=== PATIENT | male | born 1950 | race Caucasian/White ===

== ENCOUNTER 2016-11-30 05:23 | Inpatient (IN) | payer OTHER ==
[2016-08-25 14:13] LABS: BASO % 0.2 %; BASO ABS # 0.03 K/uL (0-0.2); COMPLETE YES; EOS % 2.5 %; HEMATOCRIT 47.6 % (42-52); IG% 0.5 %; LYMPH % 17.7 %; LYMPH ABS # 2.15 K/uL (1.2-3.4); MEAN CELL VOLUME 101.5 fL (80-100); MEAN CORPUSCULAR HEMOGLOBIN 33.5 pg (25-34); MEAN PLATELET VOLUME 9.2 fL (7.4-10.4); MONO % 5.1 %; PLATELET COUNT 291 K/uL (130-400); RED BLOOD COUNT 4.69 M/uL (4.7-6.1); WHITE BLOOD COUNT 12.15 K/uL (4.8-10.8)
[2016-08-25 14:14] VITALS: BMI 25.0
--- NOTE | 2016-08-25 14:54 | PAT Medication Instructions ---
Service Date Aug 25, 2016. Current Home Medication List Atorvastatin (Lipitor), 20 MG PO QPM Buspirone Hcl (Buspar), 15 MG PO TID Carbamazepine (Tegretol), 200 MG PO QAM Carbamazepine (Tegretol), 400 MG PO HS Fluoxetine (Prozac), 40 MG PO QPM Hydroxyzine Hcl (Atarax), 50 MG PO TID PRN for RN Melatonin (Melatonin Maximum Strengt), 1 TAB PO HS Multivitamin (Multivitamin), 1 TAB PO QPM Naltrexone Hcl (Naltrexone Hcl), 1 TAB PO HS Olanzapine (Zyprexa), 20 MG PO HS Medication Instructions For Your Scheduled Surgery - Take the following medications the morning of surgery with a sip of water: Hydroxyzine Hcl (Atarax), 50 MG PO TID PRN for RN (if needed) Buspirone Hcl (Buspar), 15 MG PO TID Carbamazepine (Tegretol), 200 MG PO QAM - Take the following medications as scheduled the night before surgery: Olanzapine (Zyprexa), 20 MG PO HS Multivitamin (Multivitamin), 1 TAB PO QPM Melatonin (Melatonin Maximum Strengt), 1 TAB PO HS Hydroxyzine Hcl (Atarax), 50 MG PO TID PRN for RN (if needed) Fluoxetine (Prozac), 40 MG PO QPM Carbamazepine (Tegretol), 400 MG PO HS Buspirone Hcl (Buspar), 15 MG PO TID Atorvastatin (Lipitor), 20 MG PO QPM Naltrexone Hcl (Naltrexone Hcl), 1 TAB PO HS If you have any questions please call us at [phone] (Tavia Buenrostro PA-C) or [phone] or [phone]
[2016-11-17 16:28] VITALS: BMI 28.0
[~2016-11-30] VITALS: Ht 170.2 cm; Wt 81.8 kg
[2016-11-30] VITALS (11 sets, daily range): BP systolic 121–150; BP diastolic 59–81; PULSE 71–82; TEMP 36.3–36.9; O2SAT 91–99; Ht 170.2 cm; Wt 81.8 kg
[~2016-11-30 05:23] MED LIST: ATOR-22 PO; BUSP15TA70 PO; CARB200T PO; CEFOXITIN IV 2,000 MG in DEXTROSE 5% 50ML 50 ML IV SCH; CLON1INJ2 TOP; FLUO40CA8 PO; HYDR50CA2 PO; LACTATED RINGER'S 1000ML 1,000 ML IV SCH; MELATAB2 PO; MULT-506 PO; NALT50TA5 PO; PROP10TA7 PO; ZYP20 PO
[2016-11-30] MEDS: LACTATED RINGER'S 1000ML 1,000 ML IV SCH ×3 (06:25→11:47)
[2016-11-30] MEDS ORDERED: MIDAZOLAM HCL 1 MG/ML 2ML VIAL ONE (06:37)
[2016-11-30] MEDS ORDERED: FENTANYL CITRATE INJ 50 MCG/1 ML 2 ML VIAL ONE ×3 (06:38→09:35)
[2016-11-30] MEDS ORDERED: DEXAMETHASONE SOD INJ 4 MG/ML VIAL ONE (06:41)
[2016-11-30] MEDS ORDERED: PROPOFOL IV EMULSION 10 MG/ML 20 ML VIAL IV ONE (06:41)
[2016-11-30] MEDS ORDERED: GLYCOPYRROLATE INJ 0.2 MG/ML VIAL ONE (06:41)
[2016-11-30] MEDS ORDERED: ROCURONIUM BROMIDE 10 MG/ML 5 ML VIAL ONE ×2 (06:41→08:13)
[2016-11-30] MEDS ORDERED: NEOSTIGMINE METHYLSULFATE 5 MG/5 ML SYR ONE (06:41)
[2016-11-30] MEDS ORDERED: ONDANSETRON INJ 2 MG/ML 2 ML VIAL ONE (06:41)
[2016-11-30] MEDS ORDERED: LIDOCAINE HCL 2% 2 ML VIAL (20MG/ML) ONE (06:41)
--- NOTE | 2016-11-30 06:57 | History & Physical Bridge Note ---
H&P Re-Evaluation Bridge Note: I have examined the patient, reviewed the History & Physical and in the interval since the performance of the History & Physical I have noted the following changes of clinical significance: No changes noted
[2016-11-30] MEDS ORDERED: HYDROmorphone INJ 1 MG/ML SYR IV PRN (07:15)
[2016-11-30] MEDS ORDERED: ATROPINE SULFATE 0.1 MG/ML 5ML SYR IV PRN (07:15)
[2016-11-30] MEDS ORDERED: ONDANSETRON INJ 2 MG/ML 2 ML VIAL IV PRN (07:15)
[2016-11-30] MEDS ORDERED: EpHEDrine SULFATE INJ 50 MG/ML AMP IV PRN (07:15)
[2016-11-30] MEDS: CEFOXITIN IV 2,000 MG in DEXTROSE 5% 50ML 50 ML IV SCH ×2 (07:38→11:19)
[2016-11-30] MEDS ORDERED: BUPIVACAINE 0.5 % 5 MG/1 ML MPF 30ML VIAL ONE (07:50)
[2016-11-30] MEDS ORDERED: PHENYLEPHRINE 100MCG/ML 5ML SYR ONE (08:06)
--- NOTE | 2016-11-30 10:00 | [facility] Post Operative Brief Note ---
Immediate Operative Summary Operative Date Nov 30, 2016. Pre-Operative Diagnosis Adenomatous Polyp of Cecum with hydrodysplasia Post-Operative Diagnosis same as pre-operative Procedure(s) Performed Laparoscopic Assisted Right Colectomy Surgeon Dr. Mina Daly Office Automation Clerk Surgeon(s) Dr. Karissa Stubbs Estimated Blood Loss 20ML Findings See dictation Specimens A: Right Colon Drains None Anesthesia General Complication(s) None Disposition Recovery Room / PACU
[2016-11-30] MEDS ORDERED: LABETALOL HCL IV 5 MG/ML 20ML IV ONE (10:07)
[2016-11-30] MEDS ORDERED: NALOXONE HCL 0.4 MG/1 ML VIAL/CARP IV PRN (10:15)
[2016-11-30] MEDS: FENTANYL CITRATE INJ 50 MCG/1 ML 2 ML VIAL IV PRN ×3 (10:30→10:56)
[2016-11-30] MEDS ORDERED: HYDROmorphone HCL 0.5MG/ML 50 ML CASSETTE ONE (10:33)
--- NOTE | 2016-11-30 10:33 | OPERATIVE REPORT ---
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 POSTOPERATIVE DIAGNOSIS: Same. PROCEDURE: Laparoscopic-assisted right colectomy. SURGEON: Dr. Daly. DEMURRAGE AGENT: Karissa Stubbs MD. FINDINGS: The lesion was palpable in the colon. It did not appear to extend through the wall. There were no other lesions noted. The small-bowel was normal. The liver appeared to be of normal size and contour. The transverse colon was normal and the stomach appeared normal on the anterior wall. TECHNIQUE: The patient was given a general anesthetic and the area was prepped and draped in the usual sterile fashion. A vertical incision was made just above the umbilicus, carried down through the subcutaneous tissue to the fascia which was grasped with 2 Migdalia clamps and incised between. The peritoneum was identified, incised, and the introducer was placed bluntly. The abdomen was then insufflated to a pressure of 15 mmHg with carbon dioxide. Two 5 mm introducers were placed on the left side of the abdomen, one above the umbilicus and one below. Those were inserted under direct vision. I began at the cecum and reflecting it medially divided the attachments to the lateral abdominal wall at the line of Toldt. I had to divide some attachments of the terminal ileum as well. This dissection was carried from proximal to distal up toward the splenic flexure. Any attachments and flimsy adhesions of the mesentery and of the bowel were divided to mobilize it to the level of the mesentery. The omentum was then dissected off the transverse colon on the right side, working from medial to lateral. That allowed me then to establish a plane down along the mesentery of the transverse colon and this was divided up around the hepatic flexure, mobilizing the hepatic flexure mesentery and dividing any flimsy attachments so that it was completely mobilized. I then worked a little bit more medially on the transverse colon, the mesentery and dividing any attachments of the mesentery and any flimsy attachments which completely mobilized the right side of the transverse colon. The area was inspected for bleeding, none was seen. The small vertical incision above the umbilicus was then extended superiorly, carried down through the layers along the length of the skin incision. I was then able to eviscerate the cecum and the distal ileum. I then was able to eviscerate the entire right colon and proximal transverse colon. Site for division of the colon on the transverse side was made. The mesentery was off the wall of the bowel and the colon was divided using the ESTEFANY stapler. The bowel wall was then freed of any flimsy and fatty attachments. The site on the terminal ileum was chosen and the mesentery was away from the wall and it too was divided using the ESTEFANY stapler. The intervening mesentery was removed using a clamp-clamp, divide and ligate technique, ligating with 2-0 silk ties until the entire mesentery had been divided and the specimen was passed off. The area was inspected for bleeding, none was seen. The anastomosis was then performed. It was done in a functional end-to-end fashion by approximating the small-bowel lateral wall to the lateral wall of the colon using 3-0 silk stay sutures. The antimesenteric border of the staple line was removed and limb of the ESTEFANY stapler was placed into each side of the bowel and then fired. The common opening was closed with a firing of the TA stapler. Additional 3-0 silk stay sutures were placed for reinforcement. The mesentery was closed with running 2-0 Vicryl. The area of dissection was inspected for bleeding, none was seen. The anastomosis was placed back into its anatomic position and the omentum was brought down over it. The right side of the abdomen was irrigated and the irrigation was removed. The fascia of the vertical midline incision was closed with running #1 PDS and the skin of all the incisions was closed with andreia. Estimated blood loss was 20 mL. Sponge, needle and instrument counts were correct prior to closure. The patient tolerated the surgical procedure without complication and was transferred to recovery. I attest to the content of the Intraoperative Record and any orders documented therein. Any exception s are noted below.
--- NOTE | 2016-11-30 10:57 | Anesthesiology Progress Note ---
Anesthesia Post Op Note Date & Time Nov 30, 2016 at 10:56 Vital Signs Pain Intensity: 4.0 Vital Signs Past 12 Hours Date Time Temp Pulse Resp B/P (MAP) Pulse Ox O2 Delivery O2 Flow Rate FiO2 11/30/16 10:50 67 20 152/63 100 Nasal Cannula 2 11/30/16 10:40 68 20 148/84 98 Nasal Cannula 2 11/30/16 10:30 65 24 170/75 100 Nasal Cannula 2 11/30/16 10:20 66 20 161/67 100 Mask 10 11/30/16 10:10 65 18 183/75 100 Mask 10 11/30/16 10:03 36.9 82 16 202/86 100 Mask 10 11/30/16 05:58 36.5 74 20 150/81 99 Room Air Notes Mental Status: alert / awake / arousable, participated in evaluation Pt Amnestic to Procedure: Yes Nausea / Vomiting: adequately controlled Pain: adequately controlled Airway Patency, RR, SpO2: stable & adequate BP & HR: stable & adequate Hydration State: stable & adequate Anesthetic Complications: no major complications apparent
[2016-11-30] MEDS: SODIUM CHLORIDE 0.9% 1000ML 1,000 ML IV SCH ×2 (11:18→11:19)
[2016-11-30] MEDS ORDERED: EpHEDrine SULFATE 50MG/5ML SYR ONE (11:44)
[2016-11-30 12:27] LABS: HEMATOCRIT 38.7 % (42-52); MEAN CELL VOLUME 98.7 fL (80-100); MEAN CORPUSCULAR HEMOGLOBIN 31.9 pg (25-34); MEAN CORPUSCULAR HGB CONC 32.3 g/dl (32-36); MEAN PLATELET VOLUME 8.9 fL (7.4-10.4); PLATELET COUNT 259 K/uL (130-400); RED BLOOD COUNT 3.92 M/uL (4.7-6.1); WHITE BLOOD COUNT 13.13 K/uL (4.8-10.8)
[2016-11-30] MEDS: D5W AND 1/2NSS + 20MEQ KCL 1,000 ML IV SCH ×2 (12:44→19:48)
[2016-11-30 12:46] LABS: INR 1.1 (0.9-1.1); PARTIAL THROMBOPLASTIN RATIO 1.1; PROTHROMBIN TIME (PATIENT) 11.3 SECONDS (9.0-12.0)
[2016-11-30 12:50] LABS: CREATININE 0.88 mg/dl (0.60-1.40)
[2016-11-30] MEDS: HYDROmorphone HCL 0.5MG/ML 50 ML CASSETTE IV PRN ×2 (15:20→23:00)
[2016-11-30] MEDS: NICOTINE 21 MG/24 HR TDSY TD SCH (15:27)
[2016-11-30] MEDS: hydrOXYzine HCL 25 MG TAB PO SCH (22:06)
[2016-11-30] MEDS: OLANZAPINE 5 MG TAB PO SCH (22:07)
[2016-12-01] VITALS (9 sets, daily range): BP systolic 118–140; BP diastolic 62–70; PULSE 78–88; TEMP 36.6–37.3; O2SAT 79–98
[2016-12-01] MEDS: D5W AND 1/2NSS + 20MEQ KCL 1,000 ML IV SCH ×3 (03:04→19:55)
[2016-12-01 06:55] LABS: BASO % 0.1 %; BASO ABS # 0.01 K/uL (0-0.2); COMPLETE YES; EOS % 1.4 %; HEMATOCRIT 36.8 % (42-52); IG% 0.4 %; LYMPH % 18.7 %; LYMPH ABS # 1.88 K/uL (1.2-3.4); MEAN CELL VOLUME 101.9 fL (80-100); MEAN CORPUSCULAR HEMOGLOBIN 33.2 pg (25-34); MEAN CORPUSCULAR HGB CONC 32.6 g/dl (32-36); MEAN PLATELET VOLUME 9.1 fL (7.4-10.4); MONO % 10.4 %; PLATELET COUNT 244 K/uL (130-400); RED BLOOD COUNT 3.61 M/uL (4.7-6.1); WHITE BLOOD COUNT 10.06 K/uL (4.8-10.8)
[2016-12-01] MEDS: HYDROmorphone HCL 0.5MG/ML 50 ML CASSETTE IV PRN ×3 (07:12→22:56)
[2016-12-01 07:18] LABS: BUN/CREATININE RATIO 6.1 (10-20); CALCIUM 8.3 mg/dl (8.5-10.1); CREATININE 0.89 mg/dl (0.60-1.40); POTASSIUM 3.8 mmol/L (3.5-5.1)
--- NOTE | 2016-12-01 07:22 | Surgery Progress Note ---
Surgery Progress Note Date of Service Dec 01, 2016. Subjective Post OP Day: 1 + pain controlled, No bowel movement, No flatus, No nausea, No vomiting Objective Vital Signs: Date Time Temp Pulse Resp B/P (MAP) Pulse Ox O2 Delivery O2 Flow Rate FiO2 12/01/16 02:52 36.7 84 18 124/68 (86) 93 Room Air 11/30/16 23:26 Room Air 11/30/16 22:56 36.6 82 18 121/70 (87) 91 Room Air 11/30/16 22:14 95 Room Air 11/30/16 19:37 36.3 80 17 143/68 (93) 98 Nasal Cannula 1.0 11/30/16 17:58 96 Room Air 11/30/16 15:50 Nasal Cannula 1.0 11/30/16 15:16 36.7 77 18 130/74 (92) 96 Nasal Cannula 2.0 11/30/16 13:31 78 18 125/59 (81) 96 Nasal Cannula 2.0 11/30/16 12:23 36.7 72 20 121/69 (86) 99 Nasal Cannula 1.5 11/30/16 12:01 72 18 123/64 (83) 99 Nasal Cannula 2.0 11/30/16 12:00 Nasal Cannula 1.5 11/30/16 11:35 99 Room Air 2.0 11/30/16 11:30 36.9 71 20 121/68 (85) 99 Nasal Cannula 2.0 11/30/16 11:15 71 12 125/57 99 Nasal Cannula 2 11/30/16 11:10 36.9 65 12 128/59 99 Nasal Cannula 2 11/30/16 11:00 72 18 142/56 99 Nasal Cannula 2 11/30/16 10:50 67 20 152/63 100 Nasal Cannula 2 11/30/16 10:40 68 20 148/84 98 Nasal Cannula 2 11/30/16 10:30 65 24 170/75 100 Nasal Cannula 2 11/30/16 10:20 66 20 161/67 100 Mask 10 11/30/16 10:10 65 18 183/75 100 Mask 10 11/30/16 10:03 36.9 82 16 202/86 100 Mask 10 Abdomen: soft, + distended, + tenderness (mild) Laboratory Results: Results Past 24 Hours Test 11/30/16 12:10 12/01/16 06:26 Range/Units White Blood Count 13.13 10.06 4.8-10.8 K/uL Red Blood Count 3.92 3.61 4.7-6.1 M/uL Hemoglobin 12.5 12.0 14.0-18.0 g/dL Hematocrit 38.7 36.8 42-52 % Mean Corpuscular Volume 98.7 101.9 80-100 fL Mean Corpuscular Hemoglobin 31.9 33.2 25-34 pg Mean Corpuscular Hemoglobin Concent 32.3 32.6 32-36 g/dl RDW Standard Deviation 47.6 49.3 36.4-46.3 fL RDW Coefficient of Variation 13.1 13.2 11.5-14.5 % Platelet Count 259 244 130-400 K/uL Mean Platelet Volume 8.9 9.1 7.4-10.4 fL Prothrombin Time 11.3 9.0-12.0 SECONDS Prothromb Time International Ratio 1.1 0.9-1.1 Activated Partial Thromboplast Time 29.4 21.0-31.0 SECONDS Partial Thromboplastin Ratio 1.1 Creatinine 0.88 0.89 0.60-1.40 mg/dl Est Creatinine Clear Calc Drug Dose 84.6 83.6 ml/min Estimated GFR () 103.7 103.3 Estimated GFR (Non- 89.5 89.1 Neutrophils (%) (Auto) 69.0 % Lymphocytes (%) (Auto) 18.7 % Monocytes (%) (Auto) 10.4 % Eosinophils (%) (Auto) 1.4 % Basophils (%) (Auto) 0.1 % Neutrophils # (Auto) 6.94 1.4-6.5 K/uL Lymphocytes # (Auto) 1.88 1.2-3.4 K/uL Monocytes # (Auto) 1.05 0.11-0.59 K/uL Eosinophils # (Auto) 0.14 0-0.5 K/uL Basophils # (Auto) 0.01 0-0.2 K/uL Immature Granulocyte % (Auto) 0.4 % Immature Granulocyte # (Auto) 0.04 0.00-0.02 K/uL Sodium Level 135 136-145 mmol/L Potassium Level 3.8 3.5-5.1 mmol/L Chloride Level 101 98-107 mmol/L Carbon Dioxide Level 28 21-32 mmol/L Anion Gap 6.0 3-11 mmol/L Blood Urea Nitrogen 5 7-18 mg/dl BUN/Creatinine Ratio 6.1 10-20 Random Glucose 122 70-99 mg/dl Calcium Level 8.3 8.5-10.1 mg/dl Assessment & Plan S/P right colectomy Stable Labs noted Abd distended, would not initiate diet as yet. Ambulate
--- NOTE | 2016-12-01 08:42 | Anesthesiology Progress Note ---
Anesthesia Post Op Note Date & Time Dec 01, 2016 at 08:39 Vital Signs Pain Intensity: 4.0 Vital Signs Past 12 Hours Date Time Temp Pulse Resp B/P (MAP) Pulse Ox O2 Delivery O2 Flow Rate FiO2 12/01/16 08:16 90 Nasal Cannula 12/01/16 07:59 90 Nasal Cannula 2.0 12/01/16 07:52 36.6 88 18 118/64 (82) 79 Room Air 12/01/16 02:52 36.7 84 18 124/68 (86) 93 Room Air 11/30/16 23:26 Room Air 11/30/16 22:56 36.6 82 18 121/70 (87) 91 Room Air 11/30/16 22:14 95 Room Air Notes Mental Status: alert / awake / arousable, participated in evaluation Pt Amnestic to Procedure: Yes Nausea / Vomiting: adequately controlled Pain: adequately controlled Airway Patency, RR, SpO2: stable & adequate, see Notes BP & HR: stable & adequate Hydration State: stable & adequate Anesthetic Complications: no major complications apparent Pt O2 sat 79% on RA when check in am. Placed on 2L O2 sat increased to 90%. Educated and encouraged use of IS, Deep breathing, and ambulation as tolerated.
[2016-12-01] MEDS: NICOTINE 21 MG/24 HR TDSY TD SCH (08:45)
[2016-12-01] MEDS: hydrOXYzine HCL 25 MG TAB PO SCH ×3 (08:46→20:44)
[2016-12-01] MEDS: ENOXAPARIN 40 MG/0.4 ML SYR SQ SCH (10:53)
[2016-12-01] MEDS: OLANZAPINE 5 MG TAB PO SCH (20:44)
[2016-12-02] VITALS (8 sets, daily range): BP systolic 106–136; BP diastolic 60–79; PULSE 61–91; TEMP 36.6–37.3; O2SAT 89–98
[2016-12-02] MEDS: D5W AND 1/2NSS + 20MEQ KCL 1,000 ML IV SCH ×3 (03:36→19:36)
[2016-12-02 07:00] LABS: BASO % 0.2 %; BASO ABS # 0.02 K/uL (0-0.2); COMPLETE YES; HEMATOCRIT 32.2 % (42-52); IG% 0.2 %; LYMPH % 21.2 %; LYMPH ABS # 1.75 K/uL (1.2-3.4); MEAN CELL VOLUME 102.9 fL (80-100); MEAN CORPUSCULAR HEMOGLOBIN 33.5 pg (25-34); MEAN CORPUSCULAR HGB CONC 32.6 g/dl (32-36); MEAN PLATELET VOLUME 9.2 fL (7.4-10.4); MONO % 9.1 %; NEUT % 66.3 %; PLATELET COUNT 196 K/uL (130-400); RED BLOOD COUNT 3.13 M/uL (4.7-6.1); WHITE BLOOD COUNT 8.26 K/uL (4.8-10.8)
[2016-12-02 07:36] LABS: BUN/CREATININE RATIO 3.2 (10-20); CALCIUM 7.9 mg/dl (8.5-10.1); CREATININE 0.69 mg/dl (0.60-1.40); POTASSIUM 3.7 mmol/L (3.5-5.1)
[2016-12-02] MEDS: hydrOXYzine HCL 25 MG TAB PO SCH ×3 (09:41→20:30)
[2016-12-02] MEDS: NICOTINE 21 MG/24 HR TDSY TD SCH (09:42)
[2016-12-02] MEDS: ENOXAPARIN 40 MG/0.4 ML SYR SQ SCH (09:42)
[2016-12-02] MEDS: SODIUM CHLORIDE 0.9% 1000ML 1,000 ML IV SCH (10:09)
--- NOTE | 2016-12-02 13:07 | Surgery Progress Note ---
Surgery Progress Note Date of Service Dec 02, 2016. Subjective Post OP Day: 2 + feeling well, + ambulating (to bathroom), No chest pain, No SOB, No bowel movement, No flatus, No nausea, No vomiting having moderate abdominal pain, pain medication somewhat helping No flatus or bowel movement Objective Vital Signs: Date Time Temp Pulse Resp B/P (MAP) Pulse Ox O2 Delivery O2 Flow Rate FiO2 12/02/16 11:16 36.6 77 16 115/65 (82) 92 Room Air 12/02/16 10:21 96 Room Air 12/02/16 08:00 Room Air 12/02/16 07:04 36.8 79 16 136/79 (98) 98 Nasal Cannula 2.0 12/02/16 03:09 37.3 61 19 106/60 (75) 96 Nasal Cannula 2.0 12/01/16 23:33 Nasal Cannula 2.0 12/01/16 23:03 37.3 82 18 124/64 (84) 94 Nasal Cannula 2.0 12/01/16 19:15 37.3 82 18 126/70 (88) 94 2.0 12/01/16 15:35 Nasal Cannula 2.0 12/01/16 15:23 36.7 79 18 131/69 (89) 92 Nasal Cannula 2.0 General Appearance: WD/WN, no apparent distress Head: normocephalic, atraumatic Neck: trachea midline Respiratory/Chest: lungs clear, normal breath sounds, no respiratory distress, no accessory muscle use Cardiovascular: regular rate, rhythm, no murmur Abdomen: soft, + abnormal bowel sounds (hypoactive), + distended, + tenderness (generalized tenderness on light palpation, no peritonitis, rigidity, or rebound ) Laboratory Results: Results Past 24 Hours Test 12/02/16 06:24 Range/Units White Blood Count 8.26 4.8-10.8 K/uL Red Blood Count 3.13 4.7-6.1 M/uL Hemoglobin 10.5 14.0-18.0 g/dL Hematocrit 32.2 42-52 % Mean Corpuscular Volume 102.9 80-100 fL Mean Corpuscular Hemoglobin 33.5 25-34 pg Mean Corpuscular Hemoglobin Concent 32.6 32-36 g/dl Platelet Count 196 130-400 K/uL Mean Platelet Volume 9.2 7.4-10.4 fL Neutrophils (%) (Auto) 66.3 % Lymphocytes (%) (Auto) 21.2 % Monocytes (%) (Auto) 9.1 % Eosinophils (%) (Auto) 3.0 % Basophils (%) (Auto) 0.2 % Neutrophils # (Auto) 5.47 1.4-6.5 K/uL Lymphocytes # (Auto) 1.75 1.2-3.4 K/uL Monocytes # (Auto) 0.75 0.11-0.59 K/uL Eosinophils # (Auto) 0.25 0-0.5 K/uL Basophils # (Auto) 0.02 0-0.2 K/uL RDW Standard Deviation 49.4 36.4-46.3 fL RDW Coefficient of Variation 13.2 11.5-14.5 % Immature Granulocyte % (Auto) 0.2 % Immature Granulocyte # (Auto) 0.02 0.00-0.02 K/uL Sodium Level 137 136-145 mmol/L Potassium Level 3.7 3.5-5.1 mmol/L Chloride Level 105 98-107 mmol/L Carbon Dioxide Level 30 21-32 mmol/L Anion Gap 2.0 3-11 mmol/L Blood Urea Nitrogen 2 7-18 mg/dl Creatinine 0.69 0.60-1.40 mg/dl Est Creatinine Clear Calc Drug Dose 107.8 ml/min Estimated GFR () 114.7 Estimated GFR (Non- 98.9 BUN/Creatinine Ratio 3.2 10-20 Random Glucose 113 70-99 mg/dl Calcium Level 7.9 8.5-10.1 mg/dl Assessment & Plan POD # 2 s/p right hemicolectomy -vitals stable - no leukocytosis, H&H stable - no return of bowel function -adequate urine output - pain moderate Plan: Continue SPEECH WRITER as needed for pain Continue NPO, await return of bowel function to advance to clears Continue IV fluids Continue PO Zyprexa, Vistaril, and Buspar Continue IV Zofran Continue Lovenox and SCDs Encourage ambulation and OOB to chair as much as possible Dr. Stubbs has seen and examined patient, agrees with above
[2016-12-02] MEDS: HYDROmorphone HCL 0.5MG/ML 50 ML CASSETTE IV PRN ×2 (17:01→22:44)
[2016-12-02] MEDS: OLANZAPINE 5 MG TAB PO SCH (20:30)
[2016-12-03] VITALS (7 sets, daily range): BP systolic 119–148; BP diastolic 62–80; PULSE 78–96; TEMP 36.6–37.4; O2SAT 92–99
[2016-12-03] MEDS: D5W AND 1/2NSS + 20MEQ KCL 1,000 ML IV SCH ×3 (04:20→20:59)
[2016-12-03] MEDS: HYDROmorphone HCL 0.5MG/ML 50 ML CASSETTE IV PRN (06:47)
[2016-12-03] MEDS: hydrOXYzine HCL 25 MG TAB PO SCH ×3 (08:03→20:58)
[2016-12-03] MEDS: NICOTINE 21 MG/24 HR TDSY TD SCH (08:04)
[2016-12-03] MEDS: SODIUM CHLORIDE 0.9% 1000ML 1,000 ML IV SCH (08:05)
[2016-12-03 08:21] LABS: HEMATOCRIT 35.4 % (42-52); MEAN CORPUSCULAR HEMOGLOBIN 33.1 pg (25-34); MEAN CORPUSCULAR HGB CONC 32.5 g/dl (32-36); MEAN PLATELET VOLUME 9.3 fL (7.4-10.4); PLATELET COUNT 227 K/uL (130-400); RED BLOOD COUNT 3.47 M/uL (4.7-6.1); WHITE BLOOD COUNT 12.44 K/uL (4.8-10.8)
--- NOTE | 2016-12-03 08:40 | Surgery Progress Note ---
Surgery Progress Note Date of Service Dec 03, 2016. Subjective Post OP Day: 3 (s/p right hemicolectomy with primary anastomosis) + feeling well, + ambulating (to bathroom), + bowel movement, + pain controlled , No chest pain, No SOB, No flatus, No nausea, No vomiting, No diet Objective Vital Signs: Date Time Temp Pulse Resp B/P (MAP) Pulse Ox O2 Delivery O2 Flow Rate FiO2 12/03/16 08:06 36.6 88 16 122/62 (82) 95 Nasal Cannula 2.0 12/03/16 03:10 37.4 81 19 148/78 (101) 95 Nasal Cannula 2.0 12/02/16 23:13 37.1 88 19 132/70 (90) 92 Nasal Cannula 2.0 12/02/16 23:05 89 Nasal Cannula 2.0 12/02/16 19:06 37.1 75 18 115/65 (82) 93 Room Air 12/02/16 15:43 37.2 91 16 129/68 (88) 94 Nasal Cannula 2.0 12/02/16 15:35 Nasal Cannula 2.0 12/02/16 11:16 36.6 77 16 115/65 (82) 92 Room Air 12/02/16 10:21 96 Room Air General Appearance: WD/WN, no apparent distress Head: normocephalic, atraumatic Neck: trachea midline Respiratory/Chest: lungs clear, normal breath sounds, no respiratory distress, no accessory muscle use Cardiovascular: regular rate, rhythm, + systolic murmur Abdomen: non distended, soft, + tenderness (appropriate post op, generalized, improving) Incision(s): clean, dry, intact, no erythema, no drainage, findings (andreia present) Laboratory Results: Results Past 24 Hours Test 12/03/16 07:54 Range/Units White Blood Count 12.44 4.8-10.8 K/uL Red Blood Count 3.47 4.7-6.1 M/uL Hemoglobin 11.5 14.0-18.0 g/dL Hematocrit 35.4 42-52 % Mean Corpuscular Volume 102.0 80-100 fL Mean Corpuscular Hemoglobin 33.1 25-34 pg Mean Corpuscular Hemoglobin Concent 32.5 32-36 g/dl RDW Standard Deviation 48.0 36.4-46.3 fL RDW Coefficient of Variation 12.8 11.5-14.5 % Platelet Count 227 130-400 K/uL Mean Platelet Volume 9.3 7.4-10.4 fL Nucleated RBC Absolute Count (auto) 0.00 0-0 K/uL Nucleated Red Blood Cells % 0.0 % Assessment & Plan POD # 3 s/p right hemicolectomy - vitals stable - no leukocytosis, H&H stable - + bowel movement per patient - adequate urine output - pain mild, improving Plan: once tolerates clear liquids will start PO narcotics, 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 Daly has seen patient, agrees with above
[2016-12-03 08:48] LABS: CREATININE 0.74 mg/dl (0.60-1.40)
[2016-12-03] MEDS: ENOXAPARIN 40 MG/0.4 ML SYR SQ SCH (10:07)
[2016-12-03] MEDS: OXYCODONE/ACETAMINOPHEN 5-325 TAB PO PRN ×2 (16:02→20:58)
[2016-12-03] MEDS: ONDANSETRON INJ 2 MG/ML 2 ML VIAL IV PRN ×2 (18:32→19:26)
[2016-12-03] MEDS: OLANZAPINE 5 MG TAB PO SCH (20:52)
[2016-12-04] MEDS: OXYCODONE/ACETAMINOPHEN 5-325 TAB PO PRN ×5 (04:30→22:41)
[2016-12-04 06:56] VITALS: BP 145/80; PULSE 89; TEMP 36.6; O2SAT 93
--- NOTE | 2016-12-04 07:12 | Surgery Progress Note ---
Surgery Progress Note Date of Service Dec 04, 2016. Subjective Post OP Day: 4 + feeling well, + bowel movement, + flatus, + pain controlled, + diet ( tolerated clear liquids), No nausea, No vomiting Objective Vital Signs: Date Time Temp Pulse Resp B/P (MAP) Pulse Ox O2 Delivery O2 Flow Rate FiO2 12/04/16 06:56 36.6 89 18 145/80 (101) 93 Room Air 12/04/16 00:25 Room Air 12/03/16 22:56 36.6 78 18 121/73 (89) 95 Room Air 12/03/16 15:30 Room Air 12/03/16 15:01 37.3 96 18 119/70 (86) 93 Room Air 12/03/16 12:14 36.7 84 14 138/80 (99) 92 Room Air 12/03/16 08:41 95 Nasal Cannula 2.0 12/03/16 08:06 36.6 88 16 122/62 (82) 95 Nasal Cannula 2.0 12/03/16 08:00 Nasal Cannula 2.0 Abdomen: normal bowel sounds, non distended, soft, + tenderness (minimal) Incision(s): clean, dry, intact, no erythema, no drainage Laboratory Results: Results Past 24 Hours Test 12/03/16 07:54 Range/Units White Blood Count 12.44 4.8-10.8 K/uL Red Blood Count 3.47 4.7-6.1 M/uL Hemoglobin 11.5 14.0-18.0 g/dL Hematocrit 35.4 42-52 % Mean Corpuscular Volume 102.0 80-100 fL Mean Corpuscular Hemoglobin 33.1 25-34 pg Mean Corpuscular Hemoglobin Concent 32.5 32-36 g/dl RDW Standard Deviation 48.0 36.4-46.3 fL RDW Coefficient of Variation 12.8 11.5-14.5 % Platelet Count 227 130-400 K/uL Mean Platelet Volume 9.3 7.4-10.4 fL Nucleated RBC Absolute Count (auto) 0.00 0-0 K/uL Nucleated Red Blood Cells % 0.0 % Creatinine 0.74 0.60-1.40 mg/dl Est Creatinine Clear Calc Drug Dose 100.5 ml/min Estimated GFR () 111.4 Estimated GFR (Non- 96.1 Assessment & Plan S/P right colectomy Stable Tolerated full liquids, advance to regular diet Ambulate For possible discharge tomorrow
[2016-12-04] MEDS: hydrOXYzine HCL 25 MG TAB PO SCH ×3 (07:53→21:40)
[2016-12-04] MEDS: NICOTINE 21 MG/24 HR TDSY TD SCH (07:53)
[2016-12-04] MEDS: D5W AND 1/2NSS + 20MEQ KCL 1,000 ML IV SCH ×2 (09:15→21:41)
[2016-12-04] MEDS: ENOXAPARIN 40 MG/0.4 ML SYR SQ SCH (09:16)
--- NOTE | 2016-12-04 10:31 | Discharge Instructions ---
Discharge Instructions Date of Service Dec 04, 2016. Admission Reason for Admission: Adenomatous Polyp Discharge Discharge Diagnosis / Problem: Same Discharge Goals Goal(s): Decrease discomfort, Improve function Activity Recommendations Activity Limitations: as noted below -No lifting greater than 10lbs for 4-6 weeks -You may shower, just wash gently over the incision with warm, soapy water. Do not scrub. Do not soak your incision, as in a bathtub or swimming pool. -Do not drive until you are no longer taking narcotic pain medications and are completely pain free . Instructions / Follow-Up Instructions / Follow-Up -Follow up next Wednesday (12/11/16) in the clinic for wound check and staple removal; please call to make this appointment. Current Hospital Diet Patient's current hospital diet: Regular Diet Discharge Diet Recommended Diet: Low Fiber Diet Procedures Procedures Performed: Laparoscopic Assisted Right Colectomy Pending Studies Studies pending at discharge: no Medical Emergencies . Who to Call and When: Medical Emergencies: If at any time you feel your situation is an emergency, please call 911 immediately. . Non-Emergent Contact Non-Emergency issues call your: Primary Care Provider, Surgeon Call Non-Emergent contact if: temperature is above 101, your pain is not controlled, your pain is worsening, wound has increased drainage, wound has increased redness, wound has increased pain . "Provider Documentation" section prepared by Karissa Stubbs. . VTE Core Measure Inpt VTE Proph given/why not?: Enoxaparin (Lovenox)SQ, SCD's [place] Drug Monitoring Program Search Results: patient reviewed within database, no issues identified
[2016-12-04] MEDS ORDERED: OXYC-57 PO (15:07)
[2016-12-04 15:23] VITALS: BP 130/76; PULSE 88; TEMP 37.1; O2SAT 96
[2016-12-04] MEDS: OLANZAPINE 5 MG TAB PO SCH (21:40)
[2016-12-04 22:57] VITALS: BP 139/82; PULSE 87; TEMP 36.9; O2SAT 95
[2016-12-05] MEDS: OXYCODONE/ACETAMINOPHEN 5-325 TAB PO PRN ×3 (06:18→19:05)
[2016-12-05 07:37] VITALS: BP 116/76; PULSE 92; TEMP 37.4; O2SAT 94
[2016-12-05 08:29] LABS: BASO % 0.2 %; BASO ABS # 0.02 K/uL (0-0.2); COMPLETE YES; EOS % 4.7 %; HEMATOCRIT 35.2 % (42-52); IG% 0.3 %; LYMPH % 12.6 %; LYMPH ABS # 1.24 K/uL (1.2-3.4); MEAN CELL VOLUME 99.4 fL (80-100); MEAN CORPUSCULAR HEMOGLOBIN 31.6 pg (25-34); MEAN CORPUSCULAR HGB CONC 31.8 g/dl (32-36); MEAN PLATELET VOLUME 8.8 fL (7.4-10.4); MONO % 10.2 %; PLATELET COUNT 271 K/uL (130-400); RED BLOOD COUNT 3.54 M/uL (4.7-6.1); WHITE BLOOD COUNT 9.88 K/uL (4.8-10.8)
[2016-12-05] MEDS: NICOTINE 21 MG/24 HR TDSY TD SCH (08:48)
[2016-12-05] MEDS: hydrOXYzine HCL 25 MG TAB PO SCH ×3 (08:51→20:34)
[2016-12-05] MEDS: ONDANSETRON INJ 2 MG/ML 2 ML VIAL IV PRN (08:56)
[2016-12-05] MEDS: D5W AND 1/2NSS + 20MEQ KCL 1,000 ML IV SCH ×2 (09:00→21:17)
[2016-12-05] MEDS: ENOXAPARIN 40 MG/0.4 ML SYR SQ SCH (10:44)
--- NOTE | 2016-12-05 14:36 | Surgery Progress Note ---
Surgery Progress Note Date of Service Dec 05, 2016. Subjective doing ok but poor appetite. concerned about going home b/c he lives alone. Objective Vital Signs: Date Time Temp Pulse Resp B/P (MAP) Pulse Ox O2 Delivery O2 Flow Rate FiO2 12/05/16 07:52 Room Air 12/05/16 07:37 37.4 92 18 116/76 (89) 94 Room Air 12/04/16 23:25 Room Air 12/04/16 22:57 36.9 87 14 139/82 (101) 95 Room Air 12/04/16 20:30 Room Air 12/04/16 15:25 Room Air 12/04/16 15:23 37.1 88 18 130/76 (94) 96 Room Air General Appearance: no apparent distress Abdomen: non distended, soft Incision(s): clean, dry Laboratory Results: Results Past 24 Hours Test 12/05/16 07:56 Range/Units White Blood Count 9.88 4.8-10.8 K/uL Red Blood Count 3.54 4.7-6.1 M/uL Hemoglobin 11.2 14.0-18.0 g/dL Hematocrit 35.2 42-52 % Mean Corpuscular Volume 99.4 80-100 fL Mean Corpuscular Hemoglobin 31.6 25-34 pg Mean Corpuscular Hemoglobin Concent 31.8 32-36 g/dl Platelet Count 271 130-400 K/uL Mean Platelet Volume 8.8 7.4-10.4 fL Neutrophils (%) (Auto) 72.0 % Lymphocytes (%) (Auto) 12.6 % Monocytes (%) (Auto) 10.2 % Eosinophils (%) (Auto) 4.7 % Basophils (%) (Auto) 0.2 % Neutrophils # (Auto) 7.12 1.4-6.5 K/uL Lymphocytes # (Auto) 1.24 1.2-3.4 K/uL Monocytes # (Auto) 1.01 0.11-0.59 K/uL Eosinophils # (Auto) 0.46 0-0.5 K/uL Basophils # (Auto) 0.02 0-0.2 K/uL RDW Standard Deviation 47.8 36.4-46.3 fL RDW Coefficient of Variation 13.0 11.5-14.5 % Immature Granulocyte % (Auto) 0.3 % Immature Granulocyte # (Auto) 0.03 0.00-0.02 K/uL Assessment & Plan doing ok will give him another 24 hours for pain control and trial of po intake likely d/c tomorrow.
[2016-12-05 15:52] VITALS: BP 133/82; PULSE 75; TEMP 36.9; O2SAT 96
[2016-12-05 20:29] VITALS: BP 146/78; PULSE 77
[2016-12-05] MEDS: OLANZAPINE 5 MG TAB PO SCH (20:33)
[2016-12-05 22:50] VITALS: BP 144/75; PULSE 77; TEMP 36.8; O2SAT 96
[2016-12-06 06:49] LABS: MEAN CELL VOLUME 100.6 fL (80-100); MEAN CORPUSCULAR HEMOGLOBIN 32.8 pg (25-34); MEAN CORPUSCULAR HGB CONC 32.6 g/dl (32-36); MEAN PLATELET VOLUME 9.1 fL (7.4-10.4); PLATELET COUNT 272 K/uL (130-400); RED BLOOD COUNT 3.38 M/uL (4.7-6.1); WHITE BLOOD COUNT 8.68 K/uL (4.8-10.8)
[2016-12-06 07:15] LABS: CREATININE 0.89 mg/dl (0.60-1.40)
[2016-12-06 07:25] VITALS: BP 150/80; PULSE 83; TEMP 36.8; O2SAT 92
[2016-12-06] MEDS: D5W AND 1/2NSS + 20MEQ KCL 1,000 ML IV SCH (08:48)
[2016-12-06] MEDS: NICOTINE 21 MG/24 HR TDSY TD SCH (08:48)
[2016-12-06] MEDS: hydrOXYzine HCL 25 MG TAB PO SCH (08:49)
[2016-12-06] MEDS: OXYCODONE/ACETAMINOPHEN 5-325 TAB PO PRN (09:14)
--- NOTE | 2016-12-06 09:20 | Surgery Progress Note ---
Surgery Progress Note Date of Service Dec 06, 2016. Subjective + feeling well Objective Vital Signs: Date Time Temp Pulse Resp B/P (MAP) Pulse Ox O2 Delivery O2 Flow Rate FiO2 12/06/16 08:23 Room Air 12/06/16 07:25 36.8 83 18 150/80 (103) 92 Room Air 12/05/16 23:30 Room Air 12/05/16 22:50 36.8 77 16 144/75 (98) 96 Room Air 12/05/16 20:29 77 146/78 (100) 12/05/16 16:10 Room Air 12/05/16 15:52 36.9 75 18 133/82 (99) 96 Room Air General Appearance: no apparent distress Abdomen: non tender, non distended, soft Laboratory Results: Results Past 24 Hours Test 12/06/16 06:16 Range/Units White Blood Count 8.68 4.8-10.8 K/uL Red Blood Count 3.38 4.7-6.1 M/uL Hemoglobin 11.1 14.0-18.0 g/dL Hematocrit 34.0 42-52 % Mean Corpuscular Volume 100.6 80-100 fL Mean Corpuscular Hemoglobin 32.8 25-34 pg Mean Corpuscular Hemoglobin Concent 32.6 32-36 g/dl RDW Standard Deviation 47.5 36.4-46.3 fL RDW Coefficient of Variation 13.1 11.5-14.5 % Platelet Count 272 130-400 K/uL Mean Platelet Volume 9.1 7.4-10.4 fL Creatinine 0.89 0.60-1.40 mg/dl Est Creatinine Clear Calc Drug Dose 83.6 ml/min Estimated GFR () 103.3 Estimated GFR (Non- 89.1 Assessment & Plan 12/06/16 doing well/ok for d/c instructions given 12/05/16 doing ok will give him another 24 hours for pain control and trial of po intake likely d/c tomorrow. doing ok will give him another 24 hours for pain control and trial of po intake likely d/c tomorrow.
[2016-12-06 10:11] VITALS: BP 150/80; PULSE 83; TEMP 36.8; O2SAT 92
[2016-12-06] MEDS: ENOXAPARIN 40 MG/0.4 ML SYR SQ SCH (10:15)
--- NOTE | 2016-12-07 09:24 | Discharge Summary ---
Discharge Summary Dates Admission Date / Time: Nov 30, 2016 at 06:53 Discharge Date: Dec 06, 2016 Dispostion / Condition Discharge Disposition: Home Condition at Discharge: Good Principal Diagnosis (1) Adenocarcinoma, colon (2) Adenoma of cecum Problem List (1) Adenocarcinoma, colon (2) Adenoma of cecum Consultations / Procedures Consultations: None Procedures: Laparoscopic assisted right hemicolectomy with primary anastomosis Pending Studies / Follow-Up None Pathology was reviewed with patient while he was in hospital, will be reviewed again at follow-up visit Medication Reconciliation New Medications: Oxycodone/Acetaminophen 5MG/325MG (Percocet 5MG/325MG) Tab 1-2 TABLETS PO Q4H PRN for Pain, #30 TAB Continued Medications: Atorvastatin (Lipitor) 20 Mg Tab 20 MG PO QPM, TAB Buspirone Hcl (Buspar) 15 Mg Tab 15 MG PO TID, TAB Carbamazepine (Tegretol) 200 Mg Tab 200 MG PO QAM, TAB Carbamazepine (Tegretol) 200 Mg Tab 400 MG PO HS, TAB Clonidine Hcl (Analgesia) (Clonidine Hcl) Unknown Strength Inj 1 PATCH TOP WK Fluoxetine (Prozac) 40 Mg Cap 40 MG PO QAM, CAP Hydroxyzine Pamoate (Vistaril) 50 Mg Cap 50 MG PO TID, CAP Melatonin (Melatonin Maximum Strengt) 5 Mg Tab 2 TAB PO HS for 30 Days, #30 TAB 1 Refill Multivitamin (Multivitamin) Tab 1 TAB PO QAM, TAB Naltrexone Hcl (Naltrexone Hcl) 50 Mg Tab 1 TAB PO HS for 30 Days, TAB 1 Refill WAS TOLD TO STOP FOR THE PROCEDURE - NOT TAKING CURRENTLY Olanzapine (Zyprexa) 20 Mg Tab 20 MG PO HS, TAB Propranolol (Inderal) 10 Mg Tab 10 MG PO BID, TAB Admission HPI Per the Admitting provider: Elijah underwent colonoscopy in which he was found to have a adenomatous polyp with high grade dysplasia. He was scheduled with Dr. Daly for right hemicolectomy given the high grade dysplasia. Hospital Course (1) Adenoma of cecum Patient was electively scheduled for laparoscopic assisted right hemicolectomy by Dr. Daly. He was taken to operating room and underwent proposed procedure. Procedure went well without any complications and was transferred to recovery room in stable condition. He was then transferred to Med/Surg floor for post operative care. Post operative orders included NPO, Iv fluids, IV Zofran, Dilaudid ROTARY DRIER as needed for pain, and Lovenox and scds. POD # 1 he was slightly distended and abdominal pain was moderate. No changes in orders other than started his oral Zyprexa, Vistaril, and BuSpar. POD # 2 he was still having moderate abdominal pain. ROTARY DRIER was continued and diet was still kept NPO as there was no return of bowel function yet. Encouraged ambulation. POD # 3 had return of bowel function with bowel movement. Clear liquids were started. IV fluid rate as decreased. Diet was advanced further to full liquids for dinner. ROTARY DRIER was discontinued and oral Percocet was started for pain. POD # 4 diet was advanced to regular diet. Plan for discharge to home on POD # 5 however patient was concerned due to living alone that he was not ready for discharge quite yet so he was kept until POD # 6 for pain control and further PO intake. Overall hospital course was uneventful. Discharge Instructions as given to patient Copies To Primary Care Provider: Suzette Briggs M.D..
== END 2016-12-06 10:59 | disposition home health service (06) | DRG 331 ==
LOC: C.ACU 05:23 → C.MSN 06:53 → ENRESERV 10:43
PROVIDERS: ADMIT Surgery; ATTEND Surgery
PROC: 0DTF0ZZ Resection of Right Large Intestine, Open Approach (ICD-10-PCS; principal; 2016-11-30 07:00)
DX: C18.9 Malignant neoplasm of colon, unspecified (principal); D12.0 Benign neoplasm of cecum; E78.5 Hyperlipidemia, unspecified; F10.21 Alcohol dependence, in remission; F17.200 Nicotine dependence, unspecified, uncomplicated; Z79.899 Other long term (current) drug therapy

== ENCOUNTER 2017-06-25 15:19 | Emergency (ER) | payer OTHER ==
[~2017-06-25] VITALS: Ht 162.6 cm; Wt 77.8 kg
[~2017-06-25 15:19] MED LIST changes: -CEFOXITIN IV 2,000 MG in DEXTROSE 5% 50ML 50 ML IV SCH; -HYDR50CA2 PO; -LACTATED RINGER'S 1000ML 1,000 ML IV SCH; -PROP10TA7 PO
[2017-06-25 15:30] VITALS: TEMP 36.7; Ht 162.6 cm; Wt 77.8 kg
--- NOTE | 2017-06-25 15:47 | DIAGNOSTIC IMAGING REPORT ---
CHEST ONE VIEW PORTABLE CLINICAL HISTORY: Mood Disorder psychiatric evaluation COMPARISON STUDY: No previous studies for comparison. FINDINGS: The bones soft tissues and hemidiaphragms are normal. The cardiomediastinal silhouette is normal. The lungs are clear. The pulmonary vasculature is normal. IMPRESSION: Negative chest. The above report was generated using voice recognition software. It may contain grammatical, syntax or spelling errors. Electronically signed by: Mina Lopez M.D. 06/25/2017 3:46 PM Dictated Date/Time: 06/25/2017 3:46 PM
[2017-06-25] MEDS ORDERED: HYDR50CA2 PO (15:52)
--- NOTE | 2017-06-25 16:10 | DIAGNOSTIC IMAGING REPORT ---
CT HEAD WITHOUT CONTRAST (CT) CLINICAL HISTORY: EVALUATE FOR PSYCH CLEARANCE CHANGE IN MENTAL STATUS COMPARISON STUDY: No previous studies for comparison. TECHNIQUE: Axial CT of the brain is performed from the vertex to the skull base. IV contrast was not administered for this examination. A dose lowering technique was utilized adhering to the principles of ALARA. CT DOSE: 614.27 mGy.cm FINDINGS: No intra or extra-axial mass lesions are visualized. There is no CT evidence of acute cortical infarction. There is no evidence of midline shift. There is no acute hemorrhage. No calvarial fractures are visualized. There are minor white matter hypodensities likely on a small vessel basis. There is no evidence of pathologic ventricular dilatation. There is no evidence of acute sinusitis IMPRESSION: No acute intracranial findings Electronically signed by: Rao Mei M.D. 06/25/2017 4:08 PM Dictated Date/Time: 06/25/2017 4:07 PM
[2017-06-25] MEDS ORDERED: ASPI325T45 PO (16:19)
[2017-06-25] MEDS ORDERED: DOCU100C31 PO (16:19)
[2017-06-25] MEDS ORDERED: OXYC-57 PO (16:19)
[2017-06-25] MEDS ORDERED: CLOP1TAB15 PO (16:19)
[2017-06-25] MEDS ORDERED: PRED20TA PO (16:19)
[2017-06-25] MEDS ORDERED: ATOR-24 PO (16:19)
[2017-06-25] MEDS ORDERED: POLY1POW2 PO (16:19)
[2017-06-25 16:23] LABS: BASO % 0.1 %; BASO ABS # 0.02 K/uL (0-0.2); EOS % 2.8 %; EOS ABS # 0.39 K/uL (0-0.5); HEMATOCRIT 40.3 % (42-52); IG# 0.12 K/uL (0.00-0.02); LYMPH % 20.3 %; LYMPH ABS # 2.82 K/uL (1.2-3.4); MEAN CELL VOLUME 99.5 fL (80-100); MEAN CORPUSCULAR HEMOGLOBIN 34.6 pg (25-34); MEAN CORPUSCULAR HGB CONC 34.7 g/dl (32-36); MEAN PLATELET VOLUME 9.1 fL (7.4-10.4); MONO % 6.4 %; MONO ABS # 0.89 K/uL (0.11-0.59); NEUT % 69.5 %; NEUT ABS # 9.68 K/uL (1.4-6.5); PLATELET COUNT 213 K/uL (130-400); RED CELL DISTRIBUTION WIDTH CV 13.9 % (11.5-14.5); RED CELL DISTRIBUTION WIDTH SD 50.2 fL (36.4-46.3); WHITE BLOOD COUNT 13.92 K/uL (4.8-10.8)
[2017-06-25] MEDS ORDERED: ACET-1256 PO (16:23)
[2017-06-25] MEDS ORDERED: MULTTAB PO (16:23)
[2017-06-25] MEDS ORDERED: PROP10TA7 PO (16:39)
[2017-06-25 16:56] LABS: ALBUMIN 3.5 gm/dl (3.4-5.0); ALKALINE PHOSPHATASE 147 U/L (45-117); ALT/SGPT 21 U/L (12-78); AST/SGOT 18 U/L (15-37); TOTAL PROTEIN 7.2 gm/dl (6.4-8.2)
--- NOTE | 2017-06-25 19:08 | EMERGENCY ROOM VISIT NOTE ---
History Report prepared by Ana Luisa: Natanael Schmitt Under the Supervision of: Dr. Ishan Villarreal M.D. First contact with patient: 15:23 Stated Complaint: MHID History of Present Illness The patient is a 67 year old white male with a past medical history of previous adenoma of the colon who presents to the ED by EMS with a cc of a worsening altered mental status beginning two days ago. He is a resident at [facility]. Patient describes feeling "sensation of impending doom". Patient was seen for a mental health evaluation two days ago. Positive chest pain, SOB. Patient has not been eating, drinking, or sleeping much recently. He would like to be evaluated as an inpatient for mental health acute care. BSG by EMS was found to be 103. HPI limited secondary to poor cooperation. Source of History: patient History Limited By: poor cooperation Onset: Two days ago Quality: other (altered mental status) Timing: worsening Associated Symptoms: + chest pain, + SOB Review of Systems ROS limited secondary to poor cooperation. Past Medical & Surgical Medical Problems: (1) Adenocarcinoma, colon (2) Adenoma of cecum (3) Alcohol dependence (4) HLD (hyperlipidemia) Family History No pertinent family history stated. Social History Smoking Status: Current Every Day Smoker Housing Status: assisted living Current/Historical Medications Scheduled Aspirin (Aspirin), 325 MG PO DAILY Atorvastatin (Lipitor), 40 MG PO DAILY Buspirone Hcl (Buspar), 15 MG PO TID Carbamazepine (Tegretol), 200 MG PO QAM Carbamazepine (Tegretol), 400 MG PO HS Clopidogrel (Plavix), 75 MG PO DAILY Fluoxetine (Prozac), 40 MG PO QAM Multivitamins/Minerals (Mvi With Minerals), 1 TAB PO DAILY Olanzapine (Zyprexa), 20 MG PO HS Polyethylene Glycol 3350 (Bulk (Polyethylene Glycol 3350), 17 GM PO DAILY Prednisone (Prednisone), 20 MG PO UD Propranolol (Inderal), 10 MG PO BID Scheduled PRN Acetaminophen (Tylenol), 500 MG PO Q4H PRN for Pain Docusate Sodium (Docusate Sodium), 100 MG PO BID PRN for Constipation Hydroxyzine Pamoate (Vistaril), 50 MG PO TID PRN for Anxiety Oxycodone/Acetaminophen 5MG/325MG (Percocet 5MG/325MG), 1 TABLET PO Q4H PRN for Moderate Pain Allergies Coded Allergies: Naproxen (Verified Allergy, Intermediate, HEART RACING SWEATING, 11/30/16) Physical Exam Vital Signs Date Time Temp Pulse Resp B/P (MAP) Pulse Ox O2 Delivery O2 Flow Rate FiO2 06/25/17 18:51 81 18 179/76 96 Room Air 06/25/17 17:22 76 24 175/79 98 06/25/17 15:30 36.7 78 18 187/77 98 Room Air Physical Exam GENERAL: Awake, alert, well-appearing, NAD HENT: Normocephalic, atraumatic. EYES: Normal conjunctiva. Sclera non-icteric. PERRL at 3 mm. NECK: Supple. No nuchal rigidity. FROM. RESPIRATORY: CTAB, no rhonchi, wheezing, crackles CARDIAC: RRR, no MRG ABDOMEN: Soft, NTND, BS+ MSK: No chest wall TTP, no LE edema NEURO: AOx3. GCS 15, CN 2-12 intact, moves all 4s to pain. SKIN: No rash or jaundice noted. Medical Decision & Procedures ER Provider Diagnostic Interpretation: Radiology results as stated below per my review and radiologist interpretation: CT HEAD WITHOUT CONTRAST (CT) FINDINGS: No intra or extra-axial mass lesions are visualized. There is no CT evidence of acute cortical infarction. There is no evidence of midline shift. There is no acute hemorrhage. No calvarial fractures are visualized. There are minor white matter hypodensities likely on a small vessel basis. There is no evidence of pathologic ventricular dilatation. There is no evidence of acute sinusitis IMPRESSION: No acute intracranial findings Electronically signed by: Rao Mei M.D. 06/25/2017 4:08 PM CHEST ONE VIEW PORTABLE FINDINGS: The bones soft tissues and hemidiaphragms are normal. The cardiomediastinal silhouette is normal. The lungs are clear. The pulmonary vasculature is normal. IMPRESSION: Negative chest. The above report was generated using voice recognition software. It may contain grammatical, syntax or spelling errors. Electronically signed by: Mina Lopez M.D. 06/25/2017 3:46 PM Laboratory Results 06/25/17 16:10 Red Blood Count 4.05, Mean Corpuscular Volume 99.5, Mean Corpuscular Hemoglobin 34.6, Mean Corpuscular Hemoglobin Concent 34.7, Mean Platelet Volume 9.1, Neutrophils (%) (Auto) 69.5, Lymphocytes (%) (Auto) 20.3, Monocytes (%) (Auto) 6.4, Eosinophils (%) (Auto) 2.8, Basophils (%) (Auto) 0.1, Neutrophils # (Auto) 9.68, Lymphocytes # (Auto) 2.82, Monocytes # (Auto) 0.89, Eosinophils # (Auto) 0.39, Basophils # (Auto) 0.02 Test 06/25/17 15:28 06/25/17 16:10 06/25/17 16:55 Bedside Glucose 103 mg/dl (70-99) White Blood Count 13.92 K/uL (4.8-10.8) Red Blood Count 4.05 M/uL (4.7-6.1) Hemoglobin 14.0 g/dL (14.0-18.0) Hematocrit 40.3 % (42-52) Mean Corpuscular Volume 99.5 fL (80-100) Mean Corpuscular Hemoglobin 34.6 pg (25-34) Mean Corpuscular Hemoglobin Concent 34.7 g/dl (32-36) Platelet Count 213 K/uL (130-400) Mean Platelet Volume 9.1 fL (7.4-10.4) Neutrophils (%) (Auto) 69.5 % Lymphocytes (%) (Auto) 20.3 % Monocytes (%) (Auto) 6.4 % Eosinophils (%) (Auto) 2.8 % Basophils (%) (Auto) 0.1 % Neutrophils # (Auto) 9.68 K/uL (1.4-6.5) Lymphocytes # (Auto) 2.82 K/uL (1.2-3.4) Monocytes # (Auto) 0.89 K/uL (0.11-0.59) Eosinophils # (Auto) 0.39 K/uL (0-0.5) Basophils # (Auto) 0.02 K/uL (0-0.2) RDW Standard Deviation 50.2 fL (36.4-46.3) RDW Coefficient of Variation 13.9 % (11.5-14.5) Immature Granulocyte % (Auto) 0.9 % Immature Granulocyte # (Auto) 0.12 K/uL (0.00-0.02) Total Bilirubin 0.4 mg/dl (0.2-1) Direct Bilirubin 0.1 mg/dl (0-0.2) Aspartate Amino Transf (AST/SGOT) 18 U/L (15-37) Alanine Aminotransferase (ALT/SGPT) 21 U/L (12-78) Alkaline Phosphatase 147 U/L (45-117) Troponin I < 0.015 ng/ml (0-0.045) Total Protein 7.2 gm/dl (6.4-8.2) Albumin 3.5 gm/dl (3.4-5.0) Thyroid Stimulating Hormone (TSH) 0.899 uIu/ml (0.300-4.500) Salicylates Level 4.3 mg/dl (2.8-20) Acetaminophen Level < 2 ug/ml (10-30) Ethyl Alcohol mg/dL < 3.0 mg/dl (0-3) Urine Color YELLOW Urine Appearance CLEAR (CLEAR) Urine pH 7.0 (4.5-7.5) Urine Specific [place] 1.010 (1.000-1.030) Urine Protein NEG (NEG) Urine Glucose (UA) NEG (NEG) Urine Ketones NEG (NEG) Urine Occult Blood NEG (NEG) Urine Nitrite NEG (NEG) Urine Bilirubin NEG (NEG) Urine Urobilinogen NEG (NEG) Urine Leukocyte Esterase NEG (NEG) Urine Opiates Screen NEG (NEG) Urine Methadone, Qualitative NEG (NEG) Urine Barbiturates NEG (NEG) Urine Phencyclidine (PCP) Level NEG (NEG) Ur Amphetamine/Methamphetamine NEG (NEG) MDMA (Ecstasy) Screen NEG (NEG) Urine Benzodiazepines Screen NEG (NEG) Urine Cocaine Metabolite NEG (NEG) Urine Marijuana (THC) NEG (NEG) Laboratory results reviewed by me ECG Per My Interpretation Indication: chest pain Rate (beats per minute): 73 Rhythm: normal sinus Findings: no ectopy, other (Normal intervals. Normal axis. No STS changes or TWI. ) ED Course 152: The patient was evaluated in room C2. A complete history and physical exam was performed. 1823: The patient will be evaluated by the psychiatric top case assembler. 1846: I spoke with the psychiatric top case assembler. He has evaluated the patient, and feels that he would benefit from inpatient care. The patient lives alone, and admitted to having suicidal thoughts today. He has felt anxious and depressed recently. He has received inpatient psychiatric care in the past. The patient like to come in for help. The top case assembler will place a referral for inpatient care. 2030: The patient was signed out to Dr. Conklin at the change of shift pending bed placement. Medical Decision The patient is a 67 year old white male with a past medical history of previous adenoma of the colon who presents to the ED with a cc of worsening altered mental status beginning two days ago. Differential diagnosis: Etiologies such as metabolic, infection, hypoglycemia, electrolyte abnormalities , cardiac sources, intracerebral event, toxicologic, neurologic, as well as others were entertained. Patient was seen and evaluated at the bedside. 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 Patient reportedly does live by himself. The EMS providers were concerned about a change in mental status since he was not himself. On exam the patient is able to move all fours does not have any sensory deficits to pain. Patient does not have any overt cranial nerve deficits either. Patient will intermittently respond to voice. Patient is a and O 2. The patient does have a complex psychiatric history. Patient's blood glucose was 100. Patient did have blood work completed including EKG and CT of the brain. Patient's blood work was fairly unremarkable, CT negative, and EKG nonischemic. Given the patient's prior psychiatric history I did have a our mental health specialist come and evaluate the patient. The patient obviously likely has some dysfunctional anxiety and/or panic and was deemed suitable for a voluntary inpatient psychiatric treatment. Patient was pending placement. Medication Reconcilliation Current Medication List: was personally reviewed by me Blood Pressure Screening Patient's blood pressure: Elevated blood pressure Blood pressure disposition: Referred to PCP Impression Primary Impression: Acute anxiety Scribe Attestation The scribe's documentation has been prepared under my direction and personally reviewed by me in its entirety. I confirm that the note above accurately reflects all work, treatment, procedures, and medical decision making performed by me. Departure Information Dispostion Mental Health Acute Care Referrals Suzette Briggs M.D. (PCP)
[2017-06-25] MEDS ORDERED: NICOTINE 21 MG/24 HR TDSY TD STA (20:00)
--- NOTE | 2017-06-25 20:25 | EMERGENCY ROOM VISIT NOTE ---
ED Visit Note First contact with patient: 20:24 Received patient in signout. History and physical verified by me. Patient is requesting a nicotine patch. Patient's medications were ordered and was signed out to Vandana present at change of shift. Problem List Medical Problems: (1) Adenoma of cecum Status: Chronic (2) Alcohol dependence Status: Resolved (3) HLD (hyperlipidemia) Status: Chronic Current/Historical Medications Scheduled Aspirin (Aspirin), 325 MG PO DAILY Atorvastatin (Lipitor), 40 MG PO DAILY Buspirone Hcl (Buspar), 15 MG PO TID Carbamazepine (Tegretol), 200 MG PO QAM Carbamazepine (Tegretol), 400 MG PO HS Clopidogrel (Plavix), 75 MG PO DAILY Fluoxetine (Prozac), 40 MG PO QAM Multivitamins/Minerals (Mvi With Minerals), 1 TAB PO DAILY Olanzapine (Zyprexa), 20 MG PO HS Polyethylene Glycol 3350 (Bulk (Polyethylene Glycol 3350), 17 GM PO DAILY Prednisone (Prednisone), 20 MG PO UD Propranolol (Inderal), 10 MG PO BID Scheduled PRN Acetaminophen (Tylenol), 500 MG PO Q4H PRN for Pain Docusate Sodium (Docusate Sodium), 100 MG PO BID PRN for Constipation Hydroxyzine Pamoate (Vistaril), 50 MG PO TID PRN for Anxiety Oxycodone/Acetaminophen 5MG/325MG (Percocet 5MG/325MG), 1 TABLET PO Q4H PRN for Moderate Pain Allergies Coded Allergies: Naproxen (Verified Allergy, Intermediate, HEART RACING SWEATING, 11/30/16) Vital Signs Date Time Temp Pulse Resp B/P (MAP) Pulse Ox O2 Delivery O2 Flow Rate FiO2 06/25/17 23:52 77 18 142/74 94 Room Air 06/25/17 22:36 84 18 143/80 98 Room Air 06/25/17 22:22 83 06/25/17 20:21 94 18 129/62 99 Room Air 06/25/17 18:51 81 18 179/76 96 Room Air 06/25/17 17:22 76 24 175/79 98 06/25/17 15:30 36.7 78 18 187/77 98 Room Air Laboratory Results 06/25/17 16:10 Red Blood Count 4.05, Mean Corpuscular Volume 99.5, Mean Corpuscular Hemoglobin 34.6, Mean Corpuscular Hemoglobin Concent 34.7, Mean Platelet Volume 9.1, Neutrophils (%) (Auto) 69.5, Lymphocytes (%) (Auto) 20.3, Monocytes (%) (Auto) 6.4, Eosinophils (%) (Auto) 2.8, Basophils (%) (Auto) 0.1, Neutrophils # (Auto) 9.68, Lymphocytes # (Auto) 2.82, Monocytes # (Auto) 0.89, Eosinophils # (Auto) 0.39, Basophils # (Auto) 0.02 Test 06/25/17 15:28 06/25/17 16:10 06/25/17 16:55 Bedside Glucose 103 mg/dl (70-99) White Blood Count 13.92 K/uL (4.8-10.8) Red Blood Count 4.05 M/uL (4.7-6.1) Hemoglobin 14.0 g/dL (14.0-18.0) Hematocrit 40.3 % (42-52) Mean Corpuscular Volume 99.5 fL (80-100) Mean Corpuscular Hemoglobin 34.6 pg (25-34) Mean Corpuscular Hemoglobin Concent 34.7 g/dl (32-36) Platelet Count 213 K/uL (130-400) Mean Platelet Volume 9.1 fL (7.4-10.4) Neutrophils (%) (Auto) 69.5 % Lymphocytes (%) (Auto) 20.3 % Monocytes (%) (Auto) 6.4 % Eosinophils (%) (Auto) 2.8 % Basophils (%) (Auto) 0.1 % Neutrophils # (Auto) 9.68 K/uL (1.4-6.5) Lymphocytes # (Auto) 2.82 K/uL (1.2-3.4) Monocytes # (Auto) 0.89 K/uL (0.11-0.59) Eosinophils # (Auto) 0.39 K/uL (0-0.5) Basophils # (Auto) 0.02 K/uL (0-0.2) RDW Standard Deviation 50.2 fL (36.4-46.3) RDW Coefficient of Variation 13.9 % (11.5-14.5) Immature Granulocyte % (Auto) 0.9 % Immature Granulocyte # (Auto) 0.12 K/uL (0.00-0.02) Total Bilirubin 0.4 mg/dl (0.2-1) Direct Bilirubin 0.1 mg/dl (0-0.2) Aspartate Amino Transf (AST/SGOT) 18 U/L (15-37) Alanine Aminotransferase (ALT/SGPT) 21 U/L (12-78) Alkaline Phosphatase 147 U/L (45-117) Troponin I < 0.015 ng/ml (0-0.045) Total Protein 7.2 gm/dl (6.4-8.2) Albumin 3.5 gm/dl (3.4-5.0) Thyroid Stimulating Hormone (TSH) 0.899 uIu/ml (0.300-4.500) Salicylates Level 4.3 mg/dl (2.8-20) Acetaminophen Level < 2 ug/ml (10-30) Ethyl Alcohol mg/dL < 3.0 mg/dl (0-3) Urine Color YELLOW Urine Appearance CLEAR (CLEAR) Urine pH 7.0 (4.5-7.5) Urine Specific [place] 1.010 (1.000-1.030) Urine Protein NEG (NEG) Urine Glucose (UA) NEG (NEG) Urine Ketones NEG (NEG) Urine Occult Blood NEG (NEG) Urine Nitrite NEG (NEG) Urine Bilirubin NEG (NEG) Urine Urobilinogen NEG (NEG) Urine Leukocyte Esterase NEG (NEG) Urine Opiates Screen NEG (NEG) Urine Methadone, Qualitative NEG (NEG) Urine Barbiturates NEG (NEG) Urine Phencyclidine (PCP) Level NEG (NEG) Ur Amphetamine/Methamphetamine NEG (NEG) MDMA (Ecstasy) Screen NEG (NEG) Urine Benzodiazepines Screen NEG (NEG) Urine Cocaine Metabolite NEG (NEG) Urine Marijuana (THC) NEG (NEG) Medications Administered Medications (Trade) Dose Ordered Sig/Dyan Route Start Time Stop Time Status Last Admin Dose Admin Nicotine (Nicoderm Cq 21MG Patch) 1 patch NOW STAT TD 06/25/17 20:00 06/25/17 20:01 DC 06/25/17 20:00 1 PATCH Lorazepam (Ativan Tab) 1 mg NOW STAT SL 06/25/17 21:23 06/25/17 21:24 DC 06/25/17 21:29 1 MG Carbamazepine (Tegretol Tab) 400 mg NOW STAT PO 06/25/17 23:56 06/26/17 00:00 DC 06/26/17 00:28 400 MG Olanzapine (Zyprexa Tab) 20 mg NOW STAT PO 06/25/17 23:56 06/26/17 00:00 DC 06/26/17 00:29 20 MG Hydroxyzine HCl (Vistaril Tab) 50 mg NOW STAT PO 06/25/17 23:56 06/26/17 00:00 DC 06/26/17 00:29 50 MG Buspirone HCl (BusPAR TAB) 15 mg TID PO 06/26/17 09:00 07/26/17 08:59 06/26/17 01:14 15 MG Atorvastatin Calcium (Lipitor Tab) 40 mg NOW STAT PO 06/26/17 00:38 06/26/17 00:40 DC 06/26/17 01:15 40 MG Propranolol HCl (Inderal Tab) 10 mg STK-MED ONCE PO 06/26/17 01:09 06/26/17 01:10 DC 06/26/17 01:14 10 MG Departure Information Impression Primary Impression: Acute anxiety Dispostion Mental Health Acute Care Referrals Suzette Briggs M.D. (PCP) Patient Instructions [facility]
[2017-06-25] MEDS ORDERED: LORAZEPAM 1 MG TAB SL STA (21:23)
[2017-06-25] MEDS ORDERED: CARBAMAZEPINE 200 MG TAB PO STA (23:56)
[2017-06-25] MEDS ORDERED: hydrOXYzine HCL 25 MG TAB PO STA (23:56)
[2017-06-25] MEDS ORDERED: OLANZAPINE 20 MG TAB PO STA (23:56)
[2017-06-26] MEDS ORDERED: ACETAMINOPHEN 500 MG TAB PO PRN
[2017-06-26] MEDS ORDERED: POLYETHYLENE (MIRALAX) 17 GM PACK PO PRN
[2017-06-26] MEDS ORDERED: OXYCODONE/ACETAMINOPHEN 5-325 TAB PO PRN (00:15)
[2017-06-26] MEDS ORDERED: DOCUSATE SODIUM 100 MG CAP PO PRN (00:15)
[2017-06-26] MEDS ORDERED: hydrOXYzine HCL 25 MG TAB PO PRN (00:15)
[2017-06-26] MEDS ORDERED: ATORVASTATIN 40 MG TAB PO STA (00:38)
[2017-06-26] MEDS ORDERED: PROPRANOLOL HCL 10 MG TAB PO ONE (01:09)
[2017-06-26] MEDS: BusPIRone 15 MG TAB PO SCH ×2 (01:14→14:00)
--- NOTE | 2017-06-26 06:55 | EMERGENCY ROOM VISIT NOTE ---
ED Visit Note First contact with patient: 06:53 Pt signed out to me from Dr. Conklin. No issues reported to me overnight by nursing staff. Pt asleep through the night. Pt will be signed out to Dr. Chang. Bed search will likely resume this morning.
[2017-06-26] MEDS ORDERED: ASPIRIN 81 MG CHEW ONE (08:38)
[2017-06-26] MEDS ORDERED: ATORVASTATIN 40 MG TAB PO SCH (09:00)
[2017-06-26] MEDS ORDERED: FLUOXETINE HCL 20 MG CAP PO SCH (09:00)
[2017-06-26] MEDS ORDERED: ASPIRIN 324 MG CHEW PO SCH (09:00)
[2017-06-26] MEDS ORDERED: CARBAMAZEPINE 200 MG TAB PO ONE (09:00)
[2017-06-26] MEDS ORDERED: PROPRANOLOL HCL 10 MG TAB PO SCH (09:00)
[2017-06-26] MEDS ORDERED: CLOPIDOGREL BISULFATE 75 MG TAB PO SCH (09:00)
[2017-06-26 09:14] LABS: CALCIUM 8.6 mg/dl (8.5-10.1); CREATININE 0.95 mg/dl (0.60-1.40); POTASSIUM 3.9 mmol/L (3.5-5.1)
[2017-06-26 14:17] VITALS: BP 142/74; PULSE 90; O2SAT 96
--- NOTE | 2017-06-26 15:17 | EMERGENCY ROOM VISIT NOTE ---
ED Visit Note Patient sent to mental health facility in [place].
[2017-06-26] MEDS ORDERED: CARBAMAZEPINE 200 MG TAB PO SCH (21:00)
== END 2017-06-26 14:10 ==
LOC: EDBD 15:19 → C.EDC 15:21 → C.EDA 06-26 14:10
DX: F41.9 Anxiety disorder, unspecified (principal); R45.851 Suicidal ideations; E78.5 Hyperlipidemia, unspecified; Z79.82 Long term (current) use of aspirin; Z79.52 Long term (current) use of systemic steroids; Z79.02 Long term (current) use of antithrombotics/antiplatelets; F17.200 Nicotine dependence, unspecified, uncomplicated; F10.21 Alcohol dependence, in remission; Z85.038 Personal history of other malignant neoplasm of large intestine; Z86.010 Personal history of colon polyps; Z88.6 Allergy status to analgesic agent

== ENCOUNTER 2018-07-18 17:46 | Inpatient (IN) ==
[2018-07-18] MEDS ORDERED: SODIUM CHLORIDE 0.9% 1000ML 1,000 ML IV SCH (18:00)
--- NOTE | 2018-07-18 18:15 | CT Scan Report ---
CT head/brain wo con CLINICAL HISTORY: 68 years-old Male with fall. Acute head injury status post fall TECHNIQUE: Multiple axial CT images of the head were obtained without contrast. A dose lowering tech nique was utilized adhering to the principles of ALARA. COMPARISON: CT cervical spine of same day, CT head 06/25/2017. FINDINGS: No acute intracranial hemorrhage, midline shift, intracranial mass, hydrocephalus, territorial ischem ia or abnormal extra-axial collection. The calvarium is intact. Mastoid air cells are clear. Mild to moderate mucosal thickening about the ethmoid air cells and nasal turbinates. Bilateral nasal bone fractures are noted with adjacent soft t issue swelling. IMPRESSION: 1. No acute intracranial abnormality or calvarial fracture. 2. Bilateral nasal bone fractures are noted in conjunction with bilateral soft tissue swelling sugges tive of acute injury. The above report was generated using voice recognition software. It may contain grammatical, syntax o r spelling errors. Electronically signed by: Guru Escalante M.D. 07/18/2018 6:14 PM
[2018-07-18 18:16] LABS: Basophils # (auto) 0.03 K/uL (0-0.2); Basophils % (auto) 0.2 %; Eosinophils % (auto) 2.9 %; Hematocrit (blood only) 41.1 % (42-52); Hemoglobin 14.3 g/dL (14.0-18.0); Immature Granulocytes # (auto) 0.06 K/uL (0.00-0.02); Immature Granulocytes % (auto) 0.4 %; Lymphocytes # (auto) 1.77 K/uL (1.2-3.4); Lymphocytes % (auto) 12.7 %; Mean Corpuscular Hgb Conc 34.8 g/dL (32-36); Mean Corpuscular Volume 92.8 fL (80-100); Mean Platelet Volume 9.1 fL (7.4-10.4); Monocytes # (auto) 0.62 K/uL (0.11-0.59); Monocytes % (auto) 4.4 %; Neutrophils # (auto) 11.07 K/uL (1.4-6.5); Neutrophils % (auto) 79.4 %; Platelet Count 317 K/uL (130-400); RDW Standard Deviation 44.1 fL (36.4-46.3); Red Blood Count 4.43 M/uL (4.7-6.1); White Blood Count 13.95 K/uL (4.8-10.8)
--- NOTE | 2018-07-18 18:18 | CT Scan Report ---
CT cervical spine wo con CLINICAL HISTORY: 68 years-old Male with fall. Acute neck injury status post fall COMPARISON: CT head of same day TECHNIQUE: Multiple axial CT images of the cervical spine were obtained without contrast. A dose low ering technique was utilized adhering to the principles of ALARA. FINDINGS: Moderate intervertebral disc space narrowing with spondylitic spurring is most pronounced at C4-C5, C 5-C6 and C6-C7. Moderate to severe multilevel facet arthrosis. Nuchal ligament calcifications are not ed. 3 mm anterolisthesis C3 on C4, likely degenerative. No acute cervical spine fracture or subluxati on identified. Evaluation of the central canal and neuroforamina is better assessed by MRI. Study is mildly motion degraded. Calcifications noted about the bilateral carotid arteries. No pneumothorax. No prevertebral soft tissue swelling. Bilateral nasal bone fractures are seen along with adjacent soft tissue swelling. IMPRESSION: No acute cervical spine fracture or subluxation. The above report was generated using voice recognition software. It may contain grammatical, syntax o r spelling errors. Electronically signed by: Guru Escalante M.D. 07/18/2018 6:17 PM
--- NOTE | 2018-07-18 18:23 | CT Scan Report ---
CT facial bones wo con CLINICAL HISTORY: 68 years-old Male presenting with fall. Acute facial injury status post fall COMPARISON STUDY: CT head and cervical spine studies of same day TECHNIQUE: High-resolution CT scan of the facial bones is performed. Images are reviewed in the axia l, sagittal, and coronal planes. IV contrast was not administered for this examination. A dose lower ing technique was utilized adhering to the principles of ALARA. CT DOSE: 1086.62 mGy.cm FINDINGS: Acute appearing comminuted bilateral nasal bone fractures are noted, both of which demonstrate a few millimeters of displacement and cortical buckling/angulation. Moderate associated soft tissue swellin g. Study is motion degraded. Sigmoidal bowing and spurring of the nasal septum is noted along with mo derate mucosal thickening of the nasal turbinates and ethmoid sinuses. Minimal mucosal thickening abo ut the maxillary sinuses with mild mucosal thickening of the inferior frontal sinuses. The zygomatic arches and pterygoid plates appear intact. Multifocal periapical cyst formation about the maxillary a nd mandibular teeth. Indeterminate ovoid 9 mm likely benign appearing sclerotic lesion of the left fr ontal bone. Bony orbits appear intact. No additional acute facial bone fracture or dislocation identi fied. IMPRESSION: 1. Acute appearing comminuted, minimally displaced and angulated fractures about the bilateral nasal bones with moderate associated soft tissue swelling. 2. Acutely angulated sigmoidal bowing of the mid nasal septum is new from 06/25/2017, suggestive of ac [place] fracture. The above report was generated using voice recognition software. It may contain grammatical, syntax o r spelling errors. Electronically signed by: Gruu Escalante M.D. 07/18/2018 6:22 PM
--- NOTE | 2018-07-18 18:29 | XRay Report ---
XR chest 1V portable CLINICAL HISTORY: syncope COMPARISON STUDY: 06/25/2017 FINDINGS: The heart is borderline enlarged. There is no failure. There is no focal pulmonary consolid ation. There are no pleural effusions. There are old left-sided rib fractures.[ IMPRESSION: No active disease in the chest. Electronically signed by: Rao Mei M.D. 07/18/2018 6:28 PM
[2018-07-18 18:33] LABS: Alanine Aminotransferase 29 U/L (12-78); Albumin Level 3.8 gm/dl (3.4-5.0); Aspartate Aminotransferase 17 U/L (15-37); BUN Creatinine Ratio 7.2 (10-20); Blood Urea Nitrogen 7 mg/dl (7-18); Calcium 8.9 mg/dl (8.5-10.1); Carbon Dioxide 29 mmol/L (21-32); Chloride 95 mmol/L (98-107); Creatinine Clr Calc Pharmacy 78.1 ml/min; Est GFR (African American) 92.6; Est GFR (Non-African American) 79.9; Glucose 112 mg/dl (70-99); Potassium 4.2 mmol/L (3.5-5.1); Sodium 131 mmol/L (136-145)
[2018-07-18 18:38] LABS: Albumin Globulin Ratio 0.9 (0.9-2); Alkaline Phosphatase 216 U/L (45-117); Bilirubin,Total 0.4 mg/dl (0.2-1); Globulin 4.2 gm/dl (2.5-4.0); Troponin I < 0.015 ng/ml (0-0.045)
[2018-07-18 18:41] LABS: Prothrombin Time 10.2 Seconds (9.0-12.0)
[2018-07-18 20:06] LABS: Appearance Urine Clear (Clear); Bacteria Urine Automated Negative (Negative); Bilirubin Urine Negative (Negative); Blood Urine Trace (Negative); Cast Urine Automated 0 /lpf (0-5); Color Urine Yellow; Epithelial Cell Urine Auto 0-5 /lpf (0-5); Glucose Urine UA Negative (Negative); Ketones Urine Negative (Negative); Leukocyte Esterase Urine Negative (Negative); Nitrite Urine Negative (Negative); Protein Urine Negative (Negative); RBC Urine Automated 0-4 /hpf (0-4); Specific Gravity Urine 1.006 (1.000-1.030); Urobilinogen Urine Negative (Negative); WBC Urine Automated 0 /hpf (0-5); pH Urine 7.5 (4.5-7.5)
--- NOTE | 2018-07-18 20:07 | Emergency Department Note ---
Entered by Saima Becerra acting as a scribe for History of Present Illness General Chief complaint: Fall Stated complaint: FALL, HEAD INJURY Source: patient History of Present Illness Onset (ago): minute(s) (prior to arrival) Location: head and left (body) Pain Consistency: + other (episode) Maximum Pain Intensity: 3 Quality: + other (fall) Associated symptoms: + headaches, + weakness (left arm and left leg) and + other (facial pain) The patient is a 68 year old male who presents to the Emergency Room with complaints of an episode of a fall occurring prior to arrival. The patient states that he was walking out of Skills when he fell. He states that he doesnt remember the fall and is unsure if he lost consciousness or not. He states that when he tried to get up from the fall, he noticed that his left leg wouldnt work. He states that it felt weak. He reports that he also noticed his left arm was weak. He states that since the fall he has had facial pain and a headache. The patient notes that he is on Plavix. Patient has no other complaints at this time. Upon arrival he does note that the weakness on his left side has resolved. Home Medications Home Medications Medication Instructions Recorded Confirmed Type acetaminophen [Tylenol Extra 1,000 mg PO DIRECTED PRN 07/18/18 07/18/18 History Strength] atorvastatin 80 mg PO HS 07/18/18 07/18/18 History buspirone 15 mg PO TID 07/18/18 07/18/18 History carbamazepine 100 mg PO BID 07/18/18 07/18/18 History clopidogrel [Plavix] 75 mg PO DAILY 07/18/18 07/18/18 History docusate sodium 100 mg PO BID PRN 07/18/18 07/18/18 History finasteride 5 mg PO DAILY 07/18/18 07/18/18 History fluoxetine [Prozac] 10 mg PO QAM 07/18/18 07/18/18 History gabapentin 400 mg PO TID 07/18/18 07/18/18 History hydroxyzine pamoate 50 mg PO TID PRN 07/18/18 07/18/18 History lithium carbonate 150 mg PO BID 07/18/18 07/18/18 History olanzapine [Zyprexa] 20 mg PO HS 07/18/18 07/18/18 History oxycodone-acetaminophen [Percocet] 1 tab PO Q4 PRN 07/18/18 07/18/18 History pantoprazole 40 mg PO DAILY 07/18/18 07/18/18 History propranolol 10 mg PO BID 07/18/18 07/18/18 History Allergies Allergy/AdvReac Type Severity Reaction Status Date / Time naproxen Allergy Intermediate HEART Verified 07/18/18 18:16 RACING SWEATING Past Med/Surg History Medical History COPD (chronic obstructive pulmonary disease) (Chronic) Bipolar disorder (Chronic) EMILIANO (generalized anxiety disorder) (Chronic) History of ETOH abuse (Chronic) PVD (peripheral vascular disease) (Chronic) Fatty liver (Chronic) Adenocarcinoma, colon Adenoma of cecum (Chronic) HLD (hyperlipidemia) (Chronic) Surgical History History of colectomy secondary to adenoca of colon Status post insertion of iliac artery stent (Chronic) 2018, stent x 3 Social History Preferred Language: Slovak Communication Ability: Effective Beliefs That Will Affect Care: None marital status: Single Current Living Situation: Alone current occupational status: disabled Feels Safe at Home: Yes Smoking Status: Current every day smoker Hx Alcohol Use: Yes Hx Substance Use: No Review of Systems See HPI for pertinent positives & negatives. and A total of 10 systems reviewed and were otherwise negative Physical Exam Vital Signs Vital Signs - 24 hr 07/18/18 17:52 07/18/18 18:08 07/18/18 19:58 Temperature 36.5 C Temperature Source Oral Sepsis Recent Fever Within 48 Hours No Sepsis New/Unexplained Change in Mental Status No Sepsis Action Taken by Nursing No Action Required Pulse Rate 84 Pulse Rate [Finger] 83 78 Respiratory Rate 18 16 20 Respiratory Effort / Characteristics Non-Labored Respiratory Depth Normal Blood Pressure 199/99 H Blood Pressure [Left Arm] 210/82 H 194/74 H Blood Pressure Mean 132 Blood Pressure Mean [Left Arm] 124 114 Pulse Oximetry 99 98 97 Oxygen Delivery Method Room Air Room Air Room Air GENERAL: alert, well appearing, well nourished, no distress, non-toxic HEAD: normal cephalic, bruising over bilateral nasal bone EYE EXAM: normal conjunctiva, PERRL and EOM's grossly intact OROPHARYNX: no exudate, no erythema, lips, buccal mucosa, and tongue normal and mucous membranes are moist NECK: supple, no nuchal rigidity, no adenopathy, non-tender CHEST: stable to compression anteriorly and posteriorly LUNGS: clear to auscultation. Normal chest wall mechanics HEART: no murmurs, S1 normal and S2 normal ABDOMEN: abdomen soft, non-tender, normo-active bowel sounds, no masses, no rebound or guarding. PELVIS: stable to compression anteriorly and posteriorly BACK: Back is symmetrical on inspection and there is no deformity, no midline tenderness, no CVA tenderness. UPPER EXTREMITIES: full active and passive range of motion of all joints without tenderness to palpation LOWER EXTREMITIES: full active and passive range of motion of all joints without tenderness to palpation NEURO EXAM: GCS: 15. Normal sensorium, cranial nerves II-XII intact, normal speech, mild weakness with extension at the elbow of the left upper extremity, no weakness of legs. No drift. Finger to noseintact. Gross sensation intact. Course ED COURSE: Vital signs were reviewed and showed hypertension. The patients medical record was reviewed The above diagnostic studies were performed and reviewed. ED treatments and interventions as stated above. 1748: The patient was evaluated in room B1. A complete history and physical examination was performed. 1824: Upon reevaluation, the patient's symptoms have resolved. He no longer has any weakness. I discussed my findings with the patient and he understands and agrees with the treatment plan. Based on the patients age, coexisting illnesses, exam and lab findings the decision to treat as an inpatient was made. The patient remained stable while under my care. The patient will be evaluated for further management. 1901: I reviewed the patient's case with WAQAR Tatum. She will evaluate the patient for further management. Consultations Consultation #1: I reviewed the patient's case with WAQAR Tatum. She will evaluate the patient for further management. Time: 19:01 Administered Medications Discontinued Medications Sodium Chloride (Nss 1000ml) 1,000 mls @ 999 mls/hr IV .Q1H1M DEMETRIUS Stop: 07/18/18 19:00 Last Infusion: 07/18/18 19:47 Dose: 0 mls/hr Documented by: [id number] Admin: 07/18/18 18:51 Dose: 999 mls/hr Documented by: [id number] Medical Decision Making Differential Diagnosis Differential diagnoses include major intracranial, cervical, spinal, thoracic, abdominal, pelvic and neurologic injury. Fracture, contusion, sprain, strain, laceration, abrasions included as well Medical Records Attestation: I reviewed the patient's medical records. Home Medications Current Medication List: was personally reviewed by me Laboratory Data Attestation: I reviewed the patient's lab results. Result diagrams: 07/18/18 17:31 07/18/18 17:31 Lab Results 07/18/18 07/18/18 07/18/18 Range/Units 17:31 17:31 17:31 WBC 13.95 H (4.8-10.8) K/uL RBC 4.43 L (4.7-6.1) M/uL Hgb 14.3 (14.0-18.0) g/dL Hct 41.1 L (42-52) % MCV 92.8 (80-100) fL MCH 32.3 (25-34) pg MCHC 34.8 (32-36) g/dL RDW Std Deviation 44.1 (36.4-46.3) fL RDW Coeff of Jeffry 13.0 (11.5-14.5) % Plt Count 317 (130-400) K/uL MPV 9.1 (7.4-10.4) fL Immature Gran % (Auto) 0.4 % Neut % (Auto) 79.4 % Lymph % (Auto) 12.7 % [place] % (Auto) 4.4 % Eos % (Auto) 2.9 % Baso % (Auto) 0.2 % Immature Gran # (Auto) 0.06 H (0.00-0.02) K/uL Neut # (Auto) 11.07 H (1.4-6.5) K/uL Lymph # (Auto) 1.77 (1.2-3.4) K/uL [place] # (Auto) 0.62 H (0.11-0.59) K/uL Eos # (Auto) 0.40 (0-0.5) K/uL Baso # (Auto) 0.03 (0-0.2) K/uL PT 10.2 (9.0-12.0) Seconds INR 1.0 (0.9-1.1) Sodium 131 L (136-145) mmol/L Potassium 4.2 (3.5-5.1) mmol/L Chloride 95 L (98-107) mmol/L Carbon Dioxide 29 (21-32) mmol/L Anion Gap 7.0 (3-11) BUN 7 (7-18) mg/dl Creatinine 0.97 (0.6-1.4) mg/dl Est Cr Clr Drug Dosing 78.1 ml/min Est GFR ( Amer) 92.6 Est GFR (Non-Af Amer) 79.9 BUN/Creatinine Ratio 7.2 L (10-20) Glucose 112 H (70-99) mg/dl Calcium 8.9 (8.5-10.1) mg/dl Total Bilirubin 0.4 (0.2-1) mg/dl AST 17 (15-37) U/L ALT 29 (12-78) U/L Alkaline Phosphatase 216 H (45-117) U/L Troponin I < 0.015 (0-0.045) ng/ml Total Protein 8.0 (6.4-8.2) gm/dl Albumin 3.8 (3.4-5.0) gm/dl Globulin 4.2 H (2.5-4.0) gm/dl Albumin/Globulin Ratio 0.9 (0.9-2) Ethyl Alcohol mg/dL (0-3) mg/dl 07/18/18 Range/Units 18:12 WBC (4.8-10.8) K/uL RBC (4.7-6.1) M/uL Hgb (14.0-18.0) g/dL Hct (42-52) % MCV (80-100) fL MCH (25-34) pg MCHC (32-36) g/dL RDW Std Deviation (36.4-46.3) fL RDW Coeff of Jeffry (11.5-14.5) % Plt Count (130-400) K/uL MPV (7.4-10.4) fL Immature Gran % (Auto) % Neut % (Auto) % Lymph % (Auto) % [place] % (Auto) % Eos % (Auto) % Baso % (Auto) % Immature Gran # (Auto) (0.00-0.02) K/uL Neut # (Auto) (1.4-6.5) K/uL Lymph # (Auto) (1.2-3.4) K/uL [place] # (Auto) (0.11-0.59) K/uL Eos # (Auto) (0-0.5) K/uL Baso # (Auto) (0-0.2) K/uL PT (9.0-12.0) Seconds INR (0.9-1.1) Sodium (136-145) mmol/L Potassium (3.5-5.1) mmol/L Chloride (98-107) mmol/L Carbon Dioxide (21-32) mmol/L Anion Gap (3-11) BUN (7-18) mg/dl Creatinine (0.6-1.4) mg/dl Est Cr Clr Drug Dosing ml/min Est GFR ( Amer) Est GFR (Non-Af Amer) BUN/Creatinine Ratio (10-20) Glucose (70-99) mg/dl Calcium (8.5-10.1) mg/dl Total Bilirubin (0.2-1) mg/dl AST (15-37) U/L ALT (12-78) U/L Alkaline Phosphatase (45-117) U/L Troponin I (0-0.045) ng/ml Total Protein (6.4-8.2) gm/dl Albumin (3.4-5.0) gm/dl Globulin (2.5-4.0) gm/dl Albumin/Globulin Ratio (0.9-2) Ethyl Alcohol mg/dL < 3.0 (0-3) mg/dl Imaging Data Radiologist's Impression: Radiology results as stated below per my review and the radiologist's interpretation: XR chest 1V portable CLINICAL HISTORY: syncope COMPARISON STUDY: 06/25/2017 FINDINGS: The heart is borderline enlarged. There is no failure. There is no focal pulmonary consolidation. There are no pleural effusions. There are old left-sided rib fractures.[ IMPRESSION: No active disease in the chest. Electronically signed by: Rao Mei M.D. 07/18/2018 6:[address] head/brain wo con CLINICAL HISTORY: 68 years-old Male with fall. Acute head injury status post fall TECHNIQUE: Multiple axial CT images of the head were obtained without contrast. A dose lowering technique was utilized adhering to the principles of ALARA. COMPARISON: CT cervical spine of same day, CT head 06/25/2017. FINDINGS: No acute intracranial hemorrhage, midline shift, intracranial mass, hydrocephalus, territorial ischemia or abnormal extra-axial collection. The calvarium is intact. Mastoid air cells are clear. Mild to moderate mucosal thickening about the ethmoid air cells and nasal turbinates. Bilateral nasal bone fractures are noted with adjacent soft tissue swelling. IMPRESSION: 1. No acute intracranial abnormality or calvarial fracture. 2. Bilateral nasal bone fractures are noted in conjunction with bilateral soft tissue swelling suggestive of acute injury. The above report was generated using voice recognition software. It may contain grammatical, syntax or spelling errors. Electronically signed by: Guru Escalante M.D. 07/18/2018 6:[address] facial bones wo con CLINICAL HISTORY: 68 years-old Male presenting with fall. Acute facial injury status post fall COMPARISON STUDY: CT head and cervical spine studies of same day TECHNIQUE: High-resolution CT scan of the facial bones is performed. Images are reviewed in the axial, sagittal, and coronal planes. IV contrast was not administered for this examination. A dose lowering technique was utilized adhering to the principles of ALARA. CT DOSE: 1086.62 mGy.cm FINDINGS: Acute appearing comminuted bilateral nasal bone fractures are noted, both of which demonstrate a few millimeters of displacement and cortical buckling/angulation. Moderate associated soft tissue swelling. Study is motion degraded. Sigmoidal bowing and spurring of the nasal septum is noted along with moderate mucosal thickening of the nasal turbinates and ethmoid sinuses. Minimal mucosal thickening about the maxillary sinuses with mild mucosal thickening of the inferior frontal sinuses. The zygomatic arches and pterygoid plates appear intact. Multifocal periapical cyst formation about the maxillary and mandibular teeth. Indeterminate ovoid 9 mm likely benign appearing sclerotic lesion of the left frontal bone. Bony orbits appear intact. No additional acute facial bone fracture or dislocation identified. IMPRESSION: 1. Acute appearing comminuted, minimally displaced and angulated fractures about the bilateral nasal bones with moderate associated soft tissue swelling. 2. Acutely angulated sigmoidal bowing of the mid nasal septum is new from 06/25/2017, suggestive of acute fracture. The above report was generated using voice recognition software. It may contain grammatical, syntax or spelling errors. Electronically signed by: Guru Escalante M.D. 07/18/2018 6:[address] cervical spine wo con CLINICAL HISTORY: 68 years-old Male with fall. Acute neck injury status post fall COMPARISON: CT head of same day TECHNIQUE: Multiple axial CT images of the cervical spine were obtained without contrast. A dose lowering technique was utilized adhering to the principles of ALARA. FINDINGS: Moderate intervertebral disc space narrowing with spondylitic spurring is most pronounced at C4-C5, C5-C6 and C6-C7. Moderate to severe multilevel facet arthrosis. Nuchal ligament calcifications are noted. 3 mm anterolisthesis C3 on C4, likely degenerative. No acute cervical spine fracture or subluxation identified. Evaluation of the central canal and neuroforamina is better assessed by MRI. Study is mildly motion degraded. Calcifications noted about the bilateral carotid arteries. No pneumothorax. No prevertebral soft tissue swelling. Bilateral nasal bone fractures are seen along with adjacent soft tissue swelling. IMPRESSION: No acute cervical spine fracture or subluxation. The above report was generated using voice recognition software. It may contain grammatical, syntax or spelling errors. Electronically signed by: Guru Escalante M.D. 07/18/2018 6:17 PM ECG Data Attestation: I personally reviewed and interpreted this ECG as follows: Indication: syncope Rate (beats per minute): 84 Rhythm: sinus rhythm Findings: + other (RAD, poor baseline) Blood Pressure Blood Pressure Findings: Elevated blood pressure Blood Pressure Disposition: further management by hospitalist Head Trauma GCS Score: 15 MDM Narrative Patient is a 68-year-old male who presents the ER following a fall while walking. He notes he fell forward and does not completely remember the event. He was brought in by EMS. He notes when he realized what happened on the ground he noticed weakness in his left leg and left arm. He explicitly notes that he had trouble lifting his left leg. He does take Plavix. Labs were obtained and showed a mild leukocytosis at 13.9 thousand which I favor secondary to the trauma. No significant anemia. INR is unremarkable. BMP along with LFTs bilirubin and troponin were normal. Alcohol was negative. CT of the head face cervical spine and chest were remarkable for bilateral nasal bone fractures. My initial neuro exam had mild weakness with extension of the left upper extremity. This completely resolved on repeat exam. He notes he has no weakness or paresthesias. Patient was updated bedside. Case was discussed with the hospitalist due to a fall with a reported left-sided weakness concern for possible TIA versus syncope. Impression & Plan Syncope, TIA (transient ischemic attack), Fracture of nasal bone Discharge Plan Visit Data Chief Complaint: Fall Stated Complaint: FALL, HEAD INJURY ED Provider: Héctor Blanton Discharge Problem: Syncope, TIA (transient ischemic attack), Fracture of nasal bone Patient Disposition: Being Evaluated by Hospitalist Forms Stand Alone Forms: My [facility] Prescriptions Prescriptions: No Action atorvastatin 80 mg Tablet 80 mg PO HS RF: 0 gabapentin 400 mg Capsule 400 mg PO TID RF: 0 hydroxyzine pamoate 50 mg Capsule 50 mg PO TID PRN (Reason: NEEDED) RF: 0 lithium carbonate 150 mg Capsule 150 mg PO BID RF: 0 clopidogrel [Plavix] 75 mg Tablet 75 mg PO DAILY RF: 0 acetaminophen [Tylenol Extra Strength] 500 mg Tablet 1,000 mg PO DIRECTED PRN (Reason: Pain) RF: 0 oxycodone-acetaminophen [Percocet] 5-325 mg Tablet 1 tab PO Q4 PRN (Reason: Pain) RF: 0 propranolol 10 mg Tablet 10 mg PO BID RF: 0 pantoprazole 40 mg Tablet,Delayed Release (Dr/Ec) 40 mg PO DAILY RF: 0 carbamazepine 100 mg Tablet,Chewable 100 mg PO BID RF: 0 fluoxetine [Prozac] 10 mg Capsule 10 mg PO QAM RF: 0 docusate sodium 100 mg Capsule 100 mg PO BID PRN (Reason: Constipation) RF: 0 olanzapine [Zyprexa] 20 mg Tablet 20 mg PO HS RF: 0 buspirone 15 mg Tablet 15 mg PO TID RF: 0 finasteride 5 mg Tablet 5 mg PO DAILY RF: 0 Referrals Referrals: Christelle Angulo MD [Primary Care Provider] - Discharge Problem: Syncope Qualifiers: Syncope type: unspecified Qualified Code(s): R55 - Syncope and collapse Fracture of nasal bone Qualifiers: Encounter type: initial encounter Fracture type: closed Qualified Code(s): S02.2XXA - Fracture of nasal bones, initial encounter for closed fracture The scribe's documentation has been prepared under my direction and personally reviewed by me in its entirety. I confirm that the note above accurately reflects all work, treatment, procedures, and medical decision making performed by me.
--- NOTE | 2018-07-18 20:07 | History & Physical Report ---
Date of Service July 18, 2018 Assessment & Plan (1) Fall: This is a 68-year-old male who has a significant past medical history bipolar disorder, EMILIANO, depression, COPD, HLD, PVD with a history of left iliac artery stent, fatty liver disease, history of EtOH abuse who presents to [facility] secondary to fall this afternoon. In ED trauma workup revealed bilateral nasal bone fracture. Lab work revealed leukocytosis at 13.95, hemoglobin 14.3, hematocrit 41.1, platelets 317, sodium 131, potassium 4.2, chloride 95, BUN 7, creatinine 0.97, glucose 112, EtOH negative, urine trace hematuria Patient's history is slightly different from ER provider and I think patient's history is slightly unreliable as well. There is question whether patient may have syncopized versus if there was ever presence of any left sided weakness? Upon my examination patient's strength is equal bilaterally without any sign of overt weakness, neuro exam unremarkable, stroke as cause of fall highly unlikely at this time. Fall appears to be mechanical in nature. Patient did recently start lithium and therefore check lithium levels -Admit patient to MedSurg/telemetry to monitor for any arrhythmia due to questionable syncope -Consult ENT given nasal fracture and obtain adequate pain control -Will obtain echocardiogram as well as bilateral carotid Doppler given the uncertainties of event for completeness sake -hold on further brain imaging for now -Fall precautions -Check lithium levels -Patient does have mild hyponatremia may be in setting of psychotropics, but likely not the cause of fall -Repeat CBC, BMP in a.m. (2) Fracture of nasal bone: -Consult Dr. Tucker -conservative management and pain control for now -percocet for moderate pain, IV morphine for severe pain -ICE prn (3) Hyponatremia: -NA 131, ? In setting of multiple psychotropics -Repeat bmp in a.m. -Check urine osm, urine na, serum osm (4) Leukocytosis: -Previous WBC elevated, may be chronic in nature given chronic tobacco use -Afebrile, chest x-ray and urine negative -Doubt any infection, will follow CBC (5) Bipolar disorder: -recently hospitalized at [facility] under psychiatric care with recent medication adjustments and addition of lithium -check lithium level -continue tegretol, olanzapine, buspar, prozac, neurontin, propranolol -no acute exac of symptoms at this time (6) EMILIANO (generalized anxiety disorder): -continue prozac and buspar (7) COPD (chronic obstructive pulmonary disease): -no acute exacerbation -Albuterol prn for SOB/Wheezing (8) HTN (hypertension): -pt hypertensive while in ED, likely in setting of acute pain -control pain for adequate bp control -pt is on propranolol but more for psychiatric reasons, if continues to be elevated will need to add additional antihypertensive (9) HLD (hyperlipidemia): -continue statin (10) PVD (peripheral vascular disease): -continue statin and plavix -patient is to be on ASA 81mg daily as well but discontinued on own, thought it was giving him GI upset (11) Tobacco abuse: -encourage smoking cessation, pt down to half pack per day (12) DVT prophylaxis: -SCDS for now given fall Disposition: to be determined, will consult case management as pt lives alone Follow up: PCP Dr. Angulo upon discharge Patient was seen and examined in collaboration with Dr. Leger, please see addendum. Starting 07/19/18 patient will be under the care of Dr. Padron. History of Present Illness Chief Complaint: s/p Fall today. Primary Care Provider: Christelle Angulo This is a 68-year-old male who has a significant past medical history bipolar disorder, EMILIANO, depression, COPD, HLD, PVD with a history of left iliac artery stent, fatty liver disease, history of EtOH abuse who presents to [facility] secondary to fall this afternoon. Patient states he was walking on pavement and tripped over his own feet and fell face first. Fell on his bilateral hands and face. "The fall is a blur." He does not recall events of the fall. He does not think he passed out or lost consciousness but then states, "I cannot be exactly sure." He denied any presyncopal symptoms like lightheadedness, dizziness prior to the fall. Further denies any chest pain, palpitations, shortness of breath, nausea, vomiting, diarrhea, abdominal pain, change in bowel or urinary habits. He denies any loss of bowel or bladder post fall. He does elicit he was recently hospitalized approximately 1 week ago at [facility] for 10 days secondary to psychiatric issues. Did have adjustments made to his psych medications including the addition of lithium 150 mg twice a day. Since starting this medication he states he has not felt, "quite right." Wishes to get off of this medication and has a follow-up appointment with a psychiatrist this week. He does occasionally feel off balance especially if he goes from sitting to standing, but this was present prior to the initiation of lithium. His appetite has been stable. He does have a history of alcohol abuse but states currently he has only been drinking socially, 1-2 beers a few nights a week. No family is at bedside. Currently patient is complaining of pain in his nose as well as his head. He denies any change in vision, change in hearing, diplopia, blurred vision, dizziness, lightheadedness, chest pain, shortness of breath, abdominal pain or overt weakness. It was reported that there was questionable left upper and left lower extremity weakness after the fall. After questioning the patient he denies any weakness prior to, after the fall or currently in any of his extremities. He just describes pain in his left hand secondary to abrasions suffered from fall. Allergies Allergy/AdvReac Type Severity Reaction Status Date / Time naproxen Allergy Intermediate HEART Verified 07/18/18 18:16 RACING SWEATING Home Medications Home Medications Medication Instructions Recorded Confirmed Type acetaminophen [Tylenol Extra 1,000 mg PO DIRECTED PRN 07/18/18 07/18/18 History Strength] atorvastatin 80 mg PO HS 07/18/18 07/18/18 History buspirone 15 mg PO TID 07/18/18 07/18/18 History carbamazepine 100 mg PO BID 07/18/18 07/18/18 History clopidogrel [Plavix] 75 mg PO DAILY 07/18/18 07/18/18 History docusate sodium 100 mg PO BID PRN 07/18/18 07/18/18 History finasteride 5 mg PO DAILY 07/18/18 07/18/18 History fluoxetine [Prozac] 10 mg PO QAM 07/18/18 07/18/18 History gabapentin 400 mg PO TID 07/18/18 07/18/18 History hydroxyzine pamoate 50 mg PO TID PRN 07/18/18 07/18/18 History lithium carbonate 150 mg PO BID 07/18/18 07/18/18 History olanzapine [Zyprexa] 20 mg PO HS 07/18/18 07/18/18 History oxycodone-acetaminophen [Percocet] 1 tab PO Q4 PRN 07/18/18 07/18/18 History pantoprazole 40 mg PO DAILY 07/18/18 07/18/18 History propranolol 10 mg PO BID 07/18/18 07/18/18 History Past Med/Surg History Medical History BPH (benign prostatic hyperplasia) (Chronic) HTN (hypertension) (Chronic) Tobacco abuse (Chronic) COPD (chronic obstructive pulmonary disease) (Chronic) Bipolar disorder (Chronic) EMILIANO (generalized anxiety disorder) (Chronic) History of ETOH abuse (Chronic) PVD (peripheral vascular disease) (Chronic) Fatty liver (Chronic) Adenocarcinoma, colon (Chronic) HLD (hyperlipidemia) (Chronic) Surgical History History of colectomy (Chronic) secondary to adenoca of colon Status post insertion of iliac artery stent (Chronic) 2018, stent x 3 Social History Preferred Language: Peruvian Communication Ability: Effective Beliefs That Will Affect Care: None marital status: Single Current Living Situation: Alone current occupational status: disabled Feels Safe at Home: Yes Smoking Status: Current every day smoker Hx Alcohol Use: Yes Hx Substance Use: No Review of Systems All systems reviewed & are unremarkable except as noted in HPI & below Physical Exam Vital Signs (Past 24 Hours): Last Vital Signs Temp 36.5 C 07/18/18 17:52 Pulse 83 07/18/18 18:08 Resp 16 07/18/18 18:08 BP 210/82 H 07/18/18 18:08 Pulse Ox 98 07/18/18 18:08 Physical Exam: Gen: WD/WN, M, NAD but does appear to be in pain, sitting up in bed, pleasant, conversing easily Head: Normocephalic, + trauma to face, nasal fracture with soft tissue swelling, minimal distortion Eyes: Sclera normal, no conjunctival injection, PERRLA, EOMI ENT: Gross hearing intact, + nasal swelling, blood noted in nasal cavity, nasal distortion, normal pharynx, mucous membranes moist poor dentition Neck: supple, no adenopathy, No JVD, no bruit, Resp: Clear to auscultation b/l, no wheeze, rales, rhonchi. 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 Extremities: No edema bilaterally Skin: warm, moist, no rash, negative turgor, cap refill < 2sec, abrasions to palmar aspect of left hand Neuro: Alert and oriented x 3, speech normal, good mood/affect, cran nerve 2-12 intact grossly : deferred Results & Data Laboratory Results Short CBC 07/18/18 Range/Units 17:31 WBC 13.95 H (4.8-10.8) K/uL Hgb 14.3 (14.0-18.0) g/dL Hct 41.1 L (42-52) % Plt Count 317 (130-400) K/uL BMP 07/18/18 17:31 Sodium 131 L Potassium 4.2 Chloride 95 L Carbon Dioxide 29 BUN 7 Creatinine 0.97 Glucose 112 H Calcium 8.9 Cardiac Enzymes 07/18/18 Range/Units 17:31 Troponin I < 0.015 (0-0.045) ng/ml Liver Function 07/18/18 Range/Units 17:31 Total Bilirubin 0.4 (0.2-1) mg/dl AST 17 (15-37) U/L ALT 29 (12-78) U/L Alkaline Phosphatase 216 H (45-117) U/L Albumin 3.8 (3.4-5.0) gm/dl Diagnostic Findings Head CT: IMPRESSION: 1. No acute intracranial abnormality or calvarial fracture. 2. Bilateral nasal bone fractures are noted in conjunction with bilateral soft tissue swelling suggestive of acute injury. Face CT: IMPRESSION: 1. Acute appearing comminuted, minimally displaced and angulated fractures about the bilateral nasal bones with moderate associated soft tissue swelling. 2. Acutely angulated sigmoidal bowing of the mid nasal septum is new from 06/25/2017, suggestive of acute fracture. CXR: IMPRESSION: No active disease in the chest. Cervical CT: IMPRESSION: No acute cervical spine fracture or subluxation. Medications Administered Discontinued Medications Sodium Chloride (Nss 1000ml) 1,000 mls @ 999 mls/hr IV .Q1H1M DEMETRIUS Stop: 07/18/18 19:00 Last Infusion: 07/18/18 19:47 Dose: 0 mls/hr Documented by: [id number] Admin: 07/18/18 18:51 Dose: 999 mls/hr Documented by: [id number] ECG Rate (beats per minute): 84 Rhythm: normal sinus Findings: + 1st degree AV block Additional Comments: poor quality ECG, will have repeated Code Status & VTE Plan Code Status Full Code VTE Prophylaxis Plan VTE Prophylaxis will be ordered: Yes Supervising Physician Co-Signing Physician Notes The patient was seen and examined in ER He is a 68-year-old male who has a significant past medical history bipolar disorder, EMILIANO, depression, COPD, HLD, PVD with a history of left iliac artery stent, fatty liver disease, history of EtOH abuse and tobacco abuse disorderwho presents to [facility] secondary to fall this afternoon. 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 Admission labs,EKG, and Imaging studies were reviewed S/P Fall, likely mechanical and doubt any arrhythmia and or stroke but will finish work ups Other medical conditions are stable. Agree with the assessment and plan Dr Frank Leger (1) Fracture of nasal bone Encounter type: initial encounter Fracture type: closed Qualified Code(s): S02.2XXA - Fracture of nasal bones, initial encounter for closed fracture (2) Bipolar disorder Active/Remission status: remission status unspecified Qualified Code(s): F31.9 - Bipolar disorder, unspecified (3) Leukocytosis Leukocytosis type: unspecified Qualified Code(s): D72.829 - Elevated white blood cell count, unspecified (4) COPD (chronic obstructive pulmonary disease) COPD type: unspecified COPD Qualified Code(s): J44.9 - Chronic obstructive pulmonary disease, unspecified (5) HTN (hypertension) Hypertension type: essential hypertension Qualified Code(s): I10 - Essential (primary) hypertension (6) Fall Encounter type: initial encounter Qualified Code(s): W19.XXXA - Unspecified fall, initial encounter
[2018-07-18] MEDS ORDERED: DOCUSATE SODIUM 100 MG CAP PO PRN (21:30)
[2018-07-18] MEDS ORDERED: ALUMINUM/MAGNESIUM SUSP 30 ML UDC PO PRN (21:30)
[2018-07-18] MEDS ORDERED: MAGNESIUM HYDROXIDE SUSP 30 ML UDC PO PRN (21:30)
[2018-07-18] MEDS ORDERED: POLYETHYLENE (MIRALAX) 17 GM PACK PO PRN (21:30)
[2018-07-18] MEDS ORDERED: ALBUTEROL 0.5% NEB SOLN 2.5 MG/0.5 ML VIAL NEB PRN (21:30)
[2018-07-18] MEDS ORDERED: MoRPHine SULFATE 2 MG/ML CARP IV PRN (21:30)
[2018-07-18] MEDS ORDERED: ACETAMINOPHEN 325 MG TAB PO PRN (21:30)
[2018-07-18] MEDS: OXYCODONE/ACETAMINOPHEN 5mg/325mg TAB PO PRN (21:48)
[2018-07-18] MEDS: OLANZapine 20 MG TABLET PO SCH (21:57)
[2018-07-18] MEDS: PROPRANOLOL HCL 10 MG TAB PO SCH (21:58)
[2018-07-18] MEDS: LITHIUM CARBONATE 300 MG TAB PO SCH (21:58)
[2018-07-18] MEDS: GABAPENTIN 400 MG CAP PO SCH (21:59)
[2018-07-18] MEDS: CARBAMAZEPINE 100 MG CHEW TAB PO SCH (21:59)
[2018-07-18] MEDS: ATORVASTATIN 40 MG TAB PO SCH (21:59)
[2018-07-18] MEDS: BusPIRone 15 MG TAB PO SCH (21:59)
[2018-07-18] MEDS ORDERED: SODIUM CHLORIDE 0.65% NA SOLN 45 ML (OCEAN) ONE (22:20)
[2018-07-19] MEDS: OXYCODONE/ACETAMINOPHEN 5mg/325mg TAB PO PRN ×4 (02:21→18:31)
--- NOTE | 2018-07-19 07:10 | Ultrasound Report ---
BILATERAL CAROTID DOPPLER STUDY HISTORY: fall COMPARISON: None. TECHNIQUE: Real-time, grayscale, and color Doppler sonography of the carotid arteries was performed. Imaging reviewed in the transverse and longitudinal planes. All measurements were calculated based on NASCET criteria. FINDINGS: Antegrade flow is seen in the bilateral vertebral arteries. The brachial pressures are hemodynamically similar. Mild calcified plaque within the bilateral carotid bifurcations. The peak systolic velocity within the right ICA is 151 cm/s proximally. The right systolic ratio is 1 .5. The peak systolic velocity within the left ICA is 116 cm/s. The left systolic ratio is 1.4. Mild to moderate stenosis within the left external carotid artery. IMPRESSION: 1. Approximately 50-69% stenosis within the proximal right internal carotid artery. 2. [id number] stenosis within the left external carotid artery. 3. No significant stenosis within the left internal carotid artery. Electronically signed by: Kevin Robertson M.D. 07/19/2018 7:09 AM
[2018-07-19 07:48] LABS: Hematocrit (blood only) 35.7 % (42-52); Hemoglobin 11.9 g/dL (14.0-18.0); Mean Corpuscular Hgb Conc 33.3 g/dL (32-36); Mean Corpuscular Volume 94.2 fL (80-100); Mean Platelet Volume 8.9 fL (7.4-10.4); Platelet Count 258 K/uL (130-400); RDW Coefficient of Variation 13.2 % (11.5-14.5); RDW Standard Deviation 45.5 fL (36.4-46.3); Red Blood Count 3.79 M/uL (4.7-6.1); White Blood Count 9.25 K/uL (4.8-10.8)
[2018-07-19 08:24] LABS: Est GFR (African American) 104.3; Potassium 3.9 mmol/L (3.5-5.1)
[2018-07-19 08:25] LABS: BUN Creatinine Ratio 13.3 (10-20); Calcium 8.3 mg/dl (8.5-10.1)
[2018-07-19] MEDS: LITHIUM CARBONATE 300 MG TAB PO SCH ×2 (08:25→20:32)
[2018-07-19] MEDS: PROPRANOLOL HCL 10 MG TAB PO SCH ×2 (08:26→20:31)
[2018-07-19] MEDS: FINASTERIDE 5 MG TAB PO SCH (08:26)
[2018-07-19] MEDS: CARBAMAZEPINE 100 MG CHEW TAB PO SCH ×2 (08:26→20:33)
[2018-07-19] MEDS: BusPIRone 15 MG TAB PO SCH ×3 (08:26→20:31)
[2018-07-19] MEDS: CLOPIDOGREL BISULFATE 75 MG TAB PO SCH (08:26)
[2018-07-19] MEDS: FLUOXETINE HCL 10 MG CAP PO SCH (08:26)
[2018-07-19] MEDS: GABAPENTIN 400 MG CAP PO SCH ×3 (08:26→20:33)
[2018-07-19] MEDS: PANTOprazole 40 MG TAB PO SCH (08:26)
--- NOTE | 2018-07-19 08:27 | Surgery Consultation ---
Date of Consultation July 19, 2018 Assessment & Plan (1) Nasal septum fracture: The patient has obstruction on the left side and deviation of the dorsum of the nose toward the left side. I would recommend septoplasty and closed reduction of the nose which can be arranged as outpatient or can be arranged for in the operating room if the patient is still in-house. Thank you for this consultation History of Present Illness Reason for Consultation: Fall with injury to nose Attending Physician: Julián Padron MD History of Present Illness 68-year-old male who fell flat on his face striking his nose and now complains of nasal obstruction. Allergies Allergy/AdvReac Type Severity Reaction Status Date / Time naproxen Allergy Intermediate HEART Verified 07/18/18 18:16 RACING SWEATING Home Medications Home Medications Medication Instructions Recorded Confirmed Type acetaminophen [Tylenol Extra 1,000 mg PO DIRECTED PRN 07/18/18 07/18/18 History Strength] atorvastatin 80 mg PO HS 07/18/18 07/18/18 History buspirone 15 mg PO TID 07/18/18 07/18/18 History carbamazepine 100 mg PO BID 07/18/18 07/18/18 History clopidogrel [Plavix] 75 mg PO DAILY 07/18/18 07/18/18 History docusate sodium 100 mg PO BID PRN 07/18/18 07/18/18 History finasteride 5 mg PO DAILY 07/18/18 07/18/18 History fluoxetine [Prozac] 10 mg PO QAM 07/18/18 07/18/18 History gabapentin 400 mg PO TID 07/18/18 07/18/18 History hydroxyzine pamoate 50 mg PO TID PRN 07/18/18 07/18/18 History lithium carbonate 150 mg PO BID 07/18/18 07/18/18 History olanzapine [Zyprexa] 20 mg PO HS 07/18/18 07/18/18 History oxycodone-acetaminophen [Percocet] 1 tab PO Q4 PRN 07/18/18 07/18/18 History pantoprazole 40 mg PO DAILY 07/18/18 07/18/18 History propranolol 10 mg PO BID 07/18/18 07/18/18 History Patient History Medical History BPH (benign prostatic hyperplasia) (Chronic) HTN (hypertension) (Chronic) Tobacco abuse (Chronic) COPD (chronic obstructive pulmonary disease) (Chronic) Bipolar disorder (Chronic) EMILIANO (generalized anxiety disorder) (Chronic) History of ETOH abuse (Chronic) PVD (peripheral vascular disease) (Chronic) Fatty liver (Chronic) Adenocarcinoma, colon (Chronic) HLD (hyperlipidemia) (Chronic) Surgical History History of colectomy (Chronic) secondary to adenoca of colon Status post insertion of iliac artery stent (Chronic) 2018, stent x 3 Family History Mother , 75 Coronary heart disease Cervical cancer Kidney malignancy Father , 56 Hypertension Heart disease Social History Preferred Language: Kenyan Communication Ability: Effective 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 Beliefs That Will Affect Care: None and Faith marital status: Single Current Living Situation: Alone current occupational status: disabled Other Information That Helps Us Care for You: No Feels Safe at Home: Yes Safety Concerns: Feels Safe At This Time Smoking Status: Current every day smoker Hx Alcohol Use: Yes Hx Substance Use: No Physical Exam Vital Signs (Past 24 Hours): Last Vital Signs Temp 36.8 C 07/19/18 06:58 Pulse 65 07/19/18 06:58 Resp 18 07/19/18 06:58 BP 125/78 07/19/18 06:58 Pulse Ox 98 07/19/18 06:58 Constitutional: WD/WN, vitals as above Eyes: PERRL, conjunctivae normal, anicteric sclerae Slight periorbital ecchymosis especially around the bridge of the nose ENMT: Nose: + external nose abnormality The nose is deviated to the left with left-sided nasal obstruction. The CT demonstrated septal deviation to the left anteriorly and to the right posteriorly along with comminuted nasal fracture. Neck: trachea midline, no thyromegaly Respiratory: normal respiratory effort, lungs clear to auscultation Cardiovascular: RRR, no murmur, no edema
--- NOTE | 2018-07-19 14:20 | Hospitalist Progress Note ---
Date of Service July 19, 2018 Assessment & Plan (1) Fall: (2) Fracture of nasal bone: Present to the ER after a fall. Unsure if he had a syncope or tripped on something CT head showed no intracranial abnormality CT face showed acute appearing comminuted, minimally displaced and angulated fractures about the bilateral nasal bones with moderate associated soft tissue swelling. Acutely angulated sigmoidal bowing of the mid nasal septum is new from 06/25/2017, suggestive of acute fracture. Carotid doppler showed proximately 50-69% stenosis within the proximal right internal carotid artery. ECHO showed no wall motion abnormality with EF btw 55 to 60% ENT dr. Tucker on board recommended septoplasty and closed reduction of the nose Pt would like to get it done while in the hospital Will get him NPO tomorrow after midnight to get the procedure done on Tele showed no arrhythmia Fall precaution Pain control PT/OT eval (3) Hyponatremia: NA on admission 131 Na 139 today Received IVF Monitor BMP (4) Leukocytosis: Might be reactive WBC wnl today (5) Bipolar disorder: recently hospitalized at [facility] under psychiatric care with recent medication adjustments and addition of lithium lithium level 0.2 (Low) continue tegretol, olanzapine, buspar, prozac, neurontin, propranolol Will need to follow with his psych provider (6) EMILIANO (generalized anxiety disorder): continue prozac and buspar Stable (7) COPD (chronic obstructive pulmonary disease): Albuterol prn for SOB/Wheezing Stable (8) HTN (hypertension): BP stable Continue propanolol (9) HLD (hyperlipidemia): continue statin (10) PVD (peripheral vascular disease): continue statin and plavix Stable (11) Tobacco abuse: Counseling on smoking cessation (12) DVT prophylaxis: will start on heparin subq Code status Full code Disposition Plan for surgery on Subjective Pt was seen and examined Lying in bed with no distress He said that he does have difficulty to breath Pt said that he does have tenderness in his nasal area He said that he would rather stay to get the surgery done on Denies any chest pain, palpitation and fever Physical Exam Vital Signs (Past 24 Hours): Last Vital Signs Temp 36.6 C 07/19/18 11:52 Pulse 70 07/19/18 11:52 Resp 18 07/19/18 11:52 BP 126/78 07/19/18 11:52 Pulse Ox 96 07/19/18 11:52 Physical Exam: General- No acute distress Head- atraumatic Eyes- PERRL, EOMI, ENT- Bruises on the nasal area, nose is deviated to the left Neck- supple, no JVD Lungs- clear to auscultation Heart- regular rhythm; +systolic murmur Abdomen- normal bowel sounds, soft, nontender Extremities- no calf tenderness, bruises in right knee Neuro- alert, oriented x 3; PERRL, EOMI; no facial palsy; no dysarthria Skin- warm & dry (1) Fracture of nasal bone Encounter type: initial encounter Fracture type: closed Qualified Code(s): S02.2XXA - Fracture of nasal bones, initial encounter for closed fracture (2) Bipolar disorder Active/Remission status: remission status unspecified Qualified Code(s): F 31.9 - Bipolar disorder, unspecified (3) Leukocytosis Leukocytosis type: unspecified Qualified Code(s): D72.829 - Elevated white blood cell count, unspecified (4) COPD (chronic obstructive pulmonary disease) COPD type: unspecified COPD Qualified Code(s): J44.9 - Chronic obstructive pulmonary disease, unspecified (5) HTN (hypertension) Hypertension type: essential hypertension Qualified Code(s): I10 - Essential (primary) hypertension (6) Fall Encounter type: initial encounter Qualified Code(s): W19.XXXA - Unspecified fall, initial encounter
[2018-07-19] MEDS: HEPARIN SOD 5,000 UNIT/0.5 ML VIAL SQ SCH (20:31)
[2018-07-19] MEDS: ATORVASTATIN 40 MG TAB PO SCH (20:32)
[2018-07-19] MEDS: OLANZapine 20 MG TABLET PO SCH (20:34)
[2018-07-20] MEDS: FLUOXETINE HCL 10 MG CAP PO SCH (07:26)
[2018-07-20] MEDS: PANTOprazole 40 MG TAB PO SCH (07:26)
[2018-07-20] MEDS: CARBAMAZEPINE 100 MG CHEW TAB PO SCH ×2 (07:26→21:03)
[2018-07-20] MEDS: HEPARIN SOD 5,000 UNIT/0.5 ML VIAL SQ SCH (07:26)
[2018-07-20] MEDS: PROPRANOLOL HCL 10 MG TAB PO SCH ×2 (07:26→21:02)
[2018-07-20] MEDS: CLOPIDOGREL BISULFATE 75 MG TAB PO SCH (07:26)
[2018-07-20] MEDS: LITHIUM CARBONATE 300 MG TAB PO SCH ×2 (07:27→21:02)
[2018-07-20] MEDS: GABAPENTIN 400 MG CAP PO SCH ×3 (07:27→21:01)
[2018-07-20] MEDS: BusPIRone 15 MG TAB PO SCH ×3 (07:27→21:02)
--- NOTE | 2018-07-20 07:54 | Surgery Progress Note ---
Date of Service July 20, 2018 Assessment & Plan (1) Nasal septum fracture: The patient's facial ecchymosis remains however the swelling has subsided and there is noticeable deviation of the dorsum of the nose to the left and still septal deviation to the left with obstruction as noted on CT scan. He still requests repair of nasal and septal fracture while in-house which will be scheduled for tomorrow probably early afternoon by me. Heparin will be held for tomorrow for surgery and may be resumed 48 hours after surgery if there is no bleeding. The procedure has been explained to the patient with possible complications and he desires to proceed. Thanks again for this consult Physical Exam Vital Signs (Past 24 Hours): Last Vital Signs Temp 36.7 C 07/20/18 06:58 Pulse 70 07/20/18 06:58 Resp 16 07/20/18 06:58 BP 128/76 07/20/18 06:58 Pulse Ox 96 07/20/18 06:58 Constitutional: WD/WN, vitals as above Eyes: PERRL, conjunctivae normal, anicteric sclerae ENMT: Nose: + external nose abnormality Neck: trachea midline, no thyromegaly Respiratory: normal respiratory effort, lungs clear to auscultation Cardiovascular: RRR, no murmur, no edema
[2018-07-20 08:09] LABS: BUN Creatinine Ratio 14.5 (10-20); Calcium 8.8 mg/dl (8.5-10.1); Creatinine Clr Calc Pharmacy 70.5 ml/min; Est GFR (African American) 92.6; Est GFR (Non-African American) 79.9; Potassium 4.1 mmol/L (3.5-5.1)
[2018-07-20] MEDS: OXYCODONE/ACETAMINOPHEN 5mg/325mg TAB PO PRN ×4 (08:44→21:41)
[2018-07-20] MEDS: FINASTERIDE 5 MG TAB PO SCH (08:44)
--- NOTE | 2018-07-20 09:30 | Anesthesiology Consultation ---
Date of Service July 20, 2018 Assessment & Plan (1) Encounter for pre-operative examination: Chart Review Chart Review: Acceptable Risk for Surgery and manager entry initiated Consults Requested none History Surgery Operation Date: 07/21/18 13:00 Proposed Procedures p Septoplasty and Closed Reduction Nasal Fracture - Carol Tucker MD Height/Weight Height: 5 ft 8 in Weight: 81.5 kg Allergies Allergy/AdvReac Type Severity Reaction Status Date / Time naproxen Allergy Intermediate HEART Verified 07/18/18 18:16 RACING SWEATING Medications Home Medications Medication Instructions Recorded Confirmed Last Taken acetaminophen [Tylenol Extra 1,000 mg PO DIRECTED PRN 07/18/18 07/18/18 Unknown Strength] atorvastatin 80 mg PO HS 07/18/18 07/18/18 07/17/18 buspirone 15 mg PO TID 07/18/18 07/18/18 07/18/18 08:00 carbamazepine 100 mg PO BID 07/18/18 07/18/18 07/17/18 clopidogrel [Plavix] 75 mg PO DAILY 07/18/18 07/18/18 07/18/18 docusate sodium 100 mg PO BID PRN 07/18/18 07/18/18 Unknown finasteride 5 mg PO DAILY 07/18/18 07/18/18 Unknown fluoxetine [Prozac] 10 mg PO QAM 07/18/18 07/18/18 07/18/18 gabapentin 400 mg PO TID 07/18/18 07/18/18 07/18/18 08:00 hydroxyzine pamoate 50 mg PO TID PRN 07/18/18 07/18/18 Unknown lithium carbonate 150 mg PO BID 07/18/18 07/18/18 07/18/18 08:00 olanzapine [Zyprexa] 20 mg PO HS 07/18/18 07/18/18 07/17/18 oxycodone-acetaminophen [Percocet] 1 tab PO Q4 PRN 07/18/18 07/18/18 Unknown pantoprazole 40 mg PO DAILY 07/18/18 07/18/18 07/18/18 propranolol 10 mg PO BID 07/18/18 07/18/18 07/18/18 08:00 Active Medications Generic Name Dose Route Start Last Admin Trade Name Freq PRN Reason Stop Dose Admin Atorvastatin Calcium 80 mg 07/18/18 21:30 07/19/18 20:32 Lipitor PO 08/17/18 21:29 80 mg HS DEMETRIUS Administration Buspirone HCl 15 mg 07/18/18 21:30 07/20/18 07:27 Buspar PO 08/17/18 21:29 15 mg TID DEMETRIUS Administration Carbamazepine 100 mg 07/18/18 21:30 07/20/18 07:26 Tegretol PO 08/17/18 21:29 100 mg BID DEMETRIUS Administration Clopidogrel Bisulfate 75 mg 07/19/18 09:00 07/20/18 07:26 Plavix PO 08/18/18 08:59 75 mg DAILY DEMETRIUS Administration Finasteride 5 mg 07/19/18 09:00 07/20/18 08:44 Proscar PO 08/18/18 08:59 5 mg DAILY DEMETRIUS Administration Fluoxetine HCl 10 mg 07/19/18 09:00 07/20/18 07:26 Prozac PO 08/18/18 08:59 10 mg QAM DEMETRIUS Administration Gabapentin 400 mg 07/18/18 21:30 07/20/18 07:27 Neurontin PO 08/17/18 21:29 400 mg TID DEMETRIUS Administration Heparin Sodium (Porcine) 5,000 units 07/19/18 21:00 07/20/18 07:26 Heparin Sodium (Porcine) SQ 08/18/18 20:59 5,000 units Q12 DEMETRIUS Administration Hydroxyzine HCl 50 mg 07/18/18 21:30 07/20/18 07:27 Vistaril PO 08/17/18 21:29 50 mg TID PRN Administration NEEDED Baker Carbonate 150 mg 07/18/18 21:30 07/20/18 07:27 Baker Carbonate PO 08/17/18 21:29 150 mg BID DEMETRIUS Administration Morphine Sulfate 2 mg 07/18/18 21:30 07/19/18 00:25 Morphine Sulfate IV 08/01/18 21:29 2 mg Q4H PRN Administration Severe Pain Olanzapine 20 mg 07/18/18 21:30 07/19/18 20:34 Zyprexa PO 08/17/18 21:29 20 mg HS DEMETRIUS Administration Oxycodone/Acetaminophen 1 tab 07/18/18 21:30 07/20/18 08:44 Percocet 5mg/325mg PO 08/01/18 21:29 1 tab Q4 PRN Administration Moderate Pain Pantoprazole Sodium 40 mg 07/19/18 09:00 07/20/18 07:26 Protonix PO 08/18/18 08:59 40 mg DAILY DEMETRIUS Administration Propranolol HCl 10 mg 07/18/18 21:30 07/20/18 07:26 Inderal PO 08/17/18 21:29 10 mg BID DEMETRIUS Administration Past Medical History Medical History BPH (benign prostatic hyperplasia) (Chronic) HTN (hypertension) (Chronic) Tobacco abuse (Chronic) COPD (chronic obstructive pulmonary disease) (Chronic) Bipolar disorder (Chronic) EMILIANO (generalized anxiety disorder) (Chronic) History of ETOH abuse (Chronic) PVD (peripheral vascular disease) (Chronic) Fatty liver (Chronic) Adenocarcinoma, colon (Chronic) HLD (hyperlipidemia) (Chronic) Past Family History Family History Mother , 75 Coronary heart disease Cervical cancer Kidney malignancy Father , 56 Hypertension Heart disease Past Surgical History Surgical History History of colectomy (Chronic) secondary to adenoca of colon Status post insertion of iliac artery stent (Chronic) 2018, stent x 3 Social History Smoking Status: Current every day smoker tobacco type: cigarettes Smoking cigarettes per day: 10 Do You Dip or Chew Tobacco: No Hx Alcohol Use: Yes Alcohol type: beer alcohol intake frequency: a few times a month Hx Substance Use: No Physical Exam Vital Signs Last Vital Signs Temp 98.1 F 07/20/18 06:58 Pulse 70 07/20/18 06:58 Resp 16 07/20/18 06:58 BP 128/76 07/20/18 06:58 Pulse Ox 96 07/20/18 06:58 Testing Electrocardiogram Date: 07/18/18 Findings: + NSR @ (73 bpm) and + NSST changes Chest X-Ray Date: 07/18/18 Findings: + NAD Echocardiogram Date: 07/19/18 EF: 55-60% LV Function: normal RWMA: + none Other Findings: + LVH (mild) Other Testing Carotid Dopper 07/18/09 1. Approximately 50-69% stenosis within the proximal right internal carotid artery. 2. [id number] stenosis within the left external carotid artery. 3. No significant stenosis within the left internal carotid artery. Laboratory Results 07/19/18 06:54 07/20/18 07:27 PT 10.2 Seconds (9.0-12.0) 07/18/18 17:31 INR 1.0 (0.9-1.1) 07/18/18 17:31 Urine Color Yellow 07/18/18 19:40 Urine Appearance Clear (Clear) 07/18/18 19:40 Urine pH 7.5 (4.5-7.5) 07/18/18 19:40 Ur Specific [place] 1.006 (1.000-1.030) 07/18/18 19:40 Urine Protein Negative (Negative) 07/18/18 19:40 Urine Glucose (UA) Negative (Negative) 07/18/18 19:40 Urine Ketones Negative (Negative) 07/18/18 19:40 Urine Nitrite Negative (Negative) 07/18/18 19:40 Ur Leukocyte Esterase Negative (Negative) 07/18/18 19:40 Urine WBC (Auto) 0 /hpf (0-5) 07/18/18 19:40 Urine RBC (Auto) 0-4 /hpf (0-4) 07/18/18 19:40 U Hyaline Cast (Auto) 0 /lpf (0-5) 07/18/18 19:40 U Epithel Cells (Auto) 0-5 /lpf (0-5) 07/18/18 19:40 Urine Bacteria (Auto) Negative (Negative) 07/18/18 19:40
--- NOTE | 2018-07-20 20:15 | Hospitalist Progress Note ---
Date of Service July 20, 2018 Assessment & Plan (1) Fall: Fall with nasal fracture. Possible syncope as discussed below. No acute intracranial findings on head CT. (2) Syncope: Fall with possible LOC. Monitor for arrhythmias. Check orthostatic VS. (3) Fracture of nasal bone: Bilateral nasal fractures noted on CT. Management per ENT. Schedule for surgery tomorrow. (4) Leukocytosis: WBC 13,950 --> 9,250. No fever. No apparent infection. (5) HTN (hypertension): Continue propranolol. (6) COPD (chronic obstructive pulmonary disease): Pulmonary status stable. (7) BPH (benign prostatic hyperplasia): Continue finasteride. Consider adding tamsulosin- check history. (8) DVT prophylaxis: No anticoagulants in light of fall / facial injury. SCD's. Ambulate. (9) Discharge planning issues: Anticipated discharge to home. Family Medicine follow-up with Dr. Angulo. Subjective Recheck for fall, possible syncope, and other problems. Pt seen in his room around 1200. Doing fairly well except for facial pain. Scheduled for surgery tomorrow. Constitutional: no fever Respiratory: no cough and no dyspnea Cardiovascular: no chest pain, no dyspnea and no palpitations Gastrointestinal: no nausea, no vomiting, no diarrhea/loose stools, no blood in stools and no melena Genitourinary (Male): no dysuria Physical Exam Vital Signs (Past 24 Hours): Last Vital Signs Temp 36.8 C 07/20/18 19:00 Pulse 74 07/20/18 19:00 Resp 21 07/20/18 19:00 BP 129/75 07/20/18 19:00 Pulse Ox 96 07/20/18 19:00 Constitutional: no acute distress ENMT: facial ecchymoses Respiratory: no respiratory distress Auscultation: lungs clear to auscultation bilaterally Cardiovascular: Rate/Rhythm: regular rate and regular rhythm Heart Sounds: no gallop, no murmur and no cardiac rub Vessels: no JVD Extremities: no calf tenderness and no edema Gastrointestinal (Abdomen): normal bowel sounds, soft, nontender, no hepatosplenomegaly Skin: no rashes, warm and dry Psychiatric: Orientation: alert and oriented x 3 Results & Data Laboratory Results Laboratory Results - last 24 hr 07/20/18 07:27 Sodium 140 Potassium 4.1 Chloride 106 Carbon Dioxide 29 Anion Gap 5.0 BUN 14 Creatinine 0.97 Est Cr Clr Drug Dosing 70.5 Est GFR ( Amer) 92.6 Est GFR (Non-Af Amer) 79.9 BUN/Creatinine Ratio 14.5 Glucose 97 Calcium 8.8 (1) Fall Encounter type: initial encounter Qualified Code(s): W19.XXXA - Unspecified fall, initial encounter (2) Syncope Syncope type: unspecified Qualified Code(s): R55 - Syncope and collapse (3) Fracture of nasal bone Encounter type: initial encounter Fracture type: closed Qualified Code(s): S02.2XXA - Fracture of nasal bones, initial encounter for closed fracture (4) Leukocytosis Leukocytosis type: unspecified Qualified Code(s): D72.829 - Elevated white blood cell count, unspecified (5) COPD (chronic obstructive pulmonary disease) COPD type: unspecified COPD Qualified Code(s): J44.9 - Chronic obstructive pulmonary disease, unspecified (6) HTN (hypertension) Hypertension type: essential hypertension Qualified Code(s): I10 - Essential (primary) hypertension
[2018-07-20] MEDS: ATORVASTATIN 40 MG TAB PO SCH (21:01)
[2018-07-20] MEDS: OLANZapine 20 MG TABLET PO SCH (21:02)
[2018-07-21] MEDS ORDERED: ACETAMINOPHEN 1000 MG/100 ML IV IV ONE (06:40)
[2018-07-21] MEDS: PROPRANOLOL HCL 10 MG TAB PO SCH ×2 (08:55→20:59)
[2018-07-21] MEDS: BusPIRone 15 MG TAB PO SCH ×3 (08:55→20:57)
[2018-07-21] MEDS: FINASTERIDE 5 MG TAB PO SCH (08:56)
[2018-07-21] MEDS: GABAPENTIN 400 MG CAP PO SCH ×3 (08:56→20:56)
[2018-07-21] MEDS: LITHIUM CARBONATE 300 MG TAB PO SCH ×2 (08:56→20:57)
[2018-07-21] MEDS: PANTOprazole 40 MG TAB PO SCH (08:56)
[2018-07-21] MEDS: CLOPIDOGREL BISULFATE 75 MG TAB PO SCH (08:56)
[2018-07-21] MEDS: FLUOXETINE HCL 10 MG CAP PO SCH (08:57)
[2018-07-21] MEDS: CARBAMAZEPINE 100 MG CHEW TAB PO SCH ×2 (08:57→20:58)
[2018-07-21] MEDS: OXYCODONE/ACETAMINOPHEN 5mg/325mg TAB PO PRN ×2 (09:07→20:55)
[2018-07-21] MEDS ORDERED: ONDANSETRON HCL 6 MG in DEXTROSE 5% 50 ML IV PRN (09:20)
[2018-07-21] MEDS ORDERED: DEXAMETHASONE SOD INJ 4 MG/ML VIAL ONE (12:16)
[2018-07-21] MEDS ORDERED: LIDOCAINE HCL 2% 2 ML VIAL/AMP(20MG/ML) INFIL ONE (12:16)
[2018-07-21] MEDS ORDERED: PROPOFOL IV EMULSION 10 MG/ML 20 ML VIAL IV ONE (12:16)
[2018-07-21] MEDS ORDERED: ONDANSETRON INJ 2 MG/ML 2 ML VIAL ONE (12:16)
[2018-07-21] MEDS ORDERED: MIDAZOLAM HCL 1 MG/ML 2ML VIAL ONE (12:17)
[2018-07-21] MEDS ORDERED: fentaNYL citrate 100 MCG/2 ML VIAL ONE (12:17)
[2018-07-21] MEDS ORDERED: LIDOCAINE/EPINE 2% 1:100,000 20ML ONE (12:33)
[2018-07-21] MEDS ORDERED: LIDOCAINE 4% INH SOLN 4 ML BTL ONE (12:33)
[2018-07-21] MEDS ORDERED: EpINEphrine HCL INJ 1 MG/ML 1ML SYRINGE ONE (12:34)
[2018-07-21] MEDS ORDERED: ONDANSETRON INJ 2 MG/ML 2 ML VIAL IV PRN (13:35)
[2018-07-21] MEDS ORDERED: HYDROmorphone INJ 1 MG/ML SYRINGE IV PRN (13:35)
[2018-07-21] MEDS ORDERED: ATROPINE SULFATE 0.1 MG/ML 10ML SYR IV PRN (13:35)
[2018-07-21] MEDS ORDERED: fentaNYL citrate 100 MCG/2 ML VIAL IV PRN (13:35)
[2018-07-21] MEDS ORDERED: ePHEDrine sulfate 50 MG/ML AMP IV PRN (13:35)
--- NOTE | 2018-07-21 13:37 | History & Physical Bridge Note ---
Date of Service July 21, 2018 History & Physical Bridge Note I have examined the patient, reviewed the History & Physical and in the interval since the performance of the History & Physical I have noted the following changes of clinical significance: no changes noted
[2018-07-21] MEDS: GELATIN SPONGE 12-7MM ONE ×2 (13:57→14:23)
[2018-07-21] MEDS: MUPIROCIN 2% OINT 22 GM TUBE ONE ×2 (14:00→14:24)
[2018-07-21] MEDS ORDERED: CEFAZOLIN 2000MG 2,000 MG/15 ML SYR IV ONE (14:00)
--- NOTE | 2018-07-21 14:40 | Operative Report ---
Post Operative Report Pre & Post Diagnosis Operation Date: 07/21/18 13:00 Pre-Op Diagnosis: B/L NASAL BONE FRACTURE, S/P FALL Post-Op Diagnosis: B/L NASAL BONE FRACTURE, S/P FALL Procedure Operation Date: 07/21/18 13:00 Actual Procedures p Septoplasty and Closed Reduction Nasal Fracture(Bilateral) - Carol Tucker MD Surgeon Carol Tucker MD Sanitary Landfill Operator none Estimated Blood Loss 10 Findings Consistent with Post-Op Diagnosis Specimens none Complications none Disposition Accompanied Patient To Recovery: Yes Disposition: Recovery Room Indications nasal and septal fracture Description of Procedure Incision with 15 blade, dissected with Tensas and iris scissors, left hemitransfixion incion and flap, bilateral posterior flaps, removed fractured ethmoid and post, septum with Paramjittzen and Jesus forceps, closed septum with 4-0 plain suture in mattress fashion, closed reduction of dorsum, placed Darek splint. I attest to the content of the Intraoperative Record and any orders documented therein. Any exceptions are noted below.
[2018-07-21] MEDS ORDERED: LABETALOL HCL IV 5 MG/ML 20ML IV ONE (15:12)
--- NOTE | 2018-07-21 15:30 | Anesthesiology Progress Note ---
Date of Service July 21, 2018 Anesthesia Post Procedure Vital Signs Vital Signs: Temp Pulse Pulse Pulse Resp BP BP 07/21/18 15:15 68 22 166/78 H 07/21/18 15:05 75 22 181/79 H 07/21/18 14:55 79 20 179/95 H 07/21/18 14:45 75 13 175/86 H 07/21/18 14:35 36.4 C L 73 10 L 189/94 H 07/21/18 13:06 36.4 C L 71 20 182/94 H 07/21/18 11:31 36.3 C L 64 18 154/76 H 07/21/18 08:00 69 07/21/18 06:47 36.7 C 71 18 131/78 07/21/18 03:29 36.8 C 66 18 132/75 07/20/18 23:02 37 C 73 18 134/80 07/20/18 22:40 75 07/20/18 19:00 36.8 C 74 21 129/75 07/20/18 16:03 36.4 C L 69 18 139/77 Pulse Ox 07/21/18 15:15 95 07/21/18 15:05 100 07/21/18 14:55 100 07/21/18 14:45 100 07/21/18 14:35 100 07/21/18 13:06 96 07/21/18 11:31 97 07/21/18 08:00 07/21/18 06:47 97 07/21/18 03:29 94 07/20/18 23:02 94 07/20/18 22:40 07/20/18 19:00 96 07/20/18 16:03 96 Pain Intensity Head: Pain Intensity: 8 Nose: Pain Intensity: 7 Anterior Neck: Pain Intensity: 6 Notes Mental Status: alert / awake / arousable and participated in evaluation Patient Amnestic to Procedure: Yes Nausea / Vomiting: adequately controlled Pain: adequately controlled Airway Patency, RR, SpO2: stable & adequate BP & HR: stable & adequate Hydration State: stable & adequate Anesthetic Complications: no major complications apparent and Pt Satisfied with anesthetic care Notes: complained of mild upper palate discomfort from intubation but no problems swallowing, can breath despite nose surgery and lips and palate did not look swollen or irritated or red
[2018-07-21] MEDS: OXYMETAZOLINE 0.05% 30 ML BTL SCH (20:54)
[2018-07-21] MEDS: ATORVASTATIN 40 MG TAB PO SCH (20:54)
[2018-07-21] MEDS: OLANZapine 20 MG TABLET PO SCH (20:58)
--- NOTE | 2018-07-21 22:58 | Hospitalist Progress Note ---
Date of Service July 21, 2018 Assessment & Plan (1) Fall: Fall with nasal fracture. Possible syncope as discussed below. No acute intracranial findings on head CT. (2) Syncope: Fall with possible LOC. Monitor for arrhythmias. No orthostatic hypotension 07/20. (3) Fracture of nasal bone: Bilateral nasal fractures noted on CT. Management per ENT. Repair performed by Dr. Tucker. (4) Leukocytosis: WBC 13,950 --> 9,250. No fever. No apparent infection. (5) HTN (hypertension): Continue propranolol. (6) COPD (chronic obstructive pulmonary disease): Pulmonary status stable. (7) BPH (benign prostatic hyperplasia): Continue finasteride. Try adding tamsulosin tomorrow. (8) DVT prophylaxis: No anticoagulants in light of fall / facial injury. SCD's. Ambulate. (9) Discharge planning issues: Anticipated discharge to home. Family Medicine follow-up with Dr. Angulo. Subjective Recheck for fall, possible syncope, and other problems. Pt seen in his room around 1999. Repair of nasal fractures performed by Dr. Tucker. Having some postop discomfort and epistaxis. No fever. No chest pain. No cough or SOB. No nausea, vomiting, diarrhea. No dysuria. Review of Systems Other (as noted above) Physical Exam Vital Signs (Past 24 Hours): Last Vital Signs Temp 36.7 C 07/21/18 17:46 Pulse 75 07/21/18 17:46 Resp 22 07/21/18 17:46 BP 162/76 H 07/21/18 17:46 Pulse Ox 92 07/21/18 17:46 Constitutional: no acute distress ENMT: Nose: + external nose abnormality (facial ecchymoses, surgical dressing, epistaxis) Respiratory: no respiratory distress Auscultation: lungs clear to auscultation bilaterally Cardiovascular: Rate/Rhythm: regular rate and regular rhythm Heart Sounds: no gallop, no murmur and no cardiac rub Vessels: no JVD Extremities: no calf tenderness and no edema Gastrointestinal (Abdomen): normal bowel sounds, soft, nontender, no hepatosplenomegaly Skin: no rashes, warm and dry Psychiatric: Orientation: alert and oriented x 3 (1) Fall Encounter type: initial encounter Qualified Code(s): W19.XXXA - Unspecified fall, initial encounter (2) Syncope Syncope type: unspecified Qualified Code(s): R55 - Syncope and collapse (3) Fracture of nasal bone Encounter type: initial encounter Fracture type: closed Qualified Code(s): S02.2XXA - Fracture of nasal bones, initial encounter for closed fracture (4) Leukocytosis Leukocytosis type: unspecified Qualified Code(s): D72.829 - Elevated white blood cell count, unspecified (5) HTN (hypertension) Hypertension type: essential hypertension Qualified Code(s): I10 - Essential (primary) hypertension (6) COPD (chronic obstructive pulmonary disease) COPD type: unspecified COPD Qualified Code(s): J44.9 - Chronic obstructive pulmonary disease, unspecified
[2018-07-22] MEDS: OXYCODONE/ACETAMINOPHEN 5mg/325mg TAB PO PRN ×4 (02:09→16:49)
[2018-07-22] MEDS: OXYMETAZOLINE 0.05% 30 ML BTL SCH (07:59)
[2018-07-22] MEDS: PANTOprazole 40 MG TAB PO SCH (08:00)
[2018-07-22] MEDS: LITHIUM CARBONATE 300 MG TAB PO SCH (08:00)
[2018-07-22] MEDS: GABAPENTIN 400 MG CAP PO SCH ×2 (08:00→12:53)
[2018-07-22] MEDS: PROPRANOLOL HCL 10 MG TAB PO SCH (08:01)
[2018-07-22] MEDS: CARBAMAZEPINE 100 MG CHEW TAB PO SCH (08:01)
[2018-07-22] MEDS: BusPIRone 15 MG TAB PO SCH ×2 (08:02→12:53)
[2018-07-22] MEDS: CLOPIDOGREL BISULFATE 75 MG TAB PO SCH (08:02)
[2018-07-22] MEDS: FLUOXETINE HCL 10 MG CAP PO SCH (08:02)
[2018-07-22] MEDS: FINASTERIDE 5 MG TAB PO SCH (08:02)
[2018-07-22] MEDS ORDERED: TAMSULOSIN HCL 0.4 MG CAP PO SCH (09:00)
--- NOTE | 2018-07-22 15:31 | Hospitalist Progress Note ---
Date of Service July 22, 2018 Assessment & Plan (1) Fall: Fall with nasal fracture. Possible syncope as discussed below. No acute intracranial findings on head CT. (2) Syncope: Fall with possible LOC. Monitored for arrhythmias- none were noted. No orthostatic hypotension 07/20. (3) Fracture of nasal bone: Bilateral nasal fractures noted on CT. Management per ENT. Repair performed by Dr. Tucker. (4) Leukocytosis: WBC 13,950 --> 9,250. No fever. No apparent infection. (5) HTN (hypertension): Continue propranolol. (6) COPD (chronic obstructive pulmonary disease): Pulmonary status stable. (7) BPH (benign prostatic hyperplasia): Chronic urinary frequency and hesitancy. Finasteride continued. Tamsulosin added to regimen. (8) Carotid artery disease: Carotid duplex demonstrated 50-69% stenosis in the proximal right internal carotid artery. Mild to moderate stenosis noted within the left external carotid artery. No significant stenosis within the left internal carotid artery. Continue statin therapy with atorvastatin. Consider starting aspirin for primary prophylaxis once nasal fracture healed. (9) Parkinson's disease: Patient noted to have cogwheel rigidity and pill rolling. Outpatient consultation with Neurology recommended-please make referral in clinic. (10) DVT prophylaxis: No anticoagulants in light of fall / facial injury. SCD's. Ambulate. (11) Discharge planning issues: Anticipated discharge to home. Family Medicine follow-up with Dr. Angulo. Subjective Recheck for fall, possible syncope, and other problems. Repair of nasal fractures performed yesterday by Dr. Tucker. Having some postop discomfort; epistaxis resolved. No fever. No chest pain. No cough or SOB. No nausea, vomiting, diarrhea. No dysuria. Ambulating in hallway without difficulty. Physical Exam Vital Signs (Past 24 Hours): Last Vital Signs Temp 36.6 C 07/22/18 14:33 Pulse 72 07/22/18 14:33 Resp 18 07/22/18 14:33 BP 118/69 07/22/18 14:33 Pulse Ox 98 07/22/18 14:33 Constitutional: no acute distress ENMT: Nose: + external nose abnormality (facial ecchymoses, surgical dressing) Respiratory: no respiratory distress Auscultation: lungs clear to auscultation bilaterally Cardiovascular: Rate/Rhythm: regular rate and regular rhythm Heart Sounds: no gallop, no murmur and no cardiac rub Vessels: no JVD Extremities: no calf tenderness and no edema Gastrointestinal (Abdomen): normal bowel sounds, soft, nontender, no hepatosplenomegaly Skin: no rashes, warm and dry Neurologic: mild cogwheel rigidity of upper extremities pill rolling Psychiatric: Orientation: alert and oriented x 3 (1) Fall Encounter type: initial encounter Qualified Code(s): W19.XXXA - Unspecified fall, initial encounter (2) Syncope Syncope type: unspecified Qualified Code(s): R55 - Syncope and collapse (3) Fracture of nasal bone Encounter type: initial encounter Fracture type: closed Qualified Code(s): S02.2XXA - Fracture of nasal bones, initial encounter for closed fracture (4) Leukocytosis Leukocytosis type: unspecified Qualified Code(s): D72.829 - Elevated white blood cell count, unspecified (5) HTN (hypertension) Hypertension type: essential hypertension Qualified Code(s): I10 - Essential (primary) hypertension (6) COPD (chronic obstructive pulmonary disease) COPD type: unspecified COPD Qualified Code(s): J44.9 - Chronic obstructive pulmonary disease, unspecified
--- NOTE | 2018-07-25 04:24 | Discharge Summary ---
Date of Service Date of admission: 07/18/18 Date of discharge: 07/22/18 Admission HPI Per Admitting Provider This is a 68-year-old male who has a significant past medical history bipolar disorder, EMILIANO, depression, COPD, HLD, PVD with a history of left iliac artery stent, fatty liver disease, history of EtOH abuse who presents to [facility] secondary to fall this afternoon. Patient states he was walking on pavement and tripped over his own feet and fell face first. Fell on his bilateral hands and face. "The fall is a blur." He does not recall events of the fall. He does not think he passed out or lost consciousness but then states, "I cannot be exactly sure." He denied any presyncopal symptoms like lightheadedness, dizziness prior to the fall. Further denies any chest pain, palpitations, shortness of breath, nausea, vomiting, diarrhea, abdominal pain, change in bowel or urinary habits. He denies any loss of bowel or bladder post fall. He does elicit he was recently hospitalized approximately 1 week ago at [facility] for 10 days secondary to psychiatric issues. Did have adjustments made to his psych medications including the addition of lithium 150 mg twice a day. Since starting this medication he states he has not felt, "quite right." Wishes to get off of this medication and has a follow-up appointment with a psychiatrist this week. He does occasionally feel off balance especially if he goes from sitting to standing, but this was present prior to the initiation of lithium. His appetite has been stable. He does have a history of alcohol abuse but states currently he has only been drinking socially, 1-2 beers a few nights a week. No family is at bedside. Currently patient is complaining of pain in his nose as well as his head. He denies any change in vision, change in hearing, diplopia, blurred vision, dizz iness, lightheadedness, chest pain, shortness of breath, abdominal pain or overt weakness. It was reported that there was questionable left upper and left lower extremity weakness after the fall. After questioning the patient he denies any weakness prior to, after the fall or currently in any of his extremities. He just describes pain in his left hand secondary to abrasions suffered from fall. Admission Exam Per Admitting Provider Gen: WD/WN, M, NAD but does appear to be in pain, sitting up in bed, pleasant, conversing easily Head: Normocephalic, + trauma to face, nasal fracture with soft tissue swelling, minimal distortion Eyes: Sclera normal, no conjunctival injection, PERRLA, EOMI ENT: Gross hearing intact, + nasal swelling, blood noted in nasal cavity, nasal distortion, normal pharynx, mucous membranes moist poor dentition Neck: supple, no adenopathy, No JVD, no bruit, Resp: Clear to auscultation b/l, no wheeze, rales, rhonchi. Normal insp/exp effort, no accessory muscle use CV: Regular rate, regular rhythm, 2/6 holosystolic murmur heard best RUSB, no rub, gallop, or ectopy Abd: +BS x 4, soft, nontender, nondistended Musculoskeletal: moves extremities active rom x 4, strength intact, good food production associate strength Extremities: No edema bilaterally Skin: warm, moist, no rash, negative turgor, cap refill < 2sec, abrasions to palmar aspect of left hand Neuro: Alert and oriented x 3, speech normal, good mood/affect, cran nerve 2-12 intact grossly : deferred Principal Diagnosis fall with nasal fracture possible syncope Discharge Data Allergies Allergy/AdvReac Type Severity Reaction Status Date / Time naproxen Allergy Intermediate HEART Verified 07/18/18 18:16 RACING SWEATING Consultations 07/18/18 19:04 ED Decision to Admit Stat 07/18/18 19:44 Consult Otolaryngology (Head and Neck) Routine 07/18/18 21:30 Consult Case Management - Discharge Planning Routine 07/21/18 15:02 Consult Hospitalist Stat Procedures Performed Operation Date: 07/21/18 13:00 Actual Procedures p Septoplasty and (Bilateral) - Carol Tucker MD s Closed Reduction Nasal Fracture(Bilateral) - Carol Tucker MD Ordered Studies 07/18/18 17:55 CT cervical spine wo con Stat CT facial bones wo con Stat CT head/brain wo con Stat 07/18/18 21:30 US carotid doppler BI Routine Hospital Course (1) Fall: Fall with nasal fracture. Possible syncope as discussed below. No acute intracranial findings on head CT. (2) Syncope: Fall with possible LOC. Monitored for arrhythmias- none were noted. No orthostatic hypotension 07/20. (3) Fracture of nasal bone: Bilateral nasal fractures noted on CT. Management per ENT. Repair performed by Dr. Tucker. (4) Leukocytosis: WBC 13,950 --> 9,250. No fever. No apparent infection. (5) HTN (hypertension): Continue propranolol. (6) COPD (chronic obstructive pulmonary disease): Pulmonary status stable. (7) BPH (benign prostatic hyperplasia): Chronic urinary frequency and hesitancy. Finasteride continued. Tamsulosin added to regimen. (8) Carotid artery disease: Carotid duplex demonstrated 50-69% stenosis in the proximal right internal carotid artery. Mild to moderate stenosis noted within the left external carotid artery. No significant stenosis within the left internal carotid artery. Continue statin therapy with atorvastatin. Continue antiplatelet therapy with clopidogrel. Recheck carotid duplex in 6-12 months. (9) Parkinson's disease: Patient noted to have cogwheel rigidity and pill rolling. Outpatient consultation with Neurology recommended-please make referral in clinic. (10) DVT prophylaxis: No anticoagulants in light of fall / facial injury. SCD's. Ambulate. (11) Discharge planning issues: Discharged to home. Family Medicine follow-up with Dr. Angulo. Total Time Total Time Spent Total Time Spent (In Minutes): 45 Discharge Plan Discharge Items Patient Disposition: Home - Self-Care Reason For Visit: fall, broken nose Discharge Diagnosis: fall, broken nose Condition: Good Discharge Goals: Decrease discomfort Activity: Per 'Additional Instructions' section Activity Comment: be careful not to fall Driving/Machine Use Comment: no driving until further notice Non-emergency contact: Primary Care Provider and Hospitalist Call non-emergency contact if: you have any medication questions Follow-up/Referrals: Carol Tucker MD [Surgeon] - (Please call office on Wednesday for appointment.) Christelle Agnulo MD [Primary Care Provider] - (Dr. Palma (covering for Dr. Angulo) 07/26/18 at 10:45) Diet: Heart Healthy Addtl Provider Instructions: ACTIVITY RECOMMENDATIONS: * Being up and around is good, but no strenuous activity, heavy lifting or physical exertion for one week. * Keep your head elevated 30 degrees when lying down or sleeping. * Do not blow your nose for 48 hours, sniff back instead. * Avoid hot showers. OVER THE COUNTER MEDICATIONS: * You may use Tylenol * Avoid aspirin or aspirin containing products, e.g. as they may increase bleeding. SPECIAL CARE INSTRUCTIONS: * Expect to have bloody drainage from your nose and/or down your throat for one to three days. Change drip pad as needed. * Begin irrigating your nose with saline solution today, at least six to ten times per day and sniff back to help remove old clots or crust. * You may experience nasal and facial congestion, pain and pressure, this is normal. * Please call with any significant and/or progressive pain, redness, swelling around the eyes, visual changes, fever of 101.5 degrees F, active bleeding or any problems or concerns. * If active bleeding occurs, spray the nose three times at one minute intervals with Afrin spray and go to the nearest Emergency Department. Special Diet: * Avoid extremely hot fluids. CALL YOUR DOCTOR IF: For any non-urgent questions, call Dr. Johnson office [phone] or the nursing unit where you were a patient. For urgent questions call Dr. Tucker by cell phone which is [phone]. For emergencies go to the emergency room. Please go to the Emergency Room if you have fever (temperature greater than 100.5), chills, lightheadedness, shortness of breath, difficulty breathing, nausea, vomiting, numbness or tingling in your fingers, hands, or mouth, muscle spasms, or if you notice signs of wound infection (redness, tenderness, or drainage from the incision). Please also call or go to the Emergency Room if you have any other urgent concerns. FOLLOW UP VISIT: Follow-up visit with Dr. Tucker in 2 weeks. Please call to schedule if not already scheduled. Please ask Dr. Angulo or Dr. Palma to request Neurology consultation to check for possible Parkinson's. OTHER INSTRUCTIONS: Seek medical attention if you have: * temperature above 101 * chest pain or trouble breathing * abdominal pain, nausea, vomiting * diarrhea, dark stools or bloody stools * any unanswered questions or concerns Call 030 if symptoms are severe. Call if you have any questions or problems. My cell # is [phone]. You can also reach a [facility] hospitalist on duty at [facility] 24 hours a day by calling [phone]. . Prescriptions: New tamsulosin 0.4 mg capsule 0.4 mg PO HS Qty: 30 RF: 5 oxycodone-acetaminophen [Percocet] 5-325 mg tablet 1 tab PO Q8H Qty: 15 RF: 0 Continued atorvastatin 80 mg Tablet 80 mg PO HS RF: 0 gabapentin 400 mg Capsule 400 mg PO TID RF: 0 hydroxyzine pamoate 50 mg Capsule 50 mg PO TID PRN (Reason: NEEDED) RF: 0 lithium carbonate 150 mg Capsule 150 mg PO BID RF: 0 clopidogrel [Plavix] 75 mg Tablet 75 mg PO DAILY RF: 0 acetaminophen [Tylenol Extra Strength] 500 mg Tablet 1,000 mg PO DIRECTED PRN (Reason: Pain) RF: 0 oxycodone-acetaminophen [Percocet] 5-325 mg Tablet 1 tab PO Q4 PRN (Reason: Pain) RF: 0 propranolol 10 mg Tablet 10 mg PO BID RF: 0 pantoprazole 40 mg Tablet,Delayed Release (Dr/Ec) 40 mg PO DAILY RF: 0 carbamazepine 100 mg Tablet,Chewable 100 mg PO BID RF: 0 fluoxetine [Prozac] 10 mg Capsule 10 mg PO QAM RF: 0 docusate sodium 100 mg Capsule 100 mg PO BID PRN (Reason: Constipation) RF: 0 olanzapine [Zyprexa] 20 mg Tablet 20 mg PO HS RF: 0 buspirone 15 mg Tablet 15 mg PO TID RF: 0 finasteride 5 mg Tablet 5 mg PO DAILY RF: 0 Stand-Alone Forms: [facility] Discharge Orders: Discharge Order (Routine); Ordered 07/22/18 Ordered By: Garry Sullivan Admission Data Admit Date/Time: 07/20/18 17:07 Attending Provider: Garry Sullivan Admit Provider: Jerrica Leger Primary Care Provider: Christelle Angulo Other Providers: Jerrica Leger ; Carol Tucker ; Julián Padron ; Garry Sullivan ; Rica Clay ; Desi Buitrago ; Sheron Guadarrama ; Vinayak Griffith ; Yordan Díaz ; Brian Nava ; Demario Chi ; Itzel Dash S ; Carrie Ruiz H ; Kristi Watters ; Derick Yin ; Aj oWng ; Nicole Griggs ; Faith Marrufo ; Aj Gorman Service: Telemetry Medical Other Interventions: Discharge Summary Assessment (RN) Last Done: 07/22/18 14:33 DC Date/Time DO NOT enter until pt leaves facility: 07/22/18 17:00
== END 2018-07-22 17:00 | disposition home or self-care (01) | DRG 131 ==
LOC: 2N 17:46 → ED 17:46 → SUATTDRO 19:44 → 2N 20:15

== ENCOUNTER 2019-02-06 18:26 | Observation (INO) ==
[2019-02-06] MEDS ORDERED: SODIUM CHLORIDE 0.9% 1000ML 1,000 ML IV SCH (18:45)
[2019-02-06 19:33] LABS: Basophils # (auto) 0.04 K/uL (0-0.2); Basophils % (auto) 0.3 %; Eosinophils # (auto) 0.37 K/uL (0-0.5); Eosinophils % (auto) 2.7 %; Hematocrit (blood only) 41.8 % (42-52); Hemoglobin 14.7 g/dL (14.0-18.0); Immature Granulocytes # (auto) 0.04 K/uL (0.00-0.02); Immature Granulocytes % (auto) 0.3 %; Lymphocytes # (auto) 1.85 K/uL (1.2-3.4); Lymphocytes % (auto) 13.4 %; Mean Corpuscular Hemoglobin 32.7 pg (25-34); Mean Corpuscular Hgb Conc 35.2 g/dL (32-36); Mean Corpuscular Volume 93.1 fL (80-100); Mean Platelet Volume 9.3 fL (7.4-10.4); Monocytes # (auto) 0.73 K/uL (0.11-0.59); Monocytes % (auto) 5.3 %; Neutrophils # (auto) 10.79 K/uL (1.4-6.5); Platelet Count 245 K/uL (130-400); RDW Standard Deviation 47.5 fL (36.4-46.3); Red Blood Count 4.49 M/uL (4.7-6.1); White Blood Count 13.82 K/uL (4.8-10.8)
[2019-02-06 19:44] LABS: Partial Thromboplastin Time 25.9 Seconds (21.0-31.0); Prothrombin Time 10.5 Seconds (9.0-12.0)
[2019-02-06 19:49] LABS: Alanine Aminotransferase 14 U/L (12-78); Albumin Level 3.6 gm/dl (3.4-5.0); Aspartate Aminotransferase 12 U/L (15-37); BUN Creatinine Ratio 5.8 (10-20); Blood Urea Nitrogen 6 mg/dl (7-18); Calcium 8.7 mg/dl (8.5-10.1); Carbon Dioxide 27 mmol/L (21-32); Chloride 102 mmol/L (98-107); Creatinine Clr Calc Pharmacy 66.8 ml/min; Est GFR (African American) 90.3; Est GFR (Non-African American) 77.9; Glucose 86 mg/dl (70-99); Potassium 3.6 mmol/L (3.5-5.1); Sodium 137 mmol/L (136-145)
[2019-02-06 19:54] LABS: Albumin Globulin Ratio 0.9 (0.9-2); Alkaline Phosphatase 160 U/L (45-117); Bilirubin,Total 0.4 mg/dl (0.2-1); Globulin 4.2 gm/dl (2.5-4.0); Total Protein 7.8 gm/dl (6.4-8.2); Troponin I < 0.015 ng/ml (0-0.045)
[2019-02-06] MEDS ORDERED: ACETAMINOPHEN 500 MG TAB PO STA (20:37)
[2019-02-06] MEDS ORDERED: SODIUM CHLORIDE 0.9% 250 ML IV PRN (22:08)
[2019-02-06] MEDS ORDERED: bisacodyL 5 MG TABEC PO STA (22:13)
[2019-02-06] MEDS ORDERED: POLYETHYLENE (MIRALAX) 17 GM PACK PO STA (22:14)
[2019-02-06] MEDS ORDERED: LAVAGE SOLUTION 4000ML PO SCH (22:30)
--- NOTE | 2019-02-06 22:34 | History & Physical Report ---
Date of Service February 06, 2019 Assessment & Plan (1) GI (gastrointestinal bleed): This is a 68-year-old male who has significant past medical history of COPD, chronic tobacco abuse, HTN, HLD, bilateral carotid artery stenosis, PVD status post L iliac stent and LATENT PRINT EXAMINER endarterectomy 05/2017, history of EtOH abuse in remission, bipolar disorder, severe recurrent depression with psychosis, EMILIANO, history of colon cancer s/p R colectomy who presents to [facility] ED due to BRBPR s/p colonoscopy and polypectomy x9. S/P colonoscopy with polypectomy x9 while on ASA and Plavix Postoperatively patient had 2 BMs with significant BRBPR In ED patient H&H stable at 14.7 and 41.8, Coags wnl, Bun/Cr 6/0.99 received IVF while in ED case discussed with clare Louie Recommended admission to hospital, colonoscopy prep and likely scope in a.m. admit to med/surg telemetry H/H @ 2am and in a.m. type and cross - 1 unit holding - transfuse hgb < 8.0 Colonoscopy 2 step prep tonight and 1st thing in am. GI consulted will hold ASA and plavix first thing in a.m. until after colonoscopy - would resume directly after once bleeding stopped (2) Leukocytosis: Leukocytosis 13.8k No signs or symptoms of infection Patient afebrile, no complaint of abdominal pain, urinary or respiratory symptoms May be reactive Repeat CBC in a.m. (3) PVD (peripheral vascular disease): S/p left femoral endarterectomy with pericardial patch angioplasty and Left common iliac VBX stent placement and left external iliac VBX stent placement 05/26/[address] Martínez. On ASA, Plavix, high intensity statin Hold ASA/Plavix first thing in the morning prior to procedure Would resume immediately following procedure once bleeding has ceased (4) HTN (hypertension): Blood pressure controlled on propranolol Monitor (5) HLD (hyperlipidemia): continue statin (6) COPD (chronic obstructive pulmonary disease): No acute exacerbation Monitor (7) Bipolar disorder: Patient with history of bipolar disorder, severe recurrent depression with p sychosis, EMILIANO Mood currently stable Patient on multidrug regimen including lithium, hydroxyzine, BuSpar, olanzapine (8) Tobacco abuse: Nicotine patch ordered Urged smoking cessation (9) DVT prophylaxis: SCD/teds Avoid chemical prophylaxis in setting of lower GI bleed ASA/Plavix on hold -would resume Plavix afternoon of procedure tomorrow if bleeding ceases due to stent placement in L iliac artery x 3 Disposition: admit to med/surg tele Follow up: PCP Dr. Angulo upon discharge Patient was seen and examined in collaboration with Dr. Nava, please see addendum History of Present Illness Chief Complaint: BRBPR s/p colonoscopy today with polypectomy x 9. Primary Care Provider: Christelle Angulo MD This is a 68-year-old male who has significant past medical history of COPD, chronic tobacco abuse, HTN, HLD, bilateral carotid artery stenosis, PVD status post L iliac stent and LATENT PRINT EXAMINER endarterectomy 05/2017, history of EtOH abuse in remission, bipolar disorder, severe recurrent depression with psychosis, EMILIANO, history of colon cancer s/p R colectomy who presents to [facility] ED due to BRBPR s/p colonoscopy and polypectomy x9. Patient is currently on a regimen of aspirin and Plavix therapy secondary to L iliac stent and LATENT PRINT EXAMINER endarterectomy 05/2017. At the recommendation of vascular surgeon he was to not stop aspirin and Plavix prior to procedure. He took his Plavix this morning, but not his aspirin. He tolerated the procedure well until later this evening when he had to bloody bowel movements. He states that he was told to expect some blood due to polyp removal, "but this was too much blood." He quantifies it at about 3 to 4 tablespoons full and it filled the toilet bowl. He currently denies any fever, chills, sweats, lightheadedness, dizziness, syncope, chest pain, shortness breath, palpitation, cough, nausea, vomiting, diarrhea, abdominal pain, change in urination. He notes he has not had any solid food in the past 2 days. Only had 2 cups of coffee post procedure today. He is very upset and states, "I wish I could do this day over." "They were to not remove any polyps while I am on Plavix." Allergies Allergy/AdvReac Type Severity Reaction Status Date / Time naproxen Allergy Intermediate HEART Verified 02/06/19 21:23 RACING SWEATING Home Medications Home Medications Medication Instructions Recorded Confirmed Type aspirin [Aspir-81] 81 mg PO DAILY 02/06/19 02/06/19 History buspirone 10 mg PO BID 02/06/19 02/06/19 History clopidogrel 75 mg PO DAILY 02/06/19 02/06/19 History fluticasone propionate [Flonase 1 spray INTRANASAL DAILY 02/06/19 02/06/19 History Allergy Relief] gabapentin 400 mg PO TID 02/06/19 02/06/19 History hydroxyzine pamoate 50 mg PO TID 02/06/19 02/06/19 History lithium carbonate 300 mg PO DAILY 02/06/19 02/06/19 History mirtazapine 30 mg PO HS 02/06/19 02/06/19 History olanzapine 20 mg PO PM 02/06/19 02/06/19 History pantoprazole 40 mg PO DAILY 02/06/19 02/06/19 History propranolol 10 mg PO BID 02/06/19 02/06/19 History rosuvastatin 40 mg PO QPM 02/06/19 02/06/19 History tamsulosin 0.4 mg PO QPM 02/06/19 02/06/19 History thiamine HCl (vitamin B1) [Vitamin 100 mg PO DAILY 02/06/19 02/06/19 History B-1] trazodone 50 mg PO HS 02/06/19 02/06/19 History Past Med/Surg History Medical History Carotid artery disease (Chronic) BPH (benign prostatic hyperplasia) (Chronic) HTN (hypertension) (Chronic) Tobacco abuse (Chronic) COPD (chronic obstructive pulmonary disease) (Chronic) Bipolar disorder (Chronic) EMILIANO (generalized anxiety disorder) (Chronic) History of ETOH abuse (Chronic) PVD (peripheral vascular disease) (Chronic) Fatty liver (Chronic) Adenocarcinoma, colon (Chronic) HLD (hyperlipidemia) (Chronic) Surgical History History of colectomy (Chronic) secondary to adenoca of colon Status post insertion of iliac artery stent (Chronic) 2018, stent x 3 Family History Mother , 75 Coronary heart disease Cervical cancer Kidney malignancy Father , 56 Hypertension Heart disease Social History Preferred Language: Armenian Communication Ability: Effective Insurance Coder Required: No Beliefs That Will Affect Care: None marital status: Single Current Living Situation: Alone current occupational status: disabled Feels Safe at Home: Yes Safety Concerns: Feels Safe At This Time Smoking Status: Former smoker Tobacco Type: cigarettes ; Cigarettes Per Day: 10 ; Second Hand Exposure: No ; Hx Alcohol Use: Yes Alcohol type: beer Alcohol Intake Frequency Comment: in remission, hx of ETOH use Hx Substance Use: No Review of Systems Review of Systems: All systems reviewed & are unremarkable except as noted in HPI & below Physical Exam Physical Exam: Constitutional: WD/WN, unkempt, M, vitals as above, NAD, sitting up in bed, conversing easily Head: Normocephalic, Atraumatic Eyes: PERRL, conjunctivae normal, anicteric sclerae ENMT: external ear and nose normal, oropharynx normal, very poor dentition Neck: trachea midline, no thyromegaly normal visual inspection Respiratory: normal respiratory effort, lungs clear to auscultation, no wheeze, rales, rhonchi. Normal insp/exp effort, no accessory muscle use Cardiovascular: RRR, no murmur, no edema Vessels: no JVD or carotid bruit Chest: normal inspection of chest Abdomen: protuberant abdomen, hypoactive bowel sounds, soft, nontender, no hepatosplenomegaly musculoskeletal: no cyanosis or clubbing, extremities motor strength 5/5 Skin: no rashes, warm and dry normal turgor Neurologic: PERRL, EOMI, accommodation nl, no face palsy, no dysarthria CN's II-XI intact bilaterally and moves all extremities , + lip smacking Psychiatric: A+Ox3, euthymic affect Lymphatic: no cervical or axillary lymphadenopathy : deferred Results & Data Vital Signs (Past 12 Hours) Vital Signs Temp Pulse Resp BP Pulse Ox 02/06/19 22:00 81 17 142/73 H 96 02/06/19 21:30 79 19 121/66 02/06/19 21:00 81 20 136/73 02/06/19 20:30 85 18 157/87 H 97 02/06/19 20:00 134/73 97 02/06/19 19:31 179/86 H 99 02/06/19 19:17 88 22 145/70 H 96 02/06/19 18:42 89 14 186/84 H 97 02/06/19 18:35 37.2 C 93 H 20 186/84 H 97 Laboratory Results Short CBC 02/06/19 Range/Units 19:24 WBC 13.82 H (4.8-10.8) K/uL Hgb 14.7 (14.0-18.0) g/dL Hct 41.8 L (42-52) % Plt Count 245 (130-400) K/uL BMP 02/06/19 19:24 Sodium 137 Potassium 3.6 Chloride 102 Carbon Dioxide 27 BUN 6 L Creatinine 0.99 Glucose 86 Calcium 8.7 Cardiac Enzymes 02/06/19 Range/Units 19:24 Troponin I < 0.015 (0-0.045) ng/ml Liver Function 02/06/19 Range/Units 19:24 Total Bilirubin 0.4 (0.2-1) mg/dl AST 12 L (15-37) U/L ALT 14 (12-78) U/L Alkaline Phosphatase 160 H (45-117) U/L Albumin 3.6 (3.4-5.0) gm/dl Medications Administered Sodium Chloride (Nss 1000ml) 1,000 mls @ 100 mls/hr IV .Q10H DEMETRIUS Stop: 02/07/19 04:44 Last Admin: 02/06/19 19:25 Dose: 100 mls/hr Documented by: [id number] Discontinued Medications Acetaminophen (Tylenol) 1,000 mg PO NOW STA Stop: 02/06/19 20:38 Last Admin: 02/06/19 20:50 Dose: 1,000 mg Documented by: [id number] Code Status & VTE Plan Code Status Full Code VTE Prophylaxis Plan VTE Prophylaxis will be ordered: Yes Reason for no VTE drug order: Contraindicated Supervising Physician Co-Signing Physician Notes Care coordinated with Faith Marrufo. Agree with above note. Patient seen and examined. Please refer to her notes for full details. Vital signs reviewed. Physical exam: General exam: Alert and oriented. Not in acute distress. CVS: S1 and S2 heard, regular rate and rhythm, no murmurs. RS: Clear to auscultation, no wheezing or crackles. ABD: Soft, bowel sounds present, nontender, no distention. [employer]TER HELPER: Nonfocal. EXT: No edema, no erythema. Labs: Reviewed. Assessment and plan: 68 m hx of Pvd s/p stent to left iliac artery in 05/2017 on aspirin and plavix s/p colonoscopy an s/p 9polyps removed comes with BRBPR. Gi bleed lower gi bleed mostly from recent polypectomy hb stable at 14 will follw h and h bowel prep May do colonoscopy aging in am if continue to bleed. PVD s/p stent to left iliac 05/2017 on aspirin and plavix which is held for now. ON HIGH dose statin Other diagnosis and plan of care as per Faith becker MD. (1) GI (gastrointestinal bleed) GI bleed type/associated pathology: unspecified gastrointestinal hemorrhage type Qualified Code(s): K92.2 - Gastrointestinal hemorrhage, unspecified (2) Bipolar disorder Active/Remission status: remission status unspecified Qualified Code(s): F31.9 - Bipolar disorder, unspecified (3) Leukocytosis Leukocytosis type: unspecified Qualified Code(s): D72.829 - Elevated white blood cell count, unspecified (4) COPD (chronic obstructive pulmonary disease) COPD type: unspecified COPD Qualified Code(s): J44.9 - Chronic obstructive pulmonary disease, unspecified (5) HTN (hypertension) Hypertension type: essential hypertension Qualified Code(s): I10 - Essential (primary) hypertension
[2019-02-06] MEDS ORDERED: bisacodyL 5 MG TABEC PO ONE (22:53)
[2019-02-06] MEDS ORDERED: ONDANSETRON INJ 2 MG/ML 2 ML VIAL IV PRN (23:04)
[2019-02-06] MEDS ORDERED: ACETAMINOPHEN 325 MG TAB PO PRN (23:04)
[2019-02-06] MEDS: LAVAGE SOLUTION 4000ML PO SCH (23:29)
[2019-02-06] MEDS ORDERED: NICOTINE 21 MG/24 HR TDSY TD STA (23:35)
[2019-02-06] MEDS ORDERED: OLANZapine 10 MG TAB PO STA (23:39)
[2019-02-06] MEDS ORDERED: PROPRANOLOL HCL 20 MG TAB PO STA (23:39)
[2019-02-06] MEDS ORDERED: TRAZODONE HCL 50 MG TAB PO STA (23:39)
--- NOTE | 2019-02-07 00:09 | Emergency Department Note ---
Entered by Mikayla Tabor acting as a scribe for Héctor Blanton DO History of Present Illness General Chief complaint: Rectal Bleed Stated complaint: RECTAL BLEED Time Seen by Provider: 02/06/19 18:27 Source: patient History of Present Illness Provider complaint: rectal bleeding Onset (ago): hour(s) 2 Location: buttocks Pain Consistency: + constant Relieved By: + none Associated symptoms: + headaches The patient is a 68 year old male who presents to the Emergency Room with complaints of constant rectal bleeding. The patient reports that he had a co lonoscopy earlier today. He notes that he has been experiencing bright red diarrhea since 1600. He mentions that there is cups of blood in each of his bowel movements. He reports that he has a headache. He notes that during the scope, they had cut out 2 polyps when he did not want them to. He notes that he was on Plavix a week before his scope. Patient denies any chest pain, shortness of breath, nausea or vomiting. Home Medications Home Medications Medication Instructions Recorded Confirmed Type aspirin [Aspir-81] 81 mg PO DAILY 02/06/19 02/06/19 History buspirone 10 mg PO BID 02/06/19 02/06/19 History clopidogrel 75 mg PO DAILY 02/06/19 02/06/19 History fluticasone propionate [Flonase 1 spray INTRANASAL DAILY 02/06/19 02/06/19 History Allergy Relief] gabapentin 400 mg PO TID 02/06/19 02/06/19 History hydroxyzine pamoate 50 mg PO TID 02/06/19 02/06/19 History lithium carbonate 300 mg PO DAILY 02/06/19 02/06/19 History mirtazapine 30 mg PO HS 02/06/19 02/06/19 History olanzapine 20 mg PO PM 02/06/19 02/06/19 History pantoprazole 40 mg PO DAILY 02/06/19 02/06/19 History propranolol 10 mg PO BID 02/06/19 02/06/19 History rosuvastatin 40 mg PO QPM 02/06/19 02/06/19 History tamsulosin 0.4 mg PO QPM 02/06/19 02/06/19 History thiamine HCl (vitamin B1) [Vitamin 100 mg PO DAILY 02/06/19 02/06/19 History B-1] trazodone 50 mg PO HS 02/06/19 02/06/19 History Allergies Allergy/AdvReac Type Severity Reaction Status Date / Time naproxen Allergy Intermediate HEART Verified 02/06/19 21:23 RACING SWEATING Past Med/Surg History Medical History Carotid artery disease (Chronic) BPH (benign prostatic hyperplasia) (Chronic) HTN (hypertension) (Chronic) Tobacco abuse (Chronic) COPD (chronic obstructive pulmonary disease) (Chronic) Bipolar disorder (Chronic) EMILIANO (generalized anxiety disorder) (Chronic) History of ETOH abuse (Chronic) PVD (peripheral vascular disease) (Chronic) Fatty liver (Chronic) Adenocarcinoma, colon (Chronic) HLD (hyperlipidemia) (Chronic) Surgical History History of colectomy (Chronic) secondary to adenoca of colon Status post insertion of iliac artery stent (Chronic) 2018, stent x 3 Family History Mother , 75 Coronary heart disease Cervical cancer Kidney malignancy Father , 56 Hypertension Heart disease Social History Preferred Language: Faroese Communication Ability: Effective Supervisor Area Required: No Beliefs That Will Affect Care: None and Zoroastrian marital status: Single Current Living Situation: Alone current occupational status: disabled Feels Safe at Home: Yes Smoking Status: Current some day smoker Tobacco Type: cigarettes ; Cigarettes Per Day: 10 ; Second Hand Exposure: No ; Hx Alcohol Use: Yes Alcohol type: beer Alcohol Intake Frequency Comment: in remission, hx of ETOH use Hx Substance Use: No Review of Systems See HPI for pertinent positives & negatives. and A total of 10 systems reviewed and were otherwise negative Physical Exam Vital Signs Vital Signs - 24 hr 02/06/19 18:35 02/06/19 18:42 02/06/19 19:17 Temperature 37.2 C Temperature Source Oral Sepsis Recent Fever Within 48 Hours No Sepsis New/Unexplained Change in Mental Status No Sepsis Action Taken by Nursing No Action Required Pulse Rate 93 H 89 88 Pulse Rate from SpO2 Sensor 89 87 Respiratory Rate 20 14 22 Respiratory Effort / Characteristics Non-Labored Spontaneous Respiratory Depth Normal Respiratory Pattern Regular Blood Pressure 186/84 H 186/84 H 145/70 H Blood Pressure Mean 118 118 95 Blood Pressure Position Sitting Pulse Oximetry 97 97 96 Oxygen Delivery Method Room Air 02/06/19 19:31 02/06/19 20:00 02/06/19 20:30 Temperature Temperature Source Sepsis Recent Fever Within 48 Hours Sepsis New/Unexplained Change in Mental Status Sepsis Action Taken by Nursing Pulse Rate 85 Pulse Rate from SpO2 Sensor 81 81 Respiratory Rate 18 Respiratory Effort / Characteristics Respiratory Depth Respiratory Pattern Blood Pressure 179/86 H 134/73 157/87 H Blood Pressure Mean 117 93 110 Blood Pressure Position Pulse Oximetry 99 97 97 Oxygen Delivery Method Room Air 02/06/19 21:00 02/06/19 21:30 Temperature Temperature Source Sepsis Recent Fever Within 48 Hours Sepsis New/Unexplained Change in Mental Status Sepsis Action Taken by Nursing Pulse Rate 81 79 Pulse Rate from SpO2 Sensor Respiratory Rate 20 19 Respiratory Effort / Characteristics Respiratory Depth Respiratory Pattern Blood Pressure 136/73 121/66 Blood Pressure Mean 94 84 Blood Pressure Position Pulse Oximetry Oxygen Delivery Method GENERAL: alert, sitting up in edge of bed, well nourished, no distress, non- toxic EYE EXAM: normal conjunctiva OROPHARYNX: no exudate, no erythema, lips, buccal mucosa, and tongue normal and mucous membranes are moist NECK: supple, no nuchal rigidity, no adenopathy, non-tender LUNGS: Clear to auscultation. Normal chest wall mechanics HEART: no murmurs, S1 normal and S2 normal ABDOMEN: abdomen soft, non-tender, normo-active bowel sounds, no masses, no rebound or guarding. BACK: Back is symmetrical on inspection and there is no deformity, no midline tenderness, no CVA tenderness. SKIN: no rashes and no bruising UPPER EXTREMITIES: upper extremities are grossly normal. LOWER EXTREMITIES: No pitting edema. NEURO EXAM: Normal sensorium, cranial nerves II-XII grossly intact, normal speech, no gross weakness of arms, no gross weakness of legs. Course ED COURSE: Vital signs were reviewed and showed hypertensive situational. The patients medical record was reviewed The above diagnostic studies were performed and reviewed. ED treatments and interventions as stated above. 1836: The patient was evaluated in room B4B. A complete history and physical examination was performed. 2046: I discussed the patient with Dr. Bulmaro ORELL[facility], he recommends that the patient be admitted. 2049: Upon reevaluation, the patient is resting comfortably. I discussed my findings with the patient and he understands and agrees with the treatment plan. 2055: I discussed the patient's case with Dr. Nava- [facility], he will accept the patient for further evaluation. Based on the patients age, coexisting illnesses, exam and lab findings the decision to treat as an inpatient was made. The patient remained stable while under my care. The patient will be evaluated for further management. Administered Medications Polyethylene Glycol/Electrolytes (Golytely) 8 dose PO 0600,2300 DEMETRIUS Stop: 02/07/19 08:00 Last Admin: 02/06/19 23:29 Dose: 8 dose Documented by: [id number] Discontinued Medications Acetaminophen (Tylenol) 1,000 mg PO NOW STA Stop: 02/06/19 20:38 Last Admin: 02/06/19 20:50 Dose: 1,000 mg Documented by: [id number] Sodium Chloride (Nss 1000ml) 1,000 mls @ 100 mls/hr IV .Q10H DEMETRIUS Stop: 02/07/19 04:44 Last Infusion: 02/06/19 23:25 Dose: 0 mls/hr Documented by: [id number] Admin: 02/06/19 19:25 Dose: 100 mls/hr Documented by: [id number] Medical Decision Making Differential Diagnosis Differential diagnosis includes etiologies such as diverticulosis, AVM, coagulopathy, colitis, inflammatory bowel disease, malignancy, Haritha-Marcano tear, esophagitis, peptic ulcer disease, variceal bleed, gastritis, epistaxis, fissure, hemorrhoids, as well as others were entertained. Medical Records Attestation: I reviewed the patient's medical records. Home Medications Current Medication List: was personally reviewed by me Laboratory Data Attestation: I reviewed the patient's lab results. Result diagrams: 02/06/19 19:24 02/06/19 19:24 Lab Results 02/06/19 02/06/19 02/06/19 Range/Units 19:24 19:24 19:24 WBC 13.82 H (4.8-10.8) K/uL RBC 4.49 L (4.7-6.1) M/uL Hgb 14.7 (14.0-18.0) g/dL Hct 41.8 L (42-52) % MCV 93.1 (80-100) fL MCH 32.7 (25-34) pg MCHC 35.2 (32-36) g/dL RDW Std Deviation 47.5 H (36.4-46.3) fL RDW Coeff of Jeffry 14.0 (11.5-14.5) % Plt Count 245 (130-400) K/uL MPV 9.3 (7.4-10.4) fL Immature Gran % (Auto) 0.3 % Neut % (Auto) 78.0 % Lymph % (Auto) 13.4 % Lewis % (Auto) 5.3 % Eos % (Auto) 2.7 % Baso % (Auto) 0.3 % Immature Gran # (Auto) 0.04 H (0.00-0.02) K/uL Neut # (Auto) 10.79 H (1.4-6.5) K/uL Lymph # (Auto) 1.85 (1.2-3.4) K/uL Lewis # (Auto) 0.73 H (0.11-0.59) K/uL Eos # (Auto) 0.37 (0-0.5) K/uL Baso # (Auto) 0.04 (0-0.2) K/uL PT 10.5 (9.0-12.0) Seconds INR 1.0 (0.9-1.1) APTT 25.9 (21.0-31.0) Seconds PTT Ratio 1.0 Sodium 137 (136-145) mmol/L Potassium 3.6 (3.5-5.1) mmol/L Chloride 102 (98-107) mmol/L Carbon Dioxide 27 (21-32) mmol/L Anion Gap 8.0 (3-11) BUN 6 L (7-18) mg/dl Creatinine 0.99 (0.6-1.4) mg/dl Est Cr Clr Drug Dosing 66.8 ml/min Est GFR ( Amer) 90.3 Est GFR (Non-Af Amer) 77.9 BUN/Creatinine Ratio 5.8 L (10-20) Glucose 86 (70-99) mg/dl Calcium 8.7 (8.5-10.1) mg/dl Total Bilirubin 0.4 (0.2-1) mg/dl AST 12 L (15-37) U/L ALT 14 (12-78) U/L Alkaline Phosphatase 160 H (45-117) U/L Troponin I < 0.015 (0-0.045) ng/ml Total Protein 7.8 (6.4-8.2) gm/dl Albumin 3.6 (3.4-5.0) gm/dl Globulin 4.2 H (2.5-4.0) gm/dl Albumin/Globulin Ratio 0.9 (0.9-2) Blood Type Antibody Screen Crossmatch 02/06/19 Range/Units 19:24 WBC (4.8-10.8) K/uL RBC (4.7-6.1) M/uL Hgb (14.0-18.0) g/dL Hct (42-52) % MCV (80-100) fL MCH (25-34) pg MCHC (32-36) g/dL RDW Std Deviation (36.4-46.3) fL RDW Coeff of Jeffry (11.5-14.5) % Plt Count (130-400) K/uL MPV (7.4-10.4) fL Immature Gran % (Auto) % Neut % (Auto) % Lymph % (Auto) % Lewis % (Auto) % Eos % (Auto) % Baso % (Auto) % Immature Gran # (Auto) (0.00-0.02) K/uL Neut # (Auto) (1.4-6.5) K/uL Lymph # (Auto) (1.2-3.4) K/uL Lewis # (Auto) (0.11-0.59) K/uL Eos # (Auto) (0-0.5) K/uL Baso # (Auto) (0-0.2) K/uL PT (9.0-12.0) Seconds INR (0.9-1.1) APTT (21.0-31.0) Seconds PTT Ratio Sodium (136-145) mmol/L Potassium (3.5-5.1) mmol/L Chloride (98-107) mmol/L Carbon Dioxide (21-32) mmol/L Anion Gap (3-11) BUN (7-18) mg/dl Creatinine (0.6-1.4) mg/dl Est Cr Clr Drug Dosing ml/min Est GFR ( Amer) Est GFR (Non-Af Amer) BUN/Creatinine Ratio (10-20) Glucose (70-99) mg/dl Calcium (8.5-10.1) mg/dl Total Bilirubin (0.2-1) mg/dl AST (15-37) U/L ALT (12-78) U/L Alkaline Phosphatase (45-117) U/L Troponin I (0-0.045) ng/ml Total Protein (6.4-8.2) gm/dl Albumin (3.4-5.0) gm/dl Globulin (2.5-4.0) gm/dl Albumin/Globulin Ratio (0.9-2) Blood Type O Negative Antibody Screen NEGATIVE Crossmatch See Detail ECG Data Attestation: I personally reviewed and interpreted this ECG as follows: Indication: other (GI bleed) Rate (beats per minute): 82 Rhythm: sinus rhythm Findings: + other (normal axis) and + ST elevation; no PVC and no ST depression Comparison ECG Date: no prior available Blood Pressure Blood Pressure Findings: Normal blood pressure Blood Pressure Disposition: did not require urgent referral MDM Narrative Patient is a 68-year-old male who had a recent colonoscopy earlier today and had 9 polyps removed. He was taking his Plavix and notes that he should not have had any polyps removed. He had 2 episodes where he lost a fourth of a cup of blood per rectum. He has some mild crampy abdominal pain. IV was obtained blood work as well. Labs show a leukocytosis of 13,000. No significant anemia. INR was unremarkable. BMP with a normal BUN. LFTs bilirubin and troponin was unremarkable. Patient was typed and crossed. His abdominal exam was benign. Discussed with GI and they recommended observing him overnight due to the Plavix and a bowel prep. If he continues to bleed then we will scope him in the morning. Discussed with the hospitalist as well. Impression & Plan GI (gastrointestinal bleed), Postoperative bleeding from incision, Antiplatelet or antithrombotic long-term use Discharge Plan Visit Data *Final* Discharge Date/Time: 02/06/19 22:51 Chief Complaint: Rectal Bleed Stated Complaint: RECTAL BLEED ED Provider: Héctor Blanton Discharge Problem: GI (gastrointestinal bleed), Postoperative bleeding from incision, Antiplatelet or antithrombotic long-term use Patient Disposition: Admitted As Inpatient Discharge Instructions Interventions: ED Discharge Assessment Last Done: 02/06/19 22:51 Discharge Problem: GI (gastrointestinal bleed) Qualifiers: GI bleed type/associated pathology: unspecified gastrointestinal hemorrhage type Qualified Code(s): K92.2 - Gastrointestinal hemorrhage, unspecified The scribe's documentation has been prepared under my direction and personally reviewed by me in its entirety. I confirm that the note above accurately reflects all work, treatment, procedures, and medical decision making performed by me.
[2019-02-07 02:19] LABS: Hematocrit (blood only) 37.6 % (42-52); Hemoglobin 12.8 g/dL (14.0-18.0); Mean Corpuscular Hemoglobin 31.6 pg (25-34); Mean Corpuscular Volume 92.8 fL (80-100); Platelet Count 212 K/uL (130-400); RDW Coefficient of Variation 13.9 % (11.5-14.5); RDW Standard Deviation 47.5 fL (36.4-46.3); Red Blood Count 4.05 M/uL (4.7-6.1); White Blood Count 9.94 K/uL (4.8-10.8)
[2019-02-07 02:43] LABS: BUN Creatinine Ratio 5.8 (10-20); Creatinine Clr Calc Pharmacy 81.9 ml/min; Est GFR (African American) 101.8; Est GFR (Non-African American) 87.9; Potassium 3.4 mmol/L (3.5-5.1)
[2019-02-07] MEDS: LAVAGE SOLUTION 4000ML PO SCH (05:02)
[2019-02-07] MEDS ORDERED: POTASSIUM CHLORIDE 20 MEQ TABCR PO ONE (05:15)
[2019-02-07] MEDS ORDERED: POLYETHYLENE (MIRALAX) 17 GM PACK PO SCH (06:00)
[2019-02-07] MEDS: THIAMINE HCL 100 MG TAB PO SCH (08:53)
[2019-02-07] MEDS: PANTOprazole 40 MG TAB PO SCH (08:54)
[2019-02-07] MEDS: GABAPENTIN 400 MG CAP PO SCH ×3 (08:54→20:37)
[2019-02-07] MEDS: PROPRANOLOL HCL 10 MG TAB PO SCH ×2 (08:55→20:38)
[2019-02-07] MEDS: LITHIUM CARBONATE 300 MG TAB PO SCH (08:56)
--- NOTE | 2019-02-07 09:11 | Gastrointestinal Consultation ---
Date of Consultation February 07, 2019 Assessment & Plan (1) GI (gastrointestinal bleed): 68 year old male with history of COPD, chronic tobacco abuse, HTN, HLD, bilateral carotid artery stenosis, PVD status post L iliac stent and ONION TIER endarterectomy 05/2017, bipolar disorder, severe recurrent depression with psychosis, EMILIANO, history of colon cancer s/p R colectomy who presents w/ suspected post-polypectomy bleed, last dose on Plavix was 02/06/19 NPO Tap water enema now Tap water enema if able before procedure Trend HGB Trend vital signs Hold anticoagulation Colonoscopy today Thank you for allowing us to participate in the care of this patient. Please call with any acute changes, questions or concerns. Please see addendum below with additional recommendation from my supervising physician. Present on Admission?: Yes Supervising Physician Co-Signing Physician Notes I have seen and examined the patient with JOSESITO Matson. 68 yo male who presented for outpatient colonoscopy yesterday (had a colonoscopy with multiple polyps removed while on aspirin/plavix with hot and cold snares). Approximately one hour post procedure with bright red blood per rectum that persistent, advised to come to [facility] ER. Overnite, prepped. Slight drop in hgb. This am still with reports of bright red blood per rectum, additional tap serra given. Mild abdominal pain. PE - Neuro - cn's 2-12 intact, Abd - slightly distended soft Labs reviewed Colonoscopy for evaluation of suspected post polypectomy bleed. History of Present Illness Reason for Consultation: post-polypectomy Requesting Physician: Arsen Attending Physician: Jerrica Leger MD History of Present Illness 68 year old male with history of COPD, chronic tobacco abuse, HTN, HLD, bilat eral carotid artery stenosis, PVD status post L iliac stent and ONION TIER endarterectomy 05/2017, bipolar disorder, severe recurrent depression with psychosis, EMILIANO, history of colon cancer s/p R colectomy who presents for evaluation of rectal bleeding follow colonoscopy 02/06/19. Pt notes he did not stop his plavix but did hold his ASA. Last dose of plavix was 02/06/19/ Suggests he had 9 polyps removed. Went home and developed painless, rectal bleeding. Notes maroon colored stools. No melena. No UGI symptoms. No lightheadedness, dizziness. No syncopal events. Did not tolerate bowel prep but continues to pass BRBPR. Allergies Allergy/AdvReac Type Severity Reaction Status Date / Time naproxen Allergy Intermediate HEART Verified 02/06/19 21:23 RACING SWEATING Home Medications Home Medications Medication Instructions Recorded Confirmed Type aspirin [Aspir-81] 81 mg PO DAILY 02/06/19 02/06/19 History buspirone 10 mg PO BID 02/06/19 02/06/19 History clopidogrel 75 mg PO DAILY 02/06/19 02/06/19 History fluticasone propionate [Flonase 1 spray INTRANASAL DAILY 02/06/19 02/06/19 History Allergy Relief] gabapentin 400 mg PO TID 02/06/19 02/06/19 History hydroxyzine pamoate 50 mg PO TID 02/06/19 02/06/19 History lithium carbonate 300 mg PO DAILY 02/06/19 02/06/19 History mirtazapine 30 mg PO HS 02/06/19 02/06/19 History olanzapine 20 mg PO PM 02/06/19 02/06/19 History pantoprazole 40 mg PO DAILY 02/06/19 02/06/19 History propranolol 10 mg PO BID 02/06/19 02/06/19 History rosuvastatin 40 mg PO QPM 02/06/19 02/06/19 History tamsulosin 0.4 mg PO QPM 02/06/19 02/06/19 History thiamine HCl (vitamin B1) [Vitamin 100 mg PO DAILY 02/06/19 02/06/19 History B-1] trazodone 50 mg PO HS 02/06/19 02/06/19 History Patient History Medical History Carotid artery disease (Chronic) BPH (benign prostatic hyperplasia) (Chronic) HTN (hypertension) (Chronic) Tobacco abuse (Chronic) COPD (chronic obstructive pulmonary disease) (Chronic) Bipolar disorder (Chronic) EMILIANO (generalized anxiety disorder) (Chronic) History of ETOH abuse (Chronic) PVD (peripheral vascular disease) (Chronic) Fatty liver (Chronic) Adenocarcinoma, colon (Chronic) HLD (hyperlipidemia) (Chronic) Surgical History History of colectomy (Chronic) secondary to adenoca of colon Status post insertion of iliac artery stent (Chronic) 2018, stent x 3 Family History Mother , 75 Coronary heart disease Cervical cancer Kidney malignancy Father , 56 Hypertension Heart disease Social History Preferred Language: Japanese Communication Ability: Effective Pet Adoption Counselor Required: No Beliefs That Will Affect Care: None marital status: Single Current Living Situation: Alone current occupational status: disabled Feels Safe at Home: Yes Safety Concerns: Feels Safe At This Time Smoking Status: Former smoker Tobacco Type: cigarettes ; Cigarettes Per Day: 10 ; Second Hand Exposure: No ; Hx Alcohol Use: Yes Alcohol type: beer Alcohol Intake Frequency Comment: in remission, hx of ETOH use Hx Substance Use: No Review of Systems Constitutional: no fever and no chills Respiratory: no cough and no dyspnea Cardiovascular: no chest pain and no dyspnea Gastrointestinal: + change in bowel habits and + blood in stools; no nausea, no vomiting, no coffee ground emesis, no hematemesis and no melena Physical Exam Constitutional: well nourished; no acute distress Respiratory: normal respiratory effort; no respiratory distress Cardiovascular: Rate/Rhythm: regular rate and regular rhythm Gastrointestinal (Abdomen): Inspection/Auscultation: normal bowel sounds Percussion/Palpation: abdomen soft; abdomen nontender, no guarding and abdomen not rigid Skin: no rashes, warm and dry Results & Data Vital Signs (Past 12 Hours) Vital Signs Temp Pulse Pulse Resp BP BP Pulse Ox 02/07/19 08:14 36.7 C 74 19 137/79 93 02/07/19 04:00 36.6 C 69 18 139/74 95 02/07/19 00:44 87 02/07/19 00:22 36.5 C 79 16 143/80 H 96 02/06/19 22:00 81 17 142/73 H 96 02/06/19 21:30 79 19 121/66 Laboratory Results 02/07/19 02/07/19 02/06/19 Range/Units 02:00 02:00 Unknown WBC 9.94 (4.8-10.8) K/uL RBC 4.05 L (4.7-6.1) M/uL Hgb 12.8 L (14.0-18.0) g/dL Hct 37.6 L (42-52) % MCV 92.8 (80-100) fL MCH 31.6 (25-34) pg MCHC 34.0 (32-36) g/dL RDW Std Deviation 47.5 H (36.4-46.3) fL RDW Coeff of Jeffry 13.9 (11.5-14.5) % Plt Count 212 (130-400) K/uL MPV 9.0 (7.4-10.4) fL Immature Gran % (Auto) % Neut % (Auto) % Lymph % (Auto) % Elliott % (Auto) % Eos % (Auto) % Baso % (Auto) % Immature Gran # (Auto) (0.00-0.02) K/uL Neut # (Auto) (1.4-6.5) K/uL Lymph # (Auto) (1.2-3.4) K/uL Elliott # (Auto) (0.11-0.59) K/uL Eos # (Auto) (0-0.5) K/uL Baso # (Auto) (0-0.2) K/uL PT (9.0-12.0) Seconds INR (0.9-1.1) APTT (21.0-31.0) Seconds PTT Ratio Sodium 140 (136-145) mmol/L Potassium 3.4 L (3.5-5.1) mmol/L Chloride 107 (98-107) mmol/L Carbon Dioxide 26 (21-32) mmol/L Anion Gap 7.0 (3-11) BUN 5 L (7-18) mg/dl Creatinine 0.89 (0.6-1.4) mg/dl Est Cr Clr Drug Dosing 81.9 ml/min Est GFR ( Amer) 101.8 Est GFR (Non-Af Amer) 87.9 BUN/Creatinine Ratio 5.8 L (10-20) Glucose 100 H (70-99) mg/dl Calcium 8.0 L (8.5-10.1) mg/dl Total Bilirubin (0.2-1) mg/dl AST (15-37) U/L ALT (12-78) U/L Alkaline Phosphatase (45-117) U/L Troponin I (0-0.045) ng/ml Total Protein (6.4-8.2) gm/dl Albumin (3.4-5.0) gm/dl Globulin (2.5-4.0) gm/dl Albumin/Globulin Ratio (0.9-2) POC Stool Occult Blood Positive A (Negative) Blood Type Antibody Screen Crossmatch 02/06/19 02/06/19 02/06/19 Range/Units 19:24 19:24 19:24 WBC (4.8-10.8) K/uL RBC (4.7-6.1) M/uL Hgb (14.0-18.0) g/dL Hct (42-52) % MCV (80-100) fL MCH (25-34) pg MCHC (32-36) g/dL RDW Std Deviation (36.4-46.3) fL RDW Coeff of Jeffry (11.5-14.5) % Plt Count (130-400) K/uL MPV (7.4-10.4) fL Immature Gran % (Auto) % Neut % (Auto) % Lymph % (Auto) % Elliott % (Auto) % Eos % (Auto) % Baso % (Auto) % Immature Gran # (Auto) (0.00-0.02) K/uL Neut # (Auto) (1.4-6.5) K/uL Lymph # (Auto) (1.2-3.4) K/uL Elliott # (Auto) (0.11-0.59) K/uL Eos # (Auto) (0-0.5) K/uL Baso # (Auto) (0-0.2) K/uL PT 10.5 (9.0-12.0) Seconds INR 1.0 (0.9-1.1) APTT 25.9 (21.0-31.0) Seconds PTT Ratio 1.0 Sodium 137 (136-145) mmol/L Potassium 3.6 (3.5-5.1) mmol/L Chloride 102 (98-107) mmol/L Carbon Dioxide 27 (21-32) mmol/L Anion Gap 8.0 (3-11) BUN 6 L (7-18) mg/dl Creatinine 0.99 (0.6-1.4) mg/dl Est Cr Clr Drug Dosing 66.8 ml/min Est GFR ( Amer) 90.3 Est GFR (Non-Af Amer) 77.9 BUN/Creatinine Ratio 5.8 L (10-20) Glucose 86 (70-99) mg/dl Calcium 8.7 (8.5-10.1) mg/dl Total Bilirubin 0.4 (0.2-1) mg/dl AST 12 L (15-37) U/L ALT 14 (12-78) U/L Alkaline Phosphatase 160 H (45-117) U/L Troponin I < 0.015 (0-0.045) ng/ml Total Protein 7.8 (6.4-8.2) gm/dl Albumin 3.6 (3.4-5.0) gm/dl Globulin 4.2 H (2.5-4.0) gm/dl Albumin/Globulin Ratio 0.9 (0.9-2) POC Stool Occult Blood (Negative) Blood Type O Negative Antibody Screen NEGATIVE Crossmatch See Detail 02/06/19 Range/Units 19:24 WBC 13.82 H (4.8-10.8) K/uL RBC 4.49 L (4.7-6.1) M/uL Hgb 14.7 (14.0-18.0) g/dL Hct 41.8 L (42-52) % MCV 93.1 (80-100) fL MCH 32.7 (25-34) pg MCHC 35.2 (32-36) g/dL RDW Std Deviation 47.5 H (36.4-46.3) fL RDW Coeff of Jeffry 14.0 (11.5-14.5) % Plt Count 245 (130-400) K/uL MPV 9.3 (7.4-10.4) fL Immature Gran % (Auto) 0.3 % Neut % (Auto) 78.0 % Lymph % (Auto) 13.4 % Elliott % (Auto) 5.3 % Eos % (Auto) 2.7 % Baso % (Auto) 0.3 % Immature Gran # (Auto) 0.04 H (0.00-0.02) K/uL Neut # (Auto) 10.79 H (1.4-6.5) K/uL Lymph # (Auto) 1.85 (1.2-3.4) K/uL Elliott # (Auto) 0.73 H (0.11-0.59) K/uL Eos # (Auto) 0.37 (0-0.5) K/uL Baso # (Auto) 0.04 (0-0.2) K/uL PT (9.0-12.0) Seconds INR (0.9-1.1) APTT (21.0-31.0) Seconds PTT Ratio Sodium (136-145) mmol/L Potassium (3.5-5.1) mmol/L Chloride (98-107) mmol/L Carbon Dioxide (21-32) mmol/L Anion Gap (3-11) BUN (7-18) mg/dl Creatinine (0.6-1.4) mg/dl Est Cr Clr Drug Dosing ml/min Est GFR ( Amer) Est GFR (Non-Af Amer) BUN/Creatinine Ratio (10-20) Glucose (70-99) mg/dl Calcium (8.5-10.1) mg/dl Total Bilirubin (0.2-1) mg/dl AST (15-37) U/L ALT (12-78) U/L Alkaline Phosphatase (45-117) U/L Troponin I (0-0.045) ng/ml Total Protein (6.4-8.2) gm/dl Albumin (3.4-5.0) gm/dl Globulin (2.5-4.0) gm/dl Albumin/Globulin Ratio (0.9-2) POC Stool Occult Blood (Negative) Blood Type Antibody Screen Crossmatch (1) GI (gastrointestinal bleed) GI bleed type/associated pathology: unspecified gastrointestinal hemorrhage type Qualified Code(s): K92.2 - Gastrointestinal hemorrhage, unspecified
[2019-02-07] MEDS ORDERED: SODIUM CHLORIDE 0.65% NA SOLN 45 ML (OCEAN) ONE (10:18)
[2019-02-07] MEDS ORDERED: ATROPINE SULFATE 0.1 MG/ML 10ML SYR IV PRN (11:37)
[2019-02-07] MEDS ORDERED: ePHEDrine sulfate 50 MG/ML AMP IV PRN (11:37)
[2019-02-07] MEDS ORDERED: PROPOFOL IV EMULSION 10 MG/ML 20 ML VIAL IV ONE (12:09)
[2019-02-07] MEDS ORDERED: LIDOCAINE HCL 2% 2 ML VIAL/AMP(20MG/ML) INFIL ONE (12:09)
--- NOTE | 2019-02-07 12:26 | GI REPORT ---
Addendum Number: 1 Addendum Date: 02/08/2019 12:51:50 PM One additional polyp was seen (it was 4 mm) during this procedure- one at the anastomosis but this was not removed during this colonoscopy given the indication was a post polypectomy bleed. Likely this can be removed at next colonoscopy within the year with his original endoscopist. Cody Morton M.d. 02/08/2019 12:52:57 PM This report has been signed electronically. Patient Name: Elijah Saucedo Procedure Date: 02/07/2019 11:17 AM Date of : 1950 Admit Type: Inpatient Age: 68 Gender: Male Attending MD: Amanda Crespo M.d. Procedure: Colonoscopy Providers: Amanda Crespo M.d. Referring MD: Belle Perez DO Indications: Hematochezia Medicines: Propofol per Anesthesia, Lidocaine, Additional medications per anesthesia record Complications: No immediate complications. Estimated Blood Loss: Estimated blood loss was minimal. Procedure: Pre-Anesthesia Assessment: - Patient identification and proposed procedure were verified prior to the procedure by the physician, the nurse and the anesthesiologist. The procedure was verified in the pre-procedure area. - Prior to the procedure, a History and Physical was performed, and patient medications, allergies and sensitivities were reviewed. The patient's tolerance of previous anesthesia was reviewed. - The risks and benefits of the procedure and the sedation options and risks were discussed with the patient. All questions were answered and informed consent was obtained. After I obtained informed consent, the scope was passed under direct vision. Throughout the procedure, the patient's blood pressure, pulse, and oxygen saturations were monitored continuously. The scope was introduced through the anus and advanced to the ileocolonic anastomosis. The colonoscopy was performed without difficulty. The patient tolerated the procedure well. The quality of the bowel preparation was adequate to identify polyps 6 mm and larger in size. Findings: There was evidence of a patent end-to-end ileo-colonic anastomosis. This was characterized by healthy appearing mucosa. No evidence of blood was seen throughout the colon. A single localized non-bleeding visible vessel was found at the anastomosis without pulsation noted. Area was successfully injected with 2 mL of a 1:10,000 solution of epinephrine for hemostasis. One hemostatic clip was successfully placed (MR conditional). An additional clip was un-successfully placed. There was no bleeding at the end of the procedure. An adherent clot over a visible vessel was found in the descending colon at the presumed prior hot snare polypectomy site from yesterday. For hemostasis, three hemostatic clips were successfully placed (MR conditional). There was no bleeding at the end of the procedure. Slightly distal to this area was a clean based ulcer without a visible vessel seen. Multiple small-mouthed diverticula were found in the sigmoid colon. Internal hemorrhoids were found during retroflexion. Impression: - Patent end-to-end ileo-colonic anastomosis, characterized by healthy appearing mucosa. - A single localized non-bleeding visible vessel was seen at the colonic anastomosis. Injected with 2 cc of epinephrine. One clip (MR conditional) was placed, one clip was unsuccessfully placed. - An adherent clot over a visible vessel was found in the descending colon. 3 Clips (MR conditional) were placed. An ulcerated area distal to this site was clean based and without the presence of a visible vessel. - Sigmoid diverticulosis. - Internal hemorrhoids. Recommendation: - Clear liquids today. - Monitor hgb and clinical status. - Return to the floor when ready. - Continue to hold asa/plavix for now. - No active blood was seen in the colon. Amanda Crespo M.D. Amanda Crespo M.d. 02/07/2019 12:26:18 PM This report has been signed electronically. Note Initiated On: 02/07/2019 11:17 AM Number of Addenda: 1 I attest to the content of the Intraoperative Record and orders documented therein, exceptions below {[id number]}
[2019-02-07] MEDS: FLUTICASONE PROPIONATE NA SPR 16 GM BTL SCH (13:09)
--- NOTE | 2019-02-07 13:43 | Hospitalist Progress Note ---
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 S/P colonoscopy with polypectomy x9 while on ASA and Plavix Postoperatively patient had 2 BMs with significant BRBPR In ED patient H&H stable at 14.7 and 41.8, Coags wnl, Bun/Cr 6/0.99 received IVF while in ED case discussed with clare Louie Recommended admission to hospital, colonoscopy prep and likely scope in a.m. Status post colonoscopy this morning We will start clears orally and advance as tolerated Monitor CBC If there is no bleeding will likely restart Plavix from tomorrow and discharge home tomorrow (2) Leukocytosis: Leukocytosis 13.8k No signs or symptoms of infection Patient afebrile, no complaint of abdominal pain, urinary or respiratory symptoms May be reactive Repeat CBC in a.m.-no significant drop in hemoglobin and it remains more than 12 (3) PVD (peripheral vascular disease): S/p left femoral endarterectomy with pericardial patch angioplasty and Left common iliac VBX stent placement and left external iliac VBX stent placement 05/26/[address] Martínez. On ASA, Plavix, high intensity statin Hold ASA/Plavix first thing in the morning prior to procedure Denies any significant pain no numbness involving the lower extremities Will need to restart aspirin and Plavix as soon as possible (4) HTN (hypertension): Blood pressure controlled on propranolol Monitor (5) HLD (hyperlipidemia): continue statin (6) COPD (chronic obstructive pulmonary disease): No acute exacerbation Monitor (7) Bipolar disorder: Patient with history of bipolar disorder, severe recurrent depression with psychosis, EMILIANO Mood currently stable Patient on multidrug regimen including lithium, hydroxyzine, BuSpar, olanzapine (8) Tobacco abuse: Nicotine patch ordered Urged smoking cessation (9) DVT prophylaxis: SCD/teds Avoid chemical prophylaxis in setting of lower GI bleed ASA/Plavix on hold -would resume Plavix afternoon of procedure tomorrow if bleeding ceases due to stent placement in L iliac artery x 3 Disposition: admit to med/surg tele Follow up: PCP Dr. Angulo upon discharge Will observe tonight and likely go home tomorrow if hemoglobin is stable and no more bleeding per rectum Subjective 02/07 The patient was seen and examined in medical telemetry unit He denies any more bleeding per rectum Status post colonoscopy Denies any significant symptoms Review of Systems Review of Systems: All systems reviewed and are unremarkable except as noted below Gastrointestinal: + abdominal pain (Minimal lower quadrant pain); no bloating, no nausea and no vomiting Physical Exam Physical Exam: Lying in bed very anxious Constitutional: well nourished and + ill appearing; no acute distress Eyes: PERRL, conjunctivae normal, anicteric sclerae ENMT: external ear and nose normal, oropharynx normal Neck: trachea midline, no thyromegaly Respiratory: normal respiratory effort; no respiratory distress Cardiovascular: Rate/Rhythm: regular rate and regular rhythm Heart Sounds: no murmur Gastrointestinal (Abdomen): Inspection/Auscultation: normal bowel sounds Percussion/Palpation: abdomen soft; abdomen nontender, no guarding and abdomen not rigid Musculoskeletal: No acute arthritis in any joint Skin: no rashes, warm and dry Neurologic: moves all extremities; no focal motor deficits Results & Data Vital Signs (Past 12 Hours) Vital Signs Temp Pulse Resp BP Pulse Ox 02/07/19 13:08 77 18 185/87 H 99 02/07/19 12:43 65 16 178/85 H 98 02/07/19 12:28 68 16 177/73 H 97 02/07/19 12:13 36.7 C 82 18 145/65 H 96 02/07/19 11:30 36.8 C 71 18 147/84 H 96 02/07/19 11:14 36.4 C L 77 18 174/80 H 97 02/07/19 08:14 36.7 C 74 19 137/79 93 02/07/19 04:00 36.6 C 69 18 139/74 95 Laboratory Results Short CBC 02/06/19 02/07/19 Range/Units 19:24 02:00 WBC 13.82 H 9.94 (4.8-10.8) K/uL Hgb 14.7 12.8 L (14.0-18.0) g/dL Hct 41.8 L 37.6 L (42-52) % Plt Count 245 212 (130-400) K/uL BMP 02/06/19 02/07/19 19:24 02:00 Sodium 137 140 Potassium 3.6 3.4 L Chloride 102 107 Carbon Dioxide 27 26 BUN 6 L 5 L Creatinine 0.99 0.89 Glucose 86 100 H Calcium 8.7 8.0 L Cardiac Enzymes 02/06/19 Range/Units 19:24 Troponin I < 0.015 (0-0.045) ng/ml Liver Function 02/06/19 Range/Units 19:24 Total Bilirubin 0.4 (0.2-1) mg/dl AST 12 L (15-37) U/L ALT 14 (12-78) U/L Alkaline Phosphatase 160 H (45-117) U/L Albumin 3.6 (3.4-5.0) gm/dl Medications Administered Current Inpatient Medications Acetaminophen (Tylenol) 650 mg PO Q4H PRN PRN Reason: Pain or Fever Stop: 03/08/19 23:03 Atropine Sulfate (Atropine Sulfate) 0.5 mg IV Q1M PRN PRN Reason: PACU Use-HR<40 &/or Bradycardi Stop: 02/07/19 16:37 Buspirone HCl (Buspar) 10 mg PO BID [facility] Stop: 03/09/19 08:59 Last Admin: 02/07/19 08:54 Dose: 10 mg Documented by: Ephedrine Sulfate (Ephedrine Sulfate) 5 mg IV Q5M PRN PRN Reason: PACU Use Only-SBP<90 mmHg Stop: 02/07/19 16:37 Fluticasone Propionate (Flonase) 1 sprays NA DAILY [facility] Stop: 03/09/19 10:59 Last Admin: 02/07/19 13:09 Dose: 1 sprays Documented by: Gabapentin (Neurontin) 400 mg PO TID [facility] Stop: 03/09/19 08:59 Last Admin: 02/07/19 13:11 Dose: 400 mg Documented by: Hydroxyzine HCl (Vistaril) 50 mg PO TID [facility] Stop: 03/09/19 08:59 Last Admin: 02/07/19 13:14 Dose: 50 mg Documented by: Sodium Chloride (Nss) 250 mls @ 15 mls/hr IV .[id number] PRN PRN Reason: For Transfusion Stop: 03/08/19 22:07 [place] Carbonate ([place] Carbonate) 300 mg PO DAILY [facility] Stop: 03/09/19 08:59 Last Admin: 02/07/19 08:56 Dose: 300 mg Documented by: Mirtazapine (Remeron) 30 mg PO HS [facility] Stop: 03/09/19 20:59 Miscellaneous (Remove Nicoderm Patch) 1 ea N/A HS [facility] Stop: 02/07/19 21:01 Olanzapine (Zyprexa) 20 mg PO PM [facility] Stop: 03/09/19 20:59 Ondansetron HCl (Zofran) 4 mg IV Q6H PRN PRN Reason: Nausea Stop: 03/08/19 23:03 Pantoprazole Sodium (Protonix) 40 mg PO DAILY [facility] Stop: 03/09/19 08:59 Last Admin: 02/07/19 08:54 Dose: 40 mg Documented by: Propranolol HCl (Inderal) 10 mg PO BID [facility] Stop: 03/09/19 08:59 Last Admin: 02/07/19 08:55 Dose: 10 mg Documented by: Rosuvastatin Calcium (Crestor) 40 mg PO QPM [facility] Stop: 03/09/19 20:59 Tamsulosin HCl (Flomax) 0.4 mg PO QPM [facility] Stop: 03/09/19 20:59 Thiamine HCl (Vitamin B-1) 100 mg PO DAILY [facility] Stop: 03/09/19 08:59 Last Admin: 02/07/19 08:53 Dose: 100 mg Documented by: Trazodone HCl (Desyrel) 50 mg PO HS [facility] Stop: 03/09/19 20:59 (1) GI (gastrointestinal bleed) GI bleed type/associated pathology: unspecified gastrointestinal hemorrhage type Qualified Code(s): K92.2 - Gastrointestinal hemorrhage, unspecified (2) Leukocytosis Leukocytosis type: unspecified Qualified Code(s): D72.829 - Elevated white blood cell count, unspecified (3) HTN (hypertension) Hypertension type: essential hypertension Qualified Code(s): I10 - Essential (primary) hypertension (4) COPD (chronic obstructive pulmonary disease) COPD type: unspecified COPD Qualified Code(s): J44.9 - Chronic obstructive pulmonary disease, unspecified (5) Bipolar disorder Active/Remission status: remission status unspecified Qualified Code(s): F31.9 - Bipolar disorder, unspecified
--- NOTE | 2019-02-07 15:29 | Anesthesiology Consultation ---
Date of Service February 07, 2019 Assessment & Plan (1) Encounter for pre-operative examination: Chart Review Chart Review: Acceptable Risk for Surgery and Patient NOT seen in Pre Admission Testing Consults Requested none History Surgery Operation Date: 02/07/19 08:30 Proposed Procedures p Colonoscopy Dr. Zak Crespo M.D. Height/Weight Height: 5 ft 7 in Weight: 83.1 kg Allergies Allergy/AdvReac Type Severity Reaction Status Date / Time naproxen Allergy Intermediate HEART Verified 02/06/19 21:23 RACING SWEATING Medications Home Medications Medication Instructions Recorded Confirmed Last Taken aspirin [Aspir-81] 81 mg PO DAILY 02/06/19 02/06/19 Unknown buspirone 10 mg PO BID 02/06/19 02/06/19 Unknown clopidogrel 75 mg PO DAILY 02/06/19 02/06/19 02/06/19 fluticasone propionate [Flonase 1 spray INTRANASAL DAILY 02/06/19 02/06/19 Unknown Allergy Relief] gabapentin 400 mg PO TID 02/06/19 02/06/19 Unknown hydroxyzine pamoate 50 mg PO TID 02/06/19 02/06/19 Unknown lithium carbonate 300 mg PO DAILY 02/06/19 02/06/19 Unknown mirtazapine 30 mg PO HS 02/06/19 02/06/19 Unknown olanzapine 20 mg PO PM 02/06/19 02/06/19 Unknown pantoprazole 40 mg PO DAILY 02/06/19 02/06/19 Unknown propranolol 10 mg PO BID 02/06/19 02/06/19 02/06/19 09:00 rosuvastatin 40 mg PO QPM 02/06/19 02/06/19 Unknown tamsulosin 0.4 mg PO QPM 02/06/19 02/06/19 Unknown thiamine HCl (vitamin B1) [Vitamin 100 mg PO DAILY 02/06/19 02/06/19 Unknown B-1] trazodone 50 mg PO HS 02/06/19 02/06/19 Unknown Active Medications Generic Name Dose Route Start Last Admin Trade Name Freq PRN Reason Stop Dose Admin Buspirone HCl 10 mg 02/07/19 09:00 02/07/19 08:54 Buspar PO 03/09/19 08:59 10 mg BID [facility] Administration Fluticasone Propionate 1 sprays 02/07/19 11:00 02/07/19 13:09 Flonase NA 03/09/19 10:59 1 sprays DAILY [facility] Administration Gabapentin 400 mg 02/07/19 09:00 02/07/19 13:11 Neurontin PO 03/09/19 08:59 400 mg TID [facility] Administration Hydroxyzine HCl 50 mg 02/07/19 09:00 02/07/19 13:14 Vistaril PO 03/09/19 08:59 50 mg TID [facility] Administration [place] Carbonate 300 mg 02/07/19 09:00 02/07/19 08:56 [place] Carbonate PO 03/09/19 08:59 300 mg DAILY [facility] Administration Pantoprazole Sodium 40 mg 02/07/19 09:00 02/07/19 08:54 Protonix PO 03/09/19 08:59 40 mg DAILY [facility] Administration Propranolol HCl 10 mg 02/07/19 09:00 02/07/19 08:55 Inderal PO 03/09/19 08:59 10 mg BID [facility] Administration Thiamine HCl 100 mg 02/07/19 09:00 02/07/19 08:53 Vitamin B-1 PO 03/09/19 08:59 100 mg DAILY [facility] Administration NPO Date Last Intake of Fluids: 02/07/19 Time Last Intake of Fluids: 09:00 Date Last Intake of Solids: 02/04/19 Time Last Intake of Solids: 17:00 Past Medical History Medical History Carotid artery disease (Chronic) BPH (benign prostatic hyperplasia) (Chronic) HTN (hypertension) (Chronic) Tobacco abuse (Chronic) COPD (chronic obstructive pulmonary disease) (Chronic) Bipolar disorder (Chronic) EMILIANO (generalized anxiety disorder) (Chronic) History of ETOH abuse (Chronic) PVD (peripheral vascular disease) (Chronic) Fatty liver (Chronic) Adenocarcinoma, colon (Chronic) HLD (hyperlipidemia) (Chronic) Past Family History Family History Mother , 75 Coronary heart disease Cervical cancer Kidney malignancy Father , 56 Hypertension Heart disease Past Surgical History Surgical History History of colectomy (Chronic) secondary to adenoca of colon Status post insertion of iliac artery stent (Chronic) 2018, stent x 3 Social History Smoking Status: Former smoker tobacco type: cigarettes Smoking cigarettes per day: 10 Hx Alcohol Use: Yes Alcohol type: beer alcohol intake frequency: holidays/special occasions only Hx Substance Use: No Physical Exam Vital Signs Last Vital Signs Temp 36.5 C 02/07/19 15:11 Pulse 71 02/07/19 15:11 Resp 18 02/07/19 15:11 BP 151/82 H 02/07/19 15:11 Pulse Ox 97 02/07/19 15:11 Testing Laboratory Results 02/07/19 02:00 02/07/19 02:00 PT 10.5 Seconds (9.0-12.0) 02/06/19 19:24 INR 1.0 (0.9-1.1) 02/06/19 19:24 APTT 25.9 Seconds (21.0-31.0) 02/06/19 19:24 Blood Type O Negative 02/06/19 19:24 Antibody Screen NEGATIVE 02/06/19 19:24
[2019-02-07] MEDS ORDERED: TAMSULOSIN HCL 0.4 MG CAP PO SCH (21:00)
[2019-02-07] MEDS ORDERED: ROSUVASTATIN CALCIUM 20 MG TAB PO SCH (21:00)
[2019-02-07] MEDS ORDERED: MIRTAZAPINE TAB 15 MG TAB PO SCH (21:00)
[2019-02-07] MEDS ORDERED: OLANZapine 20 MG TABLET PO SCH (21:00)
[2019-02-07] MEDS ORDERED: TRAZODONE HCL 50 MG TAB PO SCH (21:00)
[2019-02-08 06:46] LABS: Basophils # (auto) 0.04 K/uL (0-0.2); Basophils % (auto) 0.4 %; Eosinophils # (auto) 0.48 K/uL (0-0.5); Eosinophils % (auto) 4.8 %; Hematocrit (blood only) 39.8 % (42-52); Hemoglobin 12.9 g/dL (14.0-18.0); Immature Granulocytes # (auto) 0.03 K/uL (0.00-0.02); Immature Granulocytes % (auto) 0.3 %; Lymphocytes # (auto) 2.13 K/uL (1.2-3.4); Lymphocytes % (auto) 21.4 %; Mean Corpuscular Hemoglobin 30.9 pg (25-34); Mean Corpuscular Hgb Conc 32.4 g/dL (32-36); Mean Corpuscular Volume 95.2 fL (80-100); Mean Platelet Volume 9.3 fL (7.4-10.4); Monocytes # (auto) 0.56 K/uL (0.11-0.59); Monocytes % (auto) 5.6 %; Neutrophils % (auto) 67.5 %; Platelet Count 208 K/uL (130-400); RDW Coefficient of Variation 14.3 % (11.5-14.5); RDW Standard Deviation 49.9 fL (36.4-46.3); Red Blood Count 4.18 M/uL (4.7-6.1); White Blood Count 9.94 K/uL (4.8-10.8)
[2019-02-08 07:34] LABS: BUN Creatinine Ratio 5.4 (10-20); Calcium 8.9 mg/dl (8.5-10.1); Creatinine Clr Calc Pharmacy 75.2 ml/min; Est GFR (African American) 93.8; Est GFR (Non-African American) 80.9; Potassium 3.9 mmol/L (3.5-5.1)
--- NOTE | 2019-02-08 08:55 | Gastroenterology Progress Note ---
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 S/P colonoscopy w/ placement of clips on non-bleed visible vessel. His HGB has remained stable and he is passing semi-formed brown stools. Would advance diet as tolerated Resume anticoagulation tomorrow Will sign off. Thank you for allowing us to participate in the care of this patient. Please call with any acute changes, questions or concerns. Please see addendum below with additional recommendation from my supervising physician. Supervising Physician Co-Signing Physician Notes I have seen and examined the patient and discussed the management with JOSESITO Matson. 68 yo male admitted with post polpectomy bleed s/p colonoscopy with therapeutic intervention of clips x 4 on 02/07/19- no further bleeding, passing brown bm's. PE - oriented, no scleral icterus, abd - soft nt nd +bs Labs hgb stable Agree with further plan of care as above. Subjective Pt was seen and evaluated, chart reviewed s/p colonoscopy no further episodes of rectal bleeding no abd pain last BM yesterday, brown HGB stable tolerating diet No fever, chills, CP, SOB Review of Systems Gastrointestinal: no nausea, no vomiting, no coffee ground emesis, no he matemesis, no change in bowel habits, no blood in stools and no melena Physical Exam Constitutional: well nourished; no acute distress Respiratory: normal respiratory effort; no respiratory distress Cardiovascular: Rate/Rhythm: regular rate and regular rhythm Gastrointestinal (Abdomen): Inspection/Auscultation: normal bowel sounds Percussion/Palpation: abdomen soft; abdomen nontender, no guarding and abdomen not rigid Skin: no rashes, warm and dry Results & Data Vital Signs (Past 12 Hours) Vital Signs Temp Pulse Resp BP Pulse Ox 02/08/19 07:03 36.7 C 77 20 131/83 94 02/08/19 04:07 36.7 C 76 20 137/82 96 02/08/19 00:07 36.7 C 72 18 123/72 98 Laboratory Results 02/08/19 02/08/19 Range/Units 06:13 06:13 WBC 9.94 (4.8-10.8) K/uL RBC 4.18 L (4.7-6.1) M/uL Hgb 12.9 L (14.0-18.0) g/dL Hct 39.8 L (42-52) % MCV 95.2 (80-100) fL MCH 30.9 (25-34) pg MCHC 32.4 (32-36) g/dL RDW Std Deviation 49.9 H (36.4-46.3) fL RDW Coeff of Jeffry 14.3 (11.5-14.5) % Plt Count 208 (130-400) K/uL MPV 9.3 (7.4-10.4) fL Immature Gran % (Auto) 0.3 % Neut % (Auto) 67.5 % Lymph % (Auto) 21.4 % Bath % (Auto) 5.6 % Eos % (Auto) 4.8 % Baso % (Auto) 0.4 % Immature Gran # (Auto) 0.03 H (0.00-0.02) K/uL Neut # (Auto) 6.70 H (1.4-6.5) K/uL Lymph # (Auto) 2.13 (1.2-3.4) K/uL Bath # (Auto) 0.56 (0.11-0.59) K/uL Eos # (Auto) 0.48 (0-0.5) K/uL Baso # (Auto) 0.04 (0-0.2) K/uL Sodium 139 (136-145) mmol/L Potassium 3.9 (3.5-5.1) mmol/L Chloride 109 H (98-107) mmol/L Carbon Dioxide 25 (21-32) mmol/L Anion Gap 6.0 (3-11) BUN 5 L (7-18) mg/dl Creatinine 0.96 (0.6-1.4) mg/dl Est Cr Clr Drug Dosing 75.2 ml/min Est GFR ( Amer) 93.8 Est GFR (Non-Af Amer) 80.9 BUN/Creatinine Ratio 5.4 L (10-20) Glucose 96 (70-99) mg/dl Calcium 8.9 (8.5-10.1) mg/dl Specimen Hemolysis (1) GI (gastrointestinal bleed) GI bleed type/associated pathology: unspecified gastrointestinal hemorrhage type Qualified Code(s): K92.2 - Gastrointestinal hemorrhage, unspecified
[2019-02-08] MEDS: FLUTICASONE PROPIONATE NA SPR 16 GM BTL SCH (09:11)
[2019-02-08] MEDS: GABAPENTIN 400 MG CAP PO SCH ×2 (09:14→13:33)
[2019-02-08] MEDS: LITHIUM CARBONATE 300 MG TAB PO SCH (09:15)
[2019-02-08] MEDS: THIAMINE HCL 100 MG TAB PO SCH (09:15)
[2019-02-08] MEDS: PANTOprazole 40 MG TAB PO SCH (09:15)
[2019-02-08] MEDS: PROPRANOLOL HCL 10 MG TAB PO SCH (09:15)
[2019-02-08] MEDS ORDERED: NICOTINE 14 MG/24 HR PATCH TD SCH (14:15)
--- NOTE | 2019-02-08 14:43 | Anesthesiology Progress Note ---
Date of Service February 08, 2019 Anesthesia Post Procedure Vital Signs Vital Signs: Temp Pulse Pulse Resp BP Pulse Ox 02/08/19 11:29 36.7 C 74 19 134/82 95 02/08/19 10:32 77 02/08/19 07:03 36.7 C 77 20 131/83 94 02/08/19 04:07 36.7 C 76 20 137/82 96 02/08/19 00:07 36.7 C 72 18 123/72 98 02/07/19 20:48 85 121/63 02/07/19 19:48 36.3 C L 78 18 123/74 95 02/07/19 15:11 36.5 C 71 18 151/82 H 97 Pain Intensity Head: Pain Intensity: 0 Notes Mental Status: alert / awake / arousable and participated in evaluation Patient Amnestic to Procedure: Yes Nausea / Vomiting: adequately controlled Pain: adequately controlled Airway Patency, RR, SpO2: stable & adequate BP & HR: stable & adequate Hydration State: stable & adequate Anesthetic Complications: no major complications apparent
--- NOTE | 2019-02-08 16:54 | Hospitalist Progress Note ---
Date of Service February 08, 2019 Assessment & Plan (1) GI (gastrointestinal bleed): Present to [facility] ED due to BRBPR s/p colonoscopy and polypectomy x9. S/P colonoscopy with polypectomy x9 while on ASA and Plavix Postoperatively patient had 2 BMs with significant BRBPR Hgb 12.9 today S/P /P colonoscopy w/ placement of clips x4 on 02/07/19 No further bleeding noted Case discussed with GI and OK from GI standpoint to resume Plavix and aspirin Tolerated diet Check CBC in 1 week to monitor hgb (2) Leukocytosis: Mostly reactive Leukocytosis back to normal No signs of infection, afebrile stable (3) PVD (peripheral vascular disease): S/p left femoral endarterectomy with pericardial patch angioplasty and Left common iliac VBX stent placement and left external iliac VBX stent placement 05/26/[address] Martínez. ASA, Plavix have been on hold due to GI bleed On high intensity statin resume ASA/Plavix tomorrow as per Gastro Denies any significant pain no numbness involving the lower extremities Stable (4) HTN (hypertension): Blood pressure controlled on propranolol Monitor (5) HLD (hyperlipidemia): continue statin (6) COPD (chronic obstructive pulmonary disease): No acute exacerbation Monitor (7) Bipolar disorder: Patient with history of bipolar disorder, severe recurrent depression with psychosis, EMILIANO Mood currently stable Continue lithium, hydroxyzine, BuSpar, olanzapine Stable (8) Tobacco abuse: On Nicotine patch Counseling on smoking cessation (9) DVT prophylaxis: SCD/teds due to GI bleed CODE STATUS FULL CODE Disposition Will discharge home today Follow up with your PCP Dr. Lakhwinder Canas on 02/10 @ 3:25 PM Check CBC in 1 week to monitor hemoglobin. Subjective Pt was seen and examined Lying in bed with no distress eating Pt said that he feels fine Denies any further episode of rectal bleeding Denies any chest pain, palpitation, dizziness and SOB Physical Exam Physical Exam: General- No acute distress Head- atraumatic Eyes- PERRL, EOMI, ENT- oropharynx clear Neck- supple, no JVD Lungs- clear to auscultation Heart- regular rhythm; no murmur Abdomen- normal bowel sounds, soft, nontender Extremities- no calf tenderness Neuro- alert, oriented x 3; PERRL, EOMI; no facial palsy; no dysarthria Skin- warm & dry Results & Data Vital Signs (Past 12 Hours) Vital Signs Temp Pulse Pulse Resp BP BP Pulse Ox 02/08/19 15:06 78 02/08/19 14:50 36.9 C 86 19 117/72 95 02/08/19 11:29 36.7 C 74 19 134/82 95 02/08/19 10:32 77 02/08/19 07:03 36.7 C 77 20 131/83 94 (1) GI (gastrointestinal bleed) GI bleed type/associated pathology: unspecified gastrointestinal hemorrhage type Qualified Code(s): K92.2 - Gastrointestinal hemorrhage, unspecified (2) Bipolar disorder Active/Remission status: remission status unspecified Qualified Code(s): F31.9 - Bipolar disorder, unspecified (3) Leukocytosis Leukocytosis type: unspecified Qualified Code(s): D72.829 - Elevated white blood cell count, unspecified (4) COPD (chronic obstructive pulmonary disease) COPD type: unspecified COPD Qualified Code(s): J44.9 - Chronic obstructive pulmonary disease, unspecified (5) HTN (hypertension) Hypertension type: essential hypertension Qualified Code(s): I10 - Essential (primary) hypertension
--- NOTE | 2019-02-09 07:48 | Discharge Summary ---
Date of Service February 08, 2019 Admission HPI Per Admitting Provider This is a 68-year-old male who has significant past medical history of COPD, chronic tobacco abuse, HTN, HLD, bilateral carotid artery stenosis, PVD status post L iliac stent and COOK LARDER endarterectomy 05/2017, history of EtOH abuse in remission, bipolar disorder, severe recurrent depression with psychosis, EMILIANO, history of colon cancer s/p R colectomy who presents to [facility] ED due to BRBPR s/p colonoscopy and polypectomy x9. Patient is currently on a regimen of aspirin and Plavix therapy secondary to L iliac stent and COOK LARDER endarterectomy 05/2017. At the recommendation of vascular surgeon he was to not stop aspirin and Plavix prior to procedure. He took his Plavix this morning, but not his aspirin. He tolerated the procedure well until later this evening when he had to bloody bowel movements. He states that he was told to expect some blood due to polyp removal, "but this was too much blood." He quantifies it at about 3 to 4 tablespoons full and it filled the toilet bowl. He currently denies any fever, chills, sweats, lightheadedness, dizziness, syncope, chest pain, shortness breath, palpitation, cough, nausea, vomiting, diarrhea, abdominal pain, change in urination. He notes he has not had any solid food in the past 2 days. Only had 2 cups of coffee post procedure today. He is very upset and states, "I wish I could do this day over." "They were to not remove any polyps while I am on Plavix." Admission Exam Per Admitting Provider Constitutional: WD/WN, unkempt, M, vitals as above, NAD, sitting up in bed, conversing easily Head: Normocephalic, Atraumatic Eyes: PERRL, conjunctivae normal, anicteric sclerae ENMT: external ear and nose normal, oropharynx normal, very poor dentition Neck: trachea midline, no thyromegaly normal visual inspection Respiratory: normal respiratory effort, lungs clear to auscultation, no wheeze, rales, rhonchi. Normal insp/exp effort, no accessory muscle use Cardiovascular: RRR, no murmur, no edema Vessels: no JVD or carotid bruit Chest: normal inspection of chest Abdomen: protuberant abdomen, hypoactive bowel sounds, soft, nontender, no hepatosplenomegaly musculoskeletal: no cyanosis or clubbing, extremities motor strength 5/5 Skin: no rashes, warm and dry normal turgor Neurologic: PERRL, EOMI, accommodation nl, no face palsy, no dysarthria CN's II-XI intact bilaterally and moves all extremities , + lip smacking Psychiatric: A+Ox3, euthymic affect Lymphatic: no cervical or axillary lymphadenopathy : deferred Principal Diagnosis GI (gastrointestinal bleed) HTN (hypertension) PVD (peripheral vascular disease) Leukocytosis Tobacco abuse HLD (hyperlipidemia) COPD (chronic obstructive pulmonary disease): Bipolar disorder: Discharge Exam General- No acute distress Head- atraumatic Eyes- PERRL, EOMI, ENT- oropharynx clear Neck- supple, no JVD Lungs- clear to auscultation Heart- regular rhythm; no murmur Abdomen- normal bowel sounds, soft, nontender Extremities- no calf tenderness Neuro- alert, oriented x 3; PERRL, EOMI; no facial palsy; no dysarthria Skin- warm & dry Discharge Data Allergies Allergy/AdvReac Type Severity Reaction Status Date / Time naproxen Allergy Intermediate HEART Verified 02/06/19 21:23 RACING SWEATING Consultations 02/06/19 20:51 ED Decision to Admit Stat 02/06/19 23:04 Consult Case Management - Discharge Planning Routine Consult Gastroenterology Routine Procedures Performed Operation Date: 02/07/19 08:30 Actual Procedures p Colonoscopy Hemostasis - Amanda Crespo M.D. s Injection Therapy / Sclerotherapy - Amanda Crespo M.D. Hospital Course (1) GI (gastrointestinal bleed): Present to [facility] ED due to BRBPR s/p colonoscopy and polypectomy x9. S/P colonoscopy with polypectomy x9 while on ASA and Plavix Postoperatively patient had 2 BMs with significant BRBPR Hgb 12.9 today S/P /P colonoscopy w/ placement of clips x4 on 02/07/19 No further bleeding noted Case discussed with GI and OK from GI standpoint to resume Plavix and aspirin Tolerated diet Check CBC in 1 week to monitor hgb (2) Leukocytosis: Mostly reactive Leukocytosis back to normal No signs of infection, afebrile stable (3) PVD (peripheral vascular disease): S/p left femoral endarterectomy with pericardial patch angioplasty and Left common iliac VBX stent placement and left external iliac VBX stent placement 05/26/[address] Martínez. ASA, Plavix have been on hold due to GI bleed On high intensity statin resume ASA/Plavix tomorrow as per Gastro Denies any significant pain no numbness involving the lower extremities Stable (4) HTN (hypertension): Blood pressure controlled on propranolol Monitor (5) HLD (hyperlipidemia): continue statin (6) COPD (chronic obstructive pulmonary disease): No acute exacerbation Monitor (7) Bipolar disorder: Patient with history of bipolar disorder, severe recurrent depression with psychosis, EMILIANO Mood currently stable Continue lithium, hydroxyzine, BuSpar, olanzapine Stable (8) Tobacco abuse: On Nicotine patch Counseling on smoking cessation (9) DVT prophylaxis: SCD/teds due to GI bleed CODE STATUS FULL CODE Disposition Will discharge home today Follow up with your PCP Dr. Lakhwinder Canas on 02/10 @ 3:25 PM Check CBC in 1 week to monitor hemoglobin. Total Time Total Time Spent Total Time Spent (In Minutes): 35 minutes Total Time Includes: Examination of the Patient, Discharge Planning, Medication Reconciliation, Communication With Other Providers and Other Discharge Plan Discharge Items Patient Disposition: Home - Self-Care Reason For Visit: LOWER GIB Discharge Diagnosis: GI (gastrointestinal bleed) HTN (hypertension) PVD (peripheral vascular disease) Leukocytosis Tobacco abuse Activity: Resume your previous activity Activity Comment: as tolerated Non-emergency contact: Primary Care Provider and Arts Education Teacher Call non-emergency contact if: you have any medication questions and your temperature is above 101 Follow-up/Referrals: Christelle Angulo MD [Primary Care Provider] - Diet: Heart Healthy Addtl Attending Provider Instructions: Follow up with your Primary care provider Dr. Lakhwinder Canas on 02/10 @ 3:25 PM Follow up with gastrointestinal provider Check CBC in 1 week to monitor hemoglobin. Ok to resume plavix and aspirin tomorrow. Pending Studies at Discharge: No Stand-Alone Forms: My [employer] Medications and DC Order Prescriptions: Continued trazodone 50 mg Tablet 50 mg PO HS RF: 0 gabapentin 400 mg Capsule 400 mg PO TID RF: 0 thiamine HCl (vitamin B1) [Vitamin B-1] 100 mg Tablet 100 mg PO DAILY RF: 0 clopidogrel 75 mg Tablet 75 mg PO DAILY RF: 0 propranolol 10 mg Tablet 10 mg PO BID RF: 0 tamsulosin 0.4 mg Capsule 0.4 mg PO QPM RF: 0 pantoprazole 40 mg Tablet,Delayed Release (Dr/Ec) 40 mg PO DAILY RF: 0 lithium carbonate 300 mg Tablet 300 mg PO DAILY RF: 0 olanzapine 20 mg Tablet 20 mg PO PM RF: 0 rosuvastatin 40 mg Tablet 40 mg PO QPM RF: 0 hydroxyzine pamoate 50 mg Capsule 50 mg PO TID RF: 0 aspirin [Aspir-81] 81 mg Tablet,Delayed Release (Dr/Ec) 81 mg PO DAILY RF: 0 mirtazapine 30 mg Tablet 30 mg PO HS RF: 0 buspirone 10 mg Tablet 10 mg PO BID RF: 0 fluticasone propionate [Flonase Allergy Relief] 50 mcg/actuation [place],Suspension 1 spray INTRANASAL DAILY RF: 0 Discharge Orders: Discharge Order (Routine); Ordered 02/08/19 Ordered By: Julián Padron Admission Data Admit Date/Time: 02/06/19 21:44 Attending Provider: Julián Padron Admit Provider: Brian Nava Primary Care Provider: Christelle Angulo Other Providers: Junior Louie ; Brian Nava ; Jerrica Leger Other Interventions: Discharge Summary Assessment (RN) Last Done: 02/08/19 17:43 DC Date/Time DO NOT enter until pt leaves facility: 02/08/19 19:37
== END 2019-02-08 19:37 | disposition home or self-care (01) ==
LOC: 2N 18:26 → ED 18:26 → SUATTDRO 21:44 → 2N 22:51

== ENCOUNTER 2019-03-31 10:53 | Inpatient (IN) ==
--- NOTE | 2019-03-31 11:28 | XRay Report ---
XR chest 1V portable CLINICAL HISTORY: SOB dyspnea COMPARISON STUDY: 07/18/2018 FINDINGS: The bones soft tissues and hemidiaphragms are normal. The cardiomediastinal silhouette is n ormal. The lungs are clear. The pulmonary vasculature is normal. IMPRESSION: Negative chest. The above report was generated using voice recognition software. It may contain grammatical, syntax or spelling errors. Electronically signed by: Mina Lopez M.D. 03/31/2019 11:27 AM
[2019-03-31] MEDS ORDERED: NICOTINE 21 MG/24 HR TDSY TD SCH (11:30)
[2019-03-31 11:51] LABS: Basophils # (auto) 0.04 K/uL (0-0.2); Basophils % (auto) 0.4 %; Eosinophils # (auto) 0.23 K/uL (0-0.5); Eosinophils % (auto) 2.4 %; Hematocrit (blood only) 43.6 % (42-52); Hemoglobin 14.5 g/dL (14.0-18.0); Immature Granulocytes # (auto) 0.03 K/uL (0.00-0.02); Immature Granulocytes % (auto) 0.3 %; Lymphocytes # (auto) 1.87 K/uL (1.2-3.4); Lymphocytes % (auto) 19.7 %; Mean Corpuscular Hemoglobin 31.9 pg (25-34); Mean Corpuscular Hgb Conc 33.3 g/dL (32-36); Mean Corpuscular Volume 95.8 fL (80-100); Mean Platelet Volume 9.1 fL (7.4-10.4); Monocytes # (auto) 0.48 K/uL (0.11-0.59); Monocytes % (auto) 5.1 %; Neutrophils # (auto) 6.82 K/uL (1.4-6.5); Neutrophils % (auto) 72.1 %; Platelet Count 259 K/uL (130-400); RDW Coefficient of Variation 13.8 % (11.5-14.5); RDW Standard Deviation 48.7 fL (36.4-46.3); Red Blood Count 4.55 M/uL (4.7-6.1); White Blood Count 9.47 K/uL (4.8-10.8)
[2019-03-31 12:11] LABS: Partial Thromboplastin Time 26.4 Seconds (21.0-31.0); Prothrombin Time 10.7 Seconds (9.0-12.0)
[2019-03-31 12:15] LABS: Alanine Aminotransferase 10 U/L (12-78); Albumin Level 3.5 gm/dl (3.4-5.0); Aspartate Aminotransferase 10 U/L (15-37); BUN Creatinine Ratio 10.1 (10-20); Blood Urea Nitrogen 12 mg/dl (7-18); Calcium 9.3 mg/dl (8.5-10.1); Carbon Dioxide 26 mmol/L (21-32); Chloride 108 mmol/L (98-107); Creatinine Clr Calc Pharmacy 62.7 ml/min; Est GFR (African American) 74.8; Est GFR (Non-African American) 64.6; Glucose 106 mg/dl (70-99); Sodium 139 mmol/L (136-145)
[2019-03-31 12:23] LABS: Acetaminophen < 2 ug/ml (10-30); Lithium 0.7 mmol/L (0.6-1.2); Salicylate 8.2 mg/dl (2.8-20)
[2019-03-31 12:26] LABS: Albumin Globulin Ratio 0.9 (0.9-2); Alkaline Phosphatase 144 U/L (45-117); Bilirubin,Total 0.3 mg/dl (0.2-1); Globulin 4.1 gm/dl (2.5-4.0); Total Protein 7.6 gm/dl (6.4-8.2); Troponin I < 0.015 ng/ml (0-0.045)
[2019-03-31] MEDS ORDERED: LORazepam 1 MG TAB SL STA (12:26)
[2019-03-31 12:41] LABS: Appearance Urine Clear (Clear); Bilirubin Urine Negative (Negative); Blood Urine Negative (Negative); Color Urine Yellow; Glucose Urine UA Negative (Negative); Ketones Urine Negative (Negative); Leukocyte Esterase Urine Negative (Negative); Nitrite Urine Negative (Negative); Protein Urine Negative (Negative); Urobilinogen Urine Negative (Negative); pH Urine 7.5 (4.5-7.5)
--- NOTE | 2019-03-31 12:55 | Emergency Department Note ---
Entered by Tiff Talley acting as a scribe for Héctor Blanton DO History of Present Illness General Chief complaint: Shortness of Breath/Dyspnea Stated complaint: sob Source: patient History of Present Illness Onset (ago): day(s) (yesterday) Location: head Pain Consistency: + other (worsening) Quality: + other (voices) Associated symptoms: + denies other symptoms (sore throat, ear pain, abdominal pain, ) and + other (nasal congestion); no chest pain and no cough The patient is a 69 year old male who presents to the Emergency Room with complaints of hearing voices telling him to kill himself by overdosing on his medications beginning yesterday. He notes the voices were worse this morning af ter he took his normal medications. He denies wanting to kill himself. He denies ever trying to overdose. The patient reports a history of bipolar disorder, depression, and schizophrenia. He reports he was previously admitted for psychiatric reasons. The patient notes worsening nasal congestion beginning 2 days ago. He denies shortness of breath, cough, sore throat, ear pain, chest pain, and abdominal pain notes that the nasal congestion makes it tough to take a deep breath that was noticed.. Home Medications Home Medications Medication Instructions Recorded Confirmed Type aspirin [Aspir-81] 81 mg PO DAILY 02/06/19 03/31/19 History buspirone 10 mg PO BID 02/06/19 03/31/19 History clopidogrel 75 mg PO DAILY 02/06/19 03/31/19 History fluticasone propionate [Flonase 1 spray INTRANASAL DAILY 02/06/19 03/31/19 H istory Allergy Relief] gabapentin 400 mg PO TID 02/06/19 03/31/19 History hydroxyzine pamoate 50 mg PO BID 02/06/19 03/31/19 History lithium carbonate 300 mg PO DAILY 02/06/19 03/31/19 History mirtazapine 30 mg PO HS 02/06/19 03/31/19 History olanzapine 20 mg PO PM 02/06/19 03/31/19 History pantoprazole 40 mg PO DAILY 02/06/19 03/31/19 History propranolol 10 mg PO BID 02/06/19 03/31/19 History tamsulosin 0.4 mg PO QPM 02/06/19 03/31/19 History thiamine HCl (vitamin B1) [Vitamin 100 mg PO DAILY 02/06/19 03/31/19 History B-1] trazodone 50 mg PO HS 02/06/19 03/31/19 History hydroxyzine pamoate 100 mg PO HS 03/31/19 03/31/19 History Allergies Allergy/AdvReac Type Severity Reaction Status Date / Time naproxen Allergy Intermediate HEART Verified 03/31/19 12:01 RACING SWEATING Past Med/Surg History Medical History Adenocarcinoma, colon (Chronic) Bipolar disorder (Chronic) BPH (benign prostatic hyperplasia) (Chronic) Carotid artery disease (Chronic) COPD (chronic obstructive pulmonary disease) (Chronic) Fatty liver (Chronic) EMILIANO (generalized anxiety disorder) (Chronic) History of ETOH abuse (Chronic) HLD (hyperlipidemia) (Chronic) HTN (hypertension) (Chronic) PVD (peripheral vascular disease) (Chronic) Tobacco abuse (Chronic) Surgical History History of colectomy (Chronic) secondary to adenoca of colon Status post insertion of iliac artery stent (Chronic) 2018, stent x 3 Family History Mother , 75 Coronary heart disease Cervical cancer Kidney malignancy Father , 56 Hypertension Heart disease Social History Preferred Language: Georgian 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 and A total of 10 systems reviewed and were otherwise negative Physical Exam Vital Signs Vital Signs - 24 hr 03/31/19 11:01 03/31/19 11:05 03/31/19 11:13 Temperature 36.7 C Temperature Source Oral Pulse Rate 102 H 88 90 Pulse Rate [Left Finger] Pulse Rate from SpO2 Sensor Respiratory Rate 22 13 16 Respiratory Effort / Characteristics Non-Labored Respiratory Depth Normal Respiratory Pattern Regular Blood Pressure 160/82 H 160/82 H Blood Pressure [Left Arm] Blood Pressure Mean 108 112 Blood Pressure Mean [Left Arm] Blood Pressure Position Sitting Pulse Oximetry 97 Oxygen Delivery Method Room Air Sepsis Recent Fever Within 48 Hours No Sepsis New/Unexplained Change in Mental Status Yes Sepsis Action Taken by Nursing No Action Required 03/31/19 11:30 03/31/19 11:31 03/31/19 12:00 Temperature Temperature Source Pulse Rate 86 87 83 Pulse Rate [Left Finger] Pulse Rate from SpO2 Sensor 86 87 84 Respiratory Rate 18 22 19 Respiratory Effort / Characteristics Respiratory Depth Respiratory Pattern Blood Pressure 155/84 H 167/92 H Blood Pressure [Left Arm] Blood Pressure Mean 108 129 Blood Pressure Mean [Left Arm] Blood Pressure Position Pulse Oximetry 96 96 97 Oxygen Delivery Method Sepsis Recent Fever Within 48 Hours Sepsis New/Unexplained Change in Mental Status Sepsis Action Taken by Nursing 03/31/19 12:31 03/31/19 14:48 Temperature Temperature Source Pulse Rate 82 Pulse Rate [Left Finger] 88 Pulse Rate from SpO2 Sensor 82 Respiratory Rate 25 H 18 Respiratory Effort / Characteristics Respiratory Depth Respiratory Pattern Blood Pressure 181/76 H Blood Pressure [Left Arm] 159/84 H Blood Pressure Mean 110 Blood Pressure Mean [Left Arm] 109 Blood Pressure Position Pulse Oximetry 99 97 Oxygen Delivery Method Room Air Sepsis Recent Fever Within 48 Hours Sepsis New/Unexplained Change in Mental Status Sepsis Action Taken by Nursing GENERAL: Sitting up, talking in full sentences, nontoxic, no acute distress EYE EXAM: normal conjunctiva, PERRL and EOM's grossly intact OROPHARYNX: no exudate, no erythema, lips, buccal mucosa, and tongue normal and mucous membranes are moist NECK: supple, no nuchal rigidity, no adenopathy, non-tender LUNGS: Clear to auscultation. Normal chest wall mechanics HEART: no murmurs, S1 normal and S2 normal ABDOMEN: abdomen soft, non-tender, normo-active bowel sounds, no masses, no rebound or guarding. BACK: Back is symmetrical on inspection and there is no deformity, no midline tenderness, no CVA tenderness. SKIN: no rashes and no bruising UPPER EXTREMITIES: upper extremities are grossly normal. LOWER EXTREMITIES: No pitting edema. NEURO EXAM: Normal sensorium, cranial nerves II-XII grossly intact, normal speech, no gross weakness of arms, no gross weakness of legs. PSYCH: Admits to auditory command hallucinations telling him to kill himself by overdosing Course Course ED COURSE: Vital signs were reviewed and showed situational hypertension. The patients medical record was reviewed The above diagnostic studies were performed and reviewed. ED treatments and interventions as stated above. 1153: The patient was evaluated in room A10. A complete history and physical examination was performed. 1415: Upon reevaluation, the patient is resting more comfortably .I discussed my findings with the patient and he understands and agrees with the treatment plan. Based on the patients age, coexisting illnesses, exam and lab findings the decision to treat as an inpatient was made. The patient will be further evaluated in [facility] [place]. The patient remained stable while under my care. The patient will be evaluated for further management. Administered Medications Nicotine (Nicoderm Cq) 21 mg TD QAM DEMETRIUS Stop: 04/01/19 08:59 Last Admin: 03/31/19 12:36 Dose: 21 mg Documented by: [id number] Discontinued Medications Lorazepam (Ativan) 1 mg SL NOW STA Stop: 03/31/19 12:27 Last Admin: 03/31/19 12:36 Dose: 1 mg Documented by: [id number] Medical Decision Making Differential Diagnosis Differential diagnoses considered include mood disorder, infection, hypoglycemia, electrolyte abnormalities, cardiac sources, intracerebral event, toxicologic, neurologic, as well as others. Differential diagnoses includes but is not limited to pneumonia, bronchitis, COPD/Asthma exacerbation, pneumothorax, pulmonary embolism, congestive heart failure, acute coronary syndrome Medical Records Attestation: I reviewed the patient's medical records. Home Medications Current Medication List: was personally reviewed by me Laboratory Data Attestation: I reviewed the patient's lab results. Result diagrams: 03/31/19 11:40 03/31/19 11:40 Lab Results 03/31/19 03/31/19 03/31/19 Range/Units 11:40 11:40 11:40 WBC 9.47 (4.8-10.8) K/uL RBC 4.55 L (4.7-6.1) M/uL Hgb 14.5 (14.0-18.0) g/dL Hct 43.6 (42-52) % MCV 95.8 (80-100) fL MCH 31.9 (25-34) pg MCHC 33.3 (32-36) g/dL RDW Std Deviation 48.7 H (36.4-46.3) fL RDW Coeff of Jeffry 13.8 (11.5-14.5) % Plt Count 259 (130-400) K/uL MPV 9.1 (7.4-10.4) fL Immature Gran % (Auto) 0.3 % Neut % (Auto) 72.1 % Lymph % (Auto) 19.7 % Swain % (Auto) 5.1 % Eos % (Auto) 2.4 % Baso % (Auto) 0.4 % Immature Gran # (Auto) 0.03 H (0.00-0.02) K/uL Neut # (Auto) 6.82 H (1.4-6.5) K/uL Lymph # (Auto) 1.87 (1.2-3.4) K/uL Swain # (Auto) 0.48 (0.11-0.59) K/uL Eos # (Auto) 0.23 (0-0.5) K/uL Baso # (Auto) 0.04 (0-0.2) K/uL PT 10.7 (9.0-12.0) Seconds INR 1.0 (0.9-1.1) APTT 26.4 (21.0-31.0) Seconds PTT Ratio 1.0 Sodium 139 (136-145) mmol/L Potassium 4.0 (3.5-5.1) mmol/L Chloride 108 H (98-107) mmol/L Carbon Dioxide 26 (21-32) mmol/L Anion Gap 5.0 (3-11) BUN 12 (7-18) mg/dl Creatinine 1.15 (0.6-1.4) mg/dl Est Cr Clr Drug Dosing 62.7 ml/min Est GFR ( Amer) 74.8 Est GFR (Non-Af Amer) 64.6 BUN/Creatinine Ratio 10.1 (10-20) Glucose 106 H (70-99) mg/dl Calcium 9.3 (8.5-10.1) mg/dl Total Bilirubin 0.3 (0.2-1) mg/dl AST 10 L (15-37) U/L ALT 10 L (12-78) U/L Alkaline Phosphatase 144 H (45-117) U/L Troponin I < 0.015 (0-0.045) ng/ml Total Protein 7.6 (6.4-8.2) gm/dl Albumin 3.5 (3.4-5.0) gm/dl Globulin 4.1 H (2.5-4.0) gm/dl Albumin/Globulin Ratio 0.9 (0.9-2) TSH 1.450 (0.300-4.500) uIu/ml Urine Color Urine Appearance (Clear) Urine pH (4.5-7.5) Ur Specific [place] (1.000-1.030) Urine Protein (Negative) Urine Glucose (UA) (Negative) Urine Ketones (Negative) Urine Blood (Negative) Urine Nitrite (Negative) Urine Bilirubin (Negative) Urine Urobilinogen (Negative) Ur Leukocyte Esterase (Negative) Salicylates (2.8-20) mg/dl Urine Opiates Screen (Neg) Ur Methadone, Qual (Neg) Acetaminophen (10-30) ug/ml Urine Barbiturates (Neg) Ur Phencyclidine (PCP) (Neg) U Amphetamin/Meth Scrn (Neg) MDMA (Ecstasy) Screen (Neg) U Benzodiazepines Scrn (Neg) [place] (0.6-1.2) mmol/L Ur Cocaine Metabolite (Neg) U Marijuana (THC) Screen (Neg) Ethyl Alcohol mg/dL (0-3) mg/dl Influenza Type A Ag (Neg) Influenza Type B Ag (Neg) 03/31/19 03/31/19 03/31/19 Range/Units 11:40 11:40 12:26 WBC (4.8-10.8) K/uL RBC (4.7-6.1) M/uL Hgb (14.0-18.0) g/dL Hct (42-52) % MCV (80-100) fL MCH (25-34) pg MCHC (32-36) g/dL RDW Std Deviation (36.4-46.3) fL RDW Coeff of Jeffry (11.5-14.5) % Plt Count (130-400) K/uL MPV (7.4-10.4) fL Immature Gran % (Auto) % Neut % (Auto) % Lymph % (Auto) % Swain % (Auto) % Eos % (Auto) % Baso % (Auto) % Immature Gran # (Auto) (0.00-0.02) K/uL Neut # (Auto) (1.4-6.5) K/uL Lymph # (Auto) (1.2-3.4) K/uL Swain # (Auto) (0.11-0.59) K/uL Eos # (Auto) (0-0.5) K/uL Baso # (Auto) (0-0.2) K/uL PT (9.0-12.0) Seconds INR (0.9-1.1) APTT (21.0-31.0) Seconds PTT Ratio Sodium (136-145) mmol/L Potassium (3.5-5.1) mmol/L Chloride (98-107) mmol/L Carbon Dioxide (21-32) mmol/L Anion Gap (3-11) BUN (7-18) mg/dl Creatinine (0.6-1.4) mg/dl Est Cr Clr Drug Dosing ml/min Est GFR ( Amer) Est GFR (Non-Af Amer) BUN/Creatinine Ratio (10-20) Glucose (70-99) mg/dl Calcium (8.5-10.1) mg/dl Total Bilirubin (0.2-1) mg/dl AST (15-37) U/L ALT (12-78) U/L Alkaline Phosphatase (45-117) U/L Troponin I (0-0.045) ng/ml Total Protein (6.4-8.2) gm/dl Albumin (3.4-5.0) gm/dl Globulin (2.5-4.0) gm/dl Albumin/Globulin Ratio (0.9-2) TSH (0.300-4.500) uIu/ml Urine Color Urine Appearance (Clear) Urine pH (4.5-7.5) Ur Specific [place] (1.000-1.030) Urine Protein (Negative) Urine Glucose (UA) (Negative) Urine Ketones (Negative) Urine Blood (Negative) Urine Nitrite (Negative) Urine Bilirubin (Negative) Urine Urobilinogen (Negative) Ur Leukocyte Esterase (Negative) Salicylates 8.2 (2.8-20) mg/dl Urine Opiates Screen Neg (Neg) Ur Methadone, Qual Neg (Neg) Acetaminophen < 2 L (10-30) ug/ml Urine Barbiturates Neg (Neg) Ur Phencyclidine (PCP) Neg (Neg) U Amphetamin/Meth Scrn Neg (Neg) MDMA (Ecstasy) Screen Neg (Neg) U Benzodiazepines Scrn Neg (Neg) [place] 0.7 (0.6-1.2) mmol/L Ur Cocaine Metabolite Neg (Neg) U Marijuana (THC) Screen Neg (Neg) Ethyl Alcohol mg/dL < 3.0 (0-3) mg/dl Influenza Type A Ag (Neg) Influenza Type B Ag (Neg) 03/31/19 03/31/19 Range/Units 12:26 12:26 WBC (4.8-10.8) K/uL RBC (4.7-6.1) M/uL Hgb (14.0-18.0) g/dL Hct (42-52) % MCV (80-100) fL MCH (25-34) pg MCHC (32-36) g/dL RDW Std Deviation (36.4-46.3) fL RDW Coeff of Jeffry (11.5-14.5) % Plt Count (130-400) K/uL MPV (7.4-10.4) fL Immature Gran % (Auto) % Neut % (Auto) % Lymph % (Auto) % Swain % (Auto) % Eos % (Auto) % Baso % (Auto) % Immature Gran # (Auto) (0.00-0.02) K/uL Neut # (Auto) (1.4-6.5) K/uL Lymph # (Auto) (1.2-3.4) K/uL Swain # (Auto) (0.11-0.59) K/uL Eos # (Auto) (0-0.5) K/uL Baso # (Auto) (0-0.2) K/uL PT (9.0-12.0) Seconds INR (0.9-1.1) APTT (21.0-31.0) Seconds PTT Ratio Sodium (136-145) mmol/L Potassium (3.5-5.1) mmol/L Chloride (98-107) mmol/L Carbon Dioxide (21-32) mmol/L Anion Gap (3-11) BUN (7-18) mg/dl Creatinine (0.6-1.4) mg/dl Est Cr Clr Drug Dosing ml/min Est GFR ( Amer) Est GFR (Non-Af Amer) BUN/Creatinine Ratio (10-20) Glucose (70-99) mg/dl Calcium (8.5-10.1) mg/dl Total Bilirubin (0.2-1) mg/dl AST (15-37) U/L ALT (12-78) U/L Alkaline Phosphatase (45-117) U/L Troponin I (0-0.045) ng/ml Total Protein (6.4-8.2) gm/dl Albumin (3.4-5.0) gm/dl Globulin (2.5-4.0) gm/dl Albumin/Globulin Ratio (0.9-2) TSH (0.300-4.500) uIu/ml Urine Color Yellow Urine Appearance Clear (Clear) Urine pH 7.5 (4.5-7.5) Ur Specific [place] 1.010 (1.000-1.030) Urine Protein Negative (Negative) Urine Glucose (UA) Negative (Negative) Urine Ketones Negative (Negative) Urine Blood Negative (Negative) Urine Nitrite Negative (Negative) Urine Bilirubin Negative (Negative) Urine Urobilinogen Negative (Negative) Ur Leukocyte Esterase Negative (Negative) Salicylates (2.8-20) mg/dl Urine Opiates Screen (Neg) Ur Methadone, Qual (Neg) Acetaminophen (10-30) ug/ml Urine Barbiturates (Neg) Ur Phencyclidine (PCP) (Neg) U Amphetamin/Meth Scrn (Neg) MDMA (Ecstasy) Screen (Neg) U Benzodiazepines Scrn (Neg) [place] (0.6-1.2) mmol/L Ur Cocaine Metabolite (Neg) U Marijuana (THC) Screen (Neg) Ethyl Alcohol mg/dL (0-3) mg/dl Influenza Type A Ag Neg for Influ A (Neg) Influenza Type B Ag Neg for Influ B (Neg) Imaging Data Radiologist's Impression: Radiology results as stated below per my review and the radiologist's interpretation: XR chest 1V portable CLINICAL HISTORY: SOB dyspnea COMPARISON STUDY: 07/18/2018 FINDINGS: The bones soft tissues and hemidiaphragms are normal. The cardiomediastinal silhouette is normal. The lungs are clear. The pulmonary vasculature is normal. IMPRESSION: Negative chest. The above report was generated using voice recognition software. It may contain grammatical, syntax or spelling errors. Electronically signed by: Mina Lopez M.D. 03/31/2019 11:27 AM ECG Data Attestation: I personally reviewed and interpreted this ECG as follows: Indication: + SOB/dyspnea Rate (beats per minute): 81 Rhythm: + sinus rhythm ECG Intervals/blocks: + First degree AV block ECG [place]: + Normal ECG Findings: + Other (normal QTC); no PVCs Blood Pressure Blood Pressure Findings: Elevated blood pressure Blood Pressure Disposition: elevated BP felt to be situational MDM Narrative Patient is a 69-year-old male who presents the ER for auditory hallucinations which are commanding him to kill himself. He notes that he does not want to do this but these voices are getting worse. He notes he has been taking his medications. Admits to a history of depression and bipolar. He admits nasally that he is congested and feels as though it is difficult to breathe through his nose and this intermittently will cause some shortness of breath. IV was established blood work was obtained. Labs show no significant leukocytosis or anemia. INR was unremarkable. BMP with slightly elevated chloride. LFTs troponin and TSH was unremarkable. Troponin was negative with symptoms that have been present for greater than 6 hours. UA was negative. Tox was negative. Influenza was negative alcohol was negative. [place] was appropriate 0.7. 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 EKG was unremarkable. Updated bedside patient was admitted to [facility] [address] on a 201 for command hallucinations to kill himself. Impression & Plan Mood disorder, Auditory hallucination, High serum chloride Discharge Plan Visit Data *Final* Discharge Date/Time: 03/31/19 16:15 Chief Complaint: Shortness of Breath/Dyspnea Stated Complaint: sob ED Provider: Héctor Blanton Discharge Problem: Mood disorder, Auditory hallucination, High serum chloride Patient Disposition: Admitted As Inpatient Discharge Instructions Interventions: ED Discharge Assessment Last Done: 03/31/19 16:15 The scribe's documentation has been prepared under my direction and personally reviewed by me in its entirety. I confirm that the note above accurately reflects all work, treatment, procedures, and medical decision making performed by me.
[2019-03-31 13:01] LABS: Amphetamines+Metham, Urine Neg (Neg); Barbiturates, Urine Neg (Neg); Benzodiazepine, Urine Neg (Neg); Cocaine, Urine Neg (Neg); MDMA (Ecstacy), Urine Neg (Neg); Methadone, Urine Neg (Neg); Opiate, Urine Neg (Neg); Phencyclidine, Urine Neg (Neg)
[2019-03-31] MEDS ORDERED: SODIUM CHLORIDE 0.65% NA SOLN 45 ML (OCEAN) PRN (14:58)
[2019-03-31] MEDS ORDERED: ACETAMINOPHEN 325 MG TAB PO PRN (14:58)
[2019-03-31] MEDS ORDERED: ALUMINUM/MAGNESIUM SUSP 30 ML UDC PO PRN (14:58)
[2019-03-31] MEDS ORDERED: MAGNESIUM HYDROXIDE SUSP 30 ML UDC PO PRN (14:58)
[2019-03-31] MEDS: LORazepam 1 MG TAB PO PRN (17:42)
[2019-03-31] MEDS: TAMSULOSIN HCL 0.4 MG CAP PO SCH (21:27)
[2019-03-31] MEDS: MIRTAZAPINE TAB 15 MG TAB PO SCH (21:28)
[2019-03-31] MEDS: PROPRANOLOL HCL 10 MG TAB PO SCH (21:28)
[2019-03-31] MEDS: GABAPENTIN 400 MG CAP PO SCH (21:28)
[2019-03-31] MEDS: TRAZODONE HCL 50 MG TAB PO SCH (21:28)
[2019-03-31] MEDS: OLANZapine 20 MG TABLET PO SCH (21:28)
[2019-04-01] MEDS ORDERED: LITHIUM CARBONATE 300 MG TAB PO SCH (09:00)
[2019-04-01] MEDS: FLUTICASONE PROPIONATE NA SPR 16 GM BTL SCH (09:29)
[2019-04-01] MEDS: PROPRANOLOL HCL 10 MG TAB PO SCH ×2 (09:29→20:52)
[2019-04-01] MEDS: ASPIRIN 81 MG ECTAB PO SCH (09:29)
[2019-04-01] MEDS: PANTOprazole 40 MG TAB PO SCH (09:30)
[2019-04-01] MEDS: NICOTINE 21 MG/24 HR TDSY TD SCH (09:30)
[2019-04-01] MEDS: CLOPIDOGREL BISULFATE 75 MG TAB PO SCH (09:30)
[2019-04-01] MEDS: GABAPENTIN 400 MG CAP PO SCH ×3 (09:30→20:52)
[2019-04-01] MEDS: THIAMINE HCL 100 MG TAB PO SCH (09:30)
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
[2019-04-01] MEDS: NICOTINE POLACRILEX 2 MG GUM MT PRN (11:06)
[2019-04-01] MEDS: LORazepam 1 MG TAB PO PRN (14:56)
[2019-04-01] MEDS: TAMSULOSIN HCL 0.4 MG CAP PO SCH (20:51)
[2019-04-01] MEDS: LITHIUM CARBONATE 300 MG TAB PO SCH (20:52)
[2019-04-01] MEDS: MIRTAZAPINE TAB 15 MG TAB PO SCH (20:53)
[2019-04-01] MEDS: TRAZODONE HCL 50 MG TAB PO SCH (20:53)
[2019-04-01] MEDS: OLANZapine 20 MG TABLET PO SCH (20:54)
[2019-04-02] MEDS: NICOTINE 21 MG/24 HR TDSY TD SCH (08:57)
[2019-04-02] MEDS: ASPIRIN 81 MG ECTAB PO SCH (08:58)
[2019-04-02] MEDS: FLUTICASONE PROPIONATE NA SPR 16 GM BTL SCH ×2 (08:58→20:52)
[2019-04-02] MEDS: PROPRANOLOL HCL 10 MG TAB PO SCH ×2 (08:58→20:58)
[2019-04-02] MEDS: GABAPENTIN 400 MG CAP PO SCH ×3 (08:59→21:14)
[2019-04-02] MEDS: LITHIUM CARBONATE 300 MG TAB PO SCH ×2 (08:59→20:59)
[2019-04-02] MEDS: CLOPIDOGREL BISULFATE 75 MG TAB PO SCH (08:59)
[2019-04-02] MEDS: PANTOprazole 40 MG TAB PO SCH (08:59)
[2019-04-02] MEDS: THIAMINE HCL 100 MG TAB PO SCH (08:59)
[2019-04-02] MEDS: LORazepam 1 MG TAB PO PRN (09:20)
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
[2019-04-02] MEDS: LORazepam 0.5 MG TAB PO SCH ×2 (13:58→21:20)
[2019-04-02] MEDS: NICOTINE POLACRILEX 2 MG GUM MT PRN (15:11)
[2019-04-02] MEDS: TAMSULOSIN HCL 0.4 MG CAP PO SCH (20:57)
[2019-04-02] MEDS: TRAZODONE HCL 100 MG TAB PO SCH (20:59)
[2019-04-02] MEDS: MIRTAZAPINE TAB 15 MG TAB PO SCH (21:00)
[2019-04-02] MEDS: OLANZapine 20 MG TABLET PO SCH (21:05)
[2019-04-03] MEDS: ASPIRIN 81 MG ECTAB PO SCH (08:58)
[2019-04-03] MEDS: FLUTICASONE PROPIONATE NA SPR 16 GM BTL SCH ×2 (08:59→21:32)
[2019-04-03] MEDS: PROPRANOLOL HCL 10 MG TAB PO SCH ×2 (08:59→21:32)
[2019-04-03] MEDS: GABAPENTIN 400 MG CAP PO SCH ×3 (09:00→21:33)
[2019-04-03] MEDS: LITHIUM CARBONATE 300 MG TAB PO SCH ×2 (09:00→21:33)
[2019-04-03] MEDS: NICOTINE 21 MG/24 HR TDSY TD SCH (09:00)
[2019-04-03] MEDS: THIAMINE HCL 100 MG TAB PO SCH (09:02)
[2019-04-03] MEDS: CLOPIDOGREL BISULFATE 75 MG TAB PO SCH (09:02)
[2019-04-03] MEDS: PANTOprazole 40 MG TAB PO SCH (09:02)
[2019-04-03] MEDS: LORazepam 0.5 MG TAB PO SCH ×3 (09:03→21:31)
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
[2019-04-03] MEDS ORDERED: LORazepam 0.5 MG TAB PO PRN (14:56)
[2019-04-03] MEDS: TAMSULOSIN HCL 0.4 MG CAP PO SCH (21:32)
[2019-04-03] MEDS: OLANZapine 20 MG TABLET PO SCH (21:32)
[2019-04-03] MEDS: TRAZODONE HCL 100 MG TAB PO SCH (21:33)
[2019-04-03] MEDS: MIRTAZAPINE TAB 15 MG TAB PO SCH (21:33)
[2019-04-04] MEDS: ASPIRIN 81 MG ECTAB PO SCH (09:17)
[2019-04-04] MEDS: PANTOprazole 40 MG TAB PO SCH (09:18)
[2019-04-04] MEDS: FLUTICASONE PROPIONATE NA SPR 16 GM BTL SCH ×2 (09:18→21:20)
[2019-04-04] MEDS: LITHIUM CARBONATE 300 MG TAB PO SCH ×2 (09:18→21:21)
[2019-04-04] MEDS: GABAPENTIN 400 MG CAP PO SCH ×3 (09:18→21:22)
[2019-04-04] MEDS: PROPRANOLOL HCL 10 MG TAB PO SCH ×2 (09:18→21:21)
[2019-04-04] MEDS: CLOPIDOGREL BISULFATE 75 MG TAB PO SCH (09:18)
[2019-04-04] MEDS: NICOTINE 21 MG/24 HR TDSY TD SCH (09:18)
[2019-04-04] MEDS: THIAMINE HCL 100 MG TAB PO SCH (09:19)
[2019-04-04] MEDS: LORazepam 0.5 MG TAB PO SCH ×3 (09:23→21:17)
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
[2019-04-04] MEDS: OLANZapine 20 MG TABLET PO SCH (21:14)
[2019-04-04] MEDS: TAMSULOSIN HCL 0.4 MG CAP PO SCH (21:19)
[2019-04-04] MEDS: TRAZODONE HCL 100 MG TAB PO SCH (21:22)
[2019-04-04] MEDS: MIRTAZAPINE TAB 15 MG TAB PO SCH (21:22)
[2019-04-05] MEDS: GABAPENTIN 400 MG CAP PO SCH ×3 (09:25→21:39)
[2019-04-05] MEDS: THIAMINE HCL 100 MG TAB PO SCH (09:25)
[2019-04-05] MEDS: PANTOprazole 40 MG TAB PO SCH (09:25)
[2019-04-05] MEDS: ASPIRIN 81 MG ECTAB PO SCH (09:25)
[2019-04-05] MEDS: CLOPIDOGREL BISULFATE 75 MG TAB PO SCH (09:25)
[2019-04-05] MEDS: LORazepam 0.5 MG TAB PO SCH ×3 (09:26→21:38)
[2019-04-05] MEDS: LITHIUM CARBONATE 300 MG TAB PO SCH ×2 (09:26→21:39)
[2019-04-05] MEDS: NICOTINE 21 MG/24 HR TDSY TD SCH (09:26)
[2019-04-05] MEDS: PROPRANOLOL HCL 10 MG TAB PO SCH (09:27)
[2019-04-05] MEDS: FLUTICASONE PROPIONATE NA SPR 16 GM BTL SCH ×2 (09:50→21:38)
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
[2019-04-05] MEDS: TAMSULOSIN HCL 0.4 MG CAP PO SCH (21:38)
[2019-04-05] MEDS: PROPRANOLOL HCL 20 MG TAB PO SCH (21:39)
[2019-04-05] MEDS: TRAZODONE HCL 100 MG TAB PO SCH (21:40)
[2019-04-05] MEDS: OLANZapine 20 MG TABLET PO SCH (21:40)
[2019-04-05] MEDS: MIRTAZAPINE TAB 15 MG TAB PO SCH (21:40)
[2019-04-06] MEDS: ASPIRIN 81 MG ECTAB PO SCH (09:00)
[2019-04-06] MEDS: FLUTICASONE PROPIONATE NA SPR 16 GM BTL SCH ×2 (09:00→21:41)
[2019-04-06] MEDS: GABAPENTIN 400 MG CAP PO SCH ×3 (09:00→21:43)
[2019-04-06] MEDS: LITHIUM CARBONATE 300 MG TAB PO SCH ×2 (09:00→21:43)
[2019-04-06] MEDS: CLOPIDOGREL BISULFATE 75 MG TAB PO SCH (09:00)
[2019-04-06] MEDS: PROPRANOLOL HCL 20 MG TAB PO SCH ×2 (09:00→21:42)
[2019-04-06] MEDS: PANTOprazole 40 MG TAB PO SCH (09:01)
[2019-04-06] MEDS: THIAMINE HCL 100 MG TAB PO SCH (09:01)
[2019-04-06] MEDS: NICOTINE 21 MG/24 HR TDSY TD SCH (09:01)
[2019-04-06] MEDS: LORazepam 0.5 MG TAB PO SCH ×3 (09:04→21:40)
[2019-04-06] MEDS ORDERED: OLANZAPINE 2.5 MG TAB PO ONE (09:50)
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
[2019-04-06] MEDS: OLANZAPINE 2.5 MG TAB PO SCH (13:38)
[2019-04-06] MEDS ORDERED: OLANZAPINE 2.5 MG TAB PO SCH (21:00)
[2019-04-06] MEDS: TAMSULOSIN HCL 0.4 MG CAP PO SCH (21:41)
[2019-04-06] MEDS: ROSUVASTATIN CALCIUM 20 MG TAB PO SCH (21:43)
[2019-04-06] MEDS: TRAZODONE HCL 100 MG TAB PO SCH (21:43)
[2019-04-06] MEDS: OLANZapine 20 MG TABLET PO SCH (21:43)
[2019-04-06] MEDS: MIRTAZAPINE TAB 15 MG TAB PO SCH (21:43)
[2019-04-07 08:58] LABS: Creatinine Clr Calc Pharmacy 59.8 ml/min; Est GFR (African American) 79.8; Est GFR (Non-African American) 68.9
[2019-04-07] MEDS: LORazepam 0.5 MG TAB PO SCH ×3 (09:21→21:15)
[2019-04-07] MEDS: PROPRANOLOL HCL 20 MG TAB PO SCH ×2 (09:22→21:14)
[2019-04-07] MEDS: FLUTICASONE PROPIONATE NA SPR 16 GM BTL SCH ×2 (09:22→21:14)
[2019-04-07] MEDS: ASPIRIN 81 MG ECTAB PO SCH (09:22)
[2019-04-07] MEDS: PANTOprazole 40 MG TAB PO SCH (09:23)
[2019-04-07] MEDS: CLOPIDOGREL BISULFATE 75 MG TAB PO SCH (09:23)
[2019-04-07] MEDS: OLANZAPINE 2.5 MG TAB PO SCH ×2 (09:23→14:13)
[2019-04-07] MEDS: GABAPENTIN 400 MG CAP PO SCH ×3 (09:23→21:14)
[2019-04-07] MEDS: THIAMINE HCL 100 MG TAB PO SCH (09:23)
[2019-04-07] MEDS: NICOTINE 21 MG/24 HR TDSY TD SCH (09:38)
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
[2019-04-07] MEDS ORDERED: LITHIUM ORAL SOLN 300MG/5 ML UDP PO SCH (21:00)
[2019-04-07] MEDS: LITHIUM CARBONATE 300 MG TAB PO SCH (21:12)
[2019-04-07] MEDS: MIRTAZAPINE TAB 15 MG TAB PO SCH (21:13)
[2019-04-07] MEDS: OLANZapine 20 MG TABLET PO SCH (21:13)
[2019-04-07] MEDS: TRAZODONE HCL 100 MG TAB PO SCH (21:13)
[2019-04-07] MEDS: ROSUVASTATIN CALCIUM 20 MG TAB PO SCH (21:14)
[2019-04-07] MEDS: TAMSULOSIN HCL 0.4 MG CAP PO SCH (21:14)
[2019-04-08] MEDS ORDERED: LITHIUM ORAL SOLN 300 MG/5ML 500ML PO SCH (09:00)
[2019-04-08] MEDS: LORazepam 0.5 MG TAB PO SCH ×3 (09:42→21:13)
[2019-04-08] MEDS: LITHIUM CARBONATE 300 MG TAB PO SCH ×2 (09:43→21:15)
[2019-04-08] MEDS: ASPIRIN 81 MG ECTAB PO SCH (09:43)
[2019-04-08] MEDS: PROPRANOLOL HCL 20 MG TAB PO SCH ×2 (09:43→21:14)
[2019-04-08] MEDS: FLUTICASONE PROPIONATE NA SPR 16 GM BTL SCH ×2 (09:43→21:10)
[2019-04-08] MEDS: PANTOprazole 40 MG TAB PO SCH (09:44)
[2019-04-08] MEDS: CLOPIDOGREL BISULFATE 75 MG TAB PO SCH (09:44)
[2019-04-08] MEDS: OLANZAPINE 2.5 MG TAB PO SCH ×2 (09:44→14:00)
[2019-04-08] MEDS: GABAPENTIN 400 MG CAP PO SCH ×3 (09:44→21:14)
[2019-04-08] MEDS: THIAMINE HCL 100 MG TAB PO SCH (09:44)
[2019-04-08] MEDS: NICOTINE 21 MG/24 HR TDSY TD SCH (09:52)
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
[2019-04-08] MEDS: TAMSULOSIN HCL 0.4 MG CAP PO SCH (21:14)
[2019-04-08] MEDS: ROSUVASTATIN CALCIUM 20 MG TAB PO SCH (21:14)
[2019-04-08] MEDS: TRAZODONE HCL 100 MG TAB PO SCH (21:15)
[2019-04-08] MEDS: MIRTAZAPINE TAB 15 MG TAB PO SCH (21:15)
[2019-04-08] MEDS: OLANZapine 20 MG TABLET PO SCH (21:16)
[2019-04-09] MEDS: ASPIRIN 81 MG ECTAB PO SCH (09:31)
[2019-04-09] MEDS: FLUTICASONE PROPIONATE NA SPR 16 GM BTL SCH ×2 (09:31→21:27)
[2019-04-09] MEDS: LORazepam 0.5 MG TAB PO SCH ×3 (09:32→21:25)
[2019-04-09] MEDS: PROPRANOLOL HCL 20 MG TAB PO SCH ×2 (09:33→21:28)
[2019-04-09] MEDS: GABAPENTIN 400 MG CAP PO SCH ×3 (09:34→21:30)
[2019-04-09] MEDS: PANTOprazole 40 MG TAB PO SCH (09:34)
[2019-04-09] MEDS: CLOPIDOGREL BISULFATE 75 MG TAB PO SCH (09:34)
[2019-04-09] MEDS: LITHIUM CARBONATE 300 MG TAB PO SCH ×2 (09:34→21:32)
[2019-04-09] MEDS: THIAMINE HCL 100 MG TAB PO SCH (09:34)
[2019-04-09] MEDS: OLANZAPINE 2.5 MG TAB PO SCH ×2 (09:35→13:55)
[2019-04-09] MEDS: NICOTINE 21 MG/24 HR TDSY TD SCH (09:50)
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
[2019-04-09] MEDS: TAMSULOSIN HCL 0.4 MG CAP PO SCH (21:27)
[2019-04-09] MEDS: ROSUVASTATIN CALCIUM 20 MG TAB PO SCH (21:30)
[2019-04-09] MEDS: TRAZODONE HCL 100 MG TAB PO SCH (21:31)
[2019-04-09] MEDS: MIRTAZAPINE TAB 15 MG TAB PO SCH (21:32)
[2019-04-09] MEDS: OLANZapine 20 MG TABLET PO SCH (21:33)
[2019-04-10] MEDS: FLUTICASONE PROPIONATE NA SPR 16 GM BTL SCH ×2 (08:54→20:59)
[2019-04-10] MEDS: PROPRANOLOL HCL 20 MG TAB PO SCH ×2 (08:54→20:59)
[2019-04-10] MEDS: ASPIRIN 81 MG ECTAB PO SCH (08:54)
[2019-04-10] MEDS: LITHIUM CARBONATE 300 MG TAB PO SCH ×2 (08:55→21:00)
[2019-04-10] MEDS: GABAPENTIN 400 MG CAP PO SCH ×3 (08:55→21:00)
[2019-04-10] MEDS: THIAMINE HCL 100 MG TAB PO SCH (08:56)
[2019-04-10] MEDS: OLANZAPINE 2.5 MG TAB PO SCH ×2 (08:56→14:00)
[2019-04-10] MEDS: CLOPIDOGREL BISULFATE 75 MG TAB PO SCH (08:56)
[2019-04-10] MEDS: PANTOprazole 40 MG TAB PO SCH (08:56)
[2019-04-10] MEDS: LORazepam 0.5 MG TAB PO SCH ×3 (08:57→20:59)
[2019-04-10] MEDS: NICOTINE 21 MG/24 HR TDSY TD SCH (09:07)
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
[2019-04-10] MEDS: MIRTAZAPINE TAB 15 MG TAB PO SCH (20:58)
[2019-04-10] MEDS: TAMSULOSIN HCL 0.4 MG CAP PO SCH (20:59)
[2019-04-10] MEDS: ROSUVASTATIN CALCIUM 20 MG TAB PO SCH (21:00)
[2019-04-10] MEDS: TRAZODONE HCL 100 MG TAB PO SCH (21:00)
[2019-04-10] MEDS: OLANZapine 20 MG TABLET PO SCH (21:01)
[2019-04-11] MEDS: NICOTINE 21 MG/24 HR TDSY TD SCH (08:50)
[2019-04-11] MEDS: LORazepam 0.5 MG TAB PO SCH ×3 (08:52→20:55)
[2019-04-11] MEDS: FLUTICASONE PROPIONATE NA SPR 16 GM BTL SCH ×2 (08:53→20:56)
[2019-04-11] MEDS: LITHIUM CARBONATE 300 MG TAB PO SCH ×2 (08:53→20:57)
[2019-04-11] MEDS: PROPRANOLOL HCL 20 MG TAB PO SCH ×2 (08:53→20:56)
[2019-04-11] MEDS: ASPIRIN 81 MG ECTAB PO SCH (08:53)
[2019-04-11] MEDS: CLOPIDOGREL BISULFATE 75 MG TAB PO SCH (08:54)
[2019-04-11] MEDS: GABAPENTIN 400 MG CAP PO SCH ×3 (08:54→20:56)
[2019-04-11] MEDS: OLANZAPINE 2.5 MG TAB PO SCH ×2 (08:54→13:53)
[2019-04-11] MEDS: THIAMINE HCL 100 MG TAB PO SCH (08:54)
[2019-04-11] MEDS: PANTOprazole 40 MG TAB PO SCH (08:54)
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
[2019-04-11] MEDS: TAMSULOSIN HCL 0.4 MG CAP PO SCH (20:55)
[2019-04-11] MEDS: ROSUVASTATIN CALCIUM 20 MG TAB PO SCH (20:56)
[2019-04-11] MEDS: TRAZODONE HCL 100 MG TAB PO SCH (20:56)
[2019-04-11] MEDS: MIRTAZAPINE TAB 15 MG TAB PO SCH (20:57)
[2019-04-11] MEDS: OLANZapine 20 MG TABLET PO SCH (20:58)
[2019-04-12] MEDS: FLUTICASONE PROPIONATE NA SPR 16 GM BTL SCH ×2 (09:16→21:01)
[2019-04-12] MEDS: ASPIRIN 81 MG ECTAB PO SCH (09:16)
[2019-04-12] MEDS: LORazepam 0.5 MG TAB PO SCH ×3 (09:16→21:00)
[2019-04-12] MEDS: PROPRANOLOL HCL 20 MG TAB PO SCH ×2 (09:16→21:01)
[2019-04-12] MEDS: LITHIUM CARBONATE 300 MG TAB PO SCH ×2 (09:17→21:02)
[2019-04-12] MEDS: GABAPENTIN 400 MG CAP PO SCH ×3 (09:18→21:01)
[2019-04-12] MEDS: CLOPIDOGREL BISULFATE 75 MG TAB PO SCH (09:18)
[2019-04-12] MEDS: THIAMINE HCL 100 MG TAB PO SCH (09:18)
[2019-04-12] MEDS: OLANZAPINE 2.5 MG TAB PO SCH ×2 (09:18→13:46)
[2019-04-12] MEDS: PANTOprazole 40 MG TAB PO SCH (09:18)
[2019-04-12] MEDS: NICOTINE 21 MG/24 HR TDSY TD SCH (09:21)
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
[2019-04-12] MEDS: ROSUVASTATIN CALCIUM 20 MG TAB PO SCH (21:01)
[2019-04-12] MEDS: TAMSULOSIN HCL 0.4 MG CAP PO SCH (21:01)
[2019-04-12] MEDS: OLANZapine 20 MG TABLET PO SCH (21:02)
[2019-04-12] MEDS: TRAZODONE HCL 100 MG TAB PO SCH (21:02)
[2019-04-12] MEDS: MIRTAZAPINE TAB 15 MG TAB PO SCH (21:02)
[2019-04-13] MEDS: FLUTICASONE PROPIONATE NA SPR 16 GM BTL SCH (09:25)
[2019-04-13] MEDS: NICOTINE 21 MG/24 HR TDSY TD SCH (09:25)
[2019-04-13] MEDS: LITHIUM CARBONATE 300 MG TAB PO SCH (09:30)
[2019-04-13] MEDS: PROPRANOLOL HCL 20 MG TAB PO SCH (09:30)
[2019-04-13] MEDS: ASPIRIN 81 MG ECTAB PO SCH (09:32)
[2019-04-13] MEDS: GABAPENTIN 400 MG CAP PO SCH (09:32)
[2019-04-13] MEDS: OLANZAPINE 2.5 MG TAB PO SCH (09:33)
[2019-04-13] MEDS: CLOPIDOGREL BISULFATE 75 MG TAB PO SCH (09:33)
[2019-04-13] MEDS: THIAMINE HCL 100 MG TAB PO SCH (09:33)
[2019-04-13] MEDS: PANTOprazole 40 MG TAB PO SCH (09:33)
[2019-04-13] MEDS: LORazepam 0.5 MG TAB PO SCH (09:36)
--- NOTE | 2019-04-13 11:28 | Discharge Summary ---
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 intervention. Reviewed he is taking already both trazodone and mirtazapine. He does not recall a significant benefit from the mirtazapine longitudinally and will decrease from 30 to 15 mg nightly and increase trazodone to 100 mg nightly targeting sleep. 04/03 -Encourage patient to be out of bed and participating in treatment. Continue current medications with multiple adjustments as above, and get outpatient records. 04/04 - Continue as above - no changes to lorazepam availability. Pt reporting doses are "too low", though admits he benefits from distraction on the unit - Continue to encourage participation in group programming in order to develop healthy and effective coping strategies 04/06 - Titrating daily dose of olanzapine to allow for a morning and afternoon dose of 2.5mg - while this is being added to target continued auditory hallucinations, it is likely to also be beneficial to calm anxiety/racing thoughts 04/07 -We are continuing to treat the patient's anxiety with buspirone, lorazepam, and low-dose olanzapine (twice daily). Olanzapine is primarily prescribed for psychotic features, but may also assist with anxiety. -The patient continues to report anxiety, particularly when discussing his auditory hallucinations. We will consider increasing his daily scheduled dose of lorazepam from 0.25 mg 3 times daily to 0.5 mg 3 times daily. 04/10 - Pt continues to report anxiety, in attempts to consolidate medications to reduce polypharmacy, patient was offered titration of HS trazodone with consideration to discontinue mirtazapine - Pt declined the above recommendation, reporting he was noticing improvement and did not want to threaten his progress with another medication change - Pt verbalized desire to remain on current medication regimen 04/13 -Patient tells me that the more frequent dose of buspirone, combined with lorazepam and low-dose olanzapine have been collectively quite helpful in helping him address his anxiety. -The patient's affect appears significantly less anxious, and he is able to laugh and smile appropriately during the interview. (3) Tobacco abuse: 04/01 -Brief intervention for smoking cessation -Nicotine patch 04/07 -The patient reports that he is not experiencing nicotine withdrawal symptoms at the present time. (4) COPD (chronic obstructive pulmonary disease): -Appears stable on admission 04/02 -Patient requests fluticasone nasal spray increased to twice daily which is his home dose which was done 04/07 -Patient periodically complains of shortness of breath. It appears that anxiety contributes. (5) History of ETOH abuse: -Self reporting stable alcohol use of one beer or less daily. (6) PVD (peripheral vascular disease): -Continue Plavix and aspirin at home dose (7) HTN (hypertension): -Continue propranolol 04/04 - propranolol titrated to 15mg BID due to consistently elevated blood pressure - It is possible this may also be beneficial to reduce anxiety levels 04/05 - Pt agreeable to titrating propranolol to 20mg BID to address continued hypertension 04/06 - Continue propranolol 20mg BID - BP readings remain elevated 04/07 -Patient's blood pressure remains elevated, particularly when anxious or otherwise distressed. However, improvement is noted. His most recent measured blood pressure was 152/83, measured this afternoon. 04/10 - Continue as above - BP improved overall (8) Cognitive change: 04/12 - MoCA completed on 04/10/19 with patient scoring a 16/30, (score less than or equal to 26 suggests concern for cognitive deficits) - It remains a possibility that patient's anxiety may be interfering with cognitive function, it is also possible that his more concrete thought process may have affected the results - [id number], patient's cognitive deficits in combination with reports of continued intrusive thoughts to wreck his car lead to significant concern for patient's driving - Brother has been involved in communication and is willing to assist with restricting ability to drive until patient is re-evaluated - [employer] medical reporting form has been completed, indicating recommendation that patient cease driving and be evaluated - patient was informed of the report being made and was provided with the document "What to Expect When My Medical Condition Has Been Reported to [facility]" 04/13 -Today, the patient spontaneously tells us that he is aware of, and concerned by, the fact that we have reported our concerns regarding the patient's driving to the [employer]. Either the patient is minimizing, or does not actually recall some of his earlier reports which indicated that, in fact, the patient had been driving erratically while, at the same time, experiencing auditory hallucinations and/or having thoughts of crashing his car. To the contrary, the patient insists that he has never driven erratically and that a previous accident was not in any way related to intentional behavior or distraction, and that he has been careful never to operate a motor vehicle if he is experiencing thoughts of intentionally crashing his car with self-harm intent. -We were able to discuss options, and the patient was able to recall items that he had learned by reviewing the document entitled "What to expect when my medical condition has been reported to [facility]." Mental Health & Subst Abuse Tx Psychiatrist Name of Psychiatrist: Domenico BELLAMY Psychiatrist's Date of Appointment with Psychiatrist: 04/28/19 Time of Appointment with Psychiatrist: 9:30 am Psychiatric Appointment Comment: [address] [place] [address], [address] Floor, [place] [address] Psychiatrist Release of Information: Obtained, Reviewed and Signed Therapist Name of Therapist: Papito Registered Nurse Fetal Name of Registered Nurse Fetal: PANFILO Watson Phone Number for Registered Nurse Fetal: [phone] Date of Appointment with Registered Nurse Fetal: 04/13/19 Time of Appointment with Registered Nurse Fetal: 2:30 Case Management Appointment Comment: will meet with you at [facility] (he is willing to meet at home). Registered Nurse Fetal Release of Information: Obtained, Reviewed and Signed Post Discharge Appointments Primary Care Physician Name Of Family Doctor: Dereck Canas Primary Care Provider Appointment Comment: [address] [place] [address] , [place] [id number] Primary Care Release of Information: Obtained, Reviewed and Signed Smoking Cessation Counseling Tobacco Cessation Medication Prescribed at Discharge: Offered & Prescribed Contact Information Discharge Discharge Address: [address] [place] [address] Discharge Plan Discharge Items Patient Disposition: Home - Self-Care Reason For Visit: BIPOLAR DEPPRESSED Discharge Diagnosis: Bipolar Depressed Activity: Resume your previous activity Non-emergency contact: Primary Care Provider and Psychiatrist Call non-emergency contact if: you have any medication questions and your symptoms worsen Follow-up/Referrals: Christelle Angulo MD [Primary Care Provider] - Diet: Regular Addtl Attending Provider Instructions: Keep active and busy. Do not smoke! Pending Studies at Discharge: No Stand-Alone Forms: My [facility] [employer] Smoking Cessation Medications and DC Order Prescriptions: New nicotine [Nicoderm CQ] 14 mg/24 hr patch 24 hour 1 patch TD DAILY Qty: 14 RF: 0 buspirone 5 mg Tablet 10 mg PO TID 30 Days Qty: 180 RF: 0 olanzapine 2.5 mg Tablet 2.5 mg PO BID@0900,1400 Qty: 60 RF: 0 lorazepam 0.5 mg Tablet 0.5 mg PO TID Qty: 45 RF: 1 trazodone 100 mg Tablet 100 mg PO HS Qty: 30 RF: 0 hydroxyzine HCl 25 mg Tablet 100 mg PO HS PRN (Reason: Sleep) 15 Days Qty: 60 RF: 1 mirtazapine 15 mg Tablet 15 mg PO HS Qty: 30 RF: 0 lithium carbonate 300 mg capsule 300 mg PO BID Qty: 60 RF: 0 Continued gabapentin 400 mg Capsule 400 mg PO TID RF: 0 thiamine HCl (vitamin B1) [Vitamin B-1] 100 mg Tablet 100 mg PO DAILY RF: 0 clopidogrel 75 mg Tablet 75 mg PO DAILY RF: 0 propranolol 10 mg Tablet 10 mg PO BID RF: 0 tamsulosin 0.4 mg Capsule 0.4 mg PO QPM RF: 0 pantoprazole 40 mg Tablet,Delayed Release (Dr/Ec) 40 mg PO DAILY RF: 0 olanzapine 20 mg Tablet 20 mg PO PM RF: 0 hydroxyzine pamoate 50 mg Capsule 50 mg PO BID RF: 0 aspirin [Aspir-81] 81 mg Tablet,Delayed Release (Dr/Ec) 81 mg PO DAILY RF: 0 fluticasone propionate [Flonase Allergy Relief] 50 mcg/actuation [place],Suspension 1 spray INTRANASAL DAILY RF: 0 rosuvastatin [Crestor] 40 mg Tablet 40 mg PO HS RF: 0 Discontinued trazodone 50 mg Tablet 50 mg PO HS RF: 0 lithium carbonate 300 mg Tablet 300 mg PO DAILY RF: 0 mirtazapine 30 mg Tablet 30 mg PO HS RF: 0 buspirone 10 mg Tablet 10 mg PO BID RF: 0 hydroxyzine pamoate 50 mg Capsule 100 mg PO HS RF: 0 Discharge Orders: Discharge Order (Routine); Ordered 04/13/19 Ordered By: Claudio Brenner Admission Data Admit Date/Time: 03/31/19 14:58 Attending Provider: Blane Eastman Admit Provider: Blane Eastman Primary Care Provider: Christelle Angulo Other Interventions: PSY Interdisciplinary Discharge Planning Last Done: 04/13/19 09:29 C[place] [address] D/C day mgmt > 30 min Patient Type Established History Expanded Problem Focused Exam Expanded Problem Focused Medical Decision Making Moderate Complexity Diagnoses Bipolar disorder F31.9 Active/Remission status: remission status unspecified EMILIANO (generalized anxiety disorder) F41.1 Tobacco abuse Z72.0 COPD (chronic obstructive pulmonary disease) J44.9 COPD type: unspecified COPD History of ETOH abuse Z87.898 PVD (peripheral vascular disease) I73.9 HTN (hypertension) I10 Hypertension type: essential hypertension Cognitive change R41.89 Time Spent (min) 50
== END 2019-04-13 13:45 | disposition home or self-care (01) | DRG 885 ==
LOC: ED 10:53 → 3S 14:58

== ENCOUNTER 2019-04-23 21:49 | Inpatient (IN) ==
[2019-04-23] MEDS ORDERED: HYDROmorphone INJ 1 MG/ML SYRINGE IV STA (22:00)
[2019-04-23] MEDS ORDERED: ONDANSETRON INJ 2 MG/ML 2 ML VIAL IV STA (22:00)
[2019-04-23] MEDS ORDERED: LORazepam 1 MG TAB PO STA (22:17)
[2019-04-23] MEDS ORDERED: NICOTINE 14 MG/24 HR PATCH TD STA (22:17)
[2019-04-23 22:38] LABS: Appearance Urine Clear (Clear); Bilirubin Urine Negative (Negative); Blood Urine Negative (Negative); Color Urine Yellow; Glucose Urine UA Negative (Negative); Ketones Urine Negative (Negative); Leukocyte Esterase Urine Negative (Negative); Nitrite Urine Negative (Negative); Protein Urine Negative (Negative); Urobilinogen Urine Negative (Negative)
[2019-04-23 22:56] LABS: Amphetamines+Metham, Urine Neg (Neg); Barbiturates, Urine Neg (Neg); Benzodiazepine, Urine Neg (Neg); Cocaine, Urine Neg (Neg); MDMA (Ecstacy), Urine Neg (Neg); Methadone, Urine Neg (Neg); Opiate, Urine Neg (Neg); Phencyclidine, Urine Neg (Neg)
[2019-04-23 23:03] LABS: Basophils # (auto) 0.03 K/uL (0-0.2); Basophils % (auto) 0.2 %; Eosinophils # (auto) 0.54 K/uL (0-0.5); Eosinophils % (auto) 3.9 %; Hematocrit (blood only) 43.9 % (42-52); Hemoglobin 14.5 g/dL (14.0-18.0); Immature Granulocytes # (auto) 0.04 K/uL (0.00-0.02); Immature Granulocytes % (auto) 0.3 %; Lymphocytes # (auto) 2.63 K/uL (1.2-3.4); Mean Corpuscular Hemoglobin 31.3 pg (25-34); Mean Corpuscular Volume 94.8 fL (80-100); Mean Platelet Volume 9.4 fL (7.4-10.4); Monocytes # (auto) 0.58 K/uL (0.11-0.59); Monocytes % (auto) 4.2 %; Neutrophils % (auto) 72.4 %; Platelet Count 277 K/uL (130-400); RDW Coefficient of Variation 13.8 % (11.5-14.5); RDW Standard Deviation 47.8 fL (36.4-46.3); Red Blood Count 4.63 M/uL (4.7-6.1); White Blood Count 13.82 K/uL (4.8-10.8)
[2019-04-23 23:19] LABS: Albumin Level 3.5 gm/dl (3.4-5.0); BUN Creatinine Ratio 13.3 (10-20); Calcium 9.1 mg/dl (8.5-10.1); Creatinine Clr Calc Pharmacy 44.6 ml/min; Est GFR (African American) 56.1; Est GFR (Non-African American) 48.4; Potassium 3.8 mmol/L (3.5-5.1)
[2019-04-23 23:30] LABS: Albumin Globulin Ratio 0.8 (0.9-2); Bilirubin,Total 0.2 mg/dl (0.2-1); Globulin 4.3 gm/dl (2.5-4.0); Thyroid Stimulating Hormone 2.57 uIu/ml (0.300-4.500); Total Protein 7.8 gm/dl (6.4-8.2)
[2019-04-23 23:37] LABS: Acetaminophen < 2 ug/ml (10-30); Salicylate 3.9 mg/dl (2.8-20)
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
[2019-04-24] MEDS ORDERED: OLANZapine 20 MG TABLET PO STA (00:40)
[2019-04-24] MEDS ORDERED: MIRTAZAPINE TAB 15 MG TAB PO ONE (00:40)
[2019-04-24] MEDS ORDERED: TRAZODONE HCL 100 MG TAB PO STA (00:40)
[2019-04-24] MEDS ORDERED: ROSUVASTATIN CALCIUM 20 MG TAB PO STA (00:40)
[2019-04-24] MEDS ORDERED: PROPRANOLOL HCL 20 MG TAB PO STA (00:40)
[2019-04-24] MEDS ORDERED: GABAPENTIN 400 MG CAP PO STA (00:40)
[2019-04-24] MEDS ORDERED: BISMUTH SUBSALICYLATE PER ML OMNICELL CHARGE PO PRN (03:17)
[2019-04-24] MEDS ORDERED: SODIUM CHLORIDE 0.65% NA SOLN 45 ML (OCEAN) PRN (03:17)
[2019-04-24] MEDS ORDERED: ALUMINUM/MAGNESIUM SUSP 30 ML UDC PO PRN (03:17)
[2019-04-24] MEDS ORDERED: MAGNESIUM HYDROXIDE SUSP 30 ML UDC PO PRN (03:17)
[2019-04-24] MEDS ORDERED: ACETAMINOPHEN 325 MG TAB PO PRN (03:17)
[2019-04-24] MEDS ORDERED: INFLUENZA Vaccine HIGH DOSE 65+yrs 0.5 mL Syr IM ONE (08:15)
[2019-04-24] MEDS ORDERED: PROPRANOLOL HCL 20 MG TAB PO SCH (09:00)
[2019-04-24] MEDS: LORazepam 0.5 MG TAB PO SCH ×3 (09:03→20:57)
[2019-04-24] MEDS: ASPIRIN 81 MG ECTAB PO SCH (09:04)
[2019-04-24] MEDS: FLUTICASONE PROPIONATE NA SPR 16 GM BTL SCH (09:05)
[2019-04-24] MEDS: GABAPENTIN 400 MG CAP PO SCH ×3 (09:06→20:58)
[2019-04-24] MEDS: NICOTINE 14 MG/24 HR PATCH TD SCH (09:06)
[2019-04-24] MEDS: LITHIUM CARBONATE 300 MG TAB PO SCH ×2 (09:06→20:58)
[2019-04-24] MEDS: PANTOprazole 40 MG TAB PO SCH (09:06)
[2019-04-24] MEDS: CLOPIDOGREL BISULFATE 75 MG TAB PO SCH (09:06)
[2019-04-24] MEDS: THIAMINE HCL 100 MG TAB PO SCH (09:07)
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
[2019-04-24] MEDS: PROPRANOLOL HCL 20 MG TAB PO SCH (20:58)
[2019-04-24] MEDS: ROSUVASTATIN CALCIUM 20 MG TAB PO SCH (20:59)
[2019-04-24] MEDS: TRAZODONE HCL 50 MG TAB PO SCH (20:59)
[2019-04-24] MEDS: OLANZapine 20 MG TABLET PO SCH (21:00)
[2019-04-24] MEDS ORDERED: MIRTAZAPINE TAB 15 MG TAB PO SCH (22:00)
[2019-04-24] MEDS ORDERED: TRAZODONE HCL 100 MG TAB PO SCH (22:00)
[2019-04-25] MEDS: PANTOprazole 40 MG TAB PO SCH (09:21)
[2019-04-25] MEDS: FLUTICASONE PROPIONATE NA SPR 16 GM BTL SCH ×2 (09:22→21:13)
[2019-04-25] MEDS: LORazepam 0.5 MG TAB PO SCH ×3 (09:22→21:09)
[2019-04-25] MEDS: ASPIRIN 81 MG ECTAB PO SCH (09:22)
[2019-04-25] MEDS: PROPRANOLOL HCL 20 MG TAB PO SCH ×2 (09:22→21:17)
[2019-04-25] MEDS: CLOPIDOGREL BISULFATE 75 MG TAB PO SCH (09:23)
[2019-04-25] MEDS: LITHIUM CARBONATE 300 MG TAB PO SCH ×2 (09:23→21:15)
[2019-04-25] MEDS: GABAPENTIN 400 MG CAP PO SCH ×3 (09:24→21:14)
[2019-04-25] MEDS: THIAMINE HCL 100 MG TAB PO SCH (09:24)
[2019-04-25] MEDS: NICOTINE 14 MG/24 HR PATCH TD SCH (09:26)
--- NOTE | 2019-04-25 12:15 | Psychiatric Progress Note ---
Date of Service April 25, 2019 Impression / Recommendations Impression 69-year-old male admitted voluntarily for inpatient psychiatric treatment on 04/24/2019. Patient was recently admitted to our unit from 03/31/2019 through 04/13/2019. Patient has a history of anxiety disorder and bipolar disorder, continuing to report command auditory hallucinations to overdose on pills. Patient continues to report increased anxiety related to the presence of these voices. [place] level on admission is mildly subtherapeutic at 0.5. We will continue the majority of patient's medications unchanged at this time. We will complete cross titration from mirtazapine to trazodone, discontinuing mirtazapine and titrating trazodone to 150 mg nightly. We will titrate propranolol to 40 mg twice daily, as patient's blood pressure remains elevated and he continues to be tachycardic. Patient will be encouraged to participate in group and recreational programming. We will engage outpatient supports and conversations to discuss safety and discharge planning. We will need to explore whether or not a more supervised living environment may be beneficial for the patient, involving other supports in this conversation. Patient remains at high risk of self-harm if he is discharged prematurely, as he continues to verbalize hearing voices telling him to overdose. At this time, inpatient psychiatric treatment is the least restrictive and most appropriate setting for medication of verbalized risk factors. (1) Bipolar disorder: 04/24 - Continue olanzapine 20mg qHS - Continue lithium 300mg BID - level in the ED was 0.5 - Encourage participation in group and recreational programming - Coordinate treatment with outpatient supports - Involve supports (likely brother) in family meeting to discuss safety and discharge planning 04/25 - Reporting improvement in condition today, patient seemingly more talkative and less preoccupied with psychiatric symptoms - Continue olanzapine 20mg qHS and lithium 300mg BID - Will get fasting glucose and lipid panel for tomorrow morning - last results available were from 07/2018, all values WNL at that time - Continue to coordinate outpatient treatment and support services prior to discharge (2) EMILIANO (generalized anxiety disorder): 04/24 - Continue current doses of buspirone 10mg TID, lorazepam 0.5mg TID, and gabapentin 400mg TID - Continue to encourage development of healthy and effective coping strategies - Encourage participation in group and recreational programming 04/25 - Continues as above, patient reports improvement overall and anxiety (3) Cognitive change: 04/24 - Pt scored a 16/30 on MoCA assessment last admission, indicating concern for cognitive deficits - Medical reporting form completed and faxed to [facility] - will follow-up on this to determine where the process is at, as patient admits to continuing to drive (4) HTN (hypertension): 04/24 - Pt continues to be hypertensive and tachycardic - Suggest titrating propranolol to 40mg BID 04/25 - Blood pressure seemingly improved today, will continue to monitor with daily vitals (5) Tobacco abuse: 04/24 - Continue nicotine patch at 14mg daily - Offer education into smoking cessation (6) COPD (chronic obstructive pulmonary disease): 04/24 - Condition appearing stable at this time (7) History of ETOH abuse: 04/24 - Pt continues to report stable, limited alcohol use - Pt stating he consumed 1 shot of whiskey since discharge on 04/13 (8) PVD (peripheral vascular disease): 04/24 - Continue home dose of Plavix and Aspirin Inventory Assets Strengths: willingness for treatment, involvement of outpatient supports Needs: development of effective coping strategies, engaging in additional service to promote community and relationship Risk Factors Assessment Male: Yes : Yes Do You Have Access To A Gun?: No Health Problems: Yes Mental Health Diagnoses: Yes Previous Attempt: No Family History of Suicide: Yes Previous Psychiatric Hospitalization: Yes Hopelessness: Yes Smoker: Yes Protective Factors Assessment Druze Beliefs: Yes : No Responsible for Young Children: No Employed: No Stable Relationships: No Supportive Family: Yes Interval History Identifying Information KEON ROBISON is a 69-year-old M who currently lives alone, having a reported history of bipolar disorder and anxiety. Pt was admitted on 04/24/19 01:32 on a 201 voluntary commitment for increased anxiety, with command auditory hallucinations telling him to overdose, with concern he may act on thoughts. Chief Complaint "I first have one thing I want to ask you, before I go any further." Review of Systems Notes Constitutional: reports difficulty falling and remaining asleep last evening Cardiovascular: denied Respiratory: denied Gastrointestinal: denied Neurological: denied Psychiatric: denies symptoms other than stated above Total of at least 10 systems reviewed, pertinent positives as above and in HPI. Sleep Information Total Hours of Sleep: 6.25 Meal Information Percent Meal Consumed - Breakfast: 100 Percent Meal Consumed - Lunch: 50 Percent Meal Consumed - Dinner: 80 Subjective Subjective Patient was seen & assessed and interval progress reviewed with nursing and social work. Staff reports the patient continues to demonstrate a blunted affect, requiring encouragement from staff to attend group programming routinely in on time. Patient does have a meeting with his brother via phone this morning to discuss safety and discharge planning. Patient was seen today to assess progress since admission. Before this provider has a chance to ask any questions, patient states that he has a concern that needs to be addressed. Patient states "I did not sleep well last night, why do you think that could be?" Patient did inform this provider that part of his difficulty sleeping was related to difficulty breathing, he then informs this provider that he utilizes his Flonase in the morning and at evening. This adjustment was made, and titration of sleep medications was offered, but declined at this time. Patient states "my sleep was only a little bit off, I would like to not have to take more medications that I need to." Patient was asked about the meeting with his brother, of which he states was "okay, I guess." Patient states that the topic of a personal snf was presented, though he does not feel that he requires this level of care at this time. Patient states he still desires his independence, but would be willing to look into the topic further "when someone tells me I have to." Patient is significantly more talkative today, and appears less anxious and preoccupied with psychiatric symptoms. Patient even states that he has not experienced suicidal ideation or thoughts to overdose today. He states "I am doing pretty good today for some reason, now I do think that would be when it took so long for me to get better last time?" We discussed likelihood that in addition to allowing time for medications to be beneficial, patient was also likely benefiting from attending group programming and working on some coping strategies. Overall, patient believes that his condition is improving. He denies needs or concerns at this time. He is willing to get fasting blood work tomorrow morning, as most recent documentation for fasting glucose and lipid panel was from July 2018. Physical Exam Psychiatric Orientation: alert, oriented x 3 and cooperative Apperance: appropriately dressed (Casually, wearing hoodie and scrub pants), + disheveled (Hair is unkempt) and appeared stated age; + inappropriately groomed (Clothes are stained, patient is malodorous) Eye Contact: good eye contact Motor Behavior: steady gait and station and no abnormal motor movements Speech: normal rate/rhythm/volume of speech Affect: + flat affect and + constricted affect Mood: no depressed mood and no anxious mood "I am actually doing pretty good today for some reason." Thought Process: goal directed thought process, clear/coherent thought process and + concrete thought process; no perseveration Thought Content: reality based without delusions; no preoccupation, no hopelessness and no worthlessness Suicidal Thoughts: denies suicidal thoughts and denies suicidal intent Homicidal Thoughts: denies homicidal thoughts Hallucinations: no auditory hallucinations and no visual hallucinations Denies auditory hallucinations or thoughts to harm himself so far today Cognition: attention grossly intact and language grossly intact Insight: + limited insight Judgement: + fair judgement Vital Signs (Past 24 Hours) Last Vital Signs Temp 36.6 C 04/25/19 06:44 Pulse 76 04/25/19 06:44 Resp 16 04/25/19 06:44 BP 99/58 L 04/25/19 06:44 Pulse Ox 98 04/23/19 23:25 Results & Data Current Inpatient Medications Current Inpatient Medications: Current Inpatient Medications Acetaminophen (Tylenol) 650 mg PO Q4H PRN PRN Reason: Headache or Minor Fever Stop: 05/24/19 03:16 Al Hydrox/Mg Hydrox/Simethicone (Maalox) 30 ml PO Q4H PRN PRN Reason: GI Upset Stop: 05/24/19 03:16 Aspirin (Ecotrin Ectab) 81 mg PO DAILY [facility] Stop: 05/24/19 08:59 Last Admin: 04/25/19 09:22 Dose: 81 mg Documented by: Bismuth Subsalicylate (Kaopectate) 15 ml PO PRN PRN PRN Reason: Loose Stool Stop: 05/24/19 03:16 Buspirone HCl (Buspar) 10 mg PO TID [facility] Stop: 05/24/19 08:59 Last Admin: 04/25/19 09:22 Dose: 10 mg Documented by: Clopidogrel Bisulfate (Plavix) 75 mg PO QAM [facility] Stop: 05/24/19 08:59 Last Admin: 04/25/19 09:23 Dose: 75 mg Documented by: Fluticasone Propionate (Flonase) 1 sprays NA DAILY [facility] Stop: 05/24/19 08:59 Last Admin: 04/25/19 09:22 Dose: 1 sprays Documented by: Gabapentin (Neurontin) 400 mg PO TID [facility] Stop: 05/24/19 08:59 Last Admin: 04/25/19 09:24 Dose: 400 mg Documented by: Hydroxyzine HCl (Vistaril) 50 mg PO HSZ PRN PRN Reason: Insomnia Stop: 05/24/19 03:16 Hydroxyzine HCl (Vistaril) 25 mg PO Q4H PRN PRN Reason: Anxiety Stop: 05/24/19 03:16 [place] Carbonate ([place] Carbonate) 300 mg PO BID [facility] Stop: 05/24/19 08:59 Last Admin: 04/25/19 09:23 Dose: 300 mg Documented by: Lorazepam (Ativan) 0.5 mg PO TID [facility] Stop: 05/24/19 08:59 Last Admin: 04/25/19 09:22 Dose: 0.5 mg Documented by: Magnesium Hydroxide (Milk Of Magnesia) 30 ml PO DAILY PRN PRN Reason: Constipation Stop: 05/24/19 03:16 Miscellaneous (Remove Nicoderm Patch) 1 ea N/A DAILY@0859 [facility] Stop: 05/24/19 08:58 Last Admin: 04/25/19 09:38 Dose: 1 ea Documented by: Nicotine (Nicoderm Cq) 14 mg TD QAM [facility] Stop: 05/24/19 08:59 Last Admin: 04/25/19 09:26 Dose: 14 mg Documented by: Olanzapine (Zyprexa) 20 mg PO HS [facility] Stop: 05/24/19 21:59 Last Admin: 04/24/19 21:00 Dose: 20 mg Documented by: Pantoprazole Sodium (Protonix) 40 mg PO DAILY [facility] Stop: 05/24/19 08:59 Last Admin: 04/25/19 09:21 Dose: 40 mg Documented by: Propranolol HCl (Inderal) 40 mg PO BID [facility] Stop: 05/24/19 20:59 Last Admin: 04/25/19 09:22 Dose: 40 mg Documented by: Rosuvastatin Calcium (Crestor) 40 mg PO HS [facility] Stop: 05/24/19 21:59 Last Admin: 04/24/19 20:59 Dose: 40 mg Documented by: Sodium Chloride ([place] Nasal) 1 - 2 sprays NA PRN PRN PRN Reason: Nasal Dryness/Congestion Stop: 05/24/19 03:16 Last Admin: 04/24/19 22:56 Dose: 1 sprays Documented by: Thiamine HCl (Vitamin B-1) 100 mg PO QAM [facility] Stop: 05/24/19 08:59 Last Admin: 04/25/19 09:24 Dose: 100 mg Documented by: Trazodone HCl (Desyrel) 150 mg PO HS [facility] Stop: 05/24/19 21:59 Last Admin: 04/24/19 20:59 Dose: 150 mg Documented by: Mental Health & Subst Abuse Tx Psychiatrist Date of Appointment with Psychiatrist: 05/15/19 Therapist Name of Therapist: Onesimo Viera @ [facility] Date of Therapist Appointment: 04/28/19 College Counselor Name of College Counselor: Jayme Watson (cell [phone]) Post Discharge Appointments Primary Care Physician Name Of Family Doctor: Dr. Angulo (1) Bipolar disorder Active/Remission status: remission status unspecified Qualified Code(s): F31.9 - Bipolar disorder, unspecified (2) COPD (chronic obstructive pulmonary disease) COPD type: unspecified COPD Qualified Code(s): J44.9 - Chronic obstructive pulmonary disease, unspecified (3) HTN (hypertension) Hypertension type: essential hypertension Qualified Code(s): I10 - Essential (primary) hypertension
[2019-04-25] MEDS: ROSUVASTATIN CALCIUM 20 MG TAB PO SCH (21:16)
[2019-04-25] MEDS: TRAZODONE HCL 50 MG TAB PO SCH (21:18)
[2019-04-25] MEDS: OLANZapine 20 MG TABLET PO SCH (21:18)
[2019-04-26 07:56] LABS: Glucose Fasting 97 mg/dl (70-99)
[2019-04-26 08:02] LABS: Chol HDL Ratio 4; Cholesterol 138 mg/dl (0-200); HDL Cholesterol 39 mg/dl; LDL Cholesterol Calculated 81 mg/dl; Triglycerides 91 mg/dl (0-150); VLDL Cholesterol 18 mg/dl
--- NOTE | 2019-04-26 09:15 | Psychiatric Progress Note ---
Date of Service April 26, 2019 Impression / Recommendations Impression 69-year-old male admitted voluntarily for inpatient psychiatric treatment on 04/24/2019. Patient was recently admitted to our unit from 03/31/2019 through 04/13/2019. Patient has a history of anxiety disorder and bipolar disorder, continuing to report command auditory hallucinations to overdose on pills. Patient continues to report increased anxiety related to the presence of these voices. [place] level on admission is mildly subtherapeutic at 0.5. We will continue the majority of patient's medications unchanged at this time. We will complete cross titration from mirtazapine to trazodone, discontinuing mirtazapine and titrating trazodone to 150 mg nightly. We will titrate propranolol to 40 mg twice daily, as patient's blood pressure remains elevated and he continues to be tachycardic. Patient will be encouraged to participate in group and recreational programming. We will engage outpatient supports and conversations to discuss safety and discharge planning. We will need to explore whether or not a more supervised living environment may be beneficial for the patient, involving other supports in this conversation. Patient remains at high risk of self-harm if he is discharged prematurely, as he continues to verbalize hearing voices telling him to overdose. At this time, inpatient psychiatric treatment is the least restrictive and most appropriate setting for medication of verbalized risk factors. (1) Bipolar disorder: 04/24 - Continue olanzapine 20mg qHS - Continue lithium 300mg BID - level in the ED was 0.5 - Encourage participation in group and recreational programming - Coordinate treatment with outpatient supports - Involve supports (likely brother) in family meeting to discuss safety and discharge planning 04/25 - Reporting improvement in condition today, patient seemingly more talkative and less preoccupied with psychiatric symptoms - Continue olanzapine 20mg qHS and lithium 300mg BID - Will get fasting glucose and lipid panel for tomorrow morning - last results available were from 07/2018, all values WNL at that time - Continue to coordinate outpatient treatment and support services prior to discharge 04/26 - Fasting glucose and cholesterol panel all WNLs. - Continue current meds as symptoms improving. Encourage patient to consider [facility] vs increased in home and OP supports ([facility], [facility], etc) - Will coordinate wit [facility] and [facility] tomorrow when offices reopen (2) EMILIANO (generalized anxiety disorder): 04/24 - Continue current doses of buspirone 10mg TID, lorazepam 0.5mg TID, and gabapentin 400mg TID - Continue to encourage development of healthy and effective coping strategies - Encourage participation in group and recreational programming 04/25 - Continues as above, patient reports improvement overall and anxiety (3) Cognitive change: 04/24 - Pt scored a 16/30 on [facility] assessment last admission, indicating concern for cognitive deficits - Medical reporting form completed and faxed to [facility] - will follow-up on this to determine where the process is at, as patient admits to continuing to drive 04/26 - Again reviewed that he has been reported to [facility] and is not medically safe to drive. fitness worker also informed brother at family meeting yesterday. Will need to contact [facility] to ensure they received form and have necessary info. (4) HTN (hypertension): 04/24 - Pt continues to be hypertensive and tachycardic - Suggest titrating propranolol to 40mg BID 04/25 - Blood pressure seemingly improved today, will continue to monitor with daily vitals (5) Tobacco abuse: 04/24 - Continue nicotine patch at 14mg daily - Offer education into smoking cessation (6) COPD (chronic obstructive pulmonary disease): 04/24 - Condition appearing stable at this time (7) History of ETOH abuse: 04/24 - Pt continues to report stable, limited alcohol use - Pt stating he consumed 1 shot of whiskey since discharge on 04/13 (8) PVD (peripheral vascular disease): 04/24 - Continue home dose of Plavix and Aspirin Inventory Assets Strengths: willingness for treatment, involvement of outpatient supports Needs: development of effective coping strategies, engaging in additional service to promote community and relationship Risk Factors Assessment Male: Yes : Yes Do You Have Access To A Gun?: No Health Problems: Yes Mental Health Diagnoses: Yes Previous Attempt: No Family History of Suicide: Yes Previous Psychiatric Hospitalization: Yes Hopelessness: Yes Smoker: Yes Protective Factors Assessment Muslim Beliefs: Yes : No Responsible for Young Children: No Employed: No Stable Relationships: No Supportive Family: Yes Interval History Identifying Information KEON ROBISON is a 69-year-old M who currently lives alone, having a reported history of bipolar disorder and anxiety. Pt was admitted on 04/24/19 01:32 on a 201 voluntary commitment for increased anxiety, with command auditory hallucinations telling him to overdose, with concern he may act on thoughts. Chief Complaint "A little better". Review of Systems Sleep Information Total Hours of Sleep: 5.75 Sleep Comments: pt given vistaril per rn. pt NPO during the night. pt on q-15 minute checks Meal Information Percent Meal Consumed - Breakfast: 100 Percent Meal Consumed - Lunch: 50 Percent Meal Consumed - Dinner: 90 Subjective Subjective Patient was seen & assessed and interval progress reviewed with nursing. Staff report he participated in groups and therapy, continues to endorse anxiety, stating he was worried about leaving the hospital too early. He endorsed ongoing auditory hallucinations telling him to harm himself, low energy, and difficulty coping. He had a family meeting with the social economist and his brother yesterday: brother stated his house is in very poor condition, although patient disputed reports from EMS that he had no electricity or running water. Patient was again reminded that he is not allowed to drive, and said he didn't understand why and had not been following those directions. Recommendations for assisted living or PC were discussed and the patient was overwhelmed and unable to continue the discussion. He received 2 doses of hydroxyzine overnight for sleep. On my assessment, he reports mood is slightly improved, AH of voices have decreased, but continues to have command AH at times, and thoughts "to take this bottle of pills, and your life will be better." Says "someone told me Iliana does that." States that when he was discharged earlier in the month, his sy mptoms immediately returned. The only coping skill he can think of is to pray, which he says helps sometimes. He denies side effects to medication, and states "I wonder if I'm on the right medicine, they changed it around a little bit, but not as much." He states he doesn't understand who he felt so good here at discharge last time, but symptoms returned immediately after discharge when he returned home. Discussed role of stress and isolation, and hence the recommendations to either go to supportive living environment or increase OP services/in home services, both of which he doesn't think he wants. He is very focused on medication changes as being the only answer. Physical Exam Psychiatric Orientation: alert and cooperative Casually dressed in visibly soiled clothes. Seated in NAD, drinking coffee. Eye Contact: + fair eye contact Motor Behavior: steady gait and station and no abnormal motor movements speech slightly mumbled Affect: + blunted affect "a little bit better" irrational (states did poorly after discharge, but refusing all interventions to increase supports) Suicidal Thoughts: + reports suicidal thoughts Homicidal Thoughts: denies homicidal thoughts Hallucinations: + auditory hallucinations (command AH) Cognition: attention grossly intact and language grossly intact; + recent memory not intact Insight: + impaired insight Judgement: + impaired judgement Vital Signs (Past 24 Hours) Last Vital Signs Temp 36.2 C L 04/26/19 06:36 Pulse 78 04/26/19 06:37 Resp 18 04/26/19 06:36 BP 133/83 04/26/19 06:37 Pulse Ox 98 04/23/19 23:25 Results & Data Laboratory Results Laboratory Results - last 24 hr 04/26/19 06:47 Fasting Glucose 97 Triglycerides 91 Cholesterol 138 LDL Cholesterol, Calc 81 VLDL Cholesterol, Calc 18 HDL Cholesterol 39 Cholesterol/HDL Ratio 4 Current Inpatient Medications Current Inpatient Medications: Current Inpatient Medications Acetaminophen (Tylenol) 650 mg PO Q4H PRN PRN Reason: Headache or Minor Fever Stop: 05/24/19 03:16 Al Hydrox/Mg Hydrox/Simethicone (Maalox) 30 ml PO Q4H PRN PRN Reason: GI Upset Stop: 05/24/19 03:16 Aspirin (Ecotrin Ectab) 81 mg PO DAILY [facility] Stop: 05/24/19 08:59 Last Admin: 04/25/19 09:22 Dose: 81 mg Documented by: Bismuth Subsalicylate (Kaopectate) 15 ml PO PRN PRN PRN Reason: Loose Stool Stop: 05/24/19 03:16 Buspirone HCl (Buspar) 10 mg PO TID [facility] Stop: 05/24/19 08:59 Last Admin: 04/25/19 21:11 Dose: 10 mg Documented by: Clopidogrel Bisulfate (Plavix) 75 mg PO QAM [facility] Stop: 05/24/19 08:59 Last Admin: 04/25/19 09:23 Dose: 75 mg Documented by: Fluticasone Propionate (Flonase) 1 sprays NA BID [facility] Stop: 05/25/19 20:59 Last Admin: 04/25/19 21:13 Dose: 1 sprays Documented by: Gabapentin (Neurontin) 400 mg PO TID [facility] Stop: 05/24/19 08:59 Last Admin: 04/25/19 21:14 Dose: 400 mg Documented by: Hydroxyzine HCl (Vistaril) 50 mg PO HSZ PRN PRN Reason: Insomnia Stop: 05/24/19 03:16 Last Admin: 04/26/19 01:13 Dose: 50 mg Documented by: Hydroxyzine HCl (Vistaril) 25 mg PO Q4H PRN PRN Reason: Anxiety Stop: 05/24/19 03:16 [place] Carbonate ([place] Carbonate) 300 mg PO BID [facility] Stop: 05/24/19 08:59 Last Admin: 04/25/19 21:15 Dose: 300 mg Documented by: Lorazepam (Ativan) 0.5 mg PO TID [facility] Stop: 05/24/19 08:59 Last Admin: 04/25/19 21:09 Dose: 0.5 mg Documented by: Magnesium Hydroxide (Milk Of Magnesia) 30 ml PO DAILY PRN PRN Reason: Constipation Stop: 05/24/19 03:16 Miscellaneous (Remove Nicoderm Patch) 1 ea N/A DAILY@0859 [facility] Stop: 05/24/19 08:58 Last Admin: 04/25/19 09:38 Dose: 1 ea Documented by: Nicotine (Nicoderm Cq) 14 mg TD QAM [facility] Stop: 05/24/19 08:59 Last Admin: 04/25/19 09:26 Dose: 14 mg Documented by: Olanzapine (Zyprexa) 20 mg PO HS [facility] Stop: 05/24/19 21:59 Last Admin: 04/25/19 21:18 Dose: 20 mg Documented by: Pantoprazole Sodium (Protonix) 40 mg PO DAILY [facility] Stop: 05/24/19 08:59 Last Admin: 04/25/19 09:21 Dose: 40 mg Documented by: Propranolol HCl (Inderal) 40 mg PO BID [facility] Stop: 05/24/19 20:59 Last Admin: 04/25/19 21:17 Dose: 40 mg Documented by: Rosuvastatin Calcium (Crestor) 40 mg PO HS [facility] Stop: 05/24/19 21:59 Last Admin: 04/25/19 21:16 Dose: 40 mg Documented by: Sodium Chloride ([place] Nasal) 1 - 2 sprays NA PRN PRN PRN Reason: Nasal Dryness/Congestion Stop: 05/24/19 03:16 Last Admin: 04/24/19 22:56 Dose: 1 sprays Documented by: Thiamine HCl (Vitamin B-1) 100 mg PO QAM [facility] Stop: 05/24/19 08:59 Last Admin: 04/25/19 09:24 Dose: 100 mg Documented by: Trazodone HCl (Desyrel) 150 mg PO HS [facility] Stop: 05/24/19 21:59 Last Admin: 04/25/19 21:18 Dose: 150 mg Documented by: Mental Health & Subst Abuse Tx Psychiatrist Name of Psychiatrist: Domenico Bernal [facility] Date of Appointment with Psychiatrist: 05/15/19 Therapist Name of Therapist: Onesimo Viera @ [facility] Date of Therapist Appointment: 04/28/19 Air Carrier Maintenance Inspector Name of Air Carrier Maintenance Inspector: Jayme Watson ([phone]) Post Discharge Appointments Primary Care Physician Name Of Family Doctor: Dr. Angulo (1) Bipolar disorder Active/Remission status: remission status unspecified Qualified Code(s): F31.9 - Bipolar disorder, unspecified (2) COPD (chronic obstructive pulmonary disease) COPD type: unspecified COPD Qualified Code(s): J44.9 - Chronic obstructive pulmonary disease, unspecified (3) HTN (hypertension) Hypertension type: essential hypertension Qualified Code(s): I10 - Essential (primary) hypertension
[2019-04-26] MEDS: NICOTINE 14 MG/24 HR PATCH TD SCH (09:19)
[2019-04-26] MEDS: FLUTICASONE PROPIONATE NA SPR 16 GM BTL SCH ×2 (09:19→21:33)
[2019-04-26] MEDS: ASPIRIN 81 MG ECTAB PO SCH (09:24)
[2019-04-26] MEDS: PROPRANOLOL HCL 20 MG TAB PO SCH ×2 (09:25→21:34)
[2019-04-26] MEDS: PANTOprazole 40 MG TAB PO SCH (09:26)
[2019-04-26] MEDS: LITHIUM CARBONATE 300 MG TAB PO SCH ×2 (09:26→21:33)
[2019-04-26] MEDS: GABAPENTIN 400 MG CAP PO SCH ×3 (09:26→21:34)
[2019-04-26] MEDS: CLOPIDOGREL BISULFATE 75 MG TAB PO SCH (09:26)
[2019-04-26] MEDS: THIAMINE HCL 100 MG TAB PO SCH (09:27)
[2019-04-26] MEDS: LORazepam 0.5 MG TAB PO SCH ×3 (09:31→21:35)
[2019-04-26] MEDS: TRAZODONE HCL 50 MG TAB PO SCH (21:33)
[2019-04-26] MEDS: OLANZapine 20 MG TABLET PO SCH (21:34)
[2019-04-26] MEDS: ROSUVASTATIN CALCIUM 20 MG TAB PO SCH (21:34)
[2019-04-27] MEDS: NICOTINE 14 MG/24 HR PATCH TD SCH (10:01)
[2019-04-27] MEDS: ASPIRIN 81 MG ECTAB PO SCH (10:04)
[2019-04-27] MEDS: GABAPENTIN 400 MG CAP PO SCH ×3 (10:05→21:03)
[2019-04-27] MEDS: PROPRANOLOL HCL 20 MG TAB PO SCH ×2 (10:05→21:02)
[2019-04-27] MEDS: LITHIUM CARBONATE 300 MG TAB PO SCH ×2 (10:05→21:02)
[2019-04-27] MEDS: PANTOprazole 40 MG TAB PO SCH (10:06)
[2019-04-27] MEDS: FLUTICASONE PROPIONATE NA SPR 16 GM BTL SCH ×2 (10:06→21:02)
[2019-04-27] MEDS: CLOPIDOGREL BISULFATE 75 MG TAB PO SCH (10:06)
[2019-04-27] MEDS: THIAMINE HCL 100 MG TAB PO SCH (10:06)
[2019-04-27] MEDS: LORazepam 0.5 MG TAB PO SCH ×3 (10:09→21:01)
--- NOTE | 2019-04-27 10:48 | Psychiatric Progress Note ---
Date of Service April 27, 2019 Impression / Recommendations Impression 69-year-old male admitted voluntarily for inpatient psychiatric treatment on 04/24/2019. Patient was recently admitted to our unit from 03/31/2019 through 04/13/2019. Patient has a history of anxiety disorder and bipolar disorder, continuing to report command auditory hallucinations to overdose on pills. Patient continues to report increased anxiety related to the presence of these voices. [place] level on admission is mildly subtherapeutic at 0.5. We will continue the majority of patient's medications unchanged at this time. We will complete cross titration from mirtazapine to trazodone, discontinuing mirtazapine and titrating trazodone to 150 mg nightly. We will titrate propranolol to 40 mg twice daily, as patient's blood pressure remains elevated and he continues to be tachycardic. Patient will be encouraged to participate in group and recreational programming. We will engage outpatient supports and conversations to discuss safety and discharge planning. We will need to explore whether or not a more supervised living environment may be beneficial for the patient, involving other supports in this conversation. Patient remains at high risk of self-harm if he is discharged prematurely, as he continues to verbalize hearing voices telling him to overdose. At this time, inpatient psychiatric treatment is the least restrictive and most appropriate setting for medication of verbalized risk factors. (1) Bipolar disorder: 04/24 - Continue olanzapine 20mg qHS - Continue lithium 300mg BID - level in the ED was 0.5 - Encourage participation in group and recreational programming - Coordinate treatment with outpatient supports - Involve supports (likely brother) in family meeting to discuss safety and discharge planning 04/25 - Reporting improvement in condition today, patient seemingly more talkative and less preoccupied with psychiatric symptoms - Continue olanzapine 20mg qHS and lithium 300mg BID - Will get fasting glucose and lipid panel for tomorrow morning - last results available were from 07/2018, all values WNL at that time - Continue to coordinate outpatient treatment and support services prior to discharge 04/26 - Fasting glucose and cholesterol panel all WNLs. - Continue current meds as symptoms improving. Encourage patient to consider [facility] vs increased in home and OP supports ([facility], [facility], etc) - Will coordinate wit [facility] of [facility] and [facility] tomorrow when offices reopen 04/27 - Continue current medication regimen, ongoing conversation regarding ways to improve outpatient socialization and support - Continue coordination attempts with [facility] and case management (2) EMILIANO (generalized anxiety disorder): 04/24 - Continue current doses of buspirone 10mg TID, lorazepam 0.5mg TID, and gabapentin 400mg TID - Continue to encourage development of healthy and effective coping strategies - Encourage participation in group and recreational programming 04/25 - Continues as above, patient reports improvement overall and anxiety 04/27 - Pt reporting improvement in overall anxiety, but difficulty falling asleep - Discussed proper sleep hygiene - recommendation to eliminate coffee after 3pm (patient reporting he is drinking decaf coffee until 9-10pm) (3) Cognitive change: 04/24 - Pt scored a 16/30 on MoCA assessment last admission, indicating concern for cognitive deficits - Medical reporting form completed and faxed to [facility] - will follow-up on this to determine where the process is at, as patient admits to continuing to drive 04/26 - Again reviewed that he has been reported to [facility] and is not medically safe to drive. 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 Will need to contact [facility] to ensure they received form and have necessary info. 04/27 - Repeated MoCA assessment today scoring a 20/30, which demonstrated mild improvement in cognitive functioning - (16/30 on 04/10/19) - Pt demonstrated deficits in visuospatial/executive functioning in regard to inability to accurate copy the cube drawing and lost a point for number placement on the clock drawing. Clock hands were drawn appropriately, patient even stating "you say the 10 first in order to trick people, but it actually does not have anything to do with the number 10." On tasks related to attention, patient once unable to repeat a list of digits in the backwards order. For serial sevens subtraction, patient was able to correctly subtract 3 values. On language tasks, patient repeated the first sentence in a concrete manner, eliminating words and therefore saying "I only know that Garry helped today." On the fluency task, patient was only able to name 9 words beginning with the letter F. Patient lost 1 point for abstract thinking, as his explanation of how a train and a bicycle are alike was "they both have wheels, and they both can be stopped." Patient could only name 2 out of 5 words for delayed recall. He was oriented to person, place and time. (4) HTN (hypertension): 04/24 - Pt continues to be hypertensive and tachycardic - Suggest titrating propranolol to 40mg BID 04/25 - Blood pressure seemingly improved today, will continue to monitor with daily vitals (5) Tobacco abuse: 04/24 - Continue nicotine patch at 14mg daily - Offer education into smoking cessation (6) COPD (chronic obstructive pulmonary disease): 04/24 - Condition appearing stable at this time (7) History of ETOH abuse: 04/24 - Pt continues to report stable, limited alcohol use - Pt stating he consumed 1 shot of whiskey since discharge on 04/13 (8) PVD (peripheral vascular disease): 04/24 - Continue home dose of Plavix and Aspirin Inventory Assets Strengths: willingness for treatment, involvement of outpatient supports Needs: development of effective coping strategies, engaging in additional service to promote community and relationship Risk Factors Assessment Male: Yes : Yes Do You Have Access To A Gun?: No Health Problems: Yes Mental Health Diagnoses: Yes Previous Attempt: No Family History of Suicide: Yes Previous Psychiatric Hospitalization: Yes Hopelessness: Yes Smoker: Yes Protective Factors Assessment Presybeterian Beliefs: Yes : No Responsible for Young Children: No Employed: No Stable Relationships: No Supportive Family: Yes Interval History Identifying Information KEON ROBISON is a 69-year-old M who currently lives alone, having a reported history of bipolar disorder and anxiety. Pt was admitted on 04/24/19 01:32 on a 201 voluntary commitment for increased anxiety, with command auditory hallucinations telling him to overdose, with concern he may act on thoughts. Chief Complaint " Overall, so-so. I guess maybe I am a little better sometimes." Review of Systems Notes Constitutional: denied Cardiovascular: denied Respiratory: denied Gastrointestinal: denied Neurological: denied Psychiatric: denies symptoms other than stated above Total of at least 10 systems reviewed, pertinent positives as above and in HPI. Sleep Information Total Hours of Sleep: 5.5 Sleep Comments: received two doses of hs prn vistaril Meal Information Percent Meal Consumed - Breakfast: 95 Percent Meal Consumed - Lunch: 100 Percent Meal Consumed - Dinner: 90 Subjective Subjective Patient was seen & assessed and interval progress reviewed with treatment team. Staff reports the patient continues to verbalize suicidal ideation yesterday. He is continued to admit to ongoing ego-dystonic intrusive thoughts, though does admit to improvement in frequency and severity. Patient was seen today to assess progress since admission. He states that he is feeling "so-so." Patient does admit to improvements in general, but continues to be limited in his motivation to work towards a discharge plan. Patient does admit to ongoing hopelessness, and intrusive thoughts related to this idea. Patient is now stating that he is utilizing prayer as a way to cope with these thoughts. Patient states "when those kinds of thoughts pop in, I say of prior and they normally go away." Patient denies active thoughts to harm himself or end his life, but continues to feel uncertain about his ability to function outside of the hospital. Patient does seem less preoccupied with the anxiety and intrusive thoughts, as he is able to share other information such as talking about his frequent visits to temple and describing to this provider the Conor presents that were provided to patient's yesterday. Patient was agreeable with completing a repeat MoCA to determine any change in his cognitive functioning. Patient denies other needs or concerns from staff today. Physical Exam Psychiatric Orientation: alert, oriented x 3 and cooperative Apperance: appropriately dressed and + disheveled; + inappropriately groomed Patient continues to dress in a hoodie and scrub pants, which have likely not been cleaned in several days. Patient is malodorous and appears disheveled Eye Contact: good eye contact Motor Behavior: no abnormal motor movements and + psychomotor retardation (Slow movements) Speech: normal rate/rhythm/volume of speech Affect: + blunted affect (brightens episodically, specifically as he talks about temple and prayer) Mood: + depressed mood and + anxious mood Patient describes his mood as "so-so" Thought Process: goal directed thought process, clear/coherent thought process and + concrete thought process Thought Content: reality based without delusions and + hopelessness (Reports episodic thoughts of hopelessness); no preoccupation (Far less preoccupied with anxiety and intrusive thoughts) Suicidal Thoughts: denies suicidal thoughts and denies suicidal intent Homicidal Thoughts: denies homicidal thoughts Hallucinations: no auditory hallucinations and no visual hallucinations Cognition: remote memory grossly intact, attention grossly intact and language grossly intact Insight: + impaired insight Judgement: + impaired judgement Vital Signs (Past 24 Hours) Last Vital Signs Temp 36.6 C 04/27/19 06:38 Pulse 81 04/27/19 06:38 Resp 18 04/27/19 06:38 BP 138/85 04/27/19 06:38 Pulse Ox 98 04/23/19 23:25 Results & Data Current Inpatient Medications Current Inpatient Medications: Current Inpatient Medications Acetaminophen (Tylenol) 650 mg PO Q4H PRN PRN Reason: Headache or Minor Fever Stop: 05/24/19 03:16 Al Hydrox/Mg Hydrox/Simethicone (Maalox) 30 ml PO Q4H PRN PRN Reason: GI Upset Stop: 05/24/19 03:16 Aspirin (Ecotrin Ectab) 81 mg PO DAILY [facility] Stop: 05/24/19 08:59 Last Admin: 04/27/19 10:04 Dose: 81 mg Documented by: Bismuth Subsalicylate (Kaopectate) 15 ml PO PRN PRN PRN Reason: Loose Stool Stop: 05/24/19 03:16 Buspirone HCl (Buspar) 10 mg PO TID [facility] Stop: 05/24/19 08:59 Last Admin: 04/27/19 10:04 Dose: 10 mg Documented by: Clopidogrel Bisulfate (Plavix) 75 mg PO QAM [facility] Stop: 05/24/19 08:59 Last Admin: 04/27/19 10:06 Dose: 75 mg Documented by: Fluticasone Propionate (Flonase) 1 sprays NA BID [facility] Stop: 05/25/19 20:59 Last Admin: 04/27/19 10:06 Dose: 1 sprays Documented by: Gabapentin (Neurontin) 400 mg PO TID [facility] Stop: 05/24/19 08:59 Last Admin: 04/27/19 10:05 Dose: 400 mg Documented by: Hydroxyzine HCl (Vistaril) 50 mg PO HSZ PRN PRN Reason: Insomnia Stop: 05/24/19 03:16 Last Admin: 04/26/19 23:40 Dose: 50 mg Documented by: Hydroxyzine HCl (Vistaril) 25 mg PO Q4H PRN PRN Reason: Anxiety Stop: 05/24/19 03:16 [place] Carbonate ([place] Carbonate) 300 mg PO BID [facility] Stop: 05/24/19 08:59 Last Admin: 04/27/19 10:05 Dose: 300 mg Documented by: Lorazepam (Ativan) 0.5 mg PO TID [facility] Stop: 05/24/19 08:59 Last Admin: 04/27/19 10:09 Dose: 0.5 mg Documented by: Magnesium Hydroxide (Milk Of Magnesia) 30 ml PO DAILY PRN PRN Reason: Constipation Stop: 05/24/19 03:16 Miscellaneous (Remove Nicoderm Patch) 1 ea N/A DAILY@0859 [facility] Stop: 05/24/19 08:58 Last Admin: 04/27/19 10:04 Dose: 1 ea Documented by: Nicotine (Nicoderm Cq) 14 mg TD [facility] Stop: 05/24/19 08:59 Last Admin: 04/27/19 10:01 Dose: 14 mg Documented by: Olanzapine (Zyprexa) 20 mg PO [facility] Stop: 05/24/19 21:59 Last Admin: 04/26/19 21:34 Dose: 20 mg Documented by: Pantoprazole Sodium (Protonix) 40 mg PO DAILY [facility] Stop: 05/24/19 08:59 Last Admin: 04/27/19 10:06 Dose: 40 mg Documented by: Propranolol HCl (Inderal) 40 mg PO BID [facility] Stop: 05/24/19 20:59 Last Admin: 04/27/19 10:05 Dose: 40 mg Documented by: Rosuvastatin Calcium (Crestor) 40 mg PO [facility] Stop: 05/24/19 21:59 Last Admin: 04/26/19 21:34 Dose: 40 mg Documented by: Sodium Chloride (Ford Nasal) 1 - 2 sprays NA PRN PRN PRN Reason: Nasal Dryness/Congestion Stop: 05/24/19 03:16 Last Admin: 04/24/19 22:56 Dose: 1 sprays Documented by: Thiamine HCl (Vitamin B-1) 100 mg PO QAM [facility] Stop: 05/24/19 08:59 Last Admin: 04/27/19 10:06 Dose: 100 mg Documented by: Trazodone HCl (Desyrel) 150 mg PO [facility] Stop: 05/24/19 21:59 Last Admin: 04/26/19 21:33 Dose: 150 mg Documented by: Mental Health & Subst Abuse Tx Psychiatrist Name of Psychiatrist: Domenico Bernal Date of Appointment with Psychiatrist: 05/15/19 Therapist Name of Therapist: Onesimo Viera @ [facility] Date of Therapist Appointment: 04/28/19 Watermelon Inspector Name of Watermelon Inspector: Jayme Watson (cell [phone]) Post Discharge Appointments Primary Care Physician Name Of Family Doctor: Dr. Angulo Other #1: Name of Aftercare Appointment: [facility] ([facility] Phone Number of Aftercare Appointment: (1) Bipolar disorder Active/Remission status: remission status unspecified Qualified Code(s): F31.9 - Bipolar disorder, unspecified (2) COPD (chronic obstructive pulmonary disease) COPD type: unspecified COPD Qualified Code(s): J44.9 - Chronic obstructive pulmonary disease, unspecified (3) HTN (hypertension) Hypertension type: essential hypertension Qualified Code(s): I10 - Essential (primary) hypertension
[2019-04-27] MEDS: ROSUVASTATIN CALCIUM 20 MG TAB PO SCH (21:03)
[2019-04-27] MEDS: TRAZODONE HCL 50 MG TAB PO SCH (21:03)
[2019-04-27] MEDS: OLANZapine 20 MG TABLET PO SCH (21:03)
[2019-04-28] MEDS: FLUTICASONE PROPIONATE NA SPR 16 GM BTL SCH ×2 (09:29→21:27)
[2019-04-28] MEDS: CLOPIDOGREL BISULFATE 75 MG TAB PO SCH (09:30)
[2019-04-28] MEDS: THIAMINE HCL 100 MG TAB PO SCH (09:30)
[2019-04-28] MEDS: LITHIUM CARBONATE 300 MG TAB PO SCH ×2 (09:30→21:27)
[2019-04-28] MEDS: PANTOprazole 40 MG TAB PO SCH (09:30)
[2019-04-28] MEDS: NICOTINE 14 MG/24 HR PATCH TD SCH (09:30)
[2019-04-28] MEDS: ASPIRIN 81 MG ECTAB PO SCH (09:30)
[2019-04-28] MEDS: GABAPENTIN 400 MG CAP PO SCH ×3 (09:30→21:28)
[2019-04-28] MEDS: PROPRANOLOL HCL 20 MG TAB PO SCH ×2 (09:30→21:27)
[2019-04-28] MEDS: LORazepam 0.5 MG TAB PO SCH ×3 (09:33→21:27)
--- NOTE | 2019-04-28 10:30 | Psychiatric Progress Note ---
Date of Service April 28, 2019 Impression / Recommendations Impression 69-year-old male admitted voluntarily for inpatient psychiatric treatment on 04/24/2019. Patient was recently admitted to our unit from 03/31/2019 through 04/13/2019. Patient has a history of anxiety disorder and bipolar disorder, continuing to report command auditory hallucinations to overdose on pills. Patient continues to report increased anxiety related to the presence of these voices. [place] level on admission is mildly subtherapeutic at 0.5. We will continue the majority of patient's medications unchanged at this time. We will complete cross titration from mirtazapine to trazodone, discontinuing mirtazapine and titrating trazodone to 150 mg nightly. We will titrate propranolol to 40 mg twice daily, as patient's blood pressure remains elevated and he continues to be tachycardic. Patient will be encouraged to participate in group and recreational programming. We will engage outpatient supports and conversations to discuss safety and discharge planning. We will need to explore whether or not a more supervised living environment may be beneficial for the patient, involving other supports in this conversation. Patient remains at high risk of self-harm if he is discharged prematurely, as he continues to verbalize hearing voices telling him to overdose. At this time, inpatient psychiatric treatment is the least restrictive and most appropriate setting for medication of verbalized risk factors. (1) Bipolar disorder: 04/24 - Continue olanzapine 20mg qHS - Continue lithium 300mg BID - level in the ED was 0.5 - Encourage participation in group and recreational programming - Coordinate treatment with outpatient supports - Involve supports (likely brother) in family meeting to discuss safety and discharge planning 04/25 - Reporting improvement in condition today, patient seemingly more talkative and less preoccupied with psychiatric symptoms - Continue olanzapine 20mg qHS and lithium 300mg BID - Will get fasting glucose and lipid panel for tomorrow morning - last results available were from 07/2018, all values WNL at that time - Continue to coordinate outpatient treatment and support services prior to discharge 04/26 - Fasting glucose and cholesterol panel all WNLs. - Continue current meds as symptoms improving. Encourage patient to consider [facility] vs increased in home and OP supports ([facility], [facility], etc) - Will coordinate wit [facility] of [facility] and [facility] tomorrow when offices reopen 04/27 - Continue current medication regimen, ongoing conversation regarding ways to improve outpatient socialization and support - Continue coordination attempts with [facility] and case management 04/28 - Pt reporting mild improvement overall, but remains unable to contract for safety outside of the inpatient setting - He states that he continues to experience intrusive thoughts which he continues to call "voices" - Continue coordination of safe discharge plan, as it remains unlike that patient could adequately care for his personal needs in his current condition - Continue attempts to coordinate care with brother, CM, and [facility] (2) EMILIANO (generalized anxiety disorder): 04/24 - Continue current doses of buspirone 10mg TID, lorazepam 0.5mg TID, and gabapentin 400mg TID - Continue to encourage development of healthy and effective coping strateg ies - Encourage participation in group and recreational programming 04/25 - Continues as above, patient reports improvement overall and anxiety 04/27 - Pt reporting improvement in overall anxiety, but difficulty falling asleep - Discussed proper sleep hygiene - recommendation to eliminate coffee after 3pm (patient reporting he is drinking decaf coffee until 9-10pm) (3) Cognitive change: 04/24 - Pt scored a 16/30 on MoCA assessment last admission, indicating concern for cognitive deficits - Medical reporting form completed and faxed to [facility] - will follow-up on this to determine where the process is at, as patient admits to continuing to drive 04/26 - Again reviewed that he has been reported to [facility] and is not medically safe to drive. 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 Will need to contact [facility] to ensure they received form and have necessary info. 04/27 - Repeated MoCA assessment today scoring a 20/30, which demonstrated mild improvement in cognitive functioning - (16/30 on 04/10/19) - Pt demonstrated deficits in visuospatial/executive functioning in regard to inability to accurate copy the cube drawing and lost a point for number placement on the clock drawing. Clock hands were drawn appropriately, patient even stating "you say the 10 first in order to trick people, but it actually does not have anything to do with the number 10." On tasks related to attention, patient once unable to repeat a list of digits in the backwards order. For serial sevens subtraction, patient was able to correctly subtract 3 values. On language tasks, patient repeated the first sentence in a concrete manner, eliminating words and therefore saying "I only know that Garry helped today." On the fluency task, patient was only able to name 9 words beginning with the letter F. Patient lost 1 point for abstract thinking, as his explanation of how a train and a bicycle are alike was "they both have wheels, and they both can be stopped." Patient could only name 2 out of 5 words for delayed recall. He was oriented to person, place and time. (4) HTN (hypertension): 04/24 - Pt continues to be hypertensive and tachycardic - Suggest titrating propranolol to 40mg BID 04/25 - Blood pressure seemingly improved today, will continue to monitor with daily vitals (5) Tobacco abuse: 04/24 - Continue nicotine patch at 14mg daily - Offer education into smoking cessation (6) COPD (chronic obstructive pulmonary disease): 04/24 - Condition appearing stable at this time (7) History of ETOH abuse: 04/24 - Pt continues to report stable, limited alcohol use - Pt stating he consumed 1 shot of whiskey since discharge on 04/13 (8) PVD (peripheral vascular disease): 04/24 - Continue home dose of Plavix and Aspirin Inventory Assets Strengths: willingness for treatment, involvement of outpatient supports Needs: development of effective coping strategies, engaging in additional service to promote community and relationship Risk Factors Assessment Male: Yes : Yes Do You Have Access To A Gun?: No Health Problems: Yes Mental Health Diagnoses: Yes Previous Attempt: No Family History of Suicide: Yes Previous Psychiatric Hospitalization: Yes Hopelessness: Yes Smoker: Yes Protective Factors Assessment Jewish Beliefs: Yes : No Responsible for Young Children: No Employed: No Stable Relationships: No Supportive Family: Yes Interval History Identifying Information KEON ROBISON is a 69-year-old M who currently lives alone, having a reported history of bipolar disorder and anxiety. Pt was admitted on 04/24/19 01:32 on a 201 voluntary commitment for increased anxiety, with command auditory hallucinations telling him to overdose, with concern he may act on thoughts. Chief Complaint "I've been doing all right, but I still need some time to recover yet." Review of Systems Notes Constitutional: reports mild improvement in sleep last evening Cardiovascular: denied Respiratory: denied Gastrointestinal: denied Neurological: denied Psychiatric: denies symptoms other than stated above Total of at least 10 systems reviewed, pertinent positives as above and in HPI. Sleep Information Total Hours of Sleep: 6 Sleep Comments: received two doses of hs prn vistaril Meal Information Percent Meal Consumed - Breakfast: 100 Percent Meal Consumed - Lunch: 50 Percent Meal Consumed - Dinner: 90 Subjective Subjective Patient was seen & assessed and interval progress reviewed with treatment team. Staff reports patient continues to verbalize that he is hearing "voices", believed to be ego-dystonic intrusive thoughts. Last evening, it was reported that patient admitted to voices telling him to "take a full bottle of pills". It is reported that patient continues to demonstrate little understanding of treatment recommendations, as he has had to be reminded multiple times that it is not recommended that he drive after discharge. Patient was seen today to assess progress since admission. Patient initially reports he is doing well today, but later states "I am feeling a little down today." Although patient admits to improvement in the frequency and severity of ego-dystonic intrusive thoughts, he states they continue to occur "every once in a while." Patient continues to be concerned about his ability to "maintain things throughout the day without issues." Patient does verbalize that he does not yet feel as though he would be able to adequately work through the recurrence of these thoughts, and does not feel comfortable being discharged home at this time. Patient continues to verbalize willingness to work with established outpatient supports. He denies suicidal ideation, though admits the intrusive thoughts continue to instruct him to "take pills." At this time, a tentative discharge date of 05/01 has been set in order to allow patient time to "recover", and also encourage development of a safe aftercare plan. Ongoing admission through the weekend, would allow him to be discharged and rather quickly follow-up with outpatient supports. At this time, patient is feeling that this discharge timeline is appropriate and attainable, and was informed staff will continue to support him in this goal. Patient denies other needs or concerns at this time. Physical Exam Psychiatric Orientation: alert, oriented x 3 and cooperative Apperance: appropriately dressed and + disheveled; + inappropriately groomed Eye Contact: good eye contact Motor Behavior: steady gait and station and no abnormal motor movements Speech: normal rate/rhythm/volume of speech (Monotone, more spontaneous in conversation) Affect: + blunted affect and mood congruent with affect Mood: + depressed mood ("Feeling a little down today") and + anxious mood ("Things seem to be a little better") Thought Process: goal directed thought process, clear/coherent thought process and + concrete thought process Thought Content: reality based without delusions; no preoccupation Suicidal Thoughts: denies suicidal thoughts and denies suicidal intent Homicidal Thoughts: denies homicidal thoughts Hallucinations: no auditory hallucinations and no visual hallucinations Based on reports from patient, it is more likely patient is experiencing ego- dystonic intrusive thoughts rather than true "voices". Nonetheless these thoughts are continuing, but frequency and severity has been improving gradually. Cognition: attention grossly intact and language grossly intact Insight: + impaired insight Judgement: + impaired judgement Vital Signs (Past 24 Hours) Last Vital Signs Temp 36.8 C 04/28/19 06:00 Pulse 85 04/28/19 06:37 Resp 18 04/28/19 06:00 BP 143/65 H 04/28/19 06:37 Pulse Ox 99 04/27/19 20:55 Results & Data Current Inpatient Medications Current Inpatient Medications: Current Inpatient Medications Acetaminophen (Tylenol) 650 mg PO Q4H PRN PRN Reason: Headache or Minor Fever Stop: 05/24/19 03:16 Al Hydrox/Mg Hydrox/Simethicone (Maalox) 30 ml PO Q4H PRN PRN Reason: GI Upset Stop: 05/24/19 03:16 Aspirin (Ecotrin Ectab) 81 mg PO DAILY [facility] Stop: 05/24/19 08:59 Last Admin: 04/28/19 09:30 Dose: 81 mg Documented by: Bismuth Subsalicylate (Kaopectate) 15 ml PO PRN PRN PRN Reason: Loose Stool Stop: 05/24/19 03:16 Buspirone HCl (Buspar) 10 mg PO TID [facility] Stop: 05/24/19 08:59 Last Admin: 04/28/19 09:30 Dose: 10 mg Documented by: Clopidogrel Bisulfate (Plavix) 75 mg PO QAM [facility] Stop: 05/24/19 08:59 Last Admin: 04/28/19 09:30 Dose: 75 mg Documented by: Fluticasone Propionate (Flonase) 1 sprays NA BID [facility] Stop: 05/25/19 20:59 Last Admin: 04/28/19 09:29 Dose: 1 sprays Documented by: Gabapentin (Neurontin) 400 mg PO TID [facility] Stop: 05/24/19 08:59 Last Admin: 04/28/19 09:30 Dose: 400 mg Documented by: Hydroxyzine HCl (Vistaril) 50 mg PO HSZ PRN PRN Reason: Insomnia Stop: 05/24/19 03:16 Last Admin: 04/27/19 22:55 Dose: 50 mg Documented by: Hydroxyzine HCl (Vistaril) 25 mg PO Q4H PRN PRN Reason: Anxiety Stop: 05/24/19 03:16 [place] Carbonate ([place] Carbonate) 300 mg PO BID [facility] Stop: 05/24/19 08:59 Last Admin: 04/28/19 09:30 Dose: 300 mg Documented by: Lorazepam (Ativan) 0.5 mg PO TID [facility] Stop: 05/24/19 08:59 Last Admin: 04/28/19 09:33 Dose: 0.5 mg Documented by: Magnesium Hydroxide (Milk Of Magnesia) 30 ml PO DAILY PRN PRN Reason: Constipation Stop: 05/24/19 03:16 Miscellaneous (Remove Nicoderm Patch) 1 ea N/A DAILY@0859 [facility] Stop: 05/24/19 08:58 Last Admin: 04/28/19 09:33 Dose: 1 ea Documented by: Nicotine (Nicoderm Cq) 14 mg TD QAM [facility] Stop: 05/24/19 08:59 Last Admin: 04/28/19 09:30 Dose: 14 mg Documented by: Olanzapine (Zyprexa) 20 mg PO HS [facility] Stop: 05/24/19 21:59 Last Admin: 04/27/19 21:03 Dose: 20 mg Documented by: Pantoprazole Sodium (Protonix) 40 mg PO DAILY [facility] Stop: 05/24/19 08:59 Last Admin: 04/28/19 09:30 Dose: 40 mg Documented by: Propranolol HCl (Inderal) 40 mg PO BID [facility] Stop: 05/24/19 20:59 Last Admin: 04/28/19 09:30 Dose: 40 mg Documented by: Rosuvastatin Calcium (Crestor) 40 mg PO HS [facility] Stop: 05/24/19 21:59 Last Admin: 04/27/19 21:03 Dose: 40 mg Documented by: Sodium Chloride ([place] Nasal) 1 - 2 sprays NA PRN PRN PRN Reason: Nasal Dryness/Congestion Stop: 05/24/19 03:16 Last Admin: 04/24/19 22:56 Dose: 1 sprays Documented by: Thiamine HCl (Vitamin B-1) 100 mg PO QAM [facility] Stop: 05/24/19 08:59 Last Admin: 04/28/19 09:30 Dose: 100 mg Documented by: Trazodone HCl (Desyrel) 150 mg PO HS [facility] Stop: 05/24/19 21:59 Last Admin: 04/27/19 21:03 Dose: 150 mg Documented by: Mental Health & Subst Abuse Tx Psychiatrist Name of Psychiatrist: Domenico Bernal Date of Appointment with Psychiatrist: 05/15/19 Therapist Name of Therapist: Onesimo Viera @ [facility] Date of Therapist Appointment: 04/28/19 Histology Tech Name of Histology Tech: Jayme Watson (cell [phone]) Date of Appointment with Histology Tech: 05/01/19 Time of Appointment with Histology Tech: 5pm Case Management Appointment Comment: at your home Post Discharge Appointments Primary Care Physician Name Of Family Doctor: Dr. Angulo Other #1: Name of Aftercare Appointment: [facility] ([facility] Phone Number of Aftercare Appointment: (1) Bipolar disorder Active/Remission status: remission status unspecified Qualified Code(s): F31.9 - Bipolar disorder, unspecified (2) COPD (chronic obstructive pulmonary disease) COPD type: unspecified COPD Qualified Code(s): J44.9 - Chronic obstructive pulmonary disease, unspecified (3) HTN (hypertension) Hypertension type: essential hypertension Qualified Code(s): I10 - Essential (primary) hypertension
[2019-04-28] MEDS: OLANZapine 20 MG TABLET PO SCH (21:28)
[2019-04-28] MEDS: ROSUVASTATIN CALCIUM 20 MG TAB PO SCH (21:28)
[2019-04-28] MEDS: TRAZODONE HCL 50 MG TAB PO SCH (21:28)
[2019-04-29] MEDS: LORazepam 0.5 MG TAB PO SCH ×3 (09:22→20:42)
[2019-04-29] MEDS: GABAPENTIN 400 MG CAP PO SCH ×3 (09:23→20:43)
[2019-04-29] MEDS: PROPRANOLOL HCL 20 MG TAB PO SCH ×2 (09:23→20:43)
[2019-04-29] MEDS: ASPIRIN 81 MG ECTAB PO SCH (09:23)
[2019-04-29] MEDS: FLUTICASONE PROPIONATE NA SPR 16 GM BTL SCH ×2 (09:23→20:42)
[2019-04-29] MEDS: LITHIUM CARBONATE 300 MG TAB PO SCH ×2 (09:23→20:43)
[2019-04-29] MEDS: THIAMINE HCL 100 MG TAB PO SCH (09:24)
[2019-04-29] MEDS: PANTOprazole 40 MG TAB PO SCH (09:24)
[2019-04-29] MEDS: CLOPIDOGREL BISULFATE 75 MG TAB PO SCH (09:24)
[2019-04-29] MEDS: NICOTINE 14 MG/24 HR PATCH TD SCH (09:25)
--- NOTE | 2019-04-29 10:17 | Psychiatric Progress Note ---
Date of Service April 29, 2019 Impression / Recommendations Impression 69-year-old male admitted voluntarily for inpatient psychiatric treatment on 04/24/2019. Patient was recently admitted to our unit from 03/31/2019 through 04/13/2019. Patient has a history of anxiety disorder and bipolar disorder, continuing to report command auditory hallucinations to overdose on pills. Patient continues to report increased anxiety related to the presence of these voices. [place] level on admission is mildly subtherapeutic at 0.5. We will continue the majority of patient's medications unchanged at this time. We will complete cross titration from mirtazapine to trazodone, discontinuing mirtazapine and titrating trazodone to 150 mg nightly. We will titrate propranolol to 40 mg twice daily, as patient's blood pressure remains elevated and he continues to be tachycardic. Patient will be encouraged to participate in group and recreational programming. We will engage outpatient supports and conversations to discuss safety and discharge planning. We will need to explore whether or not a more supervised living environment may be beneficial for the patient, involving other supports in this conversation. Patient remains at high risk of self-harm if he is discharged prematurely, as he continues to verbalize hearing voices telling him to overdose. At this time, inpatient psychiatric treatment is the least restrictive and most appropriate setting for medication of verbalized risk factors. (1) Bipolar disorder: 04/24 - Continue olanzapine 20mg qHS - Continue lithium 300mg BID - level in the ED was 0.5 - Encourage participation in group and recreational programming - Coordinate treatment with outpatient supports - Involve supports (likely brother) in family meeting to discuss safety and discharge planning 04/25 - Reporting improvement in condition today, patient seemingly more talkative and less preoccupied with psychiatric symptoms - Continue olanzapine 20mg qHS and lithium 300mg BID - Will get fasting glucose and lipid panel for tomorrow morning - last results available were from 07/2018, all values WNL at that time - Continue to coordinate outpatient treatment and support services prior to discharge 04/26 - Fasting glucose and cholesterol panel all WNLs. - Continue current meds as symptoms improving. Encourage patient to consider [facility] vs increased in home and OP supports (Office of Aging, [facility], etc) - Will coordinate wit Office of Aging and [facility] tomorrow when offices reopen 04/27 - Continue current medication regimen, ongoing conversation regarding ways to improve outpatient socialization and support - Continue coordination attempts with [facility] of [facility] and case management 04/28 - Pt reporting mild improvement overall, but remains unable to contract for safety outside of the inpatient setting - He states that he continues to experience intrusive thoughts which he continues to call "voices" - Continue coordination of safe discharge plan, as it remains unlike that patient could adequately care for his personal needs in his current condition - Continue attempts to coordinate care with brother, CM, and Office of Aging 04/29 -Continue medication regimen unchanged (2) EMILIANO (generalized anxiety disorder): 04/24 - Continue current doses of buspirone 10mg TID, lorazepam 0.5mg TID, and gabapentin 400mg TID - Continue to encourage development of healthy and effective coping strategies - Encourage participation in group and recreational programming 04/25 - Continues as above, patient reports improvement overall and anxiety 04/27 - Pt reporting improvement in overall anxiety, but difficulty falling asleep - Discussed proper sleep hygiene - recommendation to eliminate coffee after 3pm (patient reporting he is drinking decaf coffee until 9-10pm) (3) Cognitive change: 04/24 - Pt scored a 16/30 on MoCA assessment last admission, indicating concern for cognitive deficits - Medical reporting form completed and faxed to [facility] - will follow-up on this to determine where the process is at, as patient admits to continuing to drive 04/26 - Again reviewed that he has been reported to [facility] and is not medically safe to drive. quality worker also informed brother at family meeting yesterday. Will need to contact [facility] to ensure they received form and have necessary info. 04/27 - Repeated MoCA assessment today scoring a 20/30, which demonstrated mild improvement in cognitive functioning - (16/30 on 04/10/19) - Pt demonstrated deficits in visuospatial/executive functioning in regard to inability to accurate copy the cube drawing and lost a point for number placement on the clock drawing. Clock hands were drawn appropriately, patient even stating "you say the 10 first in order to trick people, but it actually does not have anything to do with the number 10." On tasks related to attention, patient once unable to repeat a list of digits in the backwards order. For serial sevens subtraction, patient was able to correctly subtract 3 values. On language tasks, patient repeated the first sentence in a concrete manner, eliminating words and therefore saying "I only know that Garry helped today." On the fluency task, patient was only able to name 9 words beginning with the letter F. Patient lost 1 point for abstract thinking, as his explanation of how a train and a bicycle are alike was "they both have wheels, and they both can be stopped." Patient could only name 2 out of 5 words for delayed recall. He was oriented to person, place and time. (4) HTN (hypertension): 04/24 - Pt continues to be hypertensive and tachycardic - Suggest titrating propranolol to 40mg BID 04/25 - Blood pressure seemingly improved today, will continue to monitor with daily vitals (5) Tobacco abuse: 04/24 - Continue nicotine patch at 14mg daily - Offer education into smoking cessation (6) COPD (chronic obstructive pulmonary disease): 04/24 - Condition appearing stable at this time (7) History of ETOH abuse: 04/24 - Pt continues to report stable, limited alcohol use - Pt stating he consumed 1 shot of whiskey since discharge on 04/13 (8) PVD (peripheral vascular disease): 04/24 - Continue home dose of Plavix and Aspirin Inventory Assets Strengths: willingness for treatment, involvement of outpatient supports Needs: development of effective coping strategies, engaging in additional service to promote community and relationship Risk Factors Assessment Male: Yes : Yes Do You Have Access To A Gun?: No Health Problems: Yes Mental Health Diagnoses: Yes Previous Attempt: No Family History of Suicide: Yes Previous Psychiatric Hospitalization: Yes Hopelessness: Yes Smoker: Yes Protective Factors Assessment Religion Beliefs: Yes : No Responsible for Young Children: No Employed: No Stable Relationships: No Supportive Family: Yes Interval History Identifying Information KEON ROBISON is a 69-year-old M who currently lives alone, having a reported history of bipolar disorder and anxiety. Pt was admitted on 04/24/19 01:32 on a 201 voluntary commitment for increased anxiety, with command auditory hallucinations telling him to overdose, with concern he may act on thoughts. Chief Complaint " Not too bad I guess". Review of Systems Sleep Information Total Hours of Sleep: 6.25 Sleep Comments: received two doses of hs prn vistaril Meal Information Percent Meal Consumed - Breakfast: 100 Percent Meal Consumed - Lunch: 100 Percent Meal Consumed - Dinner: 90 Subjective Subjective Patient was seen & assessed and interval progress reviewed with treatment team. No acute events overnight. Discharge plan in place for potential discharge Wednesday. Patient reports some anticipatory anxiety associated with pending discharge but unable to identify any specific concerns. "I guess it is just a whole new world out there." Now characterizing self-injurious thoughts thoughts rather than voices. Reports these are essentially resolved this morning. He denies any new physical complaints. I commented to him that he appeared much less anxious than the last time that we met to which he replied "really? I guess that is good." Physical Exam Vital Signs (Past 24 Hours) Last Vital Signs Temp 36.4 C L 04/29/19 06:00 Pulse 80 04/29/19 06:32 Resp 18 04/29/19 06:00 BP 127/79 04/29/19 06:32 Pulse Ox 99 04/27/19 20:55 Results & Data Current Inpatient Medications Current Inpatient Medications: Current Inpatient Medications Acetaminophen (Tylenol) 650 mg PO Q4H PRN PRN Reason: Headache or Minor Fever Stop: 05/24/19 03:16 Al Hydrox/Mg Hydrox/Simethicone (Maalox) 30 ml PO Q4H PRN PRN Reason: GI Upset Stop: 05/24/19 03:16 Aspirin (Ecotrin Ectab) 81 mg PO DAILY [facility] Stop: 05/24/19 08:59 Last Admin: 04/29/19 09:23 Dose: 81 mg Documented by: Bismuth Subsalicylate (Kaopectate) 15 ml PO PRN PRN PRN Reason: Loose Stool Stop: 05/24/19 03:16 Buspirone HCl (Buspar) 10 mg PO TID [facility] Stop: 05/24/19 08:59 Last Admin: 04/29/19 09:22 Dose: 10 mg Documented by: Clopidogrel Bisulfate (Plavix) 75 mg PO QAM [facility] Stop: 05/24/19 08:59 Last Admin: 04/29/19 09:24 Dose: 75 mg Documented by: Fluticasone Propionate (Flonase) 1 sprays NA BID [facility] Stop: 05/25/19 20:59 Last Admin: 04/29/19 09:23 Dose: 1 sprays Documented by: Gabapentin (Neurontin) 400 mg PO TID [facility] Stop: 05/24/19 08:59 Last Admin: 04/29/19 09:23 Dose: 400 mg Documented by: Hydroxyzine HCl (Vistaril) 50 mg PO HSZ PRN PRN Reason: Insomnia Stop: 05/24/19 03:16 Last Admin: 04/28/19 22:55 Dose: 50 mg Documented by: Hydroxyzine HCl (Vistaril) 25 mg PO Q4H PRN PRN Reason: Anxiety Stop: 05/24/19 03:16 [place] Carbonate ([place] Carbonate) 300 mg PO BID [facility] Stop: 05/24/19 08:59 Last Admin: 04/29/19 09:23 Dose: 300 mg Documented by: Lorazepam (Ativan) 0.5 mg PO TID [facility] Stop: 05/24/19 08:59 Last Admin: 04/29/19 09:22 Dose: 0.5 mg Documented by: Magnesium Hydroxide (Milk Of Magnesia) 30 ml PO DAILY PRN PRN Reason: Constipation Stop: 05/24/19 03:16 Miscellaneous (Remove Nicoderm Patch) 1 ea N/A DAILY@0859 [facility] Stop: 05/24/19 08:58 Last Admin: 04/29/19 09:25 Dose: 1 ea Documented by: Nicotine (Nicoderm Cq) 14 mg TD QAM [facility] Stop: 05/24/19 08:59 Last Admin: 04/29/19 09:25 Dose: 14 mg Documented by: Olanzapine (Zyprexa) 20 mg PO HS [facility] Stop: 05/24/19 21:59 Last Admin: 04/28/19 21:28 Dose: 20 mg Documented by: Pantoprazole Sodium (Protonix) 40 mg PO DAILY [facility] Stop: 05/24/19 08:59 Last Admin: 04/29/19 09:24 Dose: 40 mg Documented by: Propranolol HCl (Inderal) 40 mg PO BID [facility] Stop: 05/24/19 20:59 Last Admin: 04/29/19 09:23 Dose: 40 mg Documented by: Rosuvastatin Calcium (Crestor) 40 mg PO HS [facility] Stop: 05/24/19 21:59 Last Admin: 04/28/19 21:28 Dose: 40 mg Documented by: Sodium Chloride ([place] Nasal) 1 - 2 sprays NA PRN PRN PRN Reason: Nasal Dryness/Congestion Stop: 05/24/19 03:16 Last Admin: 04/24/19 22:56 Dose: 1 sprays Documented by: Thiamine HCl (Vitamin B-1) 100 mg PO QAM [facility] Stop: 05/24/19 08:59 Last Admin: 04/29/19 09:24 Dose: 100 mg Documented by: Trazodone HCl (Desyrel) 150 mg PO HS [facility] Stop: 05/24/19 21:59 Last Admin: 04/28/19 21:28 Dose: 150 mg Documented by: Mental Health & Subst Abuse Tx Psychiatrist Name of Psychiatrist: Domenico Viera Psychiatrist's Date of Appointment with Psychiatrist: 05/15/19 Psychiatric Appointment Comment: [address] [place] [address], [address], [place] [address] Therapist Name of Therapist: . Date of Therapist Appointment: 04/28/19 Stoker Mechanic Name of Stoker Mechanic: PANFILO Watson Phone Number for Stoker Mechanic: [phone] Date of Appointment with Stoker Mechanic: 05/01/19 Time of Appointment with Stoker Mechanic: 5 pm Case Management Appointment Comment: at your home Post Discharge Appointments Primary Care Physician Name Of Family Doctor: Dereck [facility] Date of Appointment with PCP: 05/08/19 Time of Appointment with PCP: 5:25 p.m. Provider Appointment Comment: [address] [place] [address] Contact Information Discharge Discharge [address]: [address] [place] [id number] (1) Bipolar disorder Active/Remission status: remission status unspecified Qualified Code(s): F31.9 - Bipolar disorder, unspecified (2) COPD (chronic obstructive pulmonary disease) COPD type: unspecified COPD Qualified Code(s): J44.9 - Chronic obstructive pulmonary disease, unspecified (3) HTN (hypertension) Hypertension type: essential hypertension Qualified Code(s): I10 - Essential (primary) hypertension
[2019-04-29] MEDS ORDERED: NICOTINE POLACRILEX 2 MG GUM MT PRN (19:22)
[2019-04-29] MEDS: ROSUVASTATIN CALCIUM 20 MG TAB PO SCH (20:44)
[2019-04-29] MEDS: OLANZapine 20 MG TABLET PO SCH (20:57)
[2019-04-29] MEDS: TRAZODONE HCL 50 MG TAB PO SCH (20:58)
[2019-04-30] MEDS: PANTOprazole 40 MG TAB PO SCH (09:31)
[2019-04-30] MEDS: THIAMINE HCL 100 MG TAB PO SCH (09:31)
[2019-04-30] MEDS: LORazepam 0.5 MG TAB PO SCH ×3 (09:32→21:04)
[2019-04-30] MEDS: PROPRANOLOL HCL 20 MG TAB PO SCH ×2 (09:32→21:06)
[2019-04-30] MEDS: LITHIUM CARBONATE 300 MG TAB PO SCH ×2 (09:32→21:06)
[2019-04-30] MEDS: ASPIRIN 81 MG ECTAB PO SCH (09:32)
[2019-04-30] MEDS: GABAPENTIN 400 MG CAP PO SCH ×3 (09:33→21:07)
[2019-04-30] MEDS: CLOPIDOGREL BISULFATE 75 MG TAB PO SCH (09:33)
[2019-04-30] MEDS: NICOTINE 14 MG/24 HR PATCH TD SCH (09:36)
[2019-04-30] MEDS: FLUTICASONE PROPIONATE NA SPR 16 GM BTL SCH ×2 (10:35→21:05)
--- NOTE | 2019-04-30 13:55 | Psychiatric Progress Note ---
Date of Service April 30, 2019 Impression / Recommendations Impression 69-year-old male admitted voluntarily for inpatient psychiatric treatment on 04/24/2019. Patient was recently admitted to our unit from 03/31/2019 through 04/13/2019. Patient has a history of anxiety disorder and bipolar disorder, continuing to report command auditory hallucinations to overdose on pills. Patient continues to report increased anxiety related to the presence of these voices. [place] level on admission is mildly subtherapeutic at 0.5. We will continue the majority of patient's medications unchanged at this time. We will complete cross titration from mirtazapine to trazodone, discontinuing mirtazapine and titrating trazodone to 150 mg nightly. We will titrate propranolol to 40 mg twice daily, as patient's blood pressure remains elevated and he continues to be tachycardic. Patient will be encouraged to participate in group and recreational programming. We will engage outpatient supports and conversations to discuss safety and discharge planning. We will need to explore whether or not a more supervised living environment may be beneficial for the patient, involving other supports in this conversation. Patient remains at high risk of self-harm if he is discharged prematurely, as he continues to verbalize hearing voices telling him to overdose. At this time, inpatient psychiatric treatment is the least restrictive and most appropriate setting for medication of verbalized risk factors. (1) Bipolar disorder: 04/24 - Continue olanzapine 20mg qHS - Continue lithium 300mg BID - level in the ED was 0.5 - Encourage participation in group and recreational programming - Coordinate treatment with outpatient supports - Involve supports (likely brother) in family meeting to discuss safety and discharge planning 04/25 - Reporting improvement in condition today, patient seemingly more talkative and less preoccupied with psychiatric symptoms - Continue olanzapine 20mg qHS and lithium 300mg BID - Will get fasting glucose and lipid panel for tomorrow morning - last results available were from 07/2018, all values WNL at that time - Continue to coordinate outpatient treatment and support services prior to discharge 04/26 - Fasting glucose and cholesterol panel all WNLs. - Continue current meds as symptoms improving. Encourage patient to consider [facility] vs increased in home and OP supports (Office of Aging, [facility], etc) - Will coordinate wit Office of Aging and [facility] tomorrow when offices reopen 04/27 - Continue current medication regimen, ongoing conversation regarding ways to improve outpatient socialization and support - Continue coordination attempts with Office of [facility] and case management 04/28 - Pt reporting mild improvement overall, but remains unable to contract for safety outside of the inpatient setting - He states that he continues to experience intrusive thoughts which he continues to call "voices" - Continue coordination of safe discharge plan, as it remains unlike that patient could adequately care for his personal needs in his current condition - Continue attempts to coordinate care with brother, CM, and Office of Aging 04/29 -Continue medication regimen unchanged (2) EMILIANO (generalized anxiety disorder): 04/24 - Continue current doses of buspirone 10mg TID, lorazepam 0.5mg TID, and gabapentin 400mg TID - Continue to encourage development of healthy and effective coping strategies - Encourage participation in group and recreational programming 04/25 - Continues as above, patient reports improvement overall and anxiety 04/27 - Pt reporting improvement in overall anxiety, but difficulty falling asleep - Discussed proper sleep hygiene - recommendation to eliminate coffee after 3pm (patient reporting he is drinking decaf coffee until 9-10pm) 04/30 -Likely experiencing a little anticipatory anxiety about pending discharge. Reassured patient he will have an opportunity to be reevaluated by the primary team in the morning will ultimately make the decision about his readiness discharge. (3) Cognitive change: 04/24 - Pt scored a 16/30 on MoCA assessment last admission, indicating concern for cognitive deficits - Medical reporting form completed and faxed to [facility] - will follow-up on this to determine where the process is at, as patient admits to continuing to drive 04/26 - Again reviewed that he has been reported to [facility] and is not medically safe to drive. 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 Will need to contact [facility] to ensure they received form and have necessary info. 04/27 - Repeated MoCA assessment today scoring a 20/30, which demonstrated mild improvement in cognitive functioning - (16/30 on 04/10/19) - Pt demonstrated deficits in visuospatial/executive functioning in regard to inability to accurate copy the cube drawing and lost a point for number placement on the clock drawing. Clock hands were drawn appropriately, patient even stating "you say the 10 first in order to trick people, but it actually does not have anything to do with the number 10." On tasks related to attention, patient once unable to repeat a list of digits in the backwards order. For serial sevens subtraction, patient was able to correctly subtract 3 values. On language tasks, patient repeated the first sentence in a concrete manner, eliminating words and therefore saying "I only know that Garry helped today." On the fluency task, patient was only able to name 9 words beginning with the letter F. Patient lost 1 point for abstract thinking, as his explanation of how a train and a bicycle are alike was "they both have wheels, and they both can be stopped." Patient could only name 2 out of 5 words for delayed recall. He was oriented to person, place and time. 04/30 -Recommend referral for outpatient neuropsychological battery to better clarify deficits and areas of need regarding supportive services available (4) HTN (hypertension): 04/24 - Pt continues to be hypertensive and tachycardic - Suggest titrating propranolol to 40mg BID 04/25 - Blood pressure seemingly improved today, will continue to monitor with daily vitals (5) Tobacco abuse: 04/24 - Continue nicotine patch at 14mg daily - Offer education into smoking cessation (6) COPD (chronic obstructive pulmonary disease): 04/24 - Condition appearing stable at this time (7) History of ETOH abuse: 04/24 - Pt continues to report stable, limited alcohol use - Pt stating he consumed 1 shot of whiskey since discharge on 04/13 (8) PVD (peripheral vascular disease): 04/24 - Continue home dose of Plavix and Aspirin Inventory Assets Strengths: willingness for treatment, involvement of outpatient supports Needs: development of effective coping strategies, engaging in additional service to promote community and relationship Risk Factors Assessment Male: Yes : Yes Do You Have Access To A Gun?: No Health Problems: Yes Mental Health Diagnoses: Yes Previous Attempt: No Family History of Suicide: Yes Previous Psychiatric Hospitalization: Yes Hopelessness: Yes Smoker: Yes Protective Factors Assessment Religion Beliefs: Yes : No Responsible for Young Children: No Employed: No Stable Relationships: No Supportive Family: Yes Interval History Identifying Information KEON ROBISON is a 69-year-old M who currently lives alone, having a reported history of bipolar disorder and anxiety. Pt was admitted on 04/24/19 01:32 on a 201 voluntary commitment for increased anxiety, with command auditory hallucinations telling him to overdose, with concern he may act on thoughts. Chief Complaint " I am not sure I am ready to go yet". Review of Systems Sleep Information Total Hours of Sleep: 7.5 Sleep Comments: received two doses of hs prn vistaril Meal Information Percent Meal Consumed - Breakfast: 100 Percent Meal Consumed - Lunch: 90 Percent Meal Consumed - Dinner: 100 Subjective Subjective Patient was seen & assessed and interval progress reviewed with treatment team. No acute events overnight apart from Vistaril as needed for sleep and request for Nicorette gum which was started at acute 4-hour interval as needed in addition to already scheduled patch. Patient describes some anticipatory anxiety about potential discharge tomorrow. States he would prefer to be discharged on Wednesday "just to get my thoughts clear." Attempted to explore for specific concerns regarding discharge and he was unable to identify anything concretely. Considered stress of maintaining household as likely contributing to his anxiety and I encouraged him to continue considering allowing additional supports at home. He does have a upper caser and office of aging will be involved post discharge as well. He reports incomplete resolution of self- destructive impulses however he does acknowledge that these are much improved since time of admission. He denies any new physical complaints or concerns this morning and has been compliant with his medications and participating in unit therapeutic programming. Physical Exam Psychiatric Orientation: alert and cooperative Apperance: appeared stated age Eye Contact: good eye contact Motor Behavior: no abnormal motor movements Speech: normal rate/rhythm/volume of speech Affect: + anxious affect (Mildly); no labile affect Mood: + anxious mood Thought Process: goal directed thought process Thought Content: reality based without delusions Suicidal Thoughts: denies suicidal plan and denies suicidal intent; + reports suicidal thoughts (Incomplete resolution of fleeting suicidal thoughts as above) Homicidal Thoughts: denies homicidal thoughts Hallucinations: no auditory hallucinations Cognition: attention grossly intact Insight: + fair insight Judgement: + fair judgement Vital Signs (Past 24 Hours) Last Vital Signs Temp 36.3 C L 04/30/19 07:02 Pulse 80 04/30/19 07:04 Resp 16 04/30/19 07:02 BP 129/80 04/30/19 07:04 Pulse Ox 92 04/30/19 07:02 Results & Data Current Inpatient Medications Current Inpatient Medications: Current Inpatient Medications Acetaminophen (Tylenol) 650 mg PO Q4H PRN PRN Reason: Headache or Minor Fever Stop: 05/24/19 03:16 Al Hydrox/Mg Hydrox/Simethicone (Maalox) 30 ml PO Q4H PRN PRN Reason: GI Upset Stop: 05/24/19 03:16 Aspirin (Ecotrin Ectab) 81 mg PO DAILY [facility] Stop: 05/24/19 08:59 Last Admin: 04/30/19 09:32 Dose: 81 mg Documented by: Bismuth Subsalicylate (Kaopectate) 15 ml PO PRN PRN PRN Reason: Loose Stool Stop: 05/24/19 03:16 Buspirone HCl (Buspar) 10 mg PO TID [facility] Stop: 05/24/19 08:59 Last Admin: 04/30/19 09:31 Dose: 10 mg Documented by: Clopidogrel Bisulfate (Plavix) 75 mg PO QAM [facility] Stop: 05/24/19 08:59 Last Admin: 04/30/19 09:33 Dose: 75 mg Documented by: Fluticasone Propionate (Flonase) 1 sprays NA BID [facility] Stop: 05/25/19 20:59 Last Admin: 04/30/19 10:35 Dose: 1 sprays Documented by: Gabapentin (Neurontin) 400 mg PO TID [facility] Stop: 05/24/19 08:59 Last Admin: 04/30/19 09:33 Dose: 400 mg Documented by: Hydroxyzine HCl (Vistaril) 50 mg PO HSZ PRN PRN Reason: Insomnia Stop: 05/24/19 03:16 Last Admin: 04/29/19 20:58 Dose: 50 mg Documented by: Hydroxyzine HCl (Vistaril) 25 mg PO Q4H PRN PRN Reason: Anxiety Stop: 05/24/19 03:16 [place] Carbonate ([place] Carbonate) 300 mg PO BID [facility] Stop: 05/24/19 08:59 Last Admin: 04/30/19 09:32 Dose: 300 mg Documented by: Lorazepam (Ativan) 0.5 mg PO TID [facility] Stop: 05/24/19 08:59 Last Admin: 04/30/19 09:32 Dose: 0.5 mg Documented by: Magnesium Hydroxide (Milk Of Magnesia) 30 ml PO DAILY PRN PRN Reason: Constipation Stop: 05/24/19 03:16 Miscellaneous (Remove Nicoderm Patch) 1 ea N/A DAILY@59 [facility] Stop: 05/24/19 08:58 Last Admin: 04/30/19 09:36 Dose: 1 ea Documented by: [facility]otine ([facility] Cq) [facility] Stop: 05/24/19 08:59 Last Admin: 04/30/19 09:36 Dose: 14 mg Documented by: Nicotine Polacrilex (Nicorette 2mg) 1 piece MT Q4H PRN PRN Reason: Nicotine Cravings Stop: 05/29/19 19:21 Last Admin: 04/29/19 20:18 Dose: 1 piece Documented by: Olanzapine (Zyprexa) 20 mg PO [facility] Stop: 05/24/19 21:59 Last Admin: 04/29/19 20:57 Dose: 20 mg Documented by: Pantoprazole Sodium (Protonix) 40 mg PO DAILY [facility] Stop: 05/24/19 08:59 Last Admin: 04/30/19 09:31 Dose: 40 mg Documented by: Propranolol HCl (Inderal) 40 mg PO BID [facility] Stop: 05/24/19 20:59 Last Admin: 04/30/19 09:32 Dose: 40 mg Documented by: Rosuvastatin Calcium (Crestor) 40 mg PO HS [facility] Stop: 05/24/19 21:59 Last Admin: 04/29/19 20:44 Dose: 40 mg Documented by: Sodium Chloride ([place] Nasal) 1 - 2 sprays NA PRN PRN PRN Reason: Nasal Dryness/Congestion Stop: 05/24/19 03:16 Last Admin: 04/24/19 22:56 Dose: 1 sprays Documented by: Thiamine HCl (Vitamin B-1) 100 mg [facility] Stop: 05/24/19 08:59 Last Admin: 04/30/19 09:31 Dose: 100 mg Documented by: Trazodone HCl (Desyrel) 150 mg PO [facility] Stop: 05/24/19 21:59 Last Admin: 04/29/19 20:58 Dose: 150 mg Documented by: Mental Health & Subst Abuse Tx Psychiatrist Name of Psychiatrist: Domenico Viera Psychiatrist's Date of Appointment with Psychiatrist: 05/15/19 Psychiatric Appointment Comment: [address] [place] [address], [address], [place] [address] Therapist Name of Therapist: . Date of Therapist Appointment: 04/28/19 Rn Transplant Name of Rn Transplant: PANFILO Watson Phone Number for Rn Transplant: [phone] Date of Appointment with Rn Transplant: 05/01/19 Time of Appointment with Rn Transplant: 5 pm Case Management Appointment Comment: at your home Post Discharge Appointments Primary Care Physician Name Of Family Doctor: Dereck Angulo [facility] Date of Appointment with PCP: 05/08/19 Time of Appointment with PCP: 5:25 p.m. Provider Appointment Comment: [address] [place] [address] Contact Information Discharge Discharge Address: [address] [place] [id number] (1) Bipolar disorder Active/Remission status: remission status unspecified Qualified Code(s): F31.9 - Bipolar disorder, unspecified (2) COPD (chronic obstructive pulmonary disease) COPD type: unspecified COPD Qualified Code(s): J44.9 - Chronic obstructive pulmonary disease, unspecified (3) HTN (hypertension) Hypertension type: essential hypertension Qualified Code(s): I10 - Essential (primary) hypertension
[2019-04-30] MEDS: ROSUVASTATIN CALCIUM 20 MG TAB PO SCH (21:07)
[2019-04-30] MEDS: TRAZODONE HCL 50 MG TAB PO SCH (21:08)
[2019-04-30] MEDS: OLANZapine 20 MG TABLET PO SCH (21:09)
[2019-05-01] MEDS: LORazepam 0.5 MG TAB PO SCH (08:58)
[2019-05-01] MEDS: FLUTICASONE PROPIONATE NA SPR 16 GM BTL SCH (08:59)
[2019-05-01] MEDS: ASPIRIN 81 MG ECTAB PO SCH (08:59)
[2019-05-01] MEDS: PROPRANOLOL HCL 20 MG TAB PO SCH (08:59)
[2019-05-01] MEDS: LITHIUM CARBONATE 300 MG TAB PO SCH (08:59)
[2019-05-01] MEDS: THIAMINE HCL 100 MG TAB PO SCH (09:00)
[2019-05-01] MEDS: CLOPIDOGREL BISULFATE 75 MG TAB PO SCH (09:00)
[2019-05-01] MEDS: NICOTINE 14 MG/24 HR PATCH TD SCH (09:00)
[2019-05-01] MEDS: PANTOprazole 40 MG TAB PO SCH (09:00)
[2019-05-01] MEDS: GABAPENTIN 400 MG CAP PO SCH (09:00)
--- NOTE | 2019-05-01 10:08 | Discharge Summary ---
Date of Service May 01, 2019 History of Present Illness Elijah Saucedo is a 69-year-old male admitted voluntarily on 04/24/19 for inpatient psychiatric treatment due to reports of increased anxiety and command auditory hallucinations instructing the patient to overdose on medication. Patient was brought to the ED by EMS after calling 911, verbalizing concern that he would act on these commands if he remained unattended at home. Patient was recently admitted to our unit from 03/31/2019 through 04/13/2019 for similar concerns. Patient was set up with outpatient psychiatric providers, and recommendation for additional outpatient supports [facility]. Patient states he did well for about a week after discharge, and then began to experience worsening auditory hallucinations, commanding him to overdose on medications. Patient's case was reviewed and discussed during treat ment team. Patient was seen today to gather updates since recent discharge. Patient is cooperative with the evaluation, stating that he believed he had "a handle on things" after recent discharge from our unit. Patient states that he would occasionally experience thoughts to take medications, but was able to manage these thoughts "without letting it get the best of me." Patient states that in the last day, these thoughts have been more pronounced. Patient describes them as "a voice, telling me to take a bottle of pills that "you will be happy to be here with me." Patient verbalizes concern that this voice may be "the devil" luring him to hell with these actions. Patient does admit upon further review that the voice sounds familiar, questioning if it is the voice of his "Uncle Chris." Patient states that he was specifically instructed to overdose on "yellow pills", which patient believes to be his lithium. Patient was able to describe events prior to admission. He states that he spent the afternoon at a friend's house, where he watched a football game and socialized. Patient states that he had experienced these thoughts at that time, which increased his anxiety level. After this gathering, patient states he went "to the bar, but I did not drink there." Patient states that he drove himself home from the bar, and as he was sitting in his driveway the voices became louder. Patient states that he was "afraid to go into the house, I was worried I might do something to hurt myself." Patient states that he called 911, as he was unsure what else to do. During that phone call, patient was encouraged to present to the ED and EMS were dispatched to his location. Patient states that now that he is admitted, the voices are "not as bad as yesterday." The patient does state "now I am really upset with myself, I did not want to be back in here for so long. It is frustrating, because for the most part I had it in the bag when I left the last time." Patient rates his mood a 410 (0 being worst; 10 being best) for the past week. Patient rates his anxiety a 9/10 (10 being worst). Patient denies any significant issues related to sleep, but does admit to limited appetite in the past week. Patient states that he may consume a sandwich or a bowl of soup each day, but not much beyond this. There was reported concern regarding patient's ability to care for self outside of the hospital, as he was reported to be malodorous and demonstrating poor self care. Patient's house was reportedly rather unkempt. It is reported the patient's brother remains a significant support. Physical Exam Psychiatric Orientation: alert, oriented x 3 and cooperative Apperance: appropriately dressed (outfit choice is appropriate, though clothing is rather heavily stained), + disheveled (balding, hair unkempt) and appeared stated age; + inappropriately groomed (malodorous) Eye Contact: good eye contact Motor Behavior: steady gait and station and no abnormal motor movements Speech: normal rate/rhythm/volume of speech (monotone) Affect: + blunted affect; no anxious affect Mood: + anxious mood ("a little bit edgy" and "maybe anxious a bit"); no depressed mood Thought Process: goal directed thought process, clear/coherent thought process, + concrete thought process and thought association intact Thought Content: reality based without delusions; no preoccupation, no hopelessness and no worthlessness Suicidal Thoughts: denies suicidal thoughts, denies suicidal plan and denies suicidal intent Homicidal Thoughts: denies homicidal thoughts Hallucinations: no auditory hallucinations and no visual hallucinations Cognition: attention grossly intact and language grossly intact Insight: + limited insight (seemingly a more chronic issue) Judgement: + fair judgement Vital Signs (Past 24 Hours) Last Vital Signs Temp 36.3 C L 04/30/19 07:02 Pulse 70 05/01/19 06:41 Resp 18 05/01/19 06:41 BP 118/60 05/01/19 06:41 Pulse Ox 94 05/01/19 06:41 Principal Diagnosis - Bipolar disorder - Presence of auditory hallucinations versus egodystonic intrusive thoughts - Generalized anxiety disorder - Cognitive change - History of alcohol abuse Psychiatric Data 69-year-old male admitted voluntarily for inpatient psychiatric treatment on 04/24/2019 due to reports of inability to contract for safety in the context of what patient initially described to be command auditory hallucinations. Patient was recently admitted to our unit from 03/31/2019 through 04/13/2019 for similar concerns. Patient has a history of anxiety disorder and bipolar disorder, continuing to report command auditory hallucinations to overdose on pills. Patient continues to report increased anxiety related to the presence of these voices. [place] level on admission is mildly subtherapeutic at 0.5. The majority of the patient's home medications were continued unchanged: olanzapine 20mg qHS, buspirone 10mg TID, gabapentin 400mg TID, lithium carbonate 300mg BID, and lorazepam 0.5mg TID. Crosstitration from mirtazapine to trazodone was completed - trazodone increased to 150mg qHS and mirtazapine was discontinued during his hospitalization. Due to continued elevated blood pressure readings, propranolol was also titrated to 40mg BID, with improved observed in daily vitals. We will continue the majority of patient's medications unchanged at this time. We will complete cross titration from mirtazapine to trazodone, discontinuing mirtazapine and titrating trazodone to 150 mg nightly. Patient denied side effects related to these medication changes over the course of his admission. Patient described improvement in anxiety as well as less frequent egodystonic intrusive thoughts to harm himself. Patient's brother was actively involved in patient's treatment and discharge plans. Discussion was had about the possibility of personal residential referrals during a family meeting with brother. Patient, at this time, is denying willingness to pursue a more supportive living environment. He was, however, agreeable to more active engagement in outpatient services. 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 Concern related to driving is that patient had described active auditory hallucinations, telling him to wreck his car and reports continuing to drive during these times. Goran was called, and state the patient has been mailed appropriate form to reinstate his license when deemed appropriate, and that as of 05/03/2019 his license will be "recalled." Patient's outpatient psychiatric providers were called to reschedule appointments to allow for timely follow-up after discharge. Over the course of the patient's admission, he continued to participate in group and recreational programming. Patient demonstrated less preoccupation with intrusive thoughts and level of anxiety. At time of discharge, he is denying continued suicidal ideation or "voices" suggesting that he harm himself. Security of medications was discussed, and it is reported that case management will attempt to work with the patient for mobile medication management options. Patient's brother was informed of discharge plans, and did not verbalize any specific concerns. Based on review of patient's case and their current presentation, risk of harm to self or others is no longer perceived to be acute. Management of symptoms on an outpatient basis seems the most appropriate and least restrictive setting. Pt seems appropriate for discharge with recommendation for consistent follow-up with outpatient psychiatric prescriber and caseworker intake. Pt verbalized understanding of discharge plan reviewed and is agreeable with plan to be discharged home today. Day of Discharge Assessment Patient's case was reviewed and discussed during treatment team. Staff reports the patient continues to demonstrate improvement in level of anxiety. He has not verbalized preoccupation with intrusive thoughts in the last several days. Patient was seen today to assess readiness for discharge. He states that he is feeling "a little edgy, but I feel that is reasonable for someone heading out." Patient admits to mild exacerbation of anxiety related to anticipated discharge; however, states that it remains at a manageable level. Patient reports improvement in the presence of intrusive thoughts, stating "I think I am managing them okay, for the most part I pray and then they do not bother me anymore." Patient denies continued thoughts to end his life or harm himself. He reports feeling comfortable with returning home today, but admits to some concern about the possibility of readmissions in the future. Patient was able to verbalize various aspects of his safety plan with this provider, and we reviewed his crisis plan. Patient was encouraged to utilize his coping skills and reach out to outpatient supports in order to mitigate concerns initially. Patient verbalized feeling able to call crisis if necessary. Patient denies any safety concerns related to returning home today. Discharge plan was reviewed with the patient, who verbalized understanding and is agreeable with brother transferring him home this afternoon. Patient denies other needs or concerns, or unmet goals of his inpatient hospitalization. ROS: Constitutional: denied Cardiovascular: denied Respiratory: denied Gastrointestinal: denied Neurological: denied Psychiatric: denies symptoms other than stated above Total of at least 10 systems reviewed, pertinent positives as above and in HPI. Transition of Care Transition Of Care Record: was reviewed with the patient Advance Directives Advance Directives Information Provided: Yes Advance Directives: No Mental Health Advance Directive: No Advance Directives on File: No Living Will: No Power of Wet Process Miller Head Assistant: No Advance Directives Reason:: Declines as Mental Health Visit. Risk Factors Assessment Presenting risk factors reviewed on discharge. Precipitating stressors mitigated by: admission for inpatient psychiatric observation and treatment, appropriate adjustments to medications to target symptoms, attendance of therapeutic treatment groups, development of healthy and effective coping strategies, involvement of outpatient supports, completion of a safety plan, discussion of pursuing mobile medication management, treatment of medical conditions and education on diagnoses. Pt has demonstrated improvement in condition with regard to improvement in level of anxiety, resolution of suicidal ideation, and improved ability to manage episodic intrusive thoughts - which have reportedly improved with regard to frequency and severity. At this time, patient is requesting discharge and is no longer considered to be at acute risk of harm to himself or others. Pt will be discharged with recommendation for ongoing outpatient psychiatric treatment. Male: Yes : Yes Do You Have Access To A Gun?: No Health Problems: Yes Mental Health Diagnoses: Yes Previous Attempt: No Family History of Suicide: Yes Previous Psychiatric Hospitalization: Yes Hopelessness: Yes Smoker: Yes Protective Factors Assessment [facility] Beliefs: Yes : No Responsible for Young Children: No Employed: No Stable Relationships: No Supportive Family: Yes Tobacco Cessation at Discharge Tobacco Cessation Medication Prescribed at Discharge: Offered & Prescribed (pt has supply at home from last admission) Total Time Total Time Spent: Greater Than 30 Minutes Total Time Includes: Examination of the patient, Discharge Planning, Medication Reconciliation and Communication with other providers Discharge Data Lab Results 04/23/19 04/23/19 04/23/19 22:10 22:10 22:51 WBC 13.82 H RBC 4.63 L Hgb 14.5 Hct 43.9 MCV 94.8 MCH 31.3 MCHC 33.0 RDW Std Deviation 47.8 H RDW Coeff of Jeffry 13.8 Plt Count 277 MPV 9.4 Immature Gran % (Auto) 0.3 Neut % (Auto) 72.4 Lymph % (Auto) 19.0 [place] % (Auto) 4.2 Eos % (Auto) 3.9 Baso % (Auto) 0.2 Immature Gran # (Auto) 0.04 H Neut # (Auto) 10.00 H Lymph # (Auto) 2.63 [place] # (Auto) 0.58 Eos # (Auto) 0.54 H Baso # (Auto) 0.03 Sodium Potassium Chloride Carbon Dioxide Anion Gap BUN Creatinine Est Cr Clr Drug Dosing Est GFR ( Amer) Est GFR (Non-Af Amer) BUN/Creatinine Ratio Glucose Fasting Glucose Calcium Total Bilirubin AST ALT Alkaline Phosphatase Total Protein Albumin Globulin Albumin/Globulin Ratio Triglycerides Cholesterol LDL Cholesterol, Calc VLDL Cholesterol, Calc HDL Cholesterol Cholesterol/HDL Ratio TSH Urine Color Yellow Urine Appearance Clear Urine pH 7.0 Ur Specific [place] 1.010 Urine Protein Negative Urine Glucose (UA) Negative Urine Ketones Negative Urine Blood Negative Urine Nitrite Negative Urine Bilirubin Negative Urine Urobilinogen Negative Ur Leukocyte Esterase Negative Salicylates Urine Opiates Screen Neg Ur Methadone, Qual Neg Acetaminophen Urine Barbiturates Neg Ur Phencyclidine (PCP) Neg U Amphetamin/Meth Scrn Neg MDMA (Ecstasy) Screen Neg U Benzodiazepines Scrn Neg [place] Ur Cocaine Metabolite Neg U Marijuana (THC) Screen Neg Ethyl Alcohol mg/dL 04/23/19 04/23/19 04/23/19 22:51 22:51 22:51 WBC RBC Hgb Hct MCV MCH MCHC RDW Std Deviation RDW Coeff of Jeffry Plt Count MPV Immature Gran % (Auto) Neut % (Auto) Lymph % (Auto) [place] % (Auto) Eos % (Auto) Baso % (Auto) Immature Gran # (Auto) Neut # (Auto) Lymph # (Auto) [place] # (Auto) Eos # (Auto) Baso # (Auto) Sodium 138 Potassium 3.8 Chloride 104 Carbon Dioxide 28 Anion Gap 6.0 BUN 19 H Creatinine 1.46 H Est Cr Clr Drug Dosing 44.6 Est GFR ( Amer) 56.1 Est GFR (Non-Af Amer) 48.4 BUN/Creatinine Ratio 13.3 Glucose 105 H Fasting Glucose Calcium 9.1 Total Bilirubin 0.2 AST 8 L ALT 14 Alkaline Phosphatase 144 H Total Protein 7.8 Albumin 3.5 Globulin 4.3 H Albumin/Globulin Ratio 0.8 L Triglycerides Cholesterol LDL Cholesterol, Calc VLDL Cholesterol, Calc HDL Cholesterol Cholesterol/HDL Ratio TSH 2.570 Urine Color Urine Appearance Urine pH Ur Specific [place] Urine Protein Urine Glucose (UA) Urine Ketones Urine Blood Urine Nitrite Urine Bilirubin Urine Urobilinogen Ur Leukocyte Esterase Salicylates 3.9 Urine Opiates Screen Ur Methadone, Qual Acetaminophen < 2 L Urine Barbiturates Ur Phencyclidine (PCP) U Amphetamin/Meth Scrn MDMA (Ecstasy) Screen U Benzodiazepines Scrn [place] Ur Cocaine Metabolite U Marijuana (THC) Screen Ethyl Alcohol mg/dL < 3.0 04/23/19 04/26/19 22:51 06:47 WBC RBC Hgb Hct MCV MCH MCHC RDW Std Deviation RDW Coeff of Jeffry Plt Count MPV Immature Gran % (Auto) Neut % (Auto) Lymph % (Auto) [place] % (Auto) Eos % (Auto) Baso % (Auto) Immature Gran # (Auto) Neut # (Auto) Lymph # (Auto) [place] # (Auto) Eos # (Auto) Baso # (Auto) Sodium Potassium Chloride Carbon Dioxide Anion Gap BUN Creatinine Est Cr Clr Drug Dosing Est GFR ( Amer) Est GFR (Non-Af Amer) BUN/Creatinine Ratio Glucose Fasting Glucose 97 Calcium Total Bilirubin AST ALT Alkaline Phosphatase Total Protein Albumin Globulin Albumin/Globulin Ratio Triglycerides 91 Cholesterol 138 LDL Cholesterol, Calc 81 VLDL Cholesterol, Calc 18 HDL Cholesterol 39 Cholesterol/HDL Ratio 4 TSH Urine Color Urine Appearance Urine pH Ur Specific [place] Urine Protein Urine Glucose (UA) Urine Ketones Urine Blood Urine Nitrite Urine Bilirubin Urine Urobilinogen Ur Leukocyte Esterase Salicylates Urine Opiates Screen Ur Methadone, Qual Acetaminophen Urine Barbiturates Ur Phencyclidine (PCP) U Amphetamin/Meth Scrn MDMA (Ecstasy) Screen U Benzodiazepines Scrn [place] 0.5 L Ur Cocaine Metabolite U Marijuana (THC) Screen Ethyl Alcohol mg/dL Hospital Course (1) Bipolar disorder: 04/24 - Continue olanzapine 20mg qHS - Continue lithium 300mg BID - level in the ED was 0.5 - Encourage participation in group and recreational programming - Coordinate treatment with outpatient supports - Involve supports (likely brother) in family meeting to discuss safety and discharge planning 04/25 - Reporting improvement in condition today, patient seemingly more talkative and less preoccupied with psychiatric symptoms - Continue olanzapine 20mg qHS and lithium 300mg BID - Will get fasting glucose and lipid panel for tomorrow morning - last results available were from 07/2018, all values WNL at that time - Continue to coordinate outpatient treatment and support services prior to discharge 04/26 - Fasting glucose and cholesterol panel all WNLs. - Continue current meds as symptoms improving. Encourage patient to consider [facility] vs increased in home and OP supports ([facility], [facility], etc) - Will coordinate wit Office of [facility] and [facility] tomorrow when offices reopen 04/27 - Continue current medication regimen, ongoing conversation regarding ways to improve outpatient socialization and support - Continue coordination attempts with [facility] and case management 04/28 - Pt reporting mild improvement overall, but remains unable to contract for safety outside of the inpatient setting - He states that he continues to experience intrusive thoughts which he continues to call "voices" - Continue coordination of safe discharge plan, as it remains unlike that patient could adequately care for his personal needs in his current condition - Continue attempts to coordinate care with brother, CM, and [facility] 04/29 -Continue medication regimen unchanged (2) EMILIANO (generalized anxiety disorder): 04/24 - Continue current doses of buspirone 10mg TID, lorazepam 0.5mg TID, and gabapentin 400mg TID - Continue to encourage development of healthy and effective coping strategies - Encourage participation in group and recreational programming 04/25 - Continues as above, patient reports improvement overall and anxiety 04/27 - Pt reporting improvement in overall anxiety, but difficulty falling asleep - Discussed proper sleep hygiene - recommendation to eliminate coffee after 3pm (patient reporting he is drinking decaf coffee until 9-10pm) 04/30 -Likely experiencing a little anticipatory anxiety about pending discharge. Reassured patient he will have an opportunity to be reevaluated by the primary team in the morning will ultimately make the decision about his readiness discharge. (3) Cognitive change: 04/24 - Pt scored a 16/30 on MoCA assessment last admission, indicating concern for cognitive deficits - Medical reporting form completed and faxed to [facility] - will follow-up on this to determine where the process is at, as patient admits to continuing to drive 04/26 - Again reviewed that he has been reported to [facility] and is not medically safe to drive. 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 Will need to contact [facility] to ensure they received form and have necessary info. 04/27 - Repeated MoCA assessment today scoring a 20/30, which demonstrated mild improvement in cognitive functioning - (16/30 on 04/10/19) - Pt demonstrated deficits in visuospatial/executive functioning in regard to inability to accurate copy the cube drawing and lost a point for number placement on the clock drawing. Clock hands were drawn appropriately, patient even stating "you say the 10 first in order to trick people, but it actually does not have anything to do with the number 10." On tasks related to attention, patient once unable to repeat a list of digits in the backwards order. For serial sevens subtraction, patient was able to correctly subtract 3 values. On language tasks, patient repeated the first sentence in a concrete manner, eliminating words and therefore saying "I only know that Garry helped today." On the fluency task, patient was only able to name 9 words beginning with the letter F. Patient lost 1 point for abstract thinking, as his explanation of how a train and a bicycle are alike was "they both have wheels, and they both can be stopped." Patient could only name 2 out of 5 words for delayed recall. He was oriented to person, place and time. 04/30 -Recommend referral for outpatient neuropsychological battery to better clarify deficits and areas of need regarding supportive services available (4) HTN (hypertension): 04/24 - Pt continues to be hypertensive and tachycardic - Suggest titrating propranolol to 40mg BID 04/25 - Blood pressure seemingly improved today, will continue to monitor with daily vitals (5) Tobacco abuse: 04/24 - Continue nicotine patch at 14mg daily - Offer education into smoking cessation (6) COPD (chronic obstructive pulmonary disease): 04/24 - Condition appearing stable at this time (7) History of ETOH abuse: 04/24 - Pt continues to report stable, limited alcohol use - Pt stating he consumed 1 shot of whiskey since discharge on 04/13 (8) PVD (peripheral vascular disease): 04/24 - Continue home dose of Plavix and Aspirin Mental Health & Subst Abuse Tx Psychiatrist Name of Psychiatrist: Domenico Viera PA-C Psychiatrist's Date of Appointment with Psychiatrist: 05/15/19 Time of Appointment with Psychiatrist: 11:30 Psychiatric Appointment Comment: [address] [facility], [address] Floor, [place] [address] Therapist Name of Therapist: . Date of Therapist Appointment: 04/28/19 [facility] Name of [facility]anging: PANFILO Watson Phone Number for [facility]: [phone] Date of Appointment with [facility]: 05/01/19 Time of Appointment with [facility]: 5 pm Case Management Appointment Comment: at your home Post Discharge Appointments Primary Care Physician Name Of Family Doctor: Dereck Angulo Primary [facility] Date of Appointment with PCP: 05/08/19 Time of Appointment with PCP: 5:25 p.m. Provider Appointment Comment: [address] [place] [address] Smoking Cessation Counseling Tobacco Cessation Medication Prescribed at Discharge: Offered & Prescribed (pt has supply at home from last admission) Other #1: Name of Aftercare Appointment: [facility] Phone Number of Aftercare Appointment: Aftercare Appointment Comment: She will call to schedule to meet with you and offer services #2: Name of Aftercare Appointment: DO NOT DRIVE UNTIL FURTHER EVALUATION, [facility] HAS BEEN NOTIFIED Contact Information Discharge Discharge Address: [address] [place] [address] Discharge Plan Discharge Items Patient Disposition: Home - Self-Care Reason For Visit: BIPOLAR Discharge Diagnosis: - Bipolar disorder - Anxiety disorder Condition on Discharge: Fair Activity: Resume your previous activity Non-emergency contact: Primary Care Provider, Psychiatrist, Therapist and Contact Center Assistant Call non-emergency contact if: you have any medication questions and your symptoms worsen Follow-up/Referrals: Christelle Angulo MD [Primary Care Provider] - Diet: Regular Addtl Attending Provider Instructions: SPECIAL CARE INSTRUCTIONS: 1. Follow through with your scheduled aftercare appointments. If unable to keep an appointment, please call to reschedule. 2. Take your medication only as prescribed. Medication should not be changed or stopped without the approval of your doctor. In the event of worsening symptoms or concerns about side effects, contact your doctor immediately. 3. Utilize new healthy coping skills, anger management skills, and stress management skills learned during your hospitalization. Journal feelings and process them with a support person. Identify stressors or situations that may result in relapse, deterioration or inappropriate behaviors and develop a plan to deal with those issues. 4. If your coping skills are ineffective and you are in crisis, contact your outpatient providers for direction. If unable to reach your providers, please call the CAN HELP LINE AT or go to the closest Emergency Room. 5. Avoid alcohol and un-prescribed drugs. 6. You have been provided with the Mental Health Advance Directives Pamphlet for your review. 7. IT IS NOT RECOMMENDED THAT YOU BE DRIVING AT THIS TIME. You and your supports have been informed that your psychiatric condition has been reported to [facility]. You are not to be driving until you receive further evaluation through [facility]. AFTERCARE APPOINTMENTS: * Please call your insurance company prior to your scheduled appointment to confirm your aftercare providers are covered. Take your insurance information to your appointments. WHO TO CALL AND WHEN: Medical Emergencies: For questions or emergencies related to your hospital stay, please contact the Inpatient Behavioral Health Unit at [phone]. A contact center director is on-call 23/11 for the Behavioral Health Unit for emergencies At any time you feel your situation is an emergency, you may also call 911 immediately. Your Discharge Instructions noted above were prepared by provider Roxanne Ladd PA-C. Pending Studies at Discharge: No Stand-Alone Forms: My [facility], Smoking Cessation, Suicide Prevention Resources Medications and DC Order Prescriptions: New propranolol 40 mg tablet 40 mg PO BID 30 Days Qty: 60 RF: 0 trazodone 50 mg Tablet 150 mg PO HS 30 Days Qty: 90 RF: 0 Continued gabapentin 400 mg Capsule 400 mg PO TID RF: 0 thiamine HCl (vitamin B1) [Vitamin B-1] 100 mg Tablet 100 mg PO DAILY RF: 0 clopidogrel 75 mg Tablet 75 mg PO DAILY RF: 0 pantoprazole 40 mg Tablet,Delayed Release (Dr/Ec) 40 mg PO DAILY RF: 0 olanzapine 20 mg Tablet 20 mg PO PM RF: 0 aspirin [Aspir-81] 81 mg Tablet,Delayed Release (Dr/Ec) 81 mg PO DAILY RF: 0 rosuvastatin [Crestor] 40 mg Tablet 40 mg PO HS RF: 0 nicotine [Nicoderm CQ] 14 mg/24 hr patch 24 hour 1 patch TD DAILY Qty: 14 RF: 0 buspirone 5 mg Tablet 10 mg PO TID 30 Days Qty: 180 RF: 0 hydroxyzine HCl 25 mg Tablet 100 mg PO HS PRN (Reason: Sleep) 15 Days Qty: 60 RF: 1 lithium carbonate 300 mg capsule 300 mg PO BID Qty: 60 RF: 0 lorazepam [Ativan] 0.5 mg tablet 0.5 mg PO TID RF: 0 Changed fluticasone propionate [Flonase Allergy Relief] 50 mcg/actuation Raymond,Suspension 1 spray INTRANASAL BID Qty: 0 RF: 0 Discontinued hydroxyzine pamoate 50 mg Capsule 50 mg PO BID RF: 0 trazodone 100 mg Tablet 100 mg PO HS Qty: 30 RF: 0 mirtazapine 15 mg Tablet 15 mg PO HS Qty: 30 RF: 0 propranolol 20 mg Tablet 20 mg PO BID 30 Days Qty: 60 RF: 0 Discharge Orders: Discharge Order (Routine); Ordered 05/01/19 Ordered By: Roxanne Ladd Admission Data Admit Date/Time: 04/24/19 01:32 Attending Provider: Krysta Peoples Admit Provider: Karen Harris Primary Care Provider: Christelle Angulo Other Interventions: Discharge Summary Assessment (RN) Last Done: 05/01/19 10:19 PSY Interdisciplinary Discharge Planning Last Done: 05/01/19 10:18 Coding Level of Care Code 79598 D/C day mgmt > 30 min Diagnoses Bipolar disorder F31.9 Active/Remission status: remission status unspecified EMILIANO (generalized anxiety disorder) F41.1 Cognitive change R41.89 HTN (hypertension) I10 Hypertension type: essential hypertension Tobacco abuse Z72.0 COPD (chronic obstructive pulmonary disease) J44.9 COPD type: unspecified COPD History of ETOH abuse Z87.898 PVD (peripheral vascular disease) I73.9
== END 2019-05-01 13:21 | disposition home or self-care (01) | DRG 885 ==
LOC: ED 21:49 → SUATTDRO 04-24 01:32 → 3S 04-24 01:32